=== PATIENT | male | born 1955 | race Caucasian/White ===

== ENCOUNTER 2022-01-21 12:59 | Inpatient (IN) | payer MEDICAID ==
[~2022-01-21] VITALS: Ht 165.1 cm; Wt 68.7 kg
[2022-01-21] VITALS (20 sets, daily range): BP systolic 89–134; BP diastolic 49–64
[2022-01-21 13:58] LABS: BASOPHILS # (AUTO) 0.3 K/uL (0.0-0.2); BASOPHILS % (AUTO) 1.5 % (0.0-2.0); EOSINOPHILS % (AUTO) 3.6 % (0.0-6.0); HEMATOCRIT 25 % (39-51); HEMOGLOBIN 7.9 g/dL (13.5-17.5); LYMPHOCYTES # (AUTO) 0.3 K/uL (0.8-4.8); LYMPHOCYTES % (AUTO) 1.6 % (20.0-44.0); MEAN CORPUSCULAR HGB CONC 32 g/dl (31.0-36.0); MEAN CORPUSCULAR VOLUME 85 fL (80-96); MONOCYTES # (AUTO) 0.6 K/uL (0.1-1.30); MONOCYTES % (AUTO) 3.1 % (2.0-12.0); NEUTROPHILS # (AUTO) 17.9 K/uL (1.8-8.9); NEUTROPHILS % (AUTO) 90.2 % (43.0-81.0); PLATELET COUNT (AUTO) 88 K/uL (150-450); RED BLOOD CELL COUNT(AUTO) 2.87 MIL/uL (4.5-6.0); WHITE BLOOD COUNT (AUTO) 19.9 K/uL (4.3-11.0)
[2022-01-21] MEDS ORDERED: ONDANSETRON 4 MG TAB.RAPDIS ONE (14:05)
[2022-01-21 14:09] LABS: ALBUMIN 2.3 g/dL (3.4-5.0); BILIRUBIN,DIRECT 0.4 mg/dL (0.0-0.2); BILIRUBIN,TOTAL 0.8 mg/dL (0.2-1.0); CALCIUM, SERUM 7.8 mg/dL (8.5-10.1); TOTAL PROTEIN, SERUM 6.1 g/dL (6.4-8.2)
[2022-01-21] MEDS ORDERED: IV NS 0.9% 1,000 ML BAG IV ONE ×2 (14:30→15:00)
[2022-01-21] MEDS ORDERED: OCTREOTIDE 50 MCG/ML AMPUL IV ONE (15:00)
[2022-01-21] MEDS ORDERED: PANTOPRAZOLE 80 MG in IV NS 0.9% 100 ML IV ONE (15:00)
[2022-01-21] MEDS ORDERED: Calcium Gluconate 1GM/10ML 4.65 MEQ in IV D5W 50 ML IV ONE (15:00)
[2022-01-21] MEDS ORDERED: CEFTRIAXONE 1GM BAG (ER ONLY) 50 ML IV ONE ×2 (15:00→15:18)
[2022-01-21] MEDS ORDERED: DEXTROSE 50%-WATER 50 ML DISP.SYRIN IVP ONE (15:00)
[2022-01-21] MEDS ORDERED: DEXTROSE 50%-WATER 50 ML DISP.SYRIN ONE (15:18)
[2022-01-21] MEDS ORDERED: OCTREOTIDE 100 MCG/ML VIAL ONE (15:18)
[2022-01-21] MEDS ORDERED: ACETAMINOPHEN 650 MG/SUPP.RECT RC ONE ×2 (15:27→15:30)
[2022-01-21] MEDS ORDERED: ONDANSETRON 4 MG TAB.RAPDIS SL ONE (15:30)
[2022-01-21] MEDS ORDERED: METOCLOPRAMIDE HCL 10 MG/2 ML VIAL IV ONE (15:30)
[2022-01-21 15:34] LABS: BAND % (MANUAL) 32 % (0.0-5.0); LYMPHOCYTES % (MANUAL) 4 % (16-48); MONOCYTES % (MANUAL) 3 % (0-11.0); NEUTROPHILS % (MANUAL) 58 (42-76); REACTIVE LYMPHOCYTES 2 % (0-0)
[2022-01-21] MEDS ORDERED: METOCLOPRAMIDE HCL 10 MG/2 ML VIAL ONE (15:40)
[2022-01-21 15:44] LABS: ABG BASE EXCESS -10.1 mmol/L; ABG OXYGEN SATURATION 93.1 % (92.0-98.5); ABG PCO2 31.1 mmHg (35.0-45.0); ABG PH 7.308 (7.350-7.450); ABG PO2 81.2 mmHg (75.0-100.0); AaDO2 204.3 mmHg; COHb 0.2 % (0.5-1.5); MetHb 0.6 % (0.0-1.5); O2Hb 92.4 % (94.0-97.0); SITE, ABG Right Brachial; VENT MODE, BG nasal cannula
[2022-01-21] MEDS ORDERED: ANESTHESIA TRAY IN PYXIS 1 EA TRAY MC ONE ×2 (16:16→22:44)
[2022-01-21] MEDS ORDERED: FAMOTIDINE/PF INJ 20 MG/2 ML VIAL IV ONE (17:00)
[2022-01-21] MEDS ORDERED: PANTOPRAZOLE 40 MG VIAL IV SCH (17:00)
[2022-01-21] MEDS ORDERED: Z GUARD REMEDY 4 OZ OINT TP PRN (17:00)
[2022-01-21] MEDS ORDERED: SUCCINYLCHOLINE CHLORIDE 20 MG/ML VIAL ONE (17:01)
[2022-01-21] MEDS ORDERED: PROPOFOL 100 ML ONE (17:13)
[2022-01-21] MEDS ORDERED: ROCURONIUM BROMIDE 100 MG/10 ML VIAL IV ONE (17:30)
[2022-01-21] MEDS ORDERED: NOREPINEPHRINE 8 MG in IV NS 0.9% 242 ML IV PRN ×2 (17:30→19:00)
[2022-01-21] MEDS ORDERED: VANCOMYCIN 500 MG in IV D5W 100ml IV SCH (17:30)
[2022-01-21] MEDS ORDERED: ETOMIDATE 2 MG/ML VIAL IV ONE (17:30)
[2022-01-21] MEDS ORDERED: PANTOPRAZOLE 40 MG VIAL ONE (17:57)
[2022-01-21] MEDS: NOREPINEPHRINE 8 MG in IV NS 0.9% 242 ML IV PRN (19:15)
[2022-01-21] MEDS ORDERED: CEFTRIAXONE 1 G in IV D5W 50 ML IV SCH (19:30)
[2022-01-21] MEDS ORDERED: OCTREOTIDE 500 MCG/ML VIAL ONE (19:36)
[2022-01-21] MEDS: PANTOPRAZOLE 80 MG in IV NS 0.9% 500 ML IV PRN (19:38)
[2022-01-21] MEDS: OCTREOTIDE 1,250 MCG in IV NS 0.9% 247.5 ML IV PRN (19:39)
[2022-01-21] MEDS: PROPOFOL 100 ML IV PRN (19:50)
[2022-01-21] MEDS: IV NS 0.9% 250 ML IV PRN (19:50)
[2022-01-21] MEDS ORDERED: METRONIDAZOLE 500MG/ NS 100ML 100 ML IV ONE (19:54)
[2022-01-21 20:10] LABS: HEMOGLOBIN 8.2 g/dL (13.5-17.5)
[2022-01-21 20:14] LABS: ABG BASE EXCESS -13.6 mmol/L; ABG OXYGEN SATURATION 96.6 % (92.0-98.5); ABG PCO2 52.8 mmHg (35.0-45.0); ABG PO2 112.9 mmHg (75.0-100.0); AaDO2 547.3 mmHg; COHb 0.6 % (0.5-1.5); MetHb 0.5 % (0.0-1.5); O2Hb 95.5 % (94.0-97.0); PEEP,BG 5 cm H2O; SITE, ABG Right Radial; VT, ABG 500 mL
[2022-01-21] MEDS: METRONIDAZOLE 500MG/ NS 100ML 500 MG in PREMIX 1 EA IV SCH (20:47)
[2022-01-22] VITALS (100 sets, daily range): BP systolic 85–126; BP diastolic 44–60
[2022-01-22 03:02] LABS: ABG BASE EXCESS -13.4 mmol/L; ABG OXYGEN SATURATION 98.7 % (92.0-98.5); ABG PCO2 67.4 mmHg (35.0-45.0); ABG PH 7.022 (7.350-7.450); ABG PO2 192.3 mmHg (75.0-100.0); AaDO2 453.3 mmHg; COHb 0.3 % (0.5-1.5); MetHb 0.7 % (0.0-1.5); O2Hb 97.7 % (94.0-97.0); PEEP,BG 0 cm H2O; SITE, ABG Left Radial; VENT MODE, BG AC18 500 100% PEEP+0; VT, ABG 500 mL
[2022-01-22] MEDS: NOREPINEPHRINE 8 MG in IV NS 0.9% 242 ML IV PRN ×2 (03:21→09:17)
[2022-01-22] MEDS ORDERED: PANTOPRAZOLE 40 MG VIAL ONE (03:23)
[2022-01-22] MEDS: METRONIDAZOLE 500MG/ NS 100ML 500 MG in PREMIX 1 EA IV SCH (04:06)
[2022-01-22] MEDS: PANTOPRAZOLE 80 MG in IV NS 0.9% 500 ML IV PRN ×2 (04:06→14:38)
[2022-01-22 05:12] LABS: BASOPHILS % (AUTO) 0.1 % (0.0-2.0); EOSINOPHILS % (AUTO) 4.3 % (0.0-6.0); HEMATOCRIT 25 % (39-51); HEMOGLOBIN 7.9 g/dL (13.5-17.5); LYMPHOCYTES # (AUTO) 0.4 K/uL (0.8-4.8); LYMPHOCYTES % (AUTO) 3.1 % (20.0-44.0); MEAN CORPUSCULAR HGB CONC 32 g/dl (31.0-36.0); MEAN CORPUSCULAR VOLUME 87 fL (80-96); MONOCYTES # (AUTO) 0.5 K/uL (0.1-1.30); MONOCYTES % (AUTO) 3.6 % (2.0-12.0); NEUTROPHILS # (AUTO) 11.4 K/uL (1.8-8.9); NEUTROPHILS % (AUTO) 88.9 % (43.0-81.0); RED BLOOD CELL COUNT(AUTO) 2.83 MIL/uL (4.5-6.0); WHITE BLOOD COUNT (AUTO) 12.8 K/uL (4.3-11.0)
[2022-01-22 05:17] LABS: ALBUMIN 1.8 g/dL (3.4-5.0); BILIRUBIN,DIRECT 0.6 mg/dL (0.0-0.2); BILIRUBIN,TOTAL 0.9 mg/dL (0.2-1.0); CALCIUM, SERUM 6.7 mg/dL (8.5-10.1); CREATININE 5.6 mg/dL (0.6-1.3); MAGNESIUM 2.1 mg/dL (1.8-2.4); POTASSIUM 4.5 mmol/L (3.5-5.1); THYROID STIMULATING HORMONE 0.22 uIU/mL (0.358-3.74); TOTAL PROTEIN, SERUM 5.1 g/dL (6.4-8.2)
[2022-01-22 05:44] LABS: PHOSPHORUS 8.9 mg/dL (2.5-4.9)
[2022-01-22] MEDS ORDERED: CEFTRIAXONE 2 G in IV D5W 100 ML IV SCH (06:00)
[2022-01-22 08:07] LABS: ABG BASE EXCESS -11.5 mmol/L; ABG OXYGEN SATURATION 96.8 % (92.0-98.5); ABG PCO2 37.3 mmHg (35.0-45.0); ABG PH 7.228 (7.350-7.450); ABG PO2 95.8 mmHg (75.0-100.0); AaDO2 435.4 mmHg; COHb 0.2 % (0.5-1.5); MetHb 0.3 % (0.0-1.5); O2Hb 96.3 % (94.0-97.0); SITE, ABG Right Radial
[2022-01-22] MEDS: PROPOFOL 100 ML IV PRN ×2 (08:15→16:03)
[2022-01-22] MEDS: ACETAMINOPHEN 650 MG/SUPP.RECT RC PRN (09:01)
[2022-01-22 09:32] LABS: PLATELET COUNT (AUTO) 47 K/uL (150-450)
[2022-01-22] MEDS ORDERED: SODIUM BICARBONATE SYR 50 MEQ/50 ML DISP.SYRIN IV ONE (10:00)
[2022-01-22] MEDS: Sodium Bicarbonate 100 MEQ in IV NS 0.9% 1,000 ML IV SCH (10:29)
[2022-01-22] MEDS ORDERED: CEFTRIAXONE 1 G in IV D5W 50 ML IV SCH (11:00)
[2022-01-22] MEDS ORDERED: PIPERACILLIN /TAZOBACTAM 2.25 G in IV D5W 50 ML IV SCH (12:00)
[2022-01-22 12:42] LABS: BAND % (MANUAL) 12 % (0.0-5.0); LYMPHOCYTES % (MANUAL) 8 % (16-48); MONOCYTES % (MANUAL) 8 % (0-11.0); MYELOCYTES % 1 % (0-0); NEUTROPHILS % (MANUAL) 71 (42-76)
[2022-01-22] MEDS ORDERED: CEFAZOLIN 1 GM VIAL IV ONE (12:45)
[2022-01-22] MEDS ORDERED: IV D5W 50 ML BAG IV ONE (12:45)
[2022-01-22] MEDS: NOREPINEPHRINE 32 MG in IV NS 0.9% 218 ML IV PRN (14:28)
[2022-01-22] MEDS: OCTREOTIDE 1,250 MCG in IV NS 0.9% 247.5 ML IV PRN (20:40)
[2022-01-22] MEDS: IV NS 0.9% 250 ML IV PRN (22:01)
[2022-01-23] VITALS (97 sets, daily range): BP systolic 73–123; BP diastolic 38–62
[2022-01-23] MEDS: PANTOPRAZOLE 80 MG in IV NS 0.9% 500 ML IV PRN ×3 (00:02→20:01)
[2022-01-23] MEDS: PROPOFOL 100 ML IV PRN ×4 (00:02→22:27)
[2022-01-23] MEDS: Sodium Bicarbonate 100 MEQ in IV NS 0.9% 1,000 ML IV SCH ×2 (01:01→14:34)
[2022-01-23 04:51] LABS: BILIRUBIN,URINE NEGATIVE (NEGATIVE); COLOR,URINE YELLOW (YELLOW); LEUKOCYTE ESTERASE ,URINE TRACE (NEGATIVE); NITRITE, URINE POSITIVE (NEGATIVE); PROTEIN,URINE >=300 mg/dl (NEGATIVE); UGLUCOSE NEGATIVE (NEGATIVE); UROBILINOGEN,URINE 0.2 EU/dL (0.2)
[2022-01-23 04:54] LABS: EOSINOPHILS % (AUTO) 6.7 % (0.0-6.0); HEMATOCRIT 25 % (39-51); HEMOGLOBIN 8.1 g/dL (13.5-17.5); LYMPHOCYTES # (AUTO) 0.6 K/uL (0.8-4.8); LYMPHOCYTES % (AUTO) 2.8 % (20.0-44.0); MEAN CORPUSCULAR HGB CONC 33 g/dl (31.0-36.0); MEAN CORPUSCULAR VOLUME 87 fL (80-96); MONOCYTES % (AUTO) 4.9 % (2.0-12.0); NEUTROPHILS # (AUTO) 17.5 K/uL (1.8-8.9); NEUTROPHILS % (AUTO) 85.6 % (43.0-81.0); RED BLOOD CELL COUNT(AUTO) 2.81 MIL/uL (4.5-6.0); WHITE BLOOD COUNT (AUTO) 20.4 K/uL (4.3-11.0)
[2022-01-23 05:25] LABS: CALCIUM, SERUM 6.1 mg/dL (8.5-10.1); CREATININE 6.7 mg/dL (0.6-1.3); MAGNESIUM 2.1 mg/dL (1.8-2.4); POTASSIUM 4.7 mmol/L (3.5-5.1)
[2022-01-23 05:38] LABS: URINE SODIUM, RANDOM 140 mmol/l (40-220)
[2022-01-23 05:47] LABS: CREATININE, URINE < 5.0 MG/DL (30.0-125.0)
[2022-01-23 05:57] LABS: PHOSPHORUS 8.7 mg/dL (2.5-4.9)
[2022-01-23] MEDS ORDERED: VANCOMYCIN 500 MG in IV D5W 100ml IV SCH (06:00)
[2022-01-23] MEDS ORDERED: CEFTRIAXONE 2 G in IV D5W 100 ML IV SCH (06:00)
[2022-01-23 07:02] LABS: BACTERIA,URINE Few /HPF (None Seen); RBC,URINE 51-80 /HPF (0-2); SQUAMOUS EPITHELIAL CELL,UR Rare /HPF (None Seen)
[2022-01-23 07:28] LABS: PLATELET COUNT (AUTO) 9 K/uL (150-450)
[2022-01-23 07:36] LABS: BAND % (MANUAL) 8 % (0.0-5.0); EOSINOPHILS % (MANUAL) 1 % (0-4); LYMPHOCYTES % (MANUAL) 2 % (16-48); METAMYELOCYTES % 1 % (0-0); MONOCYTES % (MANUAL) 6 % (0-11.0); MYELOCYTES % 1 % (0-0); NEUTROPHILS % (MANUAL) 81 (42-76)
[2022-01-23 07:52] LABS: ABG BASE EXCESS -11.1 mmol/L; ABG PCO2 33.7 mmHg (35.0-45.0); ABG PH 7.264 (7.350-7.450); ABG PO2 89.9 mmHg (75.0-100.0); AaDO2 228.7 mmHg; COHb 0.3 % (0.5-1.5); MetHb 0.5 % (0.0-1.5); O2Hb 95.2 % (94.0-97.0); SITE, ABG Right Radial
[2022-01-23] MEDS: NOREPINEPHRINE 32 MG in IV NS 0.9% 218 ML IV PRN ×2 (08:14→23:34)
[2022-01-23 10:09] LABS: EOSINOPHIL,URINE Rare
[2022-01-23 15:16] LABS: URINE TOTAL PROTEIN 837.2 mg/dL (0-11.9)
[2022-01-23] MEDS: MEROPENEM 500 MG in IV NS 0.9% 50 ML IV SCH (16:26)
[2022-01-23] MEDS ORDERED: PHYTONADIONE INJ 10 MG/1 ML AMPUL SQ ONE (17:30)
[2022-01-23] MEDS: Folic acid 1 MG in IV D5W 50 ML IV SCH (17:39)
[2022-01-23 18:37] LABS: D-DIMER 26.64 mg/L(FEU (0.17-0.50)
[2022-01-23] MEDS: OCTREOTIDE 1,250 MCG in IV NS 0.9% 247.5 ML IV PRN (20:01)
[2022-01-23] MEDS: IV NS 0.9% 250 ML IV PRN (23:00)
[2022-01-24] VITALS (103 sets, daily range): BP systolic 83–132; BP diastolic 38–71
[2022-01-24] MEDS: Sodium Bicarbonate 100 MEQ in IV NS 0.9% 1,000 ML IV SCH ×2 (02:45→16:16)
[2022-01-24 05:05] LABS: BILIRUBIN,TOTAL 1.1 mg/dL (0.2-1.0); CALCIUM, SERUM 6.2 mg/dL (8.5-10.1); CREATININE 6.7 mg/dL (0.6-1.3); D-DIMER 26.79 mg/L(FEU (0.17-0.50); POTASSIUM 4.5 mmol/L (3.5-5.1); TOTAL PROTEIN, SERUM 4.7 g/dL (6.4-8.2)
[2022-01-24 05:06] LABS: BASOPHILS % (AUTO) 0.1 % (0.0-2.0); HEMATOCRIT 23 % (39-51); HEMOGLOBIN 7.7 g/dL (13.5-17.5); LYMPHOCYTES # (AUTO) 0.8 K/uL (0.8-4.8); LYMPHOCYTES % (AUTO) 4.3 % (20.0-44.0); MEAN CORPUSCULAR HGB CONC 33 g/dl (31.0-36.0); MEAN CORPUSCULAR VOLUME 86 fL (80-96); MONOCYTES # (AUTO) 1.1 K/uL (0.1-1.30); MONOCYTES % (AUTO) 6.3 % (2.0-12.0); NEUTROPHILS # (AUTO) 15.9 K/uL (1.8-8.9); NEUTROPHILS % (AUTO) 88.3 % (43.0-81.0); RED BLOOD CELL COUNT(AUTO) 2.72 MIL/uL (4.5-6.0)
[2022-01-24] MEDS: PROPOFOL 100 ML IV PRN ×3 (05:06→18:16)
[2022-01-24] MEDS ORDERED: ALBUMIN 25% 100 ML IV ONE (05:10)
[2022-01-24] MEDS: ALBUMIN 25% 25 GM in PREMIX 1 EA IV PRN (05:16)
[2022-01-24] MEDS: PANTOPRAZOLE 80 MG in IV NS 0.9% 500 ML IV PRN ×2 (05:28→15:21)
[2022-01-24 05:41] LABS: ALBUMIN 1.4 g/dL (3.4-5.0)
[2022-01-24 07:59] LABS: ABG BASE EXCESS -4.4 mmol/L; ABG PCO2 33.1 mmHg (35.0-45.0); ABG PH 7.397 (7.350-7.450); ABG PO2 112.9 mmHg (75.0-100.0); AaDO2 206.4 mmHg; COHb 0.4 % (0.5-1.5); MetHb 0.5 % (0.0-1.5); O2Hb 97.1 % (94.0-97.0); SITE, ABG Right Radial
[2022-01-24 08:06] LABS: *SPE A/G RATIO 0.7 (0.7-1.7); *SPE ALPHA-1-GLOBULIN 0.4 g/dL (0.0-0.4); *SPE ALPHA-2-GLOBULIN 0.7 g/dL (0.4-1.0); *SPE BETA GLOBULIN 0.7 g/dL (0.7-1.3); *SPE M-SPIKE Not Observed g/dL (Not Observed)
[2022-01-24 08:21] LABS: PLATELET COUNT (AUTO) 13 K/uL (150-450)
[2022-01-24] MEDS: MEROPENEM 500 MG in IV NS 0.9% 50 ML IV SCH (15:21)
[2022-01-24 17:03] LABS: BAND % (MANUAL) 2 % (0.0-5.0); EOSINOPHILS % (MANUAL) 1 % (0-4); LYMPHOCYTES % (MANUAL) 6 % (16-48); MONOCYTES % (MANUAL) 3 % (0-11.0); NEUTROPHILS % (MANUAL) 88 (42-76)
[2022-01-24] MEDS: Folic acid 1 MG in IV D5W 50 ML IV SCH (18:16)
[2022-01-24] MEDS: OCTREOTIDE 1,250 MCG in IV NS 0.9% 247.5 ML IV PRN (21:11)
[2022-01-25] VITALS (104 sets, daily range): BP systolic 86–147; BP diastolic 42–102
[2022-01-25] MEDS: PANTOPRAZOLE 80 MG in IV NS 0.9% 500 ML IV PRN (00:27)
[2022-01-25] MEDS: PROPOFOL 100 ML IV PRN ×4 (00:27→23:35)
[2022-01-25 04:23] LABS: BASOPHILS % (AUTO) 0.1 % (0.0-2.0); EOSINOPHILS % (AUTO) 0.8 % (0.0-6.0); HEMATOCRIT 22 % (39-51); HEMOGLOBIN 7.3 g/dL (13.5-17.5); LYMPHOCYTES # (AUTO) 0.9 K/uL (0.8-4.8); LYMPHOCYTES % (AUTO) 5.9 % (20.0-44.0); MEAN CORPUSCULAR HGB CONC 33 g/dl (31.0-36.0); MEAN CORPUSCULAR VOLUME 85 fL (80-96); MONOCYTES # (AUTO) 1.1 K/uL (0.1-1.30); MONOCYTES % (AUTO) 7.4 % (2.0-12.0); NEUTROPHILS # (AUTO) 12.7 K/uL (1.8-8.9); NEUTROPHILS % (AUTO) 85.8 % (43.0-81.0); RED BLOOD CELL COUNT(AUTO) 2.58 MIL/uL (4.5-6.0); WHITE BLOOD COUNT (AUTO) 14.8 K/uL (4.3-11.0)
[2022-01-25 04:51] LABS: ALBUMIN 1.6 g/dL (3.4-5.0); BILIRUBIN,TOTAL 1.7 mg/dL (0.2-1.0); CALCIUM, SERUM 6.6 mg/dL (8.5-10.1); PHOSPHORUS 6.1 mg/dL (2.5-4.9); POTASSIUM 3.9 mmol/L (3.5-5.1); TOTAL PROTEIN, SERUM 4.6 g/dL (6.4-8.2)
[2022-01-25 04:59] LABS: PLATELET COUNT (AUTO) 9 K/uL (150-450)
[2022-01-25] MEDS: Sodium Bicarbonate 100 MEQ in IV NS 0.9% 1,000 ML IV SCH ×2 (05:13→18:46)
[2022-01-25 05:23] LABS: D-DIMER 17.15 mg/L(FEU (0.17-0.50)
[2022-01-25 05:50] LABS: LYMPHOCYTES % (MANUAL) 5 % (16-48); MONOCYTES % (MANUAL) 7 % (0-11.0); NEUTROPHILS % (MANUAL) 88 (42-76)
[2022-01-25 07:10] LABS: IMMUNOGLOBULIN A, SERUM 233 mg/dL (61-437); IMMUNOGLOBULIN G, SERUM 728 mg/dL (603-1613); IMMUNOGLOBULIN M, SERUM 48 mg/dL (20-172)
[2022-01-25 08:12] LABS: *SPE A/G RATIO 0.7 (0.7-1.7); *SPE ALPHA-1-GLOBULIN 0.4 g/dL (0.0-0.4); *SPE ALPHA-2-GLOBULIN 0.7 g/dL (0.4-1.0); *SPE BETA GLOBULIN 0.5 g/dL (0.7-1.3); *SPE M-SPIKE Not Observed g/dL (Not Observed)
[2022-01-25 09:12] LABS: OCCULT BLOOD STOOL POSITIVE (NEGATIVE)
[2022-01-25] MEDS ORDERED: CEFTRIAXONE 2 G in IV D5W 100 ML IV SCH (10:30)
[2022-01-25 11:10] LABS: *ANA ANTI-CENTROMERE B AB <0.2 AI (0.0-0.9); *ANA ANTI-DNA(DS) AB, QN 1 IU/mL (0-9); *ANA ANTI-JO-1 <0.2 AI (0.0-0.9); *ANA ANTICHROMATIN ANTIBODY <0.2 AI (0.0-0.9); *ANA RNP ANTIBODIES <0.2 AI (0.0-0.9); *ANA SJOGREN'S ANTI-SS-A <0.2 AI (0.0-0.9); *ANA SJOGREN'S ANTI-SS-B <0.2 AI (0.0-0.9); *ANAANTI-SCLERODERMA-70 AB <0.2 AI (0.0-0.9); *ANASMITH AB <0.2 AI (0.0-0.9)
[2022-01-25] MEDS: ZOSYN IVPB 2.25 G in IV D5W 50ml IV SCH ×3 (12:36→23:35)
[2022-01-25] MEDS: NOREPINEPHRINE 8 MG in IV NS 0.9% 242 ML IV PRN ×2 (12:37→13:24)
[2022-01-25] MEDS ORDERED: METRONIDAZOLE 500MG/ NS 100ML 500 MG in PREMIX 1 EA IV SCH (13:00)
[2022-01-25] MEDS: IV NS 0.9% 250 ML IV PRN (14:00)
[2022-01-25] MEDS: SOD FERRIC GLUC 125 MG in IV NS 0.9% 100 ML IV SCH (14:30)
[2022-01-25] MEDS: Folic acid 1 MG in IV D5W 50 ML IV SCH (17:56)
[2022-01-25] MEDS: PANTOPRAZOLE 40 MG VIAL IV SCH (20:46)
[2022-01-25] MEDS: OCTREOTIDE 1,250 MCG in IV NS 0.9% 247.5 ML IV PRN (21:08)
[2022-01-26] VITALS (96 sets, daily range): BP systolic 83–134; BP diastolic 45–78
[2022-01-26 04:23] LABS: BASOPHILS % (AUTO) 0.3 % (0.0-2.0); EOSINOPHILS % (AUTO) 0.7 % (0.0-6.0); HEMATOCRIT 23 % (39-51); HEMOGLOBIN 7.6 g/dL (13.5-17.5); MEAN CORPUSCULAR HGB CONC 33 g/dl (31.0-36.0); MEAN CORPUSCULAR VOLUME 85 fL (80-96); MONOCYTES # (AUTO) 0.9 K/uL (0.1-1.30); MONOCYTES % (AUTO) 7.1 % (2.0-12.0); NEUTROPHILS # (AUTO) 10.5 K/uL (1.8-8.9); NEUTROPHILS % (AUTO) 83.9 % (43.0-81.0); RED BLOOD CELL COUNT(AUTO) 2.72 MIL/uL (4.5-6.0); WHITE BLOOD COUNT (AUTO) 12.5 K/uL (4.3-11.0)
[2022-01-26 04:51] LABS: D-DIMER 16.25 mg/L(FEU (0.17-0.50)
[2022-01-26 05:07] LABS: PLATELET COUNT (AUTO) 24 K/uL (150-450)
[2022-01-26 05:14] LABS: CALCIUM, SERUM 6.8 mg/dL (8.5-10.1); CREATININE 4.2 mg/dL (0.6-1.3); POTASSIUM 3.8 mmol/L (3.5-5.1); TOTAL PROTEIN, SERUM 4.3 g/dL (6.4-8.2)
[2022-01-26] MEDS: ZOSYN IVPB 2.25 G in IV D5W 50ml IV SCH ×4 (05:32→23:10)
[2022-01-26] MEDS: PROPOFOL 100 ML IV PRN ×3 (05:35→17:30)
[2022-01-26 05:44] LABS: ALBUMIN 1.3 g/dL (3.4-5.0)
[2022-01-26] MEDS: Sodium Bicarbonate 100 MEQ in IV NS 0.9% 1,000 ML IV SCH ×2 (07:42→21:32)
[2022-01-26] MEDS: PANTOPRAZOLE 40 MG VIAL IV SCH ×2 (08:07→21:33)
[2022-01-26 08:16] LABS: ABG BASE EXCESS 0.9 mmol/L; ABG OXYGEN SATURATION 94.8 % (92.0-98.5); ABG PCO2 32.4 mmHg (35.0-45.0); ABG PH 7.489 (7.350-7.450); ABG PO2 79.5 mmHg (75.0-100.0); AaDO2 168.4 mmHg; COHb 0.5 % (0.5-1.5); MetHb 0.5 % (0.0-1.5); O2Hb 93.9 % (94.0-97.0); SITE, ABG Right Radial; VENT MODE, BG AC 24 vT500 +5 .40
[2022-01-26 10:11] LABS: HIV-2 AB EIA Negative (Neg:<1.00)
[2022-01-26] MEDS: NOREPINEPHRINE 8 MG in IV NS 0.9% 242 ML IV PRN (13:56)
[2022-01-26] MEDS: SOD FERRIC GLUC 125 MG in IV NS 0.9% 100 ML IV SCH (13:56)
[2022-01-26] MEDS ORDERED: FENTANYL CITRAT IV 2,500 MCG in IV NS 0.9% 200 ML IV PRN (14:00)
[2022-01-26] MEDS: FENTANYL CITRAT IV 2,500 MCG in IV NS 0.9% 200 ML IV PRN (14:32)
[2022-01-26 16:37] LABS: LYMPHOCYTES % (MANUAL) 11 % (16-48); MONOCYTES % (MANUAL) 7 % (0-11.0); NEUTROPHILS % (MANUAL) 82 (42-76)
[2022-01-26] MEDS: Folic acid 1 MG in IV D5W 50 ML IV SCH (17:33)
[2022-01-26] MEDS: OCTREOTIDE 1,250 MCG in IV NS 0.9% 247.5 ML IV PRN (21:32)
[2022-01-27] VITALS (97 sets, daily range): BP systolic 76–124; BP diastolic 38–67
[2022-01-27] MEDS: PROPOFOL 100 ML IV PRN (01:20)
[2022-01-27 04:10] LABS: BASOPHILS # (AUTO) 0.1 K/uL (0.0-0.2); BASOPHILS % (AUTO) 0.5 % (0.0-2.0); EOSINOPHILS % (AUTO) 0.7 % (0.0-6.0); HEMATOCRIT 26 % (39-51); HEMOGLOBIN 8.5 g/dL (13.5-17.5); LYMPHOCYTES # (AUTO) 1.4 K/uL (0.8-4.8); LYMPHOCYTES % (AUTO) 8.6 % (20.0-44.0); MEAN CORPUSCULAR HGB CONC 33 g/dl (31.0-36.0); MEAN CORPUSCULAR VOLUME 85 fL (80-96); MONOCYTES % (AUTO) 6.3 % (2.0-12.0); NEUTROPHILS # (AUTO) 13.3 K/uL (1.8-8.9); NEUTROPHILS % (AUTO) 83.9 % (43.0-81.0); RED BLOOD CELL COUNT(AUTO) 3.02 MIL/uL (4.5-6.0); WHITE BLOOD COUNT (AUTO) 15.9 K/uL (4.3-11.0)
[2022-01-27 04:35] LABS: BILIRUBIN,TOTAL 2.3 mg/dL (0.2-1.0); CALCIUM, SERUM 6.6 mg/dL (8.5-10.1); CREATININE 4.9 mg/dL (0.6-1.3); MAGNESIUM 2.1 mg/dL (1.8-2.4); PHOSPHORUS 6.5 mg/dL (2.5-4.9)
[2022-01-27 04:50] LABS: ALBUMIN 1.3 g/dL (3.4-5.0)
[2022-01-27 05:05] LABS: PLATELET COUNT (AUTO) 39 K/uL (150-450)
[2022-01-27] MEDS: ZOSYN IVPB 2.25 G in IV D5W 50ml IV SCH ×4 (05:58→23:33)
[2022-01-27] MEDS: PANTOPRAZOLE 40 MG VIAL IV SCH ×2 (08:39→21:33)
[2022-01-27] MEDS: JEVITY 1.2 CAL 1,000 ML BOTTLE GT PRN (10:26)
[2022-01-27] MEDS: FENTANYL CITRAT IV 2,500 MCG in IV NS 0.9% 200 ML IV PRN (10:31)
[2022-01-27] MEDS: FOLIC ACID 1 MG TABLET GT SCH (11:04)
[2022-01-27] MEDS: NOREPINEPHRINE 8 MG in IV NS 0.9% 242 ML IV PRN (14:01)
[2022-01-27] MEDS: SOD FERRIC GLUC 125 MG in IV NS 0.9% 100 ML IV SCH (14:27)
[2022-01-27] MEDS: MIDAZOLAM HCL 100 MG in IV NS 0.9% 80 ML IV PRN (16:56)
[2022-01-28] VITALS (94 sets, daily range): BP systolic 91–130; BP diastolic 44–67
[2022-01-28 05:26] LABS: BASOPHILS # (AUTO) 0.1 K/uL (0.0-0.2); BASOPHILS % (AUTO) 0.5 % (0.0-2.0); EOSINOPHILS % (AUTO) 0.7 % (0.0-6.0); HEMATOCRIT 26 % (39-51); HEMOGLOBIN 8.4 g/dL (13.5-17.5); LYMPHOCYTES # (AUTO) 1.7 K/uL (0.8-4.8); LYMPHOCYTES % (AUTO) 8.4 % (20.0-44.0); MEAN CORPUSCULAR HGB CONC 32 g/dl (31.0-36.0); MEAN CORPUSCULAR VOLUME 86 fL (80-96); MONOCYTES # (AUTO) 1.9 K/uL (0.1-1.30); MONOCYTES % (AUTO) 9.4 % (2.0-12.0); NEUTROPHILS # (AUTO) 16.3 K/uL (1.8-8.9); PLATELET COUNT (AUTO) 56 K/uL (150-450); RED BLOOD CELL COUNT(AUTO) 3.04 MIL/uL (4.5-6.0); WHITE BLOOD COUNT (AUTO) 20.1 K/uL (4.3-11.0)
[2022-01-28] MEDS: ZOSYN IVPB 2.25 G in IV D5W 50ml IV SCH ×4 (05:27→23:29)
[2022-01-28 05:46] LABS: BILIRUBIN,TOTAL 2.6 mg/dL (0.2-1.0); CALCIUM, SERUM 7.4 mg/dL (8.5-10.1); CREATININE 3.8 mg/dL (0.6-1.3); MAGNESIUM 2.1 mg/dL (1.8-2.4); PHOSPHORUS 6.8 mg/dL (2.5-4.9); POTASSIUM 4.6 mmol/L (3.5-5.1); TOTAL PROTEIN, SERUM 4.8 g/dL (6.4-8.2)
[2022-01-28 06:26] LABS: ALBUMIN 1.2 g/dL (3.4-5.0)
[2022-01-28 07:16] LABS: LYMPHOCYTES % (MANUAL) 10 % (16-48); MONOCYTES % (MANUAL) 8 % (0-11.0); NEUTROPHILS % (MANUAL) 82 (42-76)
[2022-01-28] MEDS: FOLIC ACID 1 MG TABLET GT SCH (08:43)
[2022-01-28] MEDS: PANTOPRAZOLE 40 MG VIAL IV SCH ×2 (08:43→21:08)
[2022-01-28] MEDS: NOREPINEPHRINE 8 MG in IV NS 0.9% 242 ML IV PRN (13:51)
[2022-01-28] MEDS: SOD FERRIC GLUC 125 MG in IV NS 0.9% 100 ML IV SCH (15:39)
[2022-01-28] MEDS: FENTANYL CITRAT IV 2,500 MCG in IV NS 0.9% 200 ML IV PRN (16:09)
[2022-01-28] MEDS: MIDAZOLAM HCL 100 MG in IV NS 0.9% 80 ML IV PRN (16:09)
[2022-01-28] MEDS: JEVITY 1.2 CAL 1,000 ML BOTTLE GT PRN (16:52)
[2022-01-29] VITALS (94 sets, daily range): BP systolic 94–126; BP diastolic 43–75
[2022-01-29 04:54] LABS: BASOPHILS # (AUTO) 0.2 K/uL (0.0-0.2); BASOPHILS % (AUTO) 0.8 % (0.0-2.0); EOSINOPHILS % (AUTO) 0.7 % (0.0-6.0); HEMATOCRIT 26 % (39-51); HEMOGLOBIN 8.1 g/dL (13.5-17.5); LYMPHOCYTES # (AUTO) 1.9 K/uL (0.8-4.8); LYMPHOCYTES % (AUTO) 8.4 % (20.0-44.0); MEAN CORPUSCULAR HGB CONC 32 g/dl (31.0-36.0); MEAN CORPUSCULAR VOLUME 87 fL (80-96); MONOCYTES # (AUTO) 1.8 K/uL (0.1-1.30); MONOCYTES % (AUTO) 8.2 % (2.0-12.0); NEUTROPHILS # (AUTO) 18.3 K/uL (1.8-8.9); NEUTROPHILS % (AUTO) 81.9 % (43.0-81.0); PLATELET COUNT (AUTO) 83 K/uL (150-450); RED BLOOD CELL COUNT(AUTO) 2.95 MIL/uL (4.5-6.0); WHITE BLOOD COUNT (AUTO) 22.3 K/uL (4.3-11.0)
[2022-01-29] MEDS: ZOSYN IVPB 2.25 G in IV D5W 50ml IV SCH ×4 (05:29→23:08)
[2022-01-29 05:37] LABS: BILIRUBIN,TOTAL 2.7 mg/dL (0.2-1.0); CALCIUM, SERUM 7.3 mg/dL (8.5-10.1); CREATININE 4.7 mg/dL (0.6-1.3); MAGNESIUM 2.3 mg/dL (1.8-2.4); POTASSIUM 4.8 mmol/L (3.5-5.1); TOTAL PROTEIN, SERUM 4.9 g/dL (6.4-8.2)
[2022-01-29 05:48] LABS: PHOSPHORUS 8.1 mg/dL (2.5-4.9)
[2022-01-29 05:49] LABS: ALBUMIN 1.2 g/dL (3.4-5.0)
[2022-01-29 09:47] LABS: ABG BASE EXCESS -3.8 mmol/L; ABG OXYGEN SATURATION 89.8 % (92.0-98.5); ABG PH 7.274 (7.350-7.450); ABG PO2 65.3 mmHg (75.0-100.0); AaDO2 233.8 mmHg; COHb 0.7 % (0.5-1.5); MetHb 0.3 % (0.0-1.5); O2Hb 88.9 % (94.0-97.0); PEEP,BG 5 cm H2O; SITE, ABG Right Radial; VENT MODE, BG AC 18 450 50% +5; VT, ABG 450 mL
[2022-01-29] MEDS: PANTOPRAZOLE 40 MG VIAL IV SCH ×2 (09:56→20:55)
[2022-01-29] MEDS: FOLIC ACID 1 MG TABLET GT SCH (09:56)
[2022-01-29 13:55] LABS: EOSINOPHILS % (MANUAL) 2 % (0-4); LYMPHOCYTES % (MANUAL) 10 % (16-48); METAMYELOCYTES % 1 % (0-0); MONOCYTES % (MANUAL) 12 % (0-11.0); MYELOCYTES % 1 % (0-0); NEUTROPHILS % (MANUAL) 74 (42-76)
[2022-01-29] MEDS: FENTANYL CITRAT IV 2,500 MCG in IV NS 0.9% 200 ML IV PRN (13:58)
[2022-01-29] MEDS: NOREPINEPHRINE 8 MG in IV NS 0.9% 242 ML IV PRN (13:59)
[2022-01-29] MEDS: SOD FERRIC GLUC 125 MG in IV NS 0.9% 100 ML IV SCH (14:22)
[2022-01-29] MEDS ORDERED: NEPRO 1,000 ML BOTTLE GT PRN (14:30)
[2022-01-29] MEDS: MIDAZOLAM HCL 100 MG in IV NS 0.9% 80 ML IV PRN (18:31)
[2022-01-29] MEDS: NEPRO 1,000 ML BOTTLE GT PRN (18:43)
[2022-01-30] VITALS (95 sets, daily range): BP systolic 90–128; BP diastolic 45–88
[2022-01-30 04:36] LABS: BASOPHILS # (AUTO) 0.2 K/uL (0.0-0.2); BASOPHILS % (AUTO) 0.7 % (0.0-2.0); EOSINOPHILS % (AUTO) 0.9 % (0.0-6.0); HEMATOCRIT 24 % (39-51); HEMOGLOBIN 7.8 g/dL (13.5-17.5); LYMPHOCYTES # (AUTO) 1.4 K/uL (0.8-4.8); LYMPHOCYTES % (AUTO) 6.2 % (20.0-44.0); MEAN CORPUSCULAR HGB CONC 32 g/dl (31.0-36.0); MEAN CORPUSCULAR VOLUME 87 fL (80-96); MONOCYTES % (AUTO) 9.1 % (2.0-12.0); NEUTROPHILS # (AUTO) 18.2 K/uL (1.8-8.9); NEUTROPHILS % (AUTO) 83.1 % (43.0-81.0); PLATELET COUNT (AUTO) 86 K/uL (150-450); RED BLOOD CELL COUNT(AUTO) 2.79 MIL/uL (4.5-6.0); WHITE BLOOD COUNT (AUTO) 21.9 K/uL (4.3-11.0)
[2022-01-30 05:01] LABS: CALCIUM, SERUM 7.4 mg/dL (8.5-10.1); CREATININE 3.6 mg/dL (0.6-1.3); MAGNESIUM 2.1 mg/dL (1.8-2.4); PHOSPHORUS 6.7 mg/dL (2.5-4.9); POTASSIUM 4.1 mmol/L (3.5-5.1)
[2022-01-30] MEDS: ZOSYN IVPB 2.25 G in IV D5W 50ml IV SCH ×4 (05:02→23:12)
[2022-01-30] MEDS: FOLIC ACID 1 MG TABLET GT SCH (08:34)
[2022-01-30] MEDS: PANTOPRAZOLE 40 MG VIAL IV SCH ×2 (08:34→20:20)
[2022-01-30] MEDS: FENTANYL CITRAT IV 2,500 MCG in IV NS 0.9% 200 ML IV PRN ×2 (09:41→21:45)
[2022-01-30] MEDS: NOREPINEPHRINE 8 MG in IV NS 0.9% 242 ML IV PRN (15:47)
[2022-01-30] MEDS: MIDAZOLAM HCL 100 MG in IV NS 0.9% 80 ML IV PRN (17:53)
[2022-01-30] MEDS: NEPRO 1,000 ML BOTTLE GT PRN (18:26)
[2022-01-31] VITALS (93 sets, daily range): BP systolic 83–133; BP diastolic 35–74
[2022-01-31 04:39] LABS: BASOPHILS # (AUTO) 0.1 K/uL (0.0-0.2); BASOPHILS % (AUTO) 0.5 % (0.0-2.0); EOSINOPHILS % (AUTO) 0.8 % (0.0-6.0); HEMATOCRIT 25 % (39-51); HEMOGLOBIN 7.9 g/dL (13.5-17.5); LYMPHOCYTES # (AUTO) 1.6 K/uL (0.8-4.8); LYMPHOCYTES % (AUTO) 8.4 % (20.0-44.0); MEAN CORPUSCULAR HGB CONC 32 g/dl (31.0-36.0); MEAN CORPUSCULAR VOLUME 87 fL (80-96); MONOCYTES # (AUTO) 1.7 K/uL (0.1-1.30); MONOCYTES % (AUTO) 9.2 % (2.0-12.0); NEUTROPHILS # (AUTO) 15.4 K/uL (1.8-8.9); NEUTROPHILS % (AUTO) 81.1 % (43.0-81.0); PLATELET COUNT (AUTO) 102 K/uL (150-450); RED BLOOD CELL COUNT(AUTO) 2.81 MIL/uL (4.5-6.0)
[2022-01-31 05:00] LABS: CALCIUM, SERUM 7.3 mg/dL (8.5-10.1); CREATININE 3.3 mg/dL (0.6-1.3); MAGNESIUM 2.1 mg/dL (1.8-2.4); PHOSPHORUS 5.7 mg/dL (2.5-4.9); POTASSIUM 4.2 mmol/L (3.5-5.1)
[2022-01-31] MEDS: ZOSYN IVPB 2.25 G in IV D5W 50ml IV SCH ×4 (05:05→23:08)
[2022-01-31] MEDS: PANTOPRAZOLE 40 MG VIAL IV SCH (08:03)
[2022-01-31] MEDS: FOLIC ACID 1 MG TABLET GT SCH (08:03)
[2022-01-31 09:49] LABS: ABG BASE EXCESS -2.2 mmol/L; ABG OXYGEN SATURATION 95.2 % (92.0-98.5); ABG PCO2 57.6 mmHg (35.0-45.0); ABG PH 7.258 (7.350-7.450); ABG PO2 89.2 mmHg (75.0-100.0); AaDO2 275.2 mmHg; COHb 0.7 % (0.5-1.5); MetHb 0.5 % (0.0-1.5); O2Hb 94.1 % (94.0-97.0); SITE, ABG Right Radial; VENT MODE, BG AC 18 480 60% +8
[2022-01-31] MEDS: ACETAMINOPHEN 650 MG/SUPP.RECT RC PRN (12:18)
[2022-01-31] MEDS: NOREPINEPHRINE 8 MG in IV NS 0.9% 242 ML IV PRN (14:43)
[2022-01-31] MEDS: NEPRO 1,000 ML BOTTLE GT PRN (17:17)
[2022-01-31] MEDS: MIDAZOLAM HCL 100 MG in IV NS 0.9% 80 ML IV PRN (17:33)
[2022-01-31] MEDS: FENTANYL CITRAT IV 2,500 MCG in IV NS 0.9% 200 ML IV PRN (20:02)
[2022-01-31] MEDS: PANTOPRAZOLE 40 MG/PACK PACK GT SCH (21:02)
[2022-02-01] VITALS (58 sets, daily range): BP systolic 96–152; BP diastolic 47–71
[2022-02-01] MEDS: IV NS 0.9% 250 ML IV PRN (00:01)
[2022-02-01 04:10] LABS: BASOPHILS # (AUTO) 0.2 K/uL (0.0-0.2); BASOPHILS % (AUTO) 0.9 % (0.0-2.0); EOSINOPHILS % (AUTO) 0.7 % (0.0-6.0); HEMATOCRIT 21 % (39-51); LYMPHOCYTES # (AUTO) 1.1 K/uL (0.8-4.8); LYMPHOCYTES % (AUTO) 6.4 % (20.0-44.0); MEAN CORPUSCULAR HGB CONC 32 g/dl (31.0-36.0); MEAN CORPUSCULAR VOLUME 87 fL (80-96); MONOCYTES # (AUTO) 1.6 K/uL (0.1-1.30); MONOCYTES % (AUTO) 9.3 % (2.0-12.0); NEUTROPHILS % (AUTO) 82.7 % (43.0-81.0); PLATELET COUNT (AUTO) 131 K/uL (150-450); RED BLOOD CELL COUNT(AUTO) 2.44 MIL/uL (4.5-6.0); WHITE BLOOD COUNT (AUTO) 16.9 K/uL (4.3-11.0)
[2022-02-01 04:51] LABS: CALCIUM, SERUM 7.4 mg/dL (8.5-10.1); CREATININE 4.5 mg/dL (0.6-1.3); MAGNESIUM 2.5 mg/dL (1.8-2.4); PHOSPHORUS 6.9 mg/dL (2.5-4.9); POTASSIUM 4.3 mmol/L (3.5-5.1)
[2022-02-01] MEDS: ZOSYN IVPB 2.25 G in IV D5W 50ml IV SCH ×4 (05:08→23:12)
[2022-02-01 05:24] LABS: HEMOGLOBIN 6.8 g/dL (13.5-17.5)
[2022-02-01 08:44] LABS: ABG BASE EXCESS -0.6 mmol/L; ABG OXYGEN SATURATION 95.9 % (92.0-98.5); ABG PCO2 48.6 mmHg (35.0-45.0); ABG PH 7.335 (7.350-7.450); ABG PO2 86.7 mmHg (75.0-100.0); AaDO2 287.6 mmHg; COHb 0.5 % (0.5-1.5); MetHb 0.5 % (0.0-1.5); O2Hb 94.9 % (94.0-97.0); SITE, ABG Right Radial
[2022-02-01] MEDS: ALBUMIN 25% 25 GM in PREMIX 1 EA IV PRN (09:16)
[2022-02-01 11:50] LABS: LYMPHOCYTES % (MANUAL) 7 % (16-48); MONOCYTES % (MANUAL) 15 % (0-11.0); NEUTROPHILS % (MANUAL) 78 (42-76)
[2022-02-01] MEDS: FOLIC ACID 1 MG TABLET GT SCH (12:25)
[2022-02-01] MEDS: PANTOPRAZOLE 40 MG/PACK PACK GT SCH ×2 (12:25→20:12)
[2022-02-01] MEDS ORDERED: SODIUM BICARBONATE SYR 50 MEQ/50 ML DISP.SYRIN IV ONE (13:00)
[2022-02-01] MEDS ORDERED: Sodium Bicarbonate 150 MEQ in IV D5/ 0.9% NACL 1,000 ML IV SCH (13:00)
[2022-02-01] MEDS: CLOTRIMAZOLE 1% 15 GM TUBE TP SCH ×2 (14:49→17:40)
[2022-02-01] MEDS: FENTANYL CITRAT IV 2,500 MCG in IV NS 0.9% 200 ML IV PRN (14:52)
[2022-02-01] MEDS ORDERED: EPOETIN ALFA-EPBX 10,000 UNIT/ML VIAL SQ ONE (15:00)
[2022-02-01] MEDS: MIDAZOLAM HCL 100 MG in IV NS 0.9% 80 ML IV PRN (17:00)
[2022-02-01] MEDS: NEPRO 1,000 ML BOTTLE GT PRN (18:00)
[2022-02-02] VITALS (33 sets, daily range): BP systolic 102–163; BP diastolic 48–98
[2022-02-02 04:23] LABS: BASOPHILS # (AUTO) 0.2 K/uL (0.0-0.2); BASOPHILS % (AUTO) 0.9 % (0.0-2.0); EOSINOPHILS % (AUTO) 1.4 % (0.0-6.0); HEMATOCRIT 26 % (39-51); HEMOGLOBIN 8.2 g/dL (13.5-17.5); LYMPHOCYTES # (AUTO) 1.2 K/uL (0.8-4.8); LYMPHOCYTES % (AUTO) 6.3 % (20.0-44.0); MEAN CORPUSCULAR HGB CONC 32 g/dl (31.0-36.0); MEAN CORPUSCULAR VOLUME 87 fL (80-96); MONOCYTES # (AUTO) 1.7 K/uL (0.1-1.30); MONOCYTES % (AUTO) 9.5 % (2.0-12.0); NEUTROPHILS # (AUTO) 14.9 K/uL (1.8-8.9); NEUTROPHILS % (AUTO) 81.9 % (43.0-81.0); PLATELET COUNT (AUTO) 139 K/uL (150-450); RED BLOOD CELL COUNT(AUTO) 2.93 MIL/uL (4.5-6.0); WHITE BLOOD COUNT (AUTO) 18.2 K/uL (4.3-11.0)
[2022-02-02 04:47] LABS: CALCIUM, SERUM 7.7 mg/dL (8.5-10.1); CREATININE 3.8 mg/dL (0.6-1.3); MAGNESIUM 2.2 mg/dL (1.8-2.4); PHOSPHORUS 5.4 mg/dL (2.5-4.9); POTASSIUM 4.3 mmol/L (3.5-5.1)
[2022-02-02 04:55] LABS: IRON, SERUM 14 ug/dl (50-175); TOTAL IRON BINDING CAPACITY 111 ug/dl (250-450)
[2022-02-02 05:10] LABS: FERRITIN 461 ng/mL (8-388)
[2022-02-02] MEDS: ZOSYN IVPB 2.25 G in IV D5W 50ml IV SCH (05:37)
[2022-02-02] MEDS: CLOTRIMAZOLE 1% 15 GM TUBE TP SCH ×2 (08:20→16:18)
[2022-02-02] MEDS: PANTOPRAZOLE 40 MG/PACK PACK GT SCH ×2 (08:20→21:09)
[2022-02-02] MEDS: FOLIC ACID 1 MG TABLET GT SCH (08:20)
[2022-02-02 10:29] LABS: ABG BASE EXCESS -0.1 mmol/L; ABG OXYGEN SATURATION 91.8 % (92.0-98.5); ABG PCO2 50.9 mmHg (35.0-45.0); ABG PH 7.328 (7.350-7.450); AaDO2 232.2 mmHg; COHb 0.8 % (0.5-1.5); MetHb 0.3 % (0.0-1.5); O2Hb 90.8 % (94.0-97.0); PEEP,BG 5 cm H2O; SITE, ABG Right Radial; VT, ABG 500 mL
[2022-02-02] MEDS: FENTANYL CITRAT IV 2,500 MCG in IV NS 0.9% 200 ML IV PRN (11:00)
[2022-02-02] MEDS ORDERED: MEROPENEM 500 MG in IV NS 0.9% 50 ML IV SCH (13:00)
[2022-02-02] MEDS: SOD FERRIC GLUC 125 MG in IV NS 0.9% 100 ML IV SCH (14:32)
[2022-02-02 16:21] LABS: HEMOGLOBIN 7.7 g/dL (13.5-17.5)
[2022-02-02] MEDS: NEPRO 1,000 ML BOTTLE GT PRN (18:15)
[2022-02-02] MEDS: MIDAZOLAM HCL 100 MG in IV NS 0.9% 80 ML IV PRN (18:25)
[2022-02-03] VITALS (39 sets, daily range): BP systolic 111–143; BP diastolic 52–77
[2022-02-03 04:26] LABS: BASOPHILS # (AUTO) 0.2 K/uL (0.0-0.2); BASOPHILS % (AUTO) 1.2 % (0.0-2.0); EOSINOPHILS % (AUTO) 1.6 % (0.0-6.0); HEMATOCRIT 25 % (39-51); HEMOGLOBIN 7.9 g/dL (13.5-17.5); LYMPHOCYTES # (AUTO) 1.4 K/uL (0.8-4.8); LYMPHOCYTES % (AUTO) 8.9 % (20.0-44.0); MEAN CORPUSCULAR HGB CONC 31 g/dl (31.0-36.0); MEAN CORPUSCULAR VOLUME 88 fL (80-96); MONOCYTES # (AUTO) 1.7 K/uL (0.1-1.30); MONOCYTES % (AUTO) 10.8 % (2.0-12.0); NEUTROPHILS # (AUTO) 12.5 K/uL (1.8-8.9); NEUTROPHILS % (AUTO) 77.5 % (43.0-81.0); PLATELET COUNT (AUTO) 177 K/uL (150-450); RED BLOOD CELL COUNT(AUTO) 2.86 MIL/uL (4.5-6.0); WHITE BLOOD COUNT (AUTO) 16.1 K/uL (4.3-11.0)
[2022-02-03 04:52] LABS: CALCIUM, SERUM 7.5 mg/dL (8.5-10.1); CREATININE 3.4 mg/dL (0.6-1.3); MAGNESIUM 2.1 mg/dL (1.8-2.4); PHOSPHORUS 4.2 mg/dL (2.5-4.9); POTASSIUM 3.9 mmol/L (3.5-5.1)
[2022-02-03 07:02] LABS: BILIRUBIN,DIRECT 1.3 mg/dL (0.0-0.2); BILIRUBIN,TOTAL 1.6 mg/dL (0.2-1.0); TOTAL PROTEIN, SERUM 5.6 g/dL (6.4-8.2)
[2022-02-03 07:34] LABS: ALBUMIN 1.1 g/dL (3.4-5.0)
[2022-02-03] MEDS: FOLIC ACID 1 MG TABLET GT SCH (09:19)
[2022-02-03] MEDS: CLOTRIMAZOLE 1% 15 GM TUBE TP SCH ×2 (09:19→17:05)
[2022-02-03] MEDS: PANTOPRAZOLE 40 MG/PACK PACK GT SCH ×2 (09:19→21:03)
[2022-02-03] MEDS: FENTANYL CITRAT IV 2,500 MCG in IV NS 0.9% 200 ML IV PRN (09:33)
[2022-02-03] MEDS: SOD FERRIC GLUC 125 MG in IV NS 0.9% 100 ML IV SCH (14:59)
[2022-02-03] MEDS: MIDAZOLAM HCL 100 MG in IV NS 0.9% 80 ML IV PRN (17:46)
[2022-02-03] MEDS: NEPRO 1,000 ML BOTTLE GT PRN (17:46)
[2022-02-03] MEDS ORDERED: NEPRO 1,000 ML BOTTLE GT PRN (18:00)
[2022-02-04] VITALS (36 sets, daily range): BP systolic 106–151; BP diastolic 48–80
[2022-02-04] MEDS: FENTANYL CITRAT IV 2,500 MCG in IV NS 0.9% 200 ML IV PRN (04:58)
[2022-02-04] MEDS: FOLIC ACID 1 MG TABLET GT SCH (08:16)
[2022-02-04] MEDS: PANTOPRAZOLE 40 MG/PACK PACK GT SCH ×2 (08:17→21:09)
[2022-02-04] MEDS: CLOTRIMAZOLE 1% 15 GM TUBE TP SCH ×2 (09:30→16:12)
[2022-02-04] MEDS: SOD FERRIC GLUC 125 MG in IV NS 0.9% 100 ML IV SCH (14:12)
[2022-02-04] MEDS: NEPRO 1,000 ML BOTTLE GT PRN (15:20)
[2022-02-04] MEDS: MIDAZOLAM HCL 100 MG in IV NS 0.9% 80 ML IV PRN (16:37)
[2022-02-04] MEDS: ACETAMINOPHEN 650 MG/SUPP.RECT RC PRN (16:47)
[2022-02-05] VITALS (39 sets, daily range): BP systolic 122–169; BP diastolic 52–86
[2022-02-05 03:44] LABS: BASOPHILS # (AUTO) 0.2 K/uL (0.0-0.2); EOSINOPHILS % (AUTO) 2.4 % (0.0-6.0); HEMATOCRIT 25 % (39-51); HEMOGLOBIN 7.8 g/dL (13.5-17.5); LYMPHOCYTES # (AUTO) 1.6 K/uL (0.8-4.8); LYMPHOCYTES % (AUTO) 9.1 % (20.0-44.0); MEAN CORPUSCULAR HGB CONC 32 g/dl (31.0-36.0); MEAN CORPUSCULAR VOLUME 87 fL (80-96); MONOCYTES % (AUTO) 11.7 % (2.0-12.0); NEUTROPHILS % (AUTO) 75.8 % (43.0-81.0); PLATELET COUNT (AUTO) 256 K/uL (150-450); RED BLOOD CELL COUNT(AUTO) 2.82 MIL/uL (4.5-6.0); WHITE BLOOD COUNT (AUTO) 17.1 K/uL (4.3-11.0)
[2022-02-05 04:08] LABS: CALCIUM, SERUM 7.9 mg/dL (8.5-10.1); CREATININE 5.3 mg/dL (0.6-1.3); MAGNESIUM 2.3 mg/dL (1.8-2.4); PHOSPHORUS 5.7 mg/dL (2.5-4.9); POTASSIUM 4.1 mmol/L (3.5-5.1)
[2022-02-05] MEDS: FOLIC ACID 1 MG TABLET GT SCH (08:21)
[2022-02-05] MEDS: PANTOPRAZOLE 40 MG/PACK PACK GT SCH ×2 (08:21→21:16)
[2022-02-05] MEDS: ACETAMINOPHEN 650 MG/SUPP.RECT RC PRN (08:22)
[2022-02-05] MEDS: CLOTRIMAZOLE 1% 15 GM TUBE TP SCH ×2 (08:24→17:26)
[2022-02-05] MEDS: FENTANYL CITRAT IV 2,500 MCG in IV NS 0.9% 200 ML IV PRN (09:04)
[2022-02-05] MEDS: SOD FERRIC GLUC 125 MG in IV NS 0.9% 100 ML IV SCH (14:20)
[2022-02-05] MEDS: NEPRO 1,000 ML BOTTLE GT PRN (18:36)
[2022-02-05] MEDS: MIDAZOLAM HCL 100 MG in IV NS 0.9% 80 ML IV PRN (18:44)
[2022-02-06] VITALS (55 sets, daily range): BP systolic 107–156; BP diastolic 58–87
[2022-02-06] MEDS: NEPRO 1,000 ML BOTTLE GT PRN (03:25)
[2022-02-06 04:15] LABS: BASOPHILS # (AUTO) 0.2 K/uL (0.0-0.2); BASOPHILS % (AUTO) 0.9 % (0.0-2.0); EOSINOPHILS % (AUTO) 2.9 % (0.0-6.0); HEMATOCRIT 24 % (39-51); HEMOGLOBIN 7.7 g/dL (13.5-17.5); LYMPHOCYTES # (AUTO) 1.8 K/uL (0.8-4.8); LYMPHOCYTES % (AUTO) 9.9 % (20.0-44.0); MEAN CORPUSCULAR HGB CONC 32 g/dl (31.0-36.0); MEAN CORPUSCULAR VOLUME 88 fL (80-96); MONOCYTES # (AUTO) 2.3 K/uL (0.1-1.30); MONOCYTES % (AUTO) 12.7 % (2.0-12.0); NEUTROPHILS # (AUTO) 13.6 K/uL (1.8-8.9); NEUTROPHILS % (AUTO) 73.6 % (43.0-81.0); PLATELET COUNT (AUTO) 265 K/uL (150-450); RED BLOOD CELL COUNT(AUTO) 2.76 MIL/uL (4.5-6.0); WHITE BLOOD COUNT (AUTO) 18.4 K/uL (4.3-11.0)
[2022-02-06 04:33] LABS: CALCIUM, SERUM 7.8 mg/dL (8.5-10.1); MAGNESIUM 2.5 mg/dL (1.8-2.4); PHOSPHORUS 6.8 mg/dL (2.5-4.9); POTASSIUM 4.5 mmol/L (3.5-5.1)
[2022-02-06] MEDS: IV NS 0.9% 250 ML IV PRN (05:15)
[2022-02-06 08:08] LABS: ABG BASE EXCESS 0.5 mmol/L; ABG OXYGEN SATURATION 93.4 % (92.0-98.5); ABG PCO2 43.4 mmHg (35.0-45.0); ABG PH 7.389 (7.350-7.450); ABG PO2 70.8 mmHg (75.0-100.0); AaDO2 236.9 mmHg; COHb 0.2 % (0.5-1.5); MetHb 0.5 % (0.0-1.5); O2Hb 92.7 % (94.0-97.0); SITE, ABG Right Radial
[2022-02-06] MEDS: PANTOPRAZOLE 40 MG/PACK PACK GT SCH ×2 (09:05→21:26)
[2022-02-06] MEDS: FOLIC ACID 1 MG TABLET GT SCH (09:06)
[2022-02-06] MEDS: FENTANYL CITRAT IV 2,500 MCG in IV NS 0.9% 200 ML IV PRN (09:08)
[2022-02-06] MEDS: CLOTRIMAZOLE 1% 15 GM TUBE TP SCH ×2 (09:22→17:34)
[2022-02-06] MEDS: MIDAZOLAM HCL 100 MG in IV NS 0.9% 80 ML IV PRN (12:01)
[2022-02-06] MEDS: SOD FERRIC GLUC 125 MG in IV NS 0.9% 100 ML IV SCH (17:34)
[2022-02-07] VITALS (24 sets, daily range): BP systolic 95–118; BP diastolic 48–64
[2022-02-07 04:37] LABS: BILIRUBIN,TOTAL 0.7 mg/dL (0.2-1.0); CALCIUM, SERUM 7.8 mg/dL (8.5-10.1); CREATININE 4.1 mg/dL (0.6-1.3); POTASSIUM 4.3 mmol/L (3.5-5.1); TOTAL PROTEIN, SERUM 5.6 g/dL (6.4-8.2)
[2022-02-07 04:38] LABS: BASOPHILS # (AUTO) 0.2 K/uL (0.0-0.2); BASOPHILS % (AUTO) 0.8 % (0.0-2.0); EOSINOPHILS % (AUTO) 3.3 % (0.0-6.0); HEMATOCRIT 23 % (39-51); HEMOGLOBIN 7.3 g/dL (13.5-17.5); LYMPHOCYTES # (AUTO) 1.8 K/uL (0.8-4.8); LYMPHOCYTES % (AUTO) 9.4 % (20.0-44.0); MEAN CORPUSCULAR HGB CONC 31 g/dl (31.0-36.0); MEAN CORPUSCULAR VOLUME 88 fL (80-96); MONOCYTES # (AUTO) 2.5 K/uL (0.1-1.30); MONOCYTES % (AUTO) 12.9 % (2.0-12.0); NEUTROPHILS # (AUTO) 14.5 K/uL (1.8-8.9); NEUTROPHILS % (AUTO) 73.6 % (43.0-81.0); PLATELET COUNT (AUTO) 265 K/uL (150-450); RED BLOOD CELL COUNT(AUTO) 2.65 MIL/uL (4.5-6.0); WHITE BLOOD COUNT (AUTO) 19.8 K/uL (4.3-11.0)
[2022-02-07] MEDS: MIDAZOLAM HCL 100 MG in IV NS 0.9% 80 ML IV PRN (06:31)
[2022-02-07] MEDS: PANTOPRAZOLE 40 MG/PACK PACK GT SCH ×2 (08:15→20:29)
[2022-02-07] MEDS: CLOTRIMAZOLE 1% 15 GM TUBE TP SCH ×2 (08:15→17:25)
[2022-02-07] MEDS: FOLIC ACID 1 MG TABLET GT SCH (08:15)
[2022-02-07] MEDS: FENTANYL CITRAT IV 2,500 MCG in IV NS 0.9% 200 ML IV PRN (09:00)
[2022-02-07] MEDS: NEOMY SULF/BACITRAC ZN/POLY 15 GM TUBE TP SCH (18:41)
[2022-02-07 19:09] LABS: BILIRUBIN,URINE NEGATIVE (NEGATIVE); COLOR,URINE YELLOW (YELLOW); LEUKOCYTE ESTERASE ,URINE LARGE (NEGATIVE); NITRITE, URINE NEGATIVE (NEGATIVE); PROTEIN,URINE 30 mg/dl (NEGATIVE); UGLUCOSE NEGATIVE (NEGATIVE); UROBILINOGEN,URINE 0.2 EU/dL (0.2)
[2022-02-07 19:23] LABS: BACTERIA,URINE Few /HPF (None Seen); RBC,URINE 21-50 /HPF (0-2); SQUAMOUS EPITHELIAL CELL,UR Few /HPF (None Seen); WBC,URINE 21-50 /HPF (0-3)
[2022-02-08] VITALS (79 sets, daily range): BP systolic 85–145; BP diastolic 39–73
[2022-02-08] MEDS: MIDAZOLAM HCL 100 MG in IV NS 0.9% 80 ML IV PRN ×2 (00:22→15:43)
[2022-02-08 07:56] LABS: BASOPHILS # (AUTO) 0.2 K/uL (0.0-0.2); BASOPHILS % (AUTO) 1.4 % (0.0-2.0); EOSINOPHILS % (AUTO) 5.4 % (0.0-6.0); HEMATOCRIT 24 % (39-51); HEMOGLOBIN 7.6 g/dL (13.5-17.5); LYMPHOCYTES # (AUTO) 1.8 K/uL (0.8-4.8); LYMPHOCYTES % (AUTO) 11.6 % (20.0-44.0); MEAN CORPUSCULAR HGB CONC 31 g/dl (31.0-36.0); MEAN CORPUSCULAR VOLUME 90 fL (80-96); MONOCYTES # (AUTO) 1.8 K/uL (0.1-1.30); MONOCYTES % (AUTO) 12.2 % (2.0-12.0); NEUTROPHILS # (AUTO) 10.5 K/uL (1.8-8.9); NEUTROPHILS % (AUTO) 69.4 % (43.0-81.0); PLATELET COUNT (AUTO) 284 K/uL (150-450); RED BLOOD CELL COUNT(AUTO) 2.72 MIL/uL (4.5-6.0); WHITE BLOOD COUNT (AUTO) 15.1 K/uL (4.3-11.0)
[2022-02-08] MEDS: FOLIC ACID 1 MG TABLET GT SCH (08:15)
[2022-02-08] MEDS: PANTOPRAZOLE 40 MG/PACK PACK GT SCH ×2 (08:15→21:12)
[2022-02-08] MEDS: CLOTRIMAZOLE 1% 15 GM TUBE TP SCH ×2 (08:17→17:39)
[2022-02-08] MEDS: NEOMY SULF/BACITRAC ZN/POLY 15 GM TUBE TP SCH (08:17)
[2022-02-08 08:46] LABS: CALCIUM, SERUM 8.3 mg/dL (8.5-10.1); CREATININE 4.8 mg/dL (0.6-1.3); POTASSIUM 4.8 mmol/L (3.5-5.1)
[2022-02-08] MEDS: FENTANYL CITRAT IV 2,500 MCG in IV NS 0.9% 200 ML IV PRN ×2 (09:55→21:47)
[2022-02-08 11:21] LABS: ABG BASE EXCESS -1.6 mmol/L; ABG OXYGEN SATURATION 87.1 % (92.0-98.5); ABG PCO2 41.8 mmHg (35.0-45.0); ABG PO2 52.4 mmHg (75.0-100.0); AaDO2 257.1 mmHg; COHb 0.7 % (0.5-1.5); MetHb 0.4 % (0.0-1.5); O2Hb 86.1 % (94.0-97.0); PEEP,BG 5 cm H2O; SITE, ABG Right Radial; VT, ABG 475 mL
[2022-02-08] MEDS: NEPRO 1,000 ML BOTTLE GT PRN (12:01)
[2022-02-08] MEDS: ALBUMIN 25% 25 GM in PREMIX 1 EA IV PRN (12:40)
[2022-02-08] MEDS: MEROPENEM 500 MG in IV NS 0.9% 50 ML IV SCH (13:26)
[2022-02-08] MEDS: NOREPINEPHRINE 8 MG in IV NS 0.9% 242 ML IV PRN (13:27)
[2022-02-08] MEDS: IV NS 0.9% 250 ML IV PRN (13:30)
[2022-02-08] MEDS ORDERED: EPOETIN ALFA-EPBX 10,000 UNIT/ML VIAL SQ ONE (15:00)
[2022-02-09] VITALS (89 sets, daily range): BP systolic 86–142; BP diastolic 34–65
[2022-02-09] MEDS ORDERED: NOREPINEPHRINE 8MG/250ML RTU 250 ML IV ONE (01:13)
[2022-02-09] MEDS: ACETAMINOPHEN 650 MG/20.3 ML UDC PEG PRN (02:34)
[2022-02-09] MEDS: NOREPINEPHRINE 8 MG in IV NS 0.9% 242 ML IV PRN (02:50)
[2022-02-09 04:07] LABS: BASOPHILS # (AUTO) 0.2 K/uL (0.0-0.2); BASOPHILS % (AUTO) 0.5 % (0.0-2.0); EOSINOPHILS % (AUTO) 0.9 % (0.0-6.0); HEMATOCRIT 23 % (39-51); LYMPHOCYTES # (AUTO) 1.9 K/uL (0.8-4.8); LYMPHOCYTES % (AUTO) 6.3 % (20.0-44.0); MEAN CORPUSCULAR HGB CONC 30 g/dl (31.0-36.0); MEAN CORPUSCULAR VOLUME 90 fL (80-96); NEUTROPHILS # (AUTO) 24.5 K/uL (1.8-8.9); NEUTROPHILS % (AUTO) 82.3 % (43.0-81.0); PLATELET COUNT (AUTO) 266 K/uL (150-450); RED BLOOD CELL COUNT(AUTO) 2.53 MIL/uL (4.5-6.0); WHITE BLOOD COUNT (AUTO) 29.9 K/uL (4.3-11.0)
[2022-02-09 04:51] LABS: CALCIUM, SERUM 8.1 mg/dL (8.5-10.1); CREATININE 3.6 mg/dL (0.6-1.3); POTASSIUM 4.4 mmol/L (3.5-5.1)
[2022-02-09] MEDS: MIDAZOLAM HCL 100 MG in IV NS 0.9% 80 ML IV PRN ×2 (06:31→23:37)
[2022-02-09] MEDS: ALBUMIN 25% 25 GM in PREMIX 1 EA IV PRN (07:46)
[2022-02-09] MEDS: FENTANYL CITRAT IV 2,500 MCG in IV NS 0.9% 200 ML IV PRN ×2 (07:47→20:11)
[2022-02-09] MEDS: FOLIC ACID 1 MG TABLET GT SCH (08:46)
[2022-02-09] MEDS: PANTOPRAZOLE 40 MG/PACK PACK GT SCH ×2 (08:46→20:38)
[2022-02-09] MEDS: CLOTRIMAZOLE 1% 15 GM TUBE TP SCH ×2 (08:48→16:41)
[2022-02-09] MEDS: NEOMY SULF/BACITRAC ZN/POLY 15 GM TUBE TP SCH (08:48)
[2022-02-09] MEDS: MEROPENEM 500 MG in IV NS 0.9% 50 ML IV SCH (08:52)
[2022-02-09] MEDS ORDERED: DOSING PER PHARMACY-AMIKACI IV XX PRN (13:00)
[2022-02-09] MEDS ORDERED: AMIKACIN 500 MG in IV D5W 100 ML IV PRN (13:30)
[2022-02-09] MEDS: IV NS 0.9% 250 ML IV PRN (13:54)
[2022-02-09] MEDS: NEPRO 1,000 ML BOTTLE GT PRN (15:41)
[2022-02-10] VITALS (55 sets, daily range): BP systolic 97–135; BP diastolic 46–87
[2022-02-10 04:35] LABS: BASOPHILS # (AUTO) 0.2 K/uL (0.0-0.2); BASOPHILS % (AUTO) 0.7 % (0.0-2.0); EOSINOPHILS % (AUTO) 4.4 % (0.0-6.0); HEMATOCRIT 21 % (39-51); LYMPHOCYTES % (AUTO) 9.6 % (20.0-44.0); MEAN CORPUSCULAR HGB CONC 31 g/dl (31.0-36.0); MEAN CORPUSCULAR VOLUME 90 fL (80-96); MONOCYTES # (AUTO) 1.9 K/uL (0.1-1.30); NEUTROPHILS # (AUTO) 15.9 K/uL (1.8-8.9); NEUTROPHILS % (AUTO) 76.3 % (43.0-81.0); PLATELET COUNT (AUTO) 213 K/uL (150-450); RED BLOOD CELL COUNT(AUTO) 2.36 MIL/uL (4.5-6.0); WHITE BLOOD COUNT (AUTO) 20.9 K/uL (4.3-11.0)
[2022-02-10 04:52] LABS: HEMOGLOBIN 6.5 g/dL (13.5-17.5)
[2022-02-10 05:30] LABS: CALCIUM, SERUM 8.4 mg/dL (8.5-10.1); CREATININE 2.9 mg/dL (0.6-1.3); POTASSIUM 3.5 mmol/L (3.5-5.1)
[2022-02-10 05:58] LABS: D-DIMER 4.59 mg/L(FEU (0.17-0.50)
[2022-02-10] MEDS: FOLIC ACID 1 MG TABLET GT SCH (08:34)
[2022-02-10] MEDS: PANTOPRAZOLE 40 MG/PACK PACK GT SCH ×2 (08:34→20:55)
[2022-02-10] MEDS: CLOTRIMAZOLE 1% 15 GM TUBE TP SCH ×2 (08:35→16:25)
[2022-02-10] MEDS: NEOMY SULF/BACITRAC ZN/POLY 15 GM TUBE TP SCH (08:35)
[2022-02-10] MEDS: MEROPENEM 500 MG in IV NS 0.9% 50 ML IV SCH (10:52)
[2022-02-10] MEDS: FENTANYL CITRAT IV 2,500 MCG in IV NS 0.9% 200 ML IV PRN (12:00)
[2022-02-10] MEDS: MIDAZOLAM HCL 100 MG in IV NS 0.9% 80 ML IV PRN (15:30)
[2022-02-10] MEDS: IV NS 0.9% 250 ML IV PRN (16:30)
[2022-02-10] MEDS: NEPRO 1,000 ML BOTTLE GT PRN (16:39)
[2022-02-11] VITALS (46 sets, daily range): BP systolic 118–144; BP diastolic 54–82
[2022-02-11 04:30] LABS: CALCIUM, SERUM 7.5 mg/dL (8.5-10.1); CREATININE 2.9 mg/dL (0.6-1.3); POTASSIUM 3.4 mmol/L (3.5-5.1)
[2022-02-11] MEDS: FOLIC ACID 1 MG TABLET GT SCH (08:33)
[2022-02-11] MEDS: MEROPENEM 500 MG in IV NS 0.9% 50 ML IV SCH (08:33)
[2022-02-11] MEDS: PANTOPRAZOLE 40 MG/PACK PACK GT SCH ×2 (08:33→21:04)
[2022-02-11] MEDS: FENTANYL CITRAT IV 2,500 MCG in IV NS 0.9% 200 ML IV PRN (08:34)
[2022-02-11] MEDS ORDERED: POTASSIUM CHLORIDE 20 MEQ POWDER PACKET GT ONE (09:00)
[2022-02-11] MEDS: CLOTRIMAZOLE 1% 15 GM TUBE TP SCH ×2 (09:20→17:34)
[2022-02-11] MEDS: NEOMY SULF/BACITRAC ZN/POLY 15 GM TUBE TP SCH (09:21)
[2022-02-11] MEDS: MIDAZOLAM HCL 100 MG in IV NS 0.9% 80 ML IV PRN (11:21)
[2022-02-11 12:00] LABS: BASOPHILS # (AUTO) 0.2 K/uL (0.0-0.2); HEMATOCRIT 24 % (39-51); HEMOGLOBIN 7.5 g/dL (13.5-17.5); LYMPHOCYTES # (AUTO) 1.9 K/uL (0.8-4.8); LYMPHOCYTES % (AUTO) 9.9 % (20.0-44.0); MEAN CORPUSCULAR HGB CONC 31 g/dl (31.0-36.0); MEAN CORPUSCULAR VOLUME 88 fL (80-96); MONOCYTES # (AUTO) 1.7 K/uL (0.1-1.30); NEUTROPHILS # (AUTO) 14.3 K/uL (1.8-8.9); NEUTROPHILS % (AUTO) 76.1 % (43.0-81.0); PLATELET COUNT (AUTO) 218 K/uL (150-450); RED BLOOD CELL COUNT(AUTO) 2.78 MIL/uL (4.5-6.0); WHITE BLOOD COUNT (AUTO) 18.7 K/uL (4.3-11.0)
[2022-02-11 14:23] LABS: LYMPHOCYTES % (MANUAL) 6 % (16-48); MONOCYTES % (MANUAL) 10 % (0-11.0); NEUTROPHILS % (MANUAL) 76 (42-76)
[2022-02-11 14:24] LABS: EOSINOPHILS % (MANUAL) 8 % (0-4)
[2022-02-11] MEDS: IV NS 0.9% 250 ML IV PRN (16:01)
[2022-02-11] MEDS: NEPRO 1,000 ML BOTTLE GT PRN (18:08)
[2022-02-12] VITALS (24 sets, daily range): BP systolic 126–159; BP diastolic 63–79
[2022-02-12] MEDS: MIDAZOLAM HCL 100 MG in IV NS 0.9% 80 ML IV PRN ×2 (04:20→18:55)
[2022-02-12] MEDS: FENTANYL CITRAT IV 2,500 MCG in IV NS 0.9% 200 ML IV PRN ×2 (04:21→21:35)
[2022-02-12 04:55] LABS: BASOPHILS # (AUTO) 0.2 K/uL (0.0-0.2); BASOPHILS % (AUTO) 1.2 % (0.0-2.0); EOSINOPHILS % (AUTO) 3.9 % (0.0-6.0); HEMATOCRIT 25 % (39-51); HEMOGLOBIN 7.8 g/dL (13.5-17.5); LYMPHOCYTES # (AUTO) 2.2 K/uL (0.8-4.8); LYMPHOCYTES % (AUTO) 13.9 % (20.0-44.0); MEAN CORPUSCULAR HGB CONC 32 g/dl (31.0-36.0); MEAN CORPUSCULAR VOLUME 87 fL (80-96); MONOCYTES # (AUTO) 1.6 K/uL (0.1-1.30); MONOCYTES % (AUTO) 10.4 % (2.0-12.0); NEUTROPHILS # (AUTO) 10.9 K/uL (1.8-8.9); NEUTROPHILS % (AUTO) 70.6 % (43.0-81.0); PLATELET COUNT (AUTO) 205 K/uL (150-450); RED BLOOD CELL COUNT(AUTO) 2.83 MIL/uL (4.5-6.0); WHITE BLOOD COUNT (AUTO) 15.5 K/uL (4.3-11.0)
[2022-02-12 05:06] LABS: CALCIUM, SERUM 8.1 mg/dL (8.5-10.1); CREATININE 3.2 mg/dL (0.6-1.3); POTASSIUM 4.1 mmol/L (3.5-5.1)
[2022-02-12] MEDS: FOLIC ACID 1 MG TABLET GT SCH (15:33)
[2022-02-12] MEDS: MEROPENEM 500 MG in IV NS 0.9% 50 ML IV SCH (15:35)
[2022-02-12] MEDS: PANTOPRAZOLE 40 MG/PACK PACK GT SCH ×2 (15:35→21:05)
[2022-02-12] MEDS: NEPRO 1,000 ML BOTTLE GT PRN (15:36)
[2022-02-12] MEDS: CLOTRIMAZOLE 1% 15 GM TUBE TP SCH ×2 (15:37→16:38)
[2022-02-12] MEDS: NEOMY SULF/BACITRAC ZN/POLY 15 GM TUBE TP SCH (15:39)
[2022-02-12] MEDS: IV NS 0.9% 250 ML IV PRN (16:53)
[2022-02-13] VITALS (41 sets, daily range): BP systolic 121–164; BP diastolic 57–78
[2022-02-13 04:07] LABS: CALCIUM, SERUM 7.9 mg/dL (8.5-10.1); CREATININE 2.7 mg/dL (0.6-1.3)
[2022-02-13] MEDS: MEROPENEM 500 MG in IV NS 0.9% 50 ML IV SCH (08:41)
[2022-02-13] MEDS: PANTOPRAZOLE 40 MG/PACK PACK GT SCH ×2 (08:41→21:41)
[2022-02-13] MEDS: FOLIC ACID 1 MG TABLET GT SCH (08:41)
[2022-02-13] MEDS: NEOMY SULF/BACITRAC ZN/POLY 15 GM TUBE TP SCH (08:42)
[2022-02-13] MEDS: CLOTRIMAZOLE 1% 15 GM TUBE TP SCH ×2 (08:42→16:22)
[2022-02-13] MEDS: MIDAZOLAM HCL 100 MG in IV NS 0.9% 80 ML IV PRN (13:42)
[2022-02-13] MEDS: FENTANYL CITRAT IV 2,500 MCG in IV NS 0.9% 200 ML IV PRN (13:51)
[2022-02-13] MEDS: NEPRO 1,000 ML BOTTLE GT PRN (14:02)
[2022-02-13] MEDS: ONDANSETRON HCL/PF 4 MG/2 ML VIAL IVP PRN (22:19)
[2022-02-14] VITALS (59 sets, daily range): BP systolic 122–157; BP diastolic 56–75
[2022-02-14 04:12] LABS: BASOPHILS # (AUTO) 0.2 K/uL (0.0-0.2); EOSINOPHILS % (AUTO) 3.4 % (0.0-6.0); HEMATOCRIT 24 % (39-51); HEMOGLOBIN 7.6 g/dL (13.5-17.5); LYMPHOCYTES # (AUTO) 1.6 K/uL (0.8-4.8); LYMPHOCYTES % (AUTO) 9.5 % (20.0-44.0); MEAN CORPUSCULAR HGB CONC 32 g/dl (31.0-36.0); MEAN CORPUSCULAR VOLUME 88 fL (80-96); MONOCYTES # (AUTO) 1.9 K/uL (0.1-1.30); MONOCYTES % (AUTO) 10.8 % (2.0-12.0); NEUTROPHILS % (AUTO) 75.3 % (43.0-81.0); PLATELET COUNT (AUTO) 205 K/uL (150-450); RED BLOOD CELL COUNT(AUTO) 2.74 MIL/uL (4.5-6.0); WHITE BLOOD COUNT (AUTO) 17.2 K/uL (4.3-11.0)
[2022-02-14 04:29] LABS: CALCIUM, SERUM 7.8 mg/dL (8.5-10.1); CREATININE 2.5 mg/dL (0.6-1.3); POTASSIUM 4.1 mmol/L (3.5-5.1)
[2022-02-14] MEDS: FOLIC ACID 1 MG TABLET GT SCH (08:12)
[2022-02-14] MEDS: PANTOPRAZOLE 40 MG/PACK PACK GT SCH ×2 (08:12→21:35)
[2022-02-14] MEDS: MEROPENEM 500 MG in IV NS 0.9% 50 ML IV SCH (08:16)
[2022-02-14] MEDS: CLOTRIMAZOLE 1% 15 GM TUBE TP SCH ×2 (08:17→16:43)
[2022-02-14] MEDS: NEOMY SULF/BACITRAC ZN/POLY 15 GM TUBE TP SCH (08:18)
[2022-02-14] MEDS: FENTANYL CITRAT IV 2,500 MCG in IV NS 0.9% 200 ML IV PRN ×2 (08:24→21:20)
[2022-02-14] MEDS: MIDAZOLAM HCL 100 MG in IV NS 0.9% 80 ML IV PRN (08:25)
[2022-02-14] MEDS: NEPRO 1,000 ML BOTTLE GT PRN (14:12)
[2022-02-15] VITALS (46 sets, daily range): BP systolic 146–176; BP diastolic 65–86
[2022-02-15] MEDS: MIDAZOLAM HCL 100 MG in IV NS 0.9% 80 ML IV PRN ×2 (01:41→23:40)
[2022-02-15 04:14] LABS: BASOPHILS # (AUTO) 0.1 K/uL (0.0-0.2); BASOPHILS % (AUTO) 1.1 % (0.0-2.0); EOSINOPHILS % (AUTO) 3.9 % (0.0-6.0); HEMATOCRIT 26 % (39-51); HEMOGLOBIN 8.3 g/dL (13.5-17.5); LYMPHOCYTES # (AUTO) 1.9 K/uL (0.8-4.8); LYMPHOCYTES % (AUTO) 13.8 % (20.0-44.0); MEAN CORPUSCULAR HGB CONC 32 g/dl (31.0-36.0); MEAN CORPUSCULAR VOLUME 88 fL (80-96); MONOCYTES # (AUTO) 1.5 K/uL (0.1-1.30); MONOCYTES % (AUTO) 10.8 % (2.0-12.0); NEUTROPHILS # (AUTO) 9.8 K/uL (1.8-8.9); NEUTROPHILS % (AUTO) 70.4 % (43.0-81.0); PLATELET COUNT (AUTO) 205 K/uL (150-450); RED BLOOD CELL COUNT(AUTO) 2.99 MIL/uL (4.5-6.0); WHITE BLOOD COUNT (AUTO) 13.9 K/uL (4.3-11.0)
[2022-02-15] MEDS: ONDANSETRON HCL/PF 4 MG/2 ML VIAL IVP PRN (05:42)
[2022-02-15 06:05] LABS: CALCIUM, SERUM 8.7 mg/dL (8.5-10.1); CREATININE 3.2 mg/dL (0.6-1.3); MAGNESIUM 2.4 mg/dL (1.8-2.4); PHOSPHORUS 4.3 mg/dL (2.5-4.9); POTASSIUM 4.4 mmol/L (3.5-5.1)
[2022-02-15] MEDS: FOLIC ACID 1 MG TABLET GT SCH (08:43)
[2022-02-15] MEDS: PANTOPRAZOLE 40 MG/PACK PACK GT SCH ×2 (08:43→21:15)
[2022-02-15] MEDS: CLOTRIMAZOLE 1% 15 GM TUBE TP SCH ×2 (08:44→17:24)
[2022-02-15] MEDS: NEOMY SULF/BACITRAC ZN/POLY 15 GM TUBE TP SCH (08:44)
[2022-02-15] MEDS: MEROPENEM 500 MG in IV NS 0.9% 50 ML IV SCH (08:46)
[2022-02-15] MEDS ORDERED: ANESTHESIA TRAY IN PYXIS 1 EA TRAY MC ONE (10:40)
[2022-02-15] MEDS: IV NS 0.9% 250 ML IV PRN (10:55)
[2022-02-15] MEDS ORDERED: MIDAZOLAM HCL 2 MG/2ML VIAL ONE (11:26)
[2022-02-15] MEDS ORDERED: METOCLOPRAMIDE HCL 10 MG/2 ML VIAL ONE (11:39)
[2022-02-15] MEDS ORDERED: EPOETIN ALFA-EPBX 10,000 UNIT/ML VIAL SQ ONE (15:00)
[2022-02-15] MEDS: FENTANYL CITRAT IV 2,500 MCG in IV NS 0.9% 200 ML IV PRN (23:50)
[2022-02-16] VITALS (36 sets, daily range): BP systolic 98–167; BP diastolic 52–94
[2022-02-16] MEDS: hydrALAZINE HCL IV 20 MG VIAL IV PRN (00:08)
[2022-02-16] MEDS: IV NS 0.9% 250 ML IV PRN ×2 (01:00→19:41)
[2022-02-16 05:01] LABS: BASOPHILS # (AUTO) 0.1 K/uL (0.0-0.2); BASOPHILS % (AUTO) 1.1 % (0.0-2.0); HEMATOCRIT 27 % (39-51); HEMOGLOBIN 8.6 g/dL (13.5-17.5); LYMPHOCYTES # (AUTO) 1.2 K/uL (0.8-4.8); LYMPHOCYTES % (AUTO) 9.3 % (20.0-44.0); MEAN CORPUSCULAR HGB CONC 32 g/dl (31.0-36.0); MEAN CORPUSCULAR VOLUME 87 fL (80-96); MONOCYTES # (AUTO) 1.1 K/uL (0.1-1.30); MONOCYTES % (AUTO) 8.1 % (2.0-12.0); NEUTROPHILS # (AUTO) 10.5 K/uL (1.8-8.9); NEUTROPHILS % (AUTO) 80.5 % (43.0-81.0); PLATELET COUNT (AUTO) 244 K/uL (150-450); RED BLOOD CELL COUNT(AUTO) 3.15 MIL/uL (4.5-6.0)
[2022-02-16 05:25] LABS: CALCIUM, SERUM 8.2 mg/dL (8.5-10.1); CREATININE 3.8 mg/dL (0.6-1.3); MAGNESIUM 2.4 mg/dL (1.8-2.4); PHOSPHORUS 6.3 mg/dL (2.5-4.9); POTASSIUM 4.7 mmol/L (3.5-5.1)
[2022-02-16] MEDS ORDERED: CELLULOSE,OXIDIZED 1 EACH EACH MC PRN (06:00)
[2022-02-16] MEDS ORDERED: GELATIN SPONGE,ABSORBABLE 1 SPONGE SPONGE TP ONE ×2 (06:04→07:30)
[2022-02-16] MEDS: MEROPENEM 500 MG in IV NS 0.9% 50 ML IV SCH (08:17)
[2022-02-16] MEDS: CLOTRIMAZOLE 1% 15 GM TUBE TP SCH ×2 (08:18→17:42)
[2022-02-16] MEDS: FOLIC ACID 1 MG TABLET GT SCH (08:18)
[2022-02-16] MEDS: PANTOPRAZOLE 40 MG/PACK PACK GT SCH ×2 (08:18→20:45)
[2022-02-16] MEDS: NEOMY SULF/BACITRAC ZN/POLY 15 GM TUBE TP SCH (08:18)
[2022-02-16] MEDS: NEPRO 1,000 ML BOTTLE GT PRN (11:40)
[2022-02-16] MEDS ORDERED: PROPOFOL 200 MG/20 ML VIAL IV ONE (14:55)
[2022-02-17] VITALS (24 sets, daily range): BP systolic 114–159; BP diastolic 59–97
[2022-02-17] MEDS: ACETAMINOPHEN 650 MG/20.3 ML UDC PEG PRN ×3 (00:05→20:22)
[2022-02-17 04:33] LABS: BASOPHILS # (AUTO) 0.1 K/uL (0.0-0.2); EOSINOPHILS % (AUTO) 0.6 % (0.0-6.0); HEMATOCRIT 24 % (39-51); HEMOGLOBIN 7.6 g/dL (13.5-17.5); LYMPHOCYTES # (AUTO) 1.7 K/uL (0.8-4.8); LYMPHOCYTES % (AUTO) 14.8 % (20.0-44.0); MEAN CORPUSCULAR HGB CONC 32 g/dl (31.0-36.0); MEAN CORPUSCULAR VOLUME 86 fL (80-96); MONOCYTES # (AUTO) 1.3 K/uL (0.1-1.30); MONOCYTES % (AUTO) 11.9 % (2.0-12.0); NEUTROPHILS % (AUTO) 71.7 % (43.0-81.0); PLATELET COUNT (AUTO) 243 K/uL (150-450); RED BLOOD CELL COUNT(AUTO) 2.77 MIL/uL (4.5-6.0); WHITE BLOOD COUNT (AUTO) 11.2 K/uL (4.3-11.0)
[2022-02-17 05:24] LABS: CALCIUM, SERUM 7.8 mg/dL (8.5-10.1); MAGNESIUM 2.3 mg/dL (1.8-2.4); PHOSPHORUS 4.6 mg/dL (2.5-4.9); POTASSIUM 3.6 mmol/L (3.5-5.1)
[2022-02-17] MEDS: MEROPENEM 500 MG in IV NS 0.9% 50 ML IV SCH (08:24)
[2022-02-17] MEDS: PANTOPRAZOLE 40 MG/PACK PACK GT SCH ×2 (08:24→20:22)
[2022-02-17] MEDS: CLOTRIMAZOLE 1% 15 GM TUBE TP SCH ×2 (08:25→17:34)
[2022-02-17] MEDS: FOLIC ACID 1 MG TABLET GT SCH (08:25)
[2022-02-17] MEDS: NEOMY SULF/BACITRAC ZN/POLY 15 GM TUBE TP SCH (08:26)
[2022-02-17] MEDS: NEPRO 1,000 ML BOTTLE GT PRN (11:10)
[2022-02-17] MEDS: IV NS 0.9% 250 ML IV PRN (20:21)
[2022-02-18] VITALS (55 sets, daily range): BP systolic 123–178; BP diastolic 57–85
[2022-02-18] MEDS: ACETAMINOPHEN 650 MG/20.3 ML UDC PEG PRN ×2 (04:41→20:29)
[2022-02-18 06:01] LABS: BASOPHILS # (AUTO) 0.1 K/uL (0.0-0.2); BASOPHILS % (AUTO) 0.7 % (0.0-2.0); EOSINOPHILS % (AUTO) 1.3 % (0.0-6.0); HEMATOCRIT 24 % (39-51); HEMOGLOBIN 7.5 g/dL (13.5-17.5); LYMPHOCYTES # (AUTO) 1.7 K/uL (0.8-4.8); LYMPHOCYTES % (AUTO) 14.3 % (20.0-44.0); MEAN CORPUSCULAR HGB CONC 32 g/dl (31.0-36.0); MEAN CORPUSCULAR VOLUME 87 fL (80-96); MONOCYTES # (AUTO) 1.4 K/uL (0.1-1.30); MONOCYTES % (AUTO) 11.4 % (2.0-12.0); NEUTROPHILS # (AUTO) 8.6 K/uL (1.8-8.9); NEUTROPHILS % (AUTO) 72.3 % (43.0-81.0); PLATELET COUNT (AUTO) 248 K/uL (150-450); RED BLOOD CELL COUNT(AUTO) 2.73 MIL/uL (4.5-6.0); WHITE BLOOD COUNT (AUTO) 11.9 K/uL (4.3-11.0)
[2022-02-18 07:02] LABS: CREATININE 3.5 mg/dL (0.6-1.3); MAGNESIUM 2.2 mg/dL (1.8-2.4); PHOSPHORUS 3.9 mg/dL (2.5-4.9); POTASSIUM 3.4 mmol/L (3.5-5.1)
[2022-02-18] MEDS: CLOTRIMAZOLE 1% 15 GM TUBE TP SCH ×2 (08:35→16:21)
[2022-02-18] MEDS: NEOMY SULF/BACITRAC ZN/POLY 15 GM TUBE TP SCH (08:35)
[2022-02-18] MEDS: PANTOPRAZOLE 40 MG/PACK PACK GT SCH ×2 (09:14→20:29)
[2022-02-18] MEDS: FOLIC ACID 1 MG TABLET GT SCH (09:14)
[2022-02-18] MEDS: MEROPENEM 500 MG in IV NS 0.9% 50 ML IV SCH (10:32)
[2022-02-18 11:34] LABS: CALCIUM, SERUM 8.3 mg/dL (8.5-10.1)
[2022-02-18] MEDS: NEPRO 1,000 ML BOTTLE GT PRN (17:30)
[2022-02-19] VITALS (25 sets, daily range): BP systolic 135–168; BP diastolic 54–84
[2022-02-19] MEDS: hydrALAZINE HCL IV 20 MG VIAL IV PRN ×2 (02:34→17:04)
[2022-02-19 04:28] LABS: BASOPHILS # (AUTO) 0.1 K/uL (0.0-0.2); BASOPHILS % (AUTO) 0.6 % (0.0-2.0); EOSINOPHILS % (AUTO) 1.1 % (0.0-6.0); HEMATOCRIT 25 % (39-51); HEMOGLOBIN 7.9 g/dL (13.5-17.5); LYMPHOCYTES # (AUTO) 2.1 K/uL (0.8-4.8); MEAN CORPUSCULAR HGB CONC 32 g/dl (31.0-36.0); MEAN CORPUSCULAR VOLUME 87 fL (80-96); MONOCYTES # (AUTO) 1.5 K/uL (0.1-1.30); MONOCYTES % (AUTO) 8.9 % (2.0-12.0); NEUTROPHILS # (AUTO) 12.5 K/uL (1.8-8.9); NEUTROPHILS % (AUTO) 76.4 % (43.0-81.0); PLATELET COUNT (AUTO) 278 K/uL (150-450); RED BLOOD CELL COUNT(AUTO) 2.83 MIL/uL (4.5-6.0); WHITE BLOOD COUNT (AUTO) 16.4 K/uL (4.3-11.0)
[2022-02-19 06:35] LABS: CREATININE 2.7 mg/dL (0.6-1.3); MAGNESIUM 2.2 mg/dL (1.8-2.4); PHOSPHORUS 3.1 mg/dL (2.5-4.9); POTASSIUM 3.5 mmol/L (3.5-5.1)
[2022-02-19] MEDS: MEROPENEM 500 MG in IV NS 0.9% 50 ML IV SCH (08:10)
[2022-02-19] MEDS: NEOMY SULF/BACITRAC ZN/POLY 15 GM TUBE TP SCH (08:11)
[2022-02-19] MEDS: CLOTRIMAZOLE 1% 15 GM TUBE TP SCH ×2 (08:12→17:01)
[2022-02-19] MEDS ORDERED: PROPOFOL 100 ML IV PRN (09:30)
[2022-02-19] MEDS ORDERED: FENTANYL PF 100MCG/2ML AMPUL ONE (09:59)
[2022-02-19] MEDS ORDERED: FENTANYL PF 100MCG/2ML AMPUL IV PRN (10:00)
[2022-02-19] MEDS ORDERED: LIDOCAINE HCL/MPF 1% 30 ML VIAL IJ ONE (10:13)
[2022-02-19] MEDS ORDERED: LIDOCAINE 1% INJ 50 ML MDV IJ ONE (10:30)
[2022-02-19] MEDS ORDERED: ROCURONIUM BROMIDE 50 MG/5 ML IV ONE ×2 (10:30→13:23)
[2022-02-19] MEDS: NEPRO 1,000 ML BOTTLE GT PRN (11:00)
[2022-02-19] MEDS: FOLIC ACID 1 MG TABLET GT SCH (11:00)
[2022-02-19] MEDS: PANTOPRAZOLE 40 MG/PACK PACK GT SCH ×2 (11:00→20:44)
[2022-02-19] MEDS ORDERED: MORPHINE SULFATE INJ 4 MG/ML DISP.SYRIN IV PRN (13:30)
[2022-02-19] MEDS: IV NS 0.9% 250 ML IV PRN (20:41)
[2022-02-19] MEDS ORDERED: LORAZEPAM INJ 2 MG/ML VIAL ONE (21:52)
[2022-02-20] VITALS (19 sets, daily range): BP systolic 104–162; BP diastolic 63–80
[2022-02-20 05:01] LABS: BASOPHILS # (AUTO) 0.1 K/uL (0.0-0.2); BASOPHILS % (AUTO) 0.8 % (0.0-2.0); EOSINOPHILS % (AUTO) 1.7 % (0.0-6.0); HEMATOCRIT 23 % (39-51); HEMOGLOBIN 7.4 g/dL (13.5-17.5); LYMPHOCYTES # (AUTO) 1.7 K/uL (0.8-4.8); LYMPHOCYTES % (AUTO) 12.6 % (20.0-44.0); MEAN CORPUSCULAR HGB CONC 32 g/dl (31.0-36.0); MEAN CORPUSCULAR VOLUME 87 fL (80-96); MONOCYTES # (AUTO) 1.2 K/uL (0.1-1.30); NEUTROPHILS # (AUTO) 10.1 K/uL (1.8-8.9); NEUTROPHILS % (AUTO) 75.9 % (43.0-81.0); PLATELET COUNT (AUTO) 278 K/uL (150-450); RED BLOOD CELL COUNT(AUTO) 2.68 MIL/uL (4.5-6.0); WHITE BLOOD COUNT (AUTO) 13.3 K/uL (4.3-11.0)
[2022-02-20 05:43] LABS: MAGNESIUM 2.3 mg/dL (1.8-2.4); PHOSPHORUS 4.1 mg/dL (2.5-4.9); POTASSIUM 3.5 mmol/L (3.5-5.1)
[2022-02-20] MEDS: CLOTRIMAZOLE 1% 15 GM TUBE TP SCH ×2 (08:40→17:02)
[2022-02-20] MEDS: PANTOPRAZOLE 40 MG/PACK PACK GT SCH ×2 (08:40→20:19)
[2022-02-20] MEDS: MEROPENEM 500 MG in IV NS 0.9% 50 ML IV SCH (08:40)
[2022-02-20] MEDS: FOLIC ACID 1 MG TABLET GT SCH (08:40)
[2022-02-20] MEDS: NEOMY SULF/BACITRAC ZN/POLY 15 GM TUBE TP SCH ×2 (08:41→22:51)
[2022-02-20] MEDS: hydrALAZINE HCL IV 20 MG VIAL IV PRN (08:51)
[2022-02-21] VITALS: BP 132/84
[2022-02-21] MEDS: NEPRO 1,000 ML BOTTLE GT PRN (03:22)
[2022-02-21 04:00] VITALS: BP 133/79
[2022-02-21 08:00] VITALS: BP 171/77
[2022-02-21] MEDS: PANTOPRAZOLE 40 MG/PACK PACK GT SCH ×2 (08:15→20:30)
[2022-02-21] MEDS: MEROPENEM 500 MG in IV NS 0.9% 50 ML IV SCH (08:15)
[2022-02-21] MEDS: hydrALAZINE HCL IV 20 MG VIAL IV PRN ×2 (08:17→20:37)
[2022-02-21] MEDS: FOLIC ACID 1 MG TABLET GT SCH (08:18)
[2022-02-21] MEDS: NEOMY SULF/BACITRAC ZN/POLY 15 GM TUBE TP SCH ×2 (08:19)
[2022-02-21] MEDS: CLOTRIMAZOLE 1% 15 GM TUBE TP SCH ×2 (08:19→16:37)
[2022-02-21 12:00] VITALS: BP 146/66
[2022-02-21 13:47] LABS: BASOPHILS # (AUTO) 0.1 K/uL (0.0-0.2); BASOPHILS % (AUTO) 0.9 % (0.0-2.0); HEMATOCRIT 23 % (39-51); HEMOGLOBIN 7.3 g/dL (13.5-17.5); LYMPHOCYTES # (AUTO) 1.7 K/uL (0.8-4.8); LYMPHOCYTES % (AUTO) 14.4 % (20.0-44.0); MEAN CORPUSCULAR HGB CONC 32 g/dl (31.0-36.0); MEAN CORPUSCULAR VOLUME 87 fL (80-96); MONOCYTES # (AUTO) 1.1 K/uL (0.1-1.30); NEUTROPHILS # (AUTO) 8.5 K/uL (1.8-8.9); NEUTROPHILS % (AUTO) 71.7 % (43.0-81.0); PLATELET COUNT (AUTO) 279 K/uL (150-450); RED BLOOD CELL COUNT(AUTO) 2.61 MIL/uL (4.5-6.0); WHITE BLOOD COUNT (AUTO) 11.8 K/uL (4.3-11.0)
[2022-02-21 16:00] VITALS: BP 142/58
[2022-02-21] MEDS: ACETAMINOPHEN 650 MG/20.3 ML UDC PEG PRN (16:39)
[2022-02-21 20:00] VITALS: BP 155/69
[2022-02-22] VITALS: BP 129/67
[2022-02-22 04:00] VITALS: BP 149/83
[2022-02-22 07:18] LABS: BASOPHILS # (AUTO) 0.1 K/uL (0.0-0.2); EOSINOPHILS % (AUTO) 5.6 % (0.0-6.0); HEMATOCRIT 24 % (39-51); HEMOGLOBIN 7.8 g/dL (13.5-17.5); LYMPHOCYTES # (AUTO) 1.3 K/uL (0.8-4.8); LYMPHOCYTES % (AUTO) 13.6 % (20.0-44.0); MEAN CORPUSCULAR HGB CONC 33 g/dl (31.0-36.0); MEAN CORPUSCULAR VOLUME 87 fL (80-96); MONOCYTES # (AUTO) 0.9 K/uL (0.1-1.30); MONOCYTES % (AUTO) 8.9 % (2.0-12.0); NEUTROPHILS # (AUTO) 6.9 K/uL (1.8-8.9); NEUTROPHILS % (AUTO) 70.9 % (43.0-81.0); PLATELET COUNT (AUTO) 289 K/uL (150-450); RED BLOOD CELL COUNT(AUTO) 2.76 MIL/uL (4.5-6.0); WHITE BLOOD COUNT (AUTO) 9.7 K/uL (4.3-11.0)
[2022-02-22 08:00] VITALS: BP 165/68
[2022-02-22 08:10] LABS: CREATININE 2.7 mg/dL (0.6-1.3); MAGNESIUM 2.2 mg/dL (1.8-2.4); PHOSPHORUS 4.6 mg/dL (2.5-4.9); POTASSIUM 4.3 mmol/L (3.5-5.1)
[2022-02-22] MEDS: NEOMY SULF/BACITRAC ZN/POLY 15 GM TUBE TP SCH ×2 (09:00→10:11)
[2022-02-22] MEDS: FOLIC ACID 1 MG TABLET GT SCH (10:08)
[2022-02-22] MEDS: PANTOPRAZOLE 40 MG/PACK PACK GT SCH ×2 (10:08→21:03)
[2022-02-22] MEDS: CLOTRIMAZOLE 1% 15 GM TUBE TP SCH ×2 (10:10→16:51)
[2022-02-22] MEDS: MEROPENEM 500 MG in IV NS 0.9% 50 ML IV SCH (10:32)
[2022-02-22 12:00] VITALS: BP 166/63
[2022-02-22] MEDS ORDERED: EPOETIN ALFA (10,000 UNIT) 10,000 UNIT/ML VIAL SQ SCH (12:00)
[2022-02-22] MEDS: PROSOURCE / PROSTAT (PYXIS) 30 ML UDC GT SCH (13:34)
[2022-02-22] MEDS ORDERED: COVID-19 VACC,MRNA(MODERNA) 100 MCG/0.5 ML IM ONE (15:00)
[2022-02-22 16:00] VITALS: BP 166/65
[2022-02-22] MEDS: ACETAMINOPHEN 650 MG/20.3 ML UDC PEG PRN (16:52)
[2022-02-22 20:00] VITALS: BP 158/81
[2022-02-22] MEDS: NEPRO 1,000 ML BOTTLE GT PRN (21:01)
[2022-02-23] VITALS: BP 159/69
[2022-02-23] MEDS: NEPRO 1,000 ML BOTTLE GT PRN (03:44)
[2022-02-23 04:00] VITALS: BP 156/65
[2022-02-23 06:47] LABS: BASOPHILS # (AUTO) 0.1 K/uL (0.0-0.2); BASOPHILS % (AUTO) 0.8 % (0.0-2.0); EOSINOPHILS % (AUTO) 3.3 % (0.0-6.0); HEMATOCRIT 26 % (39-51); HEMOGLOBIN 8.2 g/dL (13.5-17.5); LYMPHOCYTES # (AUTO) 1.4 K/uL (0.8-4.8); LYMPHOCYTES % (AUTO) 12.7 % (20.0-44.0); MEAN CORPUSCULAR HGB CONC 32 g/dl (31.0-36.0); MEAN CORPUSCULAR VOLUME 87 fL (80-96); MONOCYTES # (AUTO) 0.9 K/uL (0.1-1.30); MONOCYTES % (AUTO) 8.3 % (2.0-12.0); NEUTROPHILS # (AUTO) 8.4 K/uL (1.8-8.9); NEUTROPHILS % (AUTO) 74.9 % (43.0-81.0); PLATELET COUNT (AUTO) 296 K/uL (150-450); RED BLOOD CELL COUNT(AUTO) 2.94 MIL/uL (4.5-6.0); WHITE BLOOD COUNT (AUTO) 11.2 K/uL (4.3-11.0)
[2022-02-23 06:51] LABS: CALCIUM, SERUM 8.2 mg/dL (8.5-10.1); CREATININE 1.9 mg/dL (0.6-1.3); MAGNESIUM 2.2 mg/dL (1.8-2.4); PHOSPHORUS 3.7 mg/dL (2.5-4.9)
[2022-02-23 08:00] VITALS: BP 149/68
[2022-02-23] MEDS: PANTOPRAZOLE 40 MG/PACK PACK GT SCH (08:43)
[2022-02-23] MEDS: FOLIC ACID 1 MG TABLET GT SCH (08:43)
[2022-02-23] MEDS: NEOMY SULF/BACITRAC ZN/POLY 15 GM TUBE TP SCH ×2 (08:45→08:46)
[2022-02-23] MEDS: CLOTRIMAZOLE 1% 15 GM TUBE TP SCH ×2 (08:45→16:35)
[2022-02-23] MEDS: MEROPENEM 500 MG in IV NS 0.9% 50 ML IV SCH (08:45)
[2022-02-23] MEDS: PROSOURCE / PROSTAT (PYXIS) 30 ML UDC GT SCH (08:55)
[2022-02-23 10:11] LABS: ABG BASE EXCESS 4.5 mmol/L; ABG OXYGEN SATURATION 98.7 % (92.0-98.5); ABG PCO2 35.8 mmHg (35.0-45.0); ABG PH 7.508 (7.350-7.450); ABG PO2 135.6 mmHg (75.0-100.0); AaDO2 108.4 mmHg; MetHb 0.4 % (0.0-1.5); O2Hb 98.3 % (94.0-97.0); PEEP,BG 5 cm H2O; SITE, ABG Right Radial; VENT MODE, BG SIMV R4 450 40% PS15 +
[2022-02-23 12:00] VITALS: BP 158/69
[2022-02-23 16:00] VITALS: BP 145/68
[2022-02-26] MEDS ORDERED: CLOT15CR27 TP (09:26)
[2022-02-26] MEDS ORDERED: ACET-868 GT (09:26)
[2022-02-26] MEDS ORDERED: FOLI0.4T6 GT (09:26)
[2022-02-26] MEDS ORDERED: ACET650S11 RC (09:26)
[2022-02-26] MEDS ORDERED: PANT40SU2 GT (09:26)
[2022-02-26] MEDS ORDERED: NUT.237L67 GT (09:26)
[2022-02-26] MEDS ORDERED: ALLA266C2 TP (09:26)
[2022-02-26] MEDS ORDERED: AMIN30LI2 GT (09:26)
[2022-02-26] MEDS ORDERED: NEOM28.37 TP (09:26)
[2022-02-26] MEDS ORDERED: EPOE1VIA7 SQ (09:26)
== END 2022-02-23 17:31 | DRG 5 ==
LOC: ER 13:06 → ICU 16:40 → TELE-TD 02-20 17:49 → TELE1 02-21 11:43
PROVIDERS: ADMIT Nurse Practitioner Family; ATTEND Student in an Organized Health Care Education/Training Program
PROC: 0DJ08ZZ Inspection of Upper Intestinal Tract, Via Natural or Artificial Opening Endoscopic (ICD-10-PCS; principal; 2022-01-21)
PROC: 5A1955Z Respiratory Ventilation, Greater than 96 Consecutive Hours (ICD-10-PCS; 2022-01-21)
PROC: 0BH18EZ Insertion of Endotracheal Airway into Trachea, Via Natural or Artificial Opening Endoscopic (ICD-10-PCS; 2022-01-21)
PROC: 30233N1 Transfusion of Nonautologous Red Blood Cells into Peripheral Vein, Percutaneous Approach (ICD-10-PCS; 2022-01-21)
PROC: 05HB33Z Insertion of Infusion Device into Right Basilic Vein, Percutaneous Approach (ICD-10-PCS; 2022-01-21)
PROC: B54MZZA Ultrasonography of Right Upper Extremity Veins, Guidance (ICD-10-PCS; 2022-01-21)
PROC: 06HY33Z Insertion of Infusion Device into Lower Vein, Percutaneous Approach (ICD-10-PCS; 2022-01-21)
PROC: B54BZZA Ultrasonography of Right Lower Extremity Veins, Guidance (ICD-10-PCS; 2022-01-21)
PROC: 02HV33Z Insertion of Infusion Device into Superior Vena Cava, Percutaneous Approach (ICD-10-PCS; 2022-01-22)
PROC: B548ZZA Ultrasonography of Superior Vena Cava, Guidance (ICD-10-PCS; 2022-01-22)
PROC: 5A1D70Z Performance of Urinary Filtration, Intermittent, Less than 6 Hours Per Day (ICD-10-PCS; 2022-01-23)
PROC: 30233K1 Transfusion of Nonautologous Frozen Plasma into Peripheral Vein, Percutaneous Approach (ICD-10-PCS; 2022-01-24)
PROC: 30233R1 Transfusion of Nonautologous Platelets into Peripheral Vein, Percutaneous Approach (ICD-10-PCS; 2022-01-25)
PROC: 02HV33Z Insertion of Infusion Device into Superior Vena Cava, Percutaneous Approach (ICD-10-PCS; 2022-02-14)
PROC: B548ZZA Ultrasonography of Superior Vena Cava, Guidance (ICD-10-PCS; 2022-02-14)
PROC: 0DH63UZ Insertion of Feeding Device into Stomach, Percutaneous Approach (ICD-10-PCS; 2022-02-15)
PROC: 0B113F4 Bypass Trachea to Cutaneous with Tracheostomy Device, Percutaneous Approach (ICD-10-PCS; 2022-02-19)
DX: A41.50 Gram-negative sepsis, unspecified (principal); N17.0 Acute kidney failure with tubular necrosis; D65 Disseminated intravascular coagulation [defibrination syndrome]; R65.21 Severe sepsis with septic shock; J69.0 Pneumonitis due to inhalation of food and vomit; G92.8 Other toxic encephalopathy; J15.6 Pneumonia due to other Gram-negative bacteria; D61.818 Other pancytopenia; G93.49 Other encephalopathy; L89.613 Pressure ulcer of right heel, stage 3; I85.11 Secondary esophageal varices with bleeding; E44.0 Moderate protein-calorie malnutrition; J96.01 Acute respiratory failure with hypoxia; E87.1 Hypo-osmolality and hyponatremia; E88.09 Other disorders of plasma-protein metabolism, not elsewhere classified; K74.60 Unspecified cirrhosis of liver; E86.0 Dehydration; D62 Acute posthemorrhagic anemia; E87.2 Acidosis; F10.10 Alcohol abuse, uncomplicated; K92.2 Gastrointestinal hemorrhage, unspecified; Z20.822 Contact with and (suspected) exposure to COVID-19; J98.11 Atelectasis; N18.9 Chronic kidney disease, unspecified; B96.20 Unspecified Escherichia coli [E. coli] as the cause of diseases classified elsewhere; E61.1 Iron deficiency; I42.9 Cardiomyopathy, unspecified; L30.4 Erythema intertrigo; Z59.00 Homelessness unspecified; K76.6 Portal hypertension; Z68.25 Body mass index [BMI] 25.0-25.9, adult; Y90.0 Blood alcohol level of less than 20 mg/100 ml; K57.30 Diverticulosis of large intestine without perforation or abscess without bleeding; L89.156 Pressure-induced deep tissue damage of sacral region; N39.0 Urinary tract infection, site not specified; K29.70 Gastritis, unspecified, without bleeding; S70.321A Blister (nonthermal), right thigh, initial encounter; B96.5 Pseudomonas (aeruginosa) (mallei) (pseudomallei) as the cause of diseases classified elsewhere; R13.10 Dysphagia, unspecified; N50.89 Other specified disorders of the male genital organs
CPT/HCPCS: 31623; 31720; 36410; 36415; 36569; 36600; 43246; 70450-TC; 71045-TC; 71250-TC; 76700-TC; 80048-TC; 80053-TC; 80061-TC; 80076-TC; 80150; 80202-TC; 81001; 82272-TC; 82550-TC; 82553; 82570-TC; 82728-TC; 82784; 82803-TC; 82962-TC; 83540-TC; 83605-TC; 83690-TC; 83735-TC; 83970; 84100-TC; 84155; 84155-TC; 84165; 84300-TC; 84439-TC; 84443-TC; 84478-TC; 85025-TC; 85027-TC; 85396; 85610-TC; 85730-TC; 86140-TC; 86225; 86235; 86334; 86431-TC; 86702; 86704; 86706; 86803; 86850-TC; 87040-TC; 87070-TC; 87081-TC; 87086-TC; 87186-TC; 87340; 87806; 90935-TC; 94002-TC; 94003-TC; 94640-TC; 94760-TC; 94762-TC; 94799-TC; 99082-TC; A4216; A4623; A4624; A6253; A6403; A7526; C9113; C9803; G0378; G0480; J0278; J0330; J0360; J0610; J0690; J0696; J0885; J2060; J2185; J2250; J2270; J2354; J2405; J2543; J2704; J2765; J2916; J3010; J3370; J3430; J3490; J7030; J7040; J7042; J7050; J7060; J7070; P9016; P9017; P9034; P9047; Q0162; U0003

== ENCOUNTER → 2022-03-30 | Day surgery (SDC) | payer MEDICAID ==
[~2022-03-30] MED LIST: ACET-868 GT; ACET650S11 RC; ALLA266C2 TP; AMIN30LI2 GT; BUPIVACAINE 0.25% 75 MG/30 ML VIAL ONE; CLOT15CR27 TP; EPOE1VIA7 SQ; FENTANYL PF 100MCG/2ML AMPUL ONE; FENTANYL PF 250MCG/5ML AMPUL ONE; FOLI0.4T6 GT; HEPARIN SODIUM, PORCINE 1,000 UNIT/ML VIAL ONE; HEPARIN SODIUM, PORCINE 5000 UNITS/1 ML VIAL ONE; IOHEXOL 240MG/ML 0 ML IV ONE; LIDOCAINE 1% INJ 50 ML MDV IJ ONE; NEOM28.37 TP; NUT.237L67 GT; PANT40SU2 GT; POLYMYXIN B SULFATE 0 UNITS ONE; SEVOFLURANE 250 ML BOTTLE IH ONE; protAMINE SULFATE 10 MG/ML VIAL IV ONE
== END | disposition home or self-care (01) ==
LOC: DS 10:02
PROVIDERS: ATTEND Surgery Vascular Surgery
DX: N18.6 End stage renal disease (principal)
CPT/HCPCS: 36558; 36819; 71045 ×2; 77001; A4338; C1750; C1769; J0690; J1644 ×3; J2704; J2720; J3010 ×2; J3490 ×3; J7030; Q9966

== ENCOUNTER 2022-11-26 | Inpatient (IN) | payer MEDICAID ==
[~2022-11-26] VITALS: Ht 152.4 cm; Wt 60.3 kg
[~2022-11-26] MED LIST changes: -BUPIVACAINE 0.25% 75 MG/30 ML VIAL ONE; -FENTANYL PF 100MCG/2ML AMPUL ONE; -FENTANYL PF 250MCG/5ML AMPUL ONE; -HEPARIN SODIUM, PORCINE 1,000 UNIT/ML VIAL ONE; -HEPARIN SODIUM, PORCINE 5000 UNITS/1 ML VIAL ONE; -IOHEXOL 240MG/ML 0 ML IV ONE; -LIDOCAINE 1% INJ 50 ML MDV IJ ONE; -POLYMYXIN B SULFATE 0 UNITS ONE; -SEVOFLURANE 250 ML BOTTLE IH ONE; -protAMINE SULFATE 10 MG/ML VIAL IV ONE
[2022-11-28 00:32] VITALS: BP 125/65
[2022-11-28] MEDS ORDERED: ACETAMINOPHEN 650 MG SUPP.RECT RC PRN (06:31)
[2022-11-28] MEDS ORDERED: EPOETIN ALFA-EPBX 10,000 UNIT/ML VIAL SQ SCH ×2 (06:31)
[2022-11-28] MEDS ORDERED: ACETAMINOPHEN 650 MG/20.3 ML UDC PO PRN (06:31)
[2022-11-28] MEDS ORDERED: ACETAMINOPHEN 650 MG/20 ML UDC- SA PATIENTS-PAIN ONLY GT PRN (06:31)
[2022-11-28] MEDS ORDERED: TUBERCULIN,PURIF.PROT.DERIV. 5 TU/0.1 ML VIAL ID SCH (06:31)
[2022-11-28] MEDS ORDERED: TWOCAL HN 1,000 ML LIQUID GT PRN (06:31)
[2022-11-28] MEDS ORDERED: ACETAMINOPHEN 650 MG/20 ML UDC- SA PATIENTS-PAIN ONLY GT SCH (06:31)
[2022-11-28] MEDS ORDERED: ONDANSETRON HCL 4 MG/5 ML SOLUTION GT PRN (06:31)
[2022-11-28] MEDS ORDERED: ACETAMINOPHEN SUP SA PATIENTS 650 MG SUPP RC PRN (06:31)
[2022-11-28] MEDS ORDERED: diphenhydrAMINE HCL ELIX 25 MG/10 ML UDC GT PRN (06:31)
[2022-11-28] MEDS ORDERED: HYDROCODONE/APAP 5/325MG TABLET GT PRN (06:31)
[2022-11-28] MEDS: IPRATROPIUM NEB FS 0.5 MG/2.5 ML AMPUL.NEB NEB SCH ×3 (07:35→20:07)
[2022-11-28] MEDS: ALBUTEROL FS 2.5 MG/0.5 ML VIAL.NEB NEB SCH ×3 (07:35→20:07)
[2022-11-28 07:59] VITALS: BP 159/88
[2022-11-28] MEDS: VITAMINS A AND D 56.7 GM TUBE TP SCH ×3 (08:40→21:38)
[2022-11-28] MEDS: SEVELAMER CARBONATE 800 MG POWD.PACK GT SCH ×2 (08:40→18:00)
[2022-11-28] MEDS: SENNOSIDES 8.6 MG TABLET PO SCH (08:40)
[2022-11-28] MEDS: ESCITALOPRAM OXALATE (10 MG) 10 MG TABLET GT SCH (08:40)
[2022-11-28] MEDS: PANTOPRAZOLE 40 MG/PACK PACK GT SCH ×2 (08:40→21:38)
[2022-11-28] MEDS: FOLIC ACID 1 MG TABLET GT SCH (08:40)
[2022-11-28] MEDS: AMLODIPINE BESYLATE 5 MG TABLET GT SCH (08:40)
[2022-11-28] MEDS: PROSTAT (PYXIS) 30 ML UDC GT SCH ×2 (08:40→18:00)
[2022-11-28] MEDS: VIT B CMPLX 3/FA/VIT C/BIOTIN 1 TAB TABLET PO SCH (08:40)
[2022-11-28] MEDS: DOCUSATE SODIUM LIQ 100 MG/10 ML UDC GT SCH (08:40)
[2022-11-28] MEDS: HYDROGEN PEROXIDE 480 ML BOTTLE TP SCH ×2 (09:00→21:09)
[2022-11-28] MEDS: hydrOXYzine HCL SYRUP 10 MG/5 ML UDC GT SCH ×2 (12:35→21:38)
[2022-11-28 13:43] VITALS: BP 160/66
--- NOTE | 2022-11-28 18:29 | NUR ---
PCR Covid test done today on pt, waiting for result. Pt with no s/s of sob, cough, pt afebrile.
[2022-11-28 19:35] VITALS: BP 144/62
[2022-11-28] MEDS: MELATONIN 3 MG TABLET GT SCH (21:38)
[2022-11-28] MEDS: QUETIAPINE FUMARATE 25 MG TABLET GT SCH (21:40)
[2022-11-29] MEDS: ALBUTEROL FS 2.5 MG/0.5 ML VIAL.NEB NEB SCH ×4 (01:35→20:37)
[2022-11-29] MEDS: IPRATROPIUM NEB FS 0.5 MG/2.5 ML AMPUL.NEB NEB SCH ×4 (01:35→20:36)
[2022-11-29] MEDS: hydrOXYzine HCL SYRUP 10 MG/5 ML UDC GT SCH ×3 (05:50→21:27)
[2022-11-29 07:14] VITALS: BP 136/60
[2022-11-29] MEDS: HYDROGEN PEROXIDE 480 ML BOTTLE TP SCH ×2 (08:16→20:37)
[2022-11-29] MEDS: SEVELAMER CARBONATE 800 MG POWD.PACK GT SCH ×2 (08:28→16:33)
[2022-11-29] MEDS: PROSTAT (PYXIS) 30 ML UDC GT SCH ×2 (08:28→16:33)
[2022-11-29] MEDS: PANTOPRAZOLE 40 MG/PACK PACK GT SCH ×2 (08:28→21:27)
[2022-11-29] MEDS: AMLODIPINE BESYLATE 5 MG TABLET GT SCH (08:28)
[2022-11-29] MEDS: FOLIC ACID 1 MG TABLET GT SCH (08:28)
[2022-11-29] MEDS: DOCUSATE SODIUM LIQ 100 MG/10 ML UDC GT SCH (08:28)
[2022-11-29] MEDS: ESCITALOPRAM OXALATE (10 MG) 10 MG TABLET GT SCH (08:28)
[2022-11-29] MEDS: SENNOSIDES 8.6 MG TABLET PO SCH (08:29)
[2022-11-29] MEDS: VIT B CMPLX 3/FA/VIT C/BIOTIN 1 TAB TABLET PO SCH (08:29)
[2022-11-29] MEDS: VITAMINS A AND D 56.7 GM TUBE TP SCH ×3 (08:29→21:27)
[2022-11-29] MEDS: ACETAMINOPHEN 650 MG/20 ML UDC- SA PATIENTS-PAIN ONLY GT SCH (08:29)
[2022-11-29 10:51] LABS: HEMOGLOBIN 12.2 g/dL (13.5-17.5)
[2022-11-29 11:49] VITALS: BP 119/64
[2022-11-29 19:02] VITALS: BP 134/67
--- NOTE | 2022-11-29 20:40 | NUR ---
PATIENT REFUSED TO KEEP HHN TREATMENT ON AND BECOMES AGITATED WHEN ATTEMPTED TO REPLACED NEB MASK ON. HYDROGEN PEROXIDE NO LONGER APPROPRIATE FOR THE PATIENT BECAUSE PATIENT IS NO LONGER HAVE TRACH TUBE PLACED. RN NOTIFIED. Addendum: 11/29/22 at 2041 by CHARLES LOUIE RT Amended: Links added.
[2022-11-29] MEDS: EPOETIN ALFA-EPBX 10,000 UNIT/ML VIAL SQ SCH (21:00)
[2022-11-29] MEDS: QUETIAPINE FUMARATE 25 MG TABLET GT SCH (21:27)
[2022-11-29] MEDS: MELATONIN 3 MG TABLET GT SCH (21:27)
[2022-11-30] MEDS: ALBUTEROL FS 2.5 MG/0.5 ML VIAL.NEB NEB SCH ×5 (01:30→19:46)
[2022-11-30] MEDS: IPRATROPIUM NEB FS 0.5 MG/2.5 ML AMPUL.NEB NEB SCH ×5 (01:30→19:46)
[2022-11-30] MEDS: hydrOXYzine HCL SYRUP 10 MG/5 ML UDC GT SCH ×3 (05:20→20:00)
[2022-11-30 07:30] VITALS: BP 127/58
[2022-11-30] MEDS: HYDROGEN PEROXIDE 480 ML BOTTLE TP SCH ×2 (08:28→23:18)
[2022-11-30] MEDS: DOCUSATE SODIUM LIQ 100 MG/10 ML UDC GT SCH (08:42)
[2022-11-30] MEDS: ESCITALOPRAM OXALATE (10 MG) 10 MG TABLET GT SCH (08:42)
[2022-11-30] MEDS: FOLIC ACID 1 MG TABLET GT SCH (08:42)
[2022-11-30] MEDS: AMLODIPINE BESYLATE 5 MG TABLET GT SCH (08:43)
[2022-11-30] MEDS: PROSTAT (PYXIS) 30 ML UDC GT SCH ×2 (08:43→17:00)
[2022-11-30] MEDS: PANTOPRAZOLE 40 MG/PACK PACK GT SCH ×2 (08:43→20:00)
[2022-11-30] MEDS: SEVELAMER CARBONATE 800 MG POWD.PACK GT SCH ×2 (08:43→17:00)
[2022-11-30] MEDS: SENNOSIDES 8.6 MG TABLET PO SCH (08:44)
[2022-11-30] MEDS: VITAMINS A AND D 56.7 GM TUBE TP SCH ×3 (08:44→20:00)
[2022-11-30] MEDS: VIT B CMPLX 3/FA/VIT C/BIOTIN 1 TAB TABLET PO SCH (08:45)
[2022-11-30] MEDS: ACETAMINOPHEN 650 MG/20 ML UDC- SA PATIENTS-PAIN ONLY GT SCH (08:45)
--- NOTE | 2022-11-30 11:21 | NUR ---
Please see resident's previous account [id number] for all assessments and nurses notes.
--- NOTE | 2022-11-30 12:35 | NUR ---
Patient was pick-up by EMT personnel to be taken to dialysis center. Vital signs temperature 98.8 F, axillary, pulse 58, respirations 18, oxygen saturation level 100%, and blood pressure 127/58. Report given to EMT personnel. Peek-a-bonner mitten were put on to prevent from pulling on tubes at dialysis center.
[2022-11-30 14:31] VITALS: BP 146/65
--- NOTE | 2022-11-30 18:00 | NUR ---
Patient returned from dialysis center. Pre-dialysis weight 60.0kg and post-dialysis weight 59.5kg. Engerix 40mg IM given at right deltoid, Engerix vaccine was administered at dialysis center. Vital signs at arrival blood pressure 129/67, temperature 98.0 f axillary, pulse 66, respiration 18, pain level 0/10. Dressing intact on left upper arm, no bleeding, bruit/thrill +.
[2022-11-30 19:28] VITALS: BP 146/96
[2022-11-30] MEDS: BISACODYL SUPP (10 MG) 10 MG/SUPP.RECT SUPP.RECT RC PRN (20:00)
[2022-11-30] MEDS: MELATONIN 3 MG TABLET GT SCH (21:03)
[2022-11-30] MEDS: QUETIAPINE FUMARATE 25 MG TABLET GT SCH (21:03)
[2022-12-01 00:49] VITALS: BP 139/71
[2022-12-01] MEDS: IPRATROPIUM NEB FS 0.5 MG/2.5 ML AMPUL.NEB NEB SCH ×4 (01:43→19:30)
[2022-12-01] MEDS: ALBUTEROL FS 2.5 MG/0.5 ML VIAL.NEB NEB SCH ×4 (01:43→19:30)
[2022-12-01] MEDS: hydrOXYzine HCL SYRUP 10 MG/5 ML UDC GT SCH ×3 (05:31→20:21)
--- NOTE | 2022-12-01 07:06 | NUR ---
Pt remains stable and afebrile during shift, vs wnl, no changes in clinical condition noted, no a/r to hep b vaccine received from Dialysis center yesterday. Dialysis site clean and dry no s/sx of bleeding or infection noted. All needs attended and met. Will endorse continuation of care to am oncoming nurse.
[2022-12-01 07:31] VITALS: BP 138/61
[2022-12-01] MEDS: HYDROGEN PEROXIDE 480 ML BOTTLE TP SCH ×2 (09:03→20:29)
[2022-12-01] MEDS: SEVELAMER CARBONATE 800 MG POWD.PACK GT SCH ×2 (09:29→17:13)
[2022-12-01] MEDS: AMLODIPINE BESYLATE 5 MG TABLET GT SCH (09:29)
[2022-12-01] MEDS: VIT B CMPLX 3/FA/VIT C/BIOTIN 1 TAB TABLET PO SCH (09:29)
[2022-12-01] MEDS: PROSTAT (PYXIS) 30 ML UDC GT SCH ×2 (09:29→17:13)
[2022-12-01] MEDS: ACETAMINOPHEN 650 MG/20 ML UDC- SA PATIENTS-PAIN ONLY GT SCH (09:29)
[2022-12-01] MEDS: SENNOSIDES 8.6 MG TABLET PO SCH (09:29)
[2022-12-01] MEDS: FOLIC ACID 1 MG TABLET GT SCH (09:29)
[2022-12-01] MEDS: PANTOPRAZOLE 40 MG/PACK PACK GT SCH ×2 (09:29→20:21)
[2022-12-01] MEDS: DOCUSATE SODIUM LIQ 100 MG/10 ML UDC GT SCH (09:29)
[2022-12-01] MEDS: ESCITALOPRAM OXALATE (10 MG) 10 MG TABLET GT SCH (09:29)
[2022-12-01] MEDS: VITAMINS A AND D 56.7 GM TUBE TP SCH ×3 (09:30→20:21)
[2022-12-01 11:35] VITALS: BP 129/63
[2022-12-01 19:34] VITALS: BP 124/64
--- NOTE | 2022-12-01 20:47 | NUR ---
RT pt received on RA. pt refused breathing tx. no sob, no resp distress.
[2022-12-01] MEDS: QUETIAPINE FUMARATE 25 MG TABLET GT SCH (21:05)
[2022-12-01] MEDS: MELATONIN 3 MG TABLET GT SCH (21:05)
[2022-12-01 23:57] VITALS: BP 130/71
[2022-12-02] MEDS: ALBUTEROL FS 2.5 MG/0.5 ML VIAL.NEB NEB SCH ×5 (01:30→19:47)
[2022-12-02] MEDS: IPRATROPIUM NEB FS 0.5 MG/2.5 ML AMPUL.NEB NEB SCH ×5 (01:30→19:47)
[2022-12-02] MEDS: hydrOXYzine HCL SYRUP 10 MG/5 ML UDC GT SCH ×3 (05:38→21:17)
[2022-12-02 07:14] VITALS: BP 130/60
[2022-12-02] MEDS: HYDROGEN PEROXIDE 480 ML BOTTLE TP SCH ×2 (09:15→21:58)
[2022-12-02] MEDS: VIT B CMPLX 3/FA/VIT C/BIOTIN 1 TAB TABLET PO SCH (09:40)
[2022-12-02] MEDS: DOCUSATE SODIUM LIQ 100 MG/10 ML UDC GT SCH (09:40)
[2022-12-02] MEDS: SENNOSIDES 8.6 MG TABLET PO SCH (09:40)
[2022-12-02] MEDS: VITAMINS A AND D 56.7 GM TUBE TP SCH ×3 (09:40→21:17)
[2022-12-02] MEDS: PANTOPRAZOLE 40 MG/PACK PACK GT SCH ×2 (09:40→21:17)
[2022-12-02] MEDS: ESCITALOPRAM OXALATE (10 MG) 10 MG TABLET GT SCH (09:40)
[2022-12-02] MEDS: PROSTAT (PYXIS) 30 ML UDC GT SCH ×2 (09:40→17:39)
[2022-12-02] MEDS: SEVELAMER CARBONATE 800 MG POWD.PACK GT SCH ×2 (09:40→17:39)
[2022-12-02] MEDS: AMLODIPINE BESYLATE 5 MG TABLET GT SCH (09:40)
[2022-12-02] MEDS: FOLIC ACID 1 MG TABLET GT SCH (09:40)
[2022-12-02 12:20] VITALS: BP 135/66
[2022-12-02 19:40] VITALS: BP 147/54
[2022-12-02] MEDS: QUETIAPINE FUMARATE 25 MG TABLET GT SCH (21:17)
[2022-12-02] MEDS: MELATONIN 3 MG TABLET GT SCH (21:17)
[2022-12-03 00:20] VITALS: BP 137/58
[2022-12-03] MEDS: ALBUTEROL FS 2.5 MG/0.5 ML VIAL.NEB NEB SCH ×4 (01:34→19:41)
[2022-12-03] MEDS: IPRATROPIUM NEB FS 0.5 MG/2.5 ML AMPUL.NEB NEB SCH ×4 (01:34→19:41)
[2022-12-03] MEDS: hydrOXYzine HCL SYRUP 10 MG/5 ML UDC GT SCH ×3 (05:18→20:36)
[2022-12-03 07:49] VITALS: BP 151/78
[2022-12-03] MEDS: HYDROGEN PEROXIDE 480 ML BOTTLE TP SCH ×2 (09:46→21:05)
[2022-12-03] MEDS: VIT B CMPLX 3/FA/VIT C/BIOTIN 1 TAB TABLET PO SCH (09:51)
[2022-12-03] MEDS: SENNOSIDES 8.6 MG TABLET PO SCH (09:51)
[2022-12-03] MEDS: SEVELAMER CARBONATE 800 MG POWD.PACK GT SCH ×2 (09:51→16:36)
[2022-12-03] MEDS: DOCUSATE SODIUM LIQ 100 MG/10 ML UDC GT SCH (09:51)
[2022-12-03] MEDS: ESCITALOPRAM OXALATE (10 MG) 10 MG TABLET GT SCH (09:51)
[2022-12-03] MEDS: AMLODIPINE BESYLATE 5 MG TABLET GT SCH (09:51)
[2022-12-03] MEDS: PROSTAT (PYXIS) 30 ML UDC GT SCH ×2 (09:51→16:36)
[2022-12-03] MEDS: FOLIC ACID 1 MG TABLET GT SCH (09:51)
[2022-12-03] MEDS: PANTOPRAZOLE 40 MG/PACK PACK GT SCH ×2 (09:51→20:36)
[2022-12-03] MEDS: VITAMINS A AND D 56.7 GM TUBE TP SCH ×3 (09:52→20:36)
--- NOTE | 2022-12-03 16:42 | NUR ---
Pt. received on 21% room air and tolerating well. Suction pt. in the mouth 2x + prn. No SOB or respiratory distress noted. Tx. given in nebulizer mask with no adverse reaction noted. Will keep monitor the pt.
[2022-12-03 20:03] VITALS: BP 134/66
[2022-12-03] MEDS: QUETIAPINE FUMARATE 25 MG TABLET GT SCH (21:37)
[2022-12-03] MEDS: MELATONIN 3 MG TABLET GT SCH (21:37)
[2022-12-04 00:18] VITALS: BP 126/62
[2022-12-04] MEDS: IPRATROPIUM NEB FS 0.5 MG/2.5 ML AMPUL.NEB NEB SCH ×4 (01:34→19:32)
[2022-12-04] MEDS: ALBUTEROL FS 2.5 MG/0.5 ML VIAL.NEB NEB SCH ×4 (01:34→19:32)
[2022-12-04] MEDS: hydrOXYzine HCL SYRUP 10 MG/5 ML UDC GT SCH ×3 (05:00→20:35)
[2022-12-04 07:54] VITALS: BP 156/73
[2022-12-04] MEDS: SEVELAMER CARBONATE 800 MG POWD.PACK GT SCH ×2 (08:58→17:31)
[2022-12-04] MEDS: AMLODIPINE BESYLATE 5 MG TABLET GT SCH (08:58)
[2022-12-04] MEDS: PROSTAT (PYXIS) 30 ML UDC GT SCH ×2 (08:58→17:31)
[2022-12-04] MEDS: ESCITALOPRAM OXALATE (10 MG) 10 MG TABLET GT SCH (08:58)
[2022-12-04] MEDS: FOLIC ACID 1 MG TABLET GT SCH (08:58)
[2022-12-04] MEDS: DOCUSATE SODIUM LIQ 100 MG/10 ML UDC GT SCH (08:58)
[2022-12-04] MEDS: PANTOPRAZOLE 40 MG/PACK PACK GT SCH ×2 (08:58→20:35)
[2022-12-04] MEDS: VITAMINS A AND D 56.7 GM TUBE TP SCH ×3 (08:59→20:35)
[2022-12-04] MEDS: VIT B CMPLX 3/FA/VIT C/BIOTIN 1 TAB TABLET PO SCH (08:59)
[2022-12-04] MEDS: ACETAMINOPHEN 650 MG/20 ML UDC- SA PATIENTS-PAIN ONLY GT SCH (08:59)
[2022-12-04] MEDS: SENNOSIDES 8.6 MG TABLET PO SCH (08:59)
[2022-12-04] MEDS: HYDROGEN PEROXIDE 480 ML BOTTLE TP SCH ×2 (10:03→21:18)
[2022-12-04 12:37] VITALS: BP 143/55
--- NOTE | 2022-12-04 16:30 | NUR ---
Seen and examined by AYDE Tijerina, no new order given.
[2022-12-04 19:12] VITALS: BP 129/61
[2022-12-04] MEDS: QUETIAPINE FUMARATE 25 MG TABLET GT SCH (21:49)
[2022-12-04] MEDS: MELATONIN 3 MG TABLET GT SCH (21:49)
[2022-12-05] MEDS: IPRATROPIUM NEB FS 0.5 MG/2.5 ML AMPUL.NEB NEB SCH ×4 (01:41→19:46)
[2022-12-05] MEDS: ALBUTEROL FS 2.5 MG/0.5 ML VIAL.NEB NEB SCH ×4 (01:41→19:46)
[2022-12-05] MEDS: hydrOXYzine HCL SYRUP 10 MG/5 ML UDC GT SCH ×3 (05:18→21:31)
[2022-12-05 07:50] VITALS: BP 143/58
[2022-12-05] MEDS: DOCUSATE SODIUM LIQ 100 MG/10 ML UDC GT SCH (08:40)
[2022-12-05] MEDS: ESCITALOPRAM OXALATE (10 MG) 10 MG TABLET GT SCH (08:40)
[2022-12-05] MEDS: FOLIC ACID 1 MG TABLET GT SCH (08:40)
[2022-12-05] MEDS: VITAMINS A AND D 56.7 GM TUBE TP SCH ×3 (08:41→21:31)
[2022-12-05] MEDS: PROSTAT (PYXIS) 30 ML UDC GT SCH ×2 (08:41→18:15)
[2022-12-05] MEDS: ACETAMINOPHEN 650 MG/20 ML UDC- SA PATIENTS-PAIN ONLY GT SCH (08:41)
[2022-12-05] MEDS: SEVELAMER CARBONATE 800 MG POWD.PACK GT SCH ×2 (08:41→18:15)
[2022-12-05] MEDS: SENNOSIDES 8.6 MG TABLET PO SCH (08:41)
[2022-12-05] MEDS: PANTOPRAZOLE 40 MG/PACK PACK GT SCH ×2 (08:41→21:31)
[2022-12-05] MEDS: AMLODIPINE BESYLATE 5 MG TABLET GT SCH (08:41)
[2022-12-05] MEDS: VIT B CMPLX 3/FA/VIT C/BIOTIN 1 TAB TABLET PO SCH (08:42)
[2022-12-05] MEDS: HYDROGEN PEROXIDE 480 ML BOTTLE TP SCH ×2 (09:08→21:22)
[2022-12-05 12:45] VITALS: BP 155/64
[2022-12-05 19:36] VITALS: BP 147/76
[2022-12-05] MEDS: MELATONIN 3 MG TABLET GT SCH (21:31)
[2022-12-05] MEDS: QUETIAPINE FUMARATE 25 MG TABLET GT SCH (21:31)
[2022-12-06] MEDS: IPRATROPIUM NEB FS 0.5 MG/2.5 ML AMPUL.NEB NEB SCH ×4 (01:42→19:53)
[2022-12-06] MEDS: ALBUTEROL FS 2.5 MG/0.5 ML VIAL.NEB NEB SCH ×4 (01:42→19:53)
[2022-12-06] MEDS: hydrOXYzine HCL SYRUP 10 MG/5 ML UDC GT SCH ×3 (05:32→20:13)
[2022-12-06 06:57] LABS: HEMOGLOBIN 11.4 g/dL (13.5-17.5)
[2022-12-06 07:38] VITALS: BP 153/69
[2022-12-06] MEDS: HYDROGEN PEROXIDE 480 ML BOTTLE TP SCH ×2 (08:20→19:53)
[2022-12-06] MEDS: ESCITALOPRAM OXALATE (10 MG) 10 MG TABLET GT SCH (09:48)
[2022-12-06] MEDS: FOLIC ACID 1 MG TABLET GT SCH (09:48)
[2022-12-06] MEDS: DOCUSATE SODIUM LIQ 100 MG/10 ML UDC GT SCH (09:48)
[2022-12-06] MEDS: ACETAMINOPHEN 650 MG/20 ML UDC- SA PATIENTS-PAIN ONLY GT SCH (09:49)
[2022-12-06] MEDS: VIT B CMPLX 3/FA/VIT C/BIOTIN 1 TAB TABLET PO SCH (09:49)
[2022-12-06] MEDS: VITAMINS A AND D 56.7 GM TUBE TP SCH ×3 (09:49→20:14)
[2022-12-06] MEDS: PANTOPRAZOLE 40 MG/PACK PACK GT SCH ×2 (09:49→20:13)
[2022-12-06] MEDS: AMLODIPINE BESYLATE 5 MG TABLET GT SCH (09:49)
[2022-12-06] MEDS: SENNOSIDES 8.6 MG TABLET PO SCH (09:49)
[2022-12-06] MEDS: SEVELAMER CARBONATE 800 MG POWD.PACK GT SCH ×2 (09:49→17:11)
[2022-12-06] MEDS: PROSTAT (PYXIS) 30 ML UDC GT SCH ×2 (09:49→17:11)
[2022-12-06 12:07] VITALS: BP 146/67
[2022-12-06 19:34] VITALS: BP 143/69
[2022-12-06] MEDS: EPOETIN ALFA-EPBX 10,000 UNIT/ML VIAL SQ SCH (20:14)
[2022-12-06] MEDS: MELATONIN 3 MG TABLET GT SCH (21:04)
[2022-12-06] MEDS: QUETIAPINE FUMARATE 25 MG TABLET GT SCH (21:04)
[2022-12-07 00:49] VITALS: BP 130/70
[2022-12-07] MEDS: IPRATROPIUM NEB FS 0.5 MG/2.5 ML AMPUL.NEB NEB SCH ×4 (02:02→19:30)
[2022-12-07] MEDS: ALBUTEROL FS 2.5 MG/0.5 ML VIAL.NEB NEB SCH ×4 (02:02→19:30)
[2022-12-07] MEDS: hydrOXYzine HCL SYRUP 10 MG/5 ML UDC GT SCH ×3 (05:16→20:39)
[2022-12-07 07:49] VITALS: BP 153/61
[2022-12-07] MEDS: HYDROGEN PEROXIDE 480 ML BOTTLE TP SCH ×2 (07:57→21:00)
[2022-12-07] MEDS: AMLODIPINE BESYLATE 5 MG TABLET GT SCH (09:00)
[2022-12-07] MEDS: FOLIC ACID 1 MG TABLET GT SCH (09:53)
[2022-12-07] MEDS: DOCUSATE SODIUM LIQ 100 MG/10 ML UDC GT SCH (09:53)
[2022-12-07] MEDS: ESCITALOPRAM OXALATE (10 MG) 10 MG TABLET GT SCH (09:53)
[2022-12-07] MEDS: PROSTAT (PYXIS) 30 ML UDC GT SCH ×2 (09:58→17:58)
[2022-12-07] MEDS: PANTOPRAZOLE 40 MG/PACK PACK GT SCH ×2 (09:58→20:39)
[2022-12-07] MEDS: SEVELAMER CARBONATE 800 MG POWD.PACK GT SCH ×2 (09:58→17:58)
[2022-12-07] MEDS: SENNOSIDES 8.6 MG TABLET PO SCH (09:59)
[2022-12-07] MEDS: ACETAMINOPHEN 650 MG/20 ML UDC- SA PATIENTS-PAIN ONLY GT SCH (09:59)
[2022-12-07] MEDS: VIT B CMPLX 3/FA/VIT C/BIOTIN 1 TAB TABLET PO SCH (09:59)
[2022-12-07] MEDS: VITAMINS A AND D 56.7 GM TUBE TP SCH ×3 (09:59→20:39)
[2022-12-07 12:11] VITALS: BP 146/70
--- NOTE | 2022-12-07 12:28 | NUR ---
Dr Sotelo ordered to decrease Seroquel 25 mg to 12.5 mg via GT q HS for 7 days then DC. Lexapro managing pt's depression and was not ordered to be reduced at this time.
--- NOTE | 2022-12-07 18:31 | NUR ---
Notified Dr Sotelo that according to labs from [facility], pt is positive for Hep B. Pt was negative for Hep B in September 2022. [facility] is performing another test to confirm positive result. Addendum: 12/07/22 at 1838 by LIANA LEHMAN RN Educated staff to observe standard precautions.
[2022-12-07 19:39] VITALS: BP 122/71
[2022-12-07] MEDS: QUETIAPINE FUMARATE 25 MG TABLET GT SCH (21:33)
[2022-12-07] MEDS: MELATONIN 3 MG TABLET GT SCH (21:33)
[2022-12-08 00:07] VITALS: BP 130/69
[2022-12-08] MEDS: IPRATROPIUM NEB FS 0.5 MG/2.5 ML AMPUL.NEB NEB SCH ×4 (01:30→20:08)
[2022-12-08] MEDS: ALBUTEROL FS 2.5 MG/0.5 ML VIAL.NEB NEB SCH ×4 (01:30→20:08)
--- NOTE | 2022-12-08 03:05 | NUR ---
RT pt received on RA. pt refused neb txs. no sob, no resp distress
[2022-12-08] MEDS: hydrOXYzine HCL SYRUP 10 MG/5 ML UDC GT SCH ×3 (05:00→21:12)
[2022-12-08 07:21] VITALS: BP 161/68
[2022-12-08] MEDS: HYDROGEN PEROXIDE 480 ML BOTTLE TP SCH ×2 (08:08→21:00)
[2022-12-08] MEDS: FOLIC ACID 1 MG TABLET GT SCH (09:53)
[2022-12-08] MEDS: DOCUSATE SODIUM LIQ 100 MG/10 ML UDC GT SCH (09:53)
[2022-12-08] MEDS: ESCITALOPRAM OXALATE (10 MG) 10 MG TABLET GT SCH (09:53)
[2022-12-08] MEDS: VITAMINS A AND D 56.7 GM TUBE TP SCH ×3 (09:54→21:12)
[2022-12-08] MEDS: ACETAMINOPHEN 650 MG/20 ML UDC- SA PATIENTS-PAIN ONLY GT SCH (09:54)
[2022-12-08] MEDS: PANTOPRAZOLE 40 MG/PACK PACK GT SCH ×2 (09:54→21:12)
[2022-12-08] MEDS: PROSTAT (PYXIS) 30 ML UDC GT SCH ×2 (09:54→16:42)
[2022-12-08] MEDS: VIT B CMPLX 3/FA/VIT C/BIOTIN 1 TAB TABLET PO SCH (09:54)
[2022-12-08] MEDS: SENNOSIDES 8.6 MG TABLET PO SCH (09:54)
[2022-12-08] MEDS: AMLODIPINE BESYLATE 5 MG TABLET GT SCH (09:54)
[2022-12-08] MEDS: SEVELAMER CARBONATE 800 MG POWD.PACK GT SCH ×2 (09:54→16:42)
[2022-12-08 11:37] VITALS: BP 159/65
--- NOTE | 2022-12-08 17:00 | NUR ---
RECEIVED PATIENT ON ROOM AIR. HHN TXS RORY WELL WITH NO ADVERSE REACTION NOTED. NO SOB NOTED.
--- NOTE | 2022-12-08 18:10 | NUR ---
Dr. Sotelo reviewed lab results pertaining to Hepatitis B from [facility] and [facility]. Dr. Sotelo said to wait for a repeat test [facility] did. Spoke with SARAH Foster from [facility] to confirm if Hep B test was done, he said he will endorse to collect specimen tomorrow during dialysis.
[2022-12-08 19:48] VITALS: BP 141/71
[2022-12-08] MEDS: MELATONIN 3 MG TABLET GT SCH (21:12)
[2022-12-08] MEDS: QUETIAPINE FUMARATE 25 MG TABLET GT SCH (21:28)
--- NOTE | 2022-12-08 22:35 | NUR ---
HYDROGEN PEROXIDE NO LONGER APPLICABLE TO PATIENT; PATIENT IS DECANNULATED. Addendum: 12/08/22 at 2236 by CHARLES LOUIE RT Amended: Links added.
[2022-12-09] MEDS: ALBUTEROL FS 2.5 MG/0.5 ML VIAL.NEB NEB SCH ×4 (01:30→18:54)
[2022-12-09] MEDS: IPRATROPIUM NEB FS 0.5 MG/2.5 ML AMPUL.NEB NEB SCH ×4 (01:30→18:54)
[2022-12-09] MEDS: hydrOXYzine HCL SYRUP 10 MG/5 ML UDC GT SCH ×3 (05:20→21:16)
[2022-12-09 07:47] VITALS: BP 143/56
[2022-12-09] MEDS: HYDROGEN PEROXIDE 480 ML BOTTLE TP SCH ×2 (09:30→21:10)
[2022-12-09] MEDS: ESCITALOPRAM OXALATE (10 MG) 10 MG TABLET GT SCH (09:50)
[2022-12-09] MEDS: AMLODIPINE BESYLATE 5 MG TABLET GT SCH (09:50)
[2022-12-09] MEDS: FOLIC ACID 1 MG TABLET GT SCH (09:50)
[2022-12-09] MEDS: DOCUSATE SODIUM LIQ 100 MG/10 ML UDC GT SCH (09:50)
[2022-12-09] MEDS: SEVELAMER CARBONATE 800 MG POWD.PACK GT SCH ×2 (09:51→17:50)
[2022-12-09] MEDS: VITAMINS A AND D 56.7 GM TUBE TP SCH ×3 (09:51→21:16)
[2022-12-09] MEDS: SENNOSIDES 8.6 MG TABLET PO SCH (09:51)
[2022-12-09] MEDS: VIT B CMPLX 3/FA/VIT C/BIOTIN 1 TAB TABLET PO SCH (09:51)
[2022-12-09] MEDS: PANTOPRAZOLE 40 MG/PACK PACK GT SCH ×2 (09:51→21:16)
[2022-12-09] MEDS: PROSTAT (PYXIS) 30 ML UDC GT SCH ×2 (09:51→17:50)
[2022-12-09 12:30] VITALS: BP 150/70
[2022-12-09 18:00] VITALS: BP 135/67
--- NOTE | 2022-12-09 18:00 | NUR ---
Patient left and returned back from dialysis center. Condition stable Peek-a-bonner mitten were put on to prevent pulling tubes at the dialysis center and sitter accompanied patient at the dialysis.
[2022-12-09 19:51] VITALS: BP 145/71
[2022-12-09] MEDS: MELATONIN 3 MG TABLET GT SCH (21:16)
[2022-12-09] MEDS: QUETIAPINE FUMARATE 25 MG TABLET GT SCH (21:16)
[2022-12-10 00:13] VITALS: BP 132/57
[2022-12-10] MEDS: IPRATROPIUM NEB FS 0.5 MG/2.5 ML AMPUL.NEB NEB SCH ×4 (01:30→20:28)
[2022-12-10] MEDS: ALBUTEROL FS 2.5 MG/0.5 ML VIAL.NEB NEB SCH ×4 (01:30→20:28)
[2022-12-10] MEDS: hydrOXYzine HCL SYRUP 10 MG/5 ML UDC GT SCH ×3 (05:52→20:54)
[2022-12-10 07:40] VITALS: BP 148/65
[2022-12-10] MEDS: HYDROGEN PEROXIDE 480 ML BOTTLE TP SCH ×2 (08:17→20:29)
[2022-12-10] MEDS: VIT B CMPLX 3/FA/VIT C/BIOTIN 1 TAB TABLET PO SCH (09:00)
[2022-12-10] MEDS: PANTOPRAZOLE 40 MG/PACK PACK GT SCH ×2 (09:00→20:54)
[2022-12-10] MEDS: VITAMINS A AND D 56.7 GM TUBE TP SCH ×3 (09:00→20:54)
[2022-12-10] MEDS: SENNOSIDES 8.6 MG TABLET PO SCH (09:00)
[2022-12-10] MEDS: ESCITALOPRAM OXALATE (10 MG) 10 MG TABLET GT SCH (09:00)
[2022-12-10] MEDS: SEVELAMER CARBONATE 800 MG POWD.PACK GT SCH ×2 (09:00→17:11)
[2022-12-10] MEDS: FOLIC ACID 1 MG TABLET GT SCH (09:00)
[2022-12-10] MEDS: PROSTAT (PYXIS) 30 ML UDC GT SCH ×2 (09:00→17:11)
[2022-12-10] MEDS: AMLODIPINE BESYLATE 5 MG TABLET GT SCH (09:00)
[2022-12-10] MEDS: DOCUSATE SODIUM LIQ 100 MG/10 ML UDC GT SCH (09:00)
[2022-12-10 12:48] VITALS: BP 142/66
[2022-12-10 20:00] VITALS: BP 151/69
[2022-12-10] MEDS: MELATONIN 3 MG TABLET GT SCH (21:07)
[2022-12-10] MEDS: QUETIAPINE FUMARATE 25 MG TABLET GT SCH (21:07)
--- NOTE | 2022-12-11 00:11 | NUR ---
RT Pt received on room air. Breathing tx tolerated well. No SOB or respiratory distress noted at this time.
[2022-12-11] MEDS: IPRATROPIUM NEB FS 0.5 MG/2.5 ML AMPUL.NEB NEB SCH ×4 (01:30→19:32)
[2022-12-11] MEDS: ALBUTEROL FS 2.5 MG/0.5 ML VIAL.NEB NEB SCH ×4 (01:30→19:32)
[2022-12-11] MEDS: hydrOXYzine HCL SYRUP 10 MG/5 ML UDC GT SCH ×3 (05:05→21:05)
[2022-12-11 07:13] VITALS: BP 138/60
[2022-12-11] MEDS: DOCUSATE SODIUM LIQ 100 MG/10 ML UDC GT SCH (08:53)
[2022-12-11] MEDS: ESCITALOPRAM OXALATE (10 MG) 10 MG TABLET GT SCH (08:53)
[2022-12-11] MEDS: FOLIC ACID 1 MG TABLET GT SCH (08:53)
[2022-12-11] MEDS: ACETAMINOPHEN 650 MG/20 ML UDC- SA PATIENTS-PAIN ONLY GT SCH (08:54)
[2022-12-11] MEDS: SEVELAMER CARBONATE 800 MG POWD.PACK GT SCH ×2 (08:54→17:16)
[2022-12-11] MEDS: AMLODIPINE BESYLATE 5 MG TABLET GT SCH (08:54)
[2022-12-11] MEDS: PANTOPRAZOLE 40 MG/PACK PACK GT SCH ×2 (08:54→21:05)
[2022-12-11] MEDS: PROSTAT (PYXIS) 30 ML UDC GT SCH ×2 (08:54→17:15)
[2022-12-11] MEDS: VITAMINS A AND D 56.7 GM TUBE TP SCH ×3 (08:55→21:05)
[2022-12-11] MEDS: SENNOSIDES 8.6 MG TABLET PO SCH (08:55)
[2022-12-11] MEDS: VIT B CMPLX 3/FA/VIT C/BIOTIN 1 TAB TABLET PO SCH (08:57)
[2022-12-11] MEDS: HYDROGEN PEROXIDE 480 ML BOTTLE TP SCH ×2 (09:55→21:07)
[2022-12-11 11:50] VITALS: BP 133/59
--- NOTE | 2022-12-11 14:16 | NUR ---
RT Pt received on room air. Breathing tx tolerated well. No SOB or respiratory distress noted at this time.
[2022-12-11 20:02] VITALS: BP 136/59
[2022-12-11] MEDS: MELATONIN 3 MG TABLET GT SCH (21:05)
[2022-12-11] MEDS: QUETIAPINE FUMARATE 25 MG TABLET GT SCH (21:05)
[2022-12-12] MEDS: IPRATROPIUM NEB FS 0.5 MG/2.5 ML AMPUL.NEB NEB SCH ×4 (01:39→19:50)
[2022-12-12] MEDS: ALBUTEROL FS 2.5 MG/0.5 ML VIAL.NEB NEB SCH ×4 (01:39→19:50)
[2022-12-12] MEDS: hydrOXYzine HCL SYRUP 10 MG/5 ML UDC GT SCH ×3 (05:18→21:16)
[2022-12-12] MEDS: FOLIC ACID 1 MG TABLET GT SCH (08:53)
[2022-12-12] MEDS: PROSTAT (PYXIS) 30 ML UDC GT SCH ×2 (08:53→17:50)
[2022-12-12] MEDS: AMLODIPINE BESYLATE 5 MG TABLET GT SCH (08:53)
[2022-12-12] MEDS: ESCITALOPRAM OXALATE (10 MG) 10 MG TABLET GT SCH (08:53)
[2022-12-12] MEDS: DOCUSATE SODIUM LIQ 100 MG/10 ML UDC GT SCH (08:53)
[2022-12-12] MEDS: PANTOPRAZOLE 40 MG/PACK PACK GT SCH ×2 (08:54→21:16)
[2022-12-12] MEDS: SEVELAMER CARBONATE 800 MG POWD.PACK GT SCH ×2 (08:54→17:50)
[2022-12-12] MEDS: ACETAMINOPHEN 650 MG/20 ML UDC- SA PATIENTS-PAIN ONLY GT SCH (08:54)
[2022-12-12] MEDS: VITAMINS A AND D 56.7 GM TUBE TP SCH ×3 (08:54→21:16)
[2022-12-12] MEDS: SENNOSIDES 8.6 MG TABLET PO SCH (08:54)
[2022-12-12] MEDS: VIT B CMPLX 3/FA/VIT C/BIOTIN 1 TAB TABLET PO SCH (08:54)
[2022-12-12] MEDS: HYDROGEN PEROXIDE 480 ML BOTTLE TP SCH ×2 (09:12→21:09)
[2022-12-12 12:00] VITALS: BP 163/66
[2022-12-12 20:55] VITALS: BP 122/63
[2022-12-12] MEDS: QUETIAPINE FUMARATE 25 MG TABLET GT SCH (21:17)
[2022-12-12] MEDS: MELATONIN 3 MG TABLET GT SCH (21:17)
[2022-12-13] MEDS: ALBUTEROL FS 2.5 MG/0.5 ML VIAL.NEB NEB SCH ×4 (01:34→18:53)
[2022-12-13] MEDS: IPRATROPIUM NEB FS 0.5 MG/2.5 ML AMPUL.NEB NEB SCH ×4 (01:34→18:53)
[2022-12-13] MEDS: hydrOXYzine HCL SYRUP 10 MG/5 ML UDC GT SCH ×3 (05:26→21:43)
[2022-12-13 06:31] LABS: HEMOGLOBIN 11.6 g/dL (13.5-17.5)
[2022-12-13 07:52] VITALS: BP 125/74
[2022-12-13] MEDS: PROSTAT (PYXIS) 30 ML UDC GT SCH ×2 (08:30→16:42)
[2022-12-13] MEDS: SEVELAMER CARBONATE 800 MG POWD.PACK GT SCH ×2 (08:30→16:42)
[2022-12-13] MEDS: PANTOPRAZOLE 40 MG/PACK PACK GT SCH ×2 (08:30→21:43)
[2022-12-13] MEDS: ESCITALOPRAM OXALATE (10 MG) 10 MG TABLET GT SCH (08:31)
[2022-12-13] MEDS: DOCUSATE SODIUM LIQ 100 MG/10 ML UDC GT SCH (08:31)
[2022-12-13] MEDS: ACETAMINOPHEN 650 MG/20 ML UDC- SA PATIENTS-PAIN ONLY GT SCH (08:31)
[2022-12-13] MEDS: VIT B CMPLX 3/FA/VIT C/BIOTIN 1 TAB TABLET PO SCH (08:31)
[2022-12-13] MEDS: SENNOSIDES 8.6 MG TABLET PO SCH (08:31)
[2022-12-13] MEDS: VITAMINS A AND D 56.7 GM TUBE TP SCH ×3 (08:31→21:43)
[2022-12-13] MEDS: FOLIC ACID 1 MG TABLET GT SCH (08:31)
[2022-12-13] MEDS: AMLODIPINE BESYLATE 5 MG TABLET GT SCH (08:31)
[2022-12-13] MEDS: HYDROGEN PEROXIDE 480 ML BOTTLE TP SCH ×2 (09:16→20:32)
[2022-12-13 12:13] VITALS: BP 129/72
--- NOTE | 2022-12-13 13:16 | NUR ---
Placement referral: EMANUEL called [facility] tel: [phone] and spoke with Gail from intake who stated they have beds available. EMANUEL faxed clinicals to FAX:[phone]. EMANUEL called [facility] tel:[phone] and spoke with Lynne from intake who stated they may have a bed available soon. EMANUEL faxed clinicals to FAX:[phone]. EMANUEL will follow up as needed. EMANUEL was notified by admissions dept. that pt. was not accepted to [facility] or accepted by [facility] for residential placement. EMANUEL will continue referrals for appropriate placement at lower level of care facility.
[2022-12-13 20:42] VITALS: BP 144/72
[2022-12-13] MEDS: EPOETIN ALFA-EPBX 10,000 UNIT/ML VIAL SQ SCH (21:00)
[2022-12-13] MEDS: QUETIAPINE FUMARATE 25 MG TABLET GT SCH (21:43)
[2022-12-13] MEDS: MELATONIN 3 MG TABLET GT SCH (21:43)
[2022-12-14] MEDS: ALBUTEROL FS 2.5 MG/0.5 ML VIAL.NEB NEB SCH ×4 (00:42→18:42)
[2022-12-14] MEDS: IPRATROPIUM NEB FS 0.5 MG/2.5 ML AMPUL.NEB NEB SCH ×4 (00:42→18:42)
[2022-12-14 00:43] VITALS: BP 132/65
[2022-12-14] MEDS: hydrOXYzine HCL SYRUP 10 MG/5 ML UDC GT SCH ×3 (05:27→21:08)
[2022-12-14 07:55] VITALS: BP 125/67
[2022-12-14] MEDS: PROSTAT (PYXIS) 30 ML UDC GT SCH ×2 (09:57→17:00)
[2022-12-14] MEDS: SEVELAMER CARBONATE 800 MG POWD.PACK GT SCH ×2 (09:57→17:00)
[2022-12-14] MEDS: PANTOPRAZOLE 40 MG/PACK PACK GT SCH ×2 (09:57→21:08)
[2022-12-14] MEDS: AMLODIPINE BESYLATE 5 MG TABLET GT SCH (09:57)
[2022-12-14] MEDS: DOCUSATE SODIUM LIQ 100 MG/10 ML UDC GT SCH (09:57)
[2022-12-14] MEDS: ESCITALOPRAM OXALATE (10 MG) 10 MG TABLET GT SCH (09:57)
[2022-12-14] MEDS: FOLIC ACID 1 MG TABLET GT SCH (09:57)
[2022-12-14] MEDS: VITAMINS A AND D 56.7 GM TUBE TP SCH ×3 (09:58→21:08)
[2022-12-14] MEDS: SENNOSIDES 8.6 MG TABLET PO SCH (09:58)
[2022-12-14] MEDS: VIT B CMPLX 3/FA/VIT C/BIOTIN 1 TAB TABLET PO SCH (09:58)
[2022-12-14] MEDS: ACETAMINOPHEN 650 MG/20 ML UDC- SA PATIENTS-PAIN ONLY GT SCH (09:58)
[2022-12-14] MEDS: HYDROGEN PEROXIDE 480 ML BOTTLE TP SCH ×2 (10:38→20:49)
--- NOTE | 2022-12-14 17:24 | NUR ---
RT Pt received on room air. Breathing tx tolerated well. No SOB or respiratory distress noted.
[2022-12-14] MEDS: BISACODYL SUPP (10 MG) 10 MG/SUPP.RECT SUPP.RECT RC PRN (18:35)
[2022-12-14 20:15] VITALS: BP 112/65
[2022-12-14] MEDS: MELATONIN 3 MG TABLET GT SCH (21:08)
[2022-12-15] MEDS: IPRATROPIUM NEB FS 0.5 MG/2.5 ML AMPUL.NEB NEB SCH ×4 (00:32→18:43)
[2022-12-15] MEDS: ALBUTEROL FS 2.5 MG/0.5 ML VIAL.NEB NEB SCH ×4 (00:32→18:43)
[2022-12-15 01:58] VITALS: BP 120/70
[2022-12-15] MEDS: hydrOXYzine HCL SYRUP 10 MG/5 ML UDC GT SCH ×3 (05:25→20:31)
[2022-12-15 08:02] VITALS: BP 152/78
[2022-12-15 08:07] VITALS: BP 149/69
[2022-12-15] MEDS: DOCUSATE SODIUM LIQ 100 MG/10 ML UDC GT SCH (08:50)
[2022-12-15] MEDS: FOLIC ACID 1 MG TABLET GT SCH (08:50)
[2022-12-15] MEDS: PANTOPRAZOLE 40 MG/PACK PACK GT SCH ×2 (08:51→20:31)
[2022-12-15] MEDS: AMLODIPINE BESYLATE 5 MG TABLET GT SCH (08:51)
[2022-12-15] MEDS: PROSTAT (PYXIS) 30 ML UDC GT SCH ×2 (08:51→17:34)
[2022-12-15] MEDS: ESCITALOPRAM OXALATE (10 MG) 10 MG TABLET GT SCH (08:51)
[2022-12-15] MEDS: ACETAMINOPHEN 650 MG/20 ML UDC- SA PATIENTS-PAIN ONLY GT SCH (08:51)
[2022-12-15] MEDS: SENNOSIDES 8.6 MG TABLET PO SCH (08:51)
[2022-12-15] MEDS: VIT B CMPLX 3/FA/VIT C/BIOTIN 1 TAB TABLET PO SCH (08:51)
[2022-12-15] MEDS: SEVELAMER CARBONATE 800 MG POWD.PACK GT SCH ×2 (08:51→17:34)
[2022-12-15] MEDS: VITAMINS A AND D 56.7 GM TUBE TP SCH ×3 (08:51→20:31)
[2022-12-15] MEDS: HYDROGEN PEROXIDE 480 ML BOTTLE TP SCH ×2 (09:00→20:25)
[2022-12-15 12:28] VITALS: BP 156/76
--- NOTE | 2022-12-15 15:26 | NUR ---
INTERDISCIPLINARY PLAN OF CARE CONFERENCE took place today. Dr. Evans and Interdisciplinary team discussed the plan of care in detail. Current orders as well as treatments and medications were reviewed. EMANUEL discussed discharge referrals. EMANUEL will continue DC planning for lower level of care. Addendum: 12/15/22 at 1527 by ROBBIE CASTELLANOS IDt discussed Pt. was weaned off antipsychotic medication. Pt. still on Lexapro for depression.
[2022-12-15 20:17] VITALS: BP 143/69
[2022-12-15] MEDS: MELATONIN 3 MG TABLET GT SCH (21:14)
[2022-12-16] MEDS: IPRATROPIUM NEB FS 0.5 MG/2.5 ML AMPUL.NEB NEB SCH ×4 (00:36→20:02)
[2022-12-16] MEDS: ALBUTEROL FS 2.5 MG/0.5 ML VIAL.NEB NEB SCH ×4 (00:36→20:02)
[2022-12-16 00:50] VITALS: BP 141/70
[2022-12-16] MEDS: hydrOXYzine HCL SYRUP 10 MG/5 ML UDC GT SCH ×3 (05:15→20:17)
[2022-12-16 08:00] VITALS: BP 136/60
[2022-12-16] MEDS: PROSTAT (PYXIS) 30 ML UDC GT SCH ×2 (08:26→17:23)
[2022-12-16] MEDS: SENNOSIDES 8.6 MG TABLET PO SCH (08:26)
[2022-12-16] MEDS: PANTOPRAZOLE 40 MG/PACK PACK GT SCH ×2 (08:26→20:17)
[2022-12-16] MEDS: AMLODIPINE BESYLATE 5 MG TABLET GT SCH (08:26)
[2022-12-16] MEDS: ESCITALOPRAM OXALATE (10 MG) 10 MG TABLET GT SCH (08:26)
[2022-12-16] MEDS: FOLIC ACID 1 MG TABLET GT SCH (08:26)
[2022-12-16] MEDS: SEVELAMER CARBONATE 800 MG POWD.PACK GT SCH ×2 (08:26→17:23)
[2022-12-16] MEDS: DOCUSATE SODIUM LIQ 100 MG/10 ML UDC GT SCH (08:26)
[2022-12-16] MEDS: VIT B CMPLX 3/FA/VIT C/BIOTIN 1 TAB TABLET PO SCH (08:26)
[2022-12-16] MEDS: VITAMINS A AND D 56.7 GM TUBE TP SCH ×3 (08:26→20:17)
[2022-12-16] MEDS: HYDROGEN PEROXIDE 480 ML BOTTLE TP SCH ×2 (09:43→21:03)
[2022-12-16 12:00] VITALS: BP 123/94
--- NOTE | 2022-12-16 13:10 | NUR ---
Patient was pick-up by EMT personnel to be taken to dialysis center. Vital signs temperature 98.5 F, axillary, pulse 71, respirations 16, oxygen saturation level 100%, and blood pressure 123/94. Report given to EMT personnel. Peek-a-bonner mitten were put on to prevent from pulling on tubes at dialysis center. Patient accompanied by sitter.
--- NOTE | 2022-12-16 13:30 | NUR ---
Tx. @1330 not given. Pt. went out for dialysis
--- NOTE | 2022-12-16 17:10 | NUR ---
Patient left and returned back from dialysis center. Condition stable. BP 134/81, pulse 62, resp rate 18, temp 97.8F, O2 saturation 98%. Peek-a-bonner mittens in place.
[2022-12-16 20:24] VITALS: BP 149/65
[2022-12-16] MEDS: MELATONIN 3 MG TABLET GT SCH (21:02)
[2022-12-17] MEDS: ALBUTEROL FS 2.5 MG/0.5 ML VIAL.NEB NEB SCH ×4 (01:41→20:13)
[2022-12-17] MEDS: IPRATROPIUM NEB FS 0.5 MG/2.5 ML AMPUL.NEB NEB SCH ×4 (01:41→20:13)
[2022-12-17] MEDS: hydrOXYzine HCL SYRUP 10 MG/5 ML UDC GT SCH ×3 (05:45→20:31)
[2022-12-17 07:51] VITALS: BP 142/62
[2022-12-17] MEDS: HYDROGEN PEROXIDE 480 ML BOTTLE TP SCH ×2 (09:00→21:13)
[2022-12-17] MEDS: ESCITALOPRAM OXALATE (10 MG) 10 MG TABLET GT SCH (09:48)
[2022-12-17] MEDS: DOCUSATE SODIUM LIQ 100 MG/10 ML UDC GT SCH (09:48)
[2022-12-17] MEDS: FOLIC ACID 1 MG TABLET GT SCH (09:48)
[2022-12-17] MEDS: PANTOPRAZOLE 40 MG/PACK PACK GT SCH ×2 (09:52→20:31)
[2022-12-17] MEDS: PROSTAT (PYXIS) 30 ML UDC GT SCH ×2 (09:52→17:00)
[2022-12-17] MEDS: VITAMINS A AND D 56.7 GM TUBE TP SCH ×3 (09:52→20:31)
[2022-12-17] MEDS: VIT B CMPLX 3/FA/VIT C/BIOTIN 1 TAB TABLET PO SCH (09:52)
[2022-12-17] MEDS: SEVELAMER CARBONATE 800 MG POWD.PACK GT SCH ×2 (09:52→17:00)
[2022-12-17] MEDS: SENNOSIDES 8.6 MG TABLET PO SCH (09:52)
[2022-12-17] MEDS: AMLODIPINE BESYLATE 5 MG TABLET GT SCH (09:52)
[2022-12-17 12:06] VITALS: BP 100/122
--- NOTE | 2022-12-17 16:34 | NUR ---
PATIENT ON ROOM AIR. HHN TXS RORY WELL WITH NO ADVERSE REACTION NOTED. AMBU BAG AT THE BEDSIDE.
[2022-12-17 19:32] VITALS: BP 147/64
[2022-12-17] MEDS: MELATONIN 3 MG TABLET GT SCH (21:12)
[2022-12-18] MEDS: IPRATROPIUM NEB FS 0.5 MG/2.5 ML AMPUL.NEB NEB SCH ×4 (01:32→19:50)
[2022-12-18] MEDS: ALBUTEROL FS 2.5 MG/0.5 ML VIAL.NEB NEB SCH ×4 (01:32→19:50)
[2022-12-18] MEDS: hydrOXYzine HCL SYRUP 10 MG/5 ML UDC GT SCH ×3 (05:00→21:22)
[2022-12-18] MEDS: HYDROGEN PEROXIDE 480 ML BOTTLE TP SCH ×2 (09:25→21:05)
[2022-12-18] MEDS: ACETAMINOPHEN 650 MG/20 ML UDC- SA PATIENTS-PAIN ONLY GT SCH (09:30)
[2022-12-18] MEDS: AMLODIPINE BESYLATE 5 MG TABLET GT SCH (09:30)
[2022-12-18] MEDS: SEVELAMER CARBONATE 800 MG POWD.PACK GT SCH ×2 (09:30→16:59)
[2022-12-18] MEDS: DOCUSATE SODIUM LIQ 100 MG/10 ML UDC GT SCH (09:30)
[2022-12-18] MEDS: ESCITALOPRAM OXALATE (10 MG) 10 MG TABLET GT SCH (09:30)
[2022-12-18] MEDS: VIT B CMPLX 3/FA/VIT C/BIOTIN 1 TAB TABLET PO SCH (09:30)
[2022-12-18] MEDS: PROSTAT (PYXIS) 30 ML UDC GT SCH ×2 (09:30→16:59)
[2022-12-18] MEDS: VITAMINS A AND D 56.7 GM TUBE TP SCH ×3 (09:30→21:22)
[2022-12-18] MEDS: FOLIC ACID 1 MG TABLET GT SCH (09:30)
[2022-12-18] MEDS: SENNOSIDES 8.6 MG TABLET PO SCH (09:30)
[2022-12-18] MEDS: PANTOPRAZOLE 40 MG/PACK PACK GT SCH ×2 (09:34→21:22)
[2022-12-18 09:56] VITALS: BP 130/56
--- NOTE | 2022-12-18 17:20 | NUR ---
RT NOTE Pt. received on 21% room air and tolerating well. Suction pt. prn. No SOB or respiratory distress noted. Tx. given in nebulizer by mask with no adverse reaction noted. Will keep monitor the pt.
[2022-12-18 19:51] VITALS: BP 142/59
[2022-12-18] MEDS: MELATONIN 3 MG TABLET GT SCH (21:24)
[2022-12-19] MEDS: IPRATROPIUM NEB FS 0.5 MG/2.5 ML AMPUL.NEB NEB SCH ×4 (01:38→19:53)
[2022-12-19] MEDS: ALBUTEROL FS 2.5 MG/0.5 ML VIAL.NEB NEB SCH ×4 (01:38→19:53)
[2022-12-19] MEDS: hydrOXYzine HCL SYRUP 10 MG/5 ML UDC GT SCH ×3 (05:41→21:08)
[2022-12-19 07:57] VITALS: BP 139/56
[2022-12-19] MEDS: FOLIC ACID 1 MG TABLET GT SCH (09:16)
[2022-12-19] MEDS: PROSTAT (PYXIS) 30 ML UDC GT SCH ×2 (09:16→17:45)
[2022-12-19] MEDS: SENNOSIDES 8.6 MG TABLET PO SCH (09:16)
[2022-12-19] MEDS: ACETAMINOPHEN 650 MG/20 ML UDC- SA PATIENTS-PAIN ONLY GT SCH (09:16)
[2022-12-19] MEDS: DOCUSATE SODIUM LIQ 100 MG/10 ML UDC GT SCH (09:16)
[2022-12-19] MEDS: SEVELAMER CARBONATE 800 MG POWD.PACK GT SCH ×2 (09:16→17:45)
[2022-12-19] MEDS: ESCITALOPRAM OXALATE (10 MG) 10 MG TABLET GT SCH (09:16)
[2022-12-19] MEDS: AMLODIPINE BESYLATE 5 MG TABLET GT SCH (09:16)
[2022-12-19] MEDS: PANTOPRAZOLE 40 MG/PACK PACK GT SCH ×2 (09:16→21:08)
[2022-12-19] MEDS: VIT B CMPLX 3/FA/VIT C/BIOTIN 1 TAB TABLET PO SCH (09:17)
[2022-12-19] MEDS: VITAMINS A AND D 56.7 GM TUBE TP SCH ×3 (09:17→21:09)
[2022-12-19] MEDS: HYDROGEN PEROXIDE 480 ML BOTTLE TP SCH ×2 (09:24→21:22)
--- NOTE | 2022-12-19 17:21 | NUR ---
Pt came back from hemodialysis in stable condition. According to his sitter DONA Gotti, pt was no longer placed on isolation for Hep B. SARAH Yeager said that it was a false positive and pt will be given another dose of the Hep B vaccine on 12/28/22. Pt was tested for Hep B after he was given the vaccine.
[2022-12-19 20:25] VITALS: BP 138/56
[2022-12-19] MEDS: MELATONIN 3 MG TABLET GT SCH (21:09)
[2022-12-20] MEDS: ALBUTEROL FS 2.5 MG/0.5 ML VIAL.NEB NEB SCH ×4 (01:34→19:22)
[2022-12-20] MEDS: IPRATROPIUM NEB FS 0.5 MG/2.5 ML AMPUL.NEB NEB SCH ×4 (01:34→19:22)
[2022-12-20] MEDS: hydrOXYzine HCL SYRUP 10 MG/5 ML UDC GT SCH ×3 (05:28→21:11)
[2022-12-20] MEDS: BISACODYL SUPP (10 MG) 10 MG/SUPP.RECT SUPP.RECT RC PRN (06:53)
--- NOTE | 2022-12-20 07:46 | NUR ---
RT NOTE Received patient on room air. No sob or resp. distress noted. Tx tolerated well.
[2022-12-20 08:03] LABS: HEMOGLOBIN 12.3 g/dL (13.5-17.5)
[2022-12-20] MEDS: PANTOPRAZOLE 40 MG/PACK PACK GT SCH ×2 (09:00→21:11)
[2022-12-20] MEDS: DOCUSATE SODIUM LIQ 100 MG/10 ML UDC GT SCH (09:00)
[2022-12-20] MEDS: PROSTAT (PYXIS) 30 ML UDC GT SCH ×2 (09:00→17:00)
[2022-12-20] MEDS: ESCITALOPRAM OXALATE (10 MG) 10 MG TABLET GT SCH (09:00)
[2022-12-20] MEDS: FOLIC ACID 1 MG TABLET GT SCH (09:00)
[2022-12-20] MEDS: SEVELAMER CARBONATE 800 MG POWD.PACK GT SCH ×2 (09:00→17:00)
[2022-12-20] MEDS: SENNOSIDES 8.6 MG TABLET PO SCH (09:01)
[2022-12-20] MEDS: ACETAMINOPHEN 650 MG/20 ML UDC- SA PATIENTS-PAIN ONLY GT SCH (09:01)
[2022-12-20] MEDS: VIT B CMPLX 3/FA/VIT C/BIOTIN 1 TAB TABLET PO SCH (09:01)
[2022-12-20] MEDS: VITAMINS A AND D 56.7 GM TUBE TP SCH ×3 (09:01→21:11)
[2022-12-20] MEDS: HYDROGEN PEROXIDE 480 ML BOTTLE TP SCH ×2 (09:16→21:00)
[2022-12-20] MEDS: AMLODIPINE BESYLATE 5 MG TABLET GT SCH (09:18)
[2022-12-20 11:01] VITALS: BP 147/60
[2022-12-20 12:23] VITALS: BP 138/68
[2022-12-20 19:44] VITALS: BP 136/69
[2022-12-20] MEDS: EPOETIN ALFA-EPBX 10,000 UNIT/ML VIAL SQ SCH (21:00)
[2022-12-20] MEDS: MELATONIN 3 MG TABLET GT SCH (21:11)
[2022-12-21 01:06] VITALS: BP 126/70
[2022-12-21] MEDS: IPRATROPIUM NEB FS 0.5 MG/2.5 ML AMPUL.NEB NEB SCH ×4 (01:39→19:53)
[2022-12-21] MEDS: ALBUTEROL FS 2.5 MG/0.5 ML VIAL.NEB NEB SCH ×4 (01:39→19:53)
[2022-12-21] MEDS: hydrOXYzine HCL SYRUP 10 MG/5 ML UDC GT SCH ×3 (05:43→21:11)
[2022-12-21 08:02] VITALS: BP 160/64
[2022-12-21] MEDS: HYDROGEN PEROXIDE 480 ML BOTTLE TP SCH ×2 (08:36→19:53)
[2022-12-21] MEDS: ACETAMINOPHEN 650 MG/20 ML UDC- SA PATIENTS-PAIN ONLY GT SCH (09:00)
[2022-12-21] MEDS: VIT B CMPLX 3/FA/VIT C/BIOTIN 1 TAB TABLET PO SCH (09:00)
[2022-12-21] MEDS: VITAMINS A AND D 56.7 GM TUBE TP SCH ×3 (09:00→21:11)
[2022-12-21] MEDS: FOLIC ACID 1 MG TABLET GT SCH (09:00)
[2022-12-21] MEDS: SENNOSIDES 8.6 MG TABLET PO SCH (09:00)
[2022-12-21] MEDS: PROSTAT (PYXIS) 30 ML UDC GT SCH ×2 (09:00→17:00)
[2022-12-21] MEDS: SEVELAMER CARBONATE 800 MG POWD.PACK GT SCH ×2 (09:00→17:00)
[2022-12-21] MEDS: AMLODIPINE BESYLATE 5 MG TABLET GT SCH (09:00)
[2022-12-21] MEDS: ESCITALOPRAM OXALATE (10 MG) 10 MG TABLET GT SCH (09:00)
[2022-12-21] MEDS: PANTOPRAZOLE 40 MG/PACK PACK GT SCH ×2 (09:00→21:11)
[2022-12-21] MEDS: DOCUSATE SODIUM LIQ 100 MG/10 ML UDC GT SCH (09:00)
[2022-12-21 12:15] VITALS: BP 149/77
[2022-12-21 19:25] VITALS: BP 132/65
[2022-12-21] MEDS: MELATONIN 3 MG TABLET GT SCH (21:11)
[2022-12-22] MEDS: IPRATROPIUM NEB FS 0.5 MG/2.5 ML AMPUL.NEB NEB SCH ×4 (01:15→18:54)
[2022-12-22] MEDS: ALBUTEROL FS 2.5 MG/0.5 ML VIAL.NEB NEB SCH ×4 (01:15→18:54)
[2022-12-22] MEDS: hydrOXYzine HCL SYRUP 10 MG/5 ML UDC GT SCH ×3 (05:37→21:19)
[2022-12-22] MEDS: BISACODYL SUPP (10 MG) 10 MG/SUPP.RECT SUPP.RECT RC PRN (06:50)
[2022-12-22] MEDS: HYDROGEN PEROXIDE 480 ML BOTTLE TP SCH ×2 (07:18→20:26)
[2022-12-22 07:26] VITALS: BP 152/81
[2022-12-22] MEDS: DOCUSATE SODIUM LIQ 100 MG/10 ML UDC GT SCH (09:20)
[2022-12-22] MEDS: SENNOSIDES 8.6 MG TABLET PO SCH (09:20)
[2022-12-22] MEDS: PANTOPRAZOLE 40 MG/PACK PACK GT SCH ×2 (09:20→21:19)
[2022-12-22] MEDS: VITAMINS A AND D 56.7 GM TUBE TP SCH ×3 (09:20→21:19)
[2022-12-22] MEDS: ESCITALOPRAM OXALATE (10 MG) 10 MG TABLET GT SCH (09:20)
[2022-12-22] MEDS: FOLIC ACID 1 MG TABLET GT SCH (09:20)
[2022-12-22] MEDS: AMLODIPINE BESYLATE 5 MG TABLET GT SCH (09:20)
[2022-12-22] MEDS: VIT B CMPLX 3/FA/VIT C/BIOTIN 1 TAB TABLET PO SCH (09:20)
[2022-12-22] MEDS: SEVELAMER CARBONATE 800 MG POWD.PACK GT SCH ×2 (09:20→17:42)
[2022-12-22] MEDS: PROSTAT (PYXIS) 30 ML UDC GT SCH ×2 (09:20→17:42)
[2022-12-22] MEDS: ACETAMINOPHEN 650 MG/20 ML UDC- SA PATIENTS-PAIN ONLY GT SCH (09:20)
[2022-12-22 11:25] VITALS: BP 163/71
--- NOTE | 2022-12-22 16:38 | NUR ---
Seen and examined by Dr. Sotelo, no new order given.
[2022-12-22 19:58] VITALS: BP 144/66
[2022-12-22] MEDS: MELATONIN 3 MG TABLET GT SCH (21:19)
[2022-12-22 23:58] VITALS: BP 126/58
[2022-12-23] MEDS: IPRATROPIUM NEB FS 0.5 MG/2.5 ML AMPUL.NEB NEB SCH ×4 (01:19→20:26)
[2022-12-23] MEDS: ALBUTEROL FS 2.5 MG/0.5 ML VIAL.NEB NEB SCH ×4 (01:19→20:26)
--- NOTE | 2022-12-23 04:32 | NUR ---
Pt recvd on Room air with no trach in place (decannulated). neb tx given via aerosol mask, pt oleg well tx well no adverse reaction noted. Spo2 100%
[2022-12-23] MEDS: hydrOXYzine HCL SYRUP 10 MG/5 ML UDC GT SCH ×3 (05:49→20:46)
[2022-12-23 07:32] VITALS: BP 124/79
[2022-12-23] MEDS: HYDROGEN PEROXIDE 480 ML BOTTLE TP SCH ×2 (08:05→20:33)
[2022-12-23] MEDS: DOCUSATE SODIUM LIQ 100 MG/10 ML UDC GT SCH (08:38)
[2022-12-23] MEDS: AMLODIPINE BESYLATE 5 MG TABLET GT SCH (08:40)
[2022-12-23] MEDS: PROSTAT (PYXIS) 30 ML UDC GT SCH ×2 (08:40→17:35)
[2022-12-23] MEDS: FOLIC ACID 1 MG TABLET GT SCH (08:42)
[2022-12-23] MEDS: ESCITALOPRAM OXALATE (10 MG) 10 MG TABLET GT SCH (08:42)
[2022-12-23] MEDS: PANTOPRAZOLE 40 MG/PACK PACK GT SCH ×2 (08:42→20:46)
[2022-12-23] MEDS: SENNOSIDES 8.6 MG TABLET PO SCH (08:43)
[2022-12-23] MEDS: VITAMINS A AND D 56.7 GM TUBE TP SCH ×3 (08:43→20:46)
[2022-12-23] MEDS: SEVELAMER CARBONATE 800 MG POWD.PACK GT SCH ×2 (08:45→17:35)
[2022-12-23] MEDS: VIT B CMPLX 3/FA/VIT C/BIOTIN 1 TAB TABLET PO SCH (08:45)
[2022-12-23 11:02] VITALS: BP 148/72
--- NOTE | 2022-12-23 12:50 | NUR ---
RN NOTES: PATIENT P/U BY EMT VIA GURNEY WITH TRAINING TECHNICIAN/SITTER. PT IS FOR HD ORDERED AND SCHEDULED. PT'S VS STABLE. PT LEFT THE UNIT STABLE.
--- NOTE | 2022-12-23 17:35 | NUR ---
RN NOTES: S/P HD, RECEIVED PT IN [facility] ACCOMPANIED BY SCHOOL INSPECTOR. PT AWAKE,AND VS STABLE. PRE HD WT: 57.75KG,POST HD WT: 57.0.5KG
[2022-12-23 20:05] VITALS: BP 128/65
[2022-12-23] MEDS: MELATONIN 3 MG TABLET GT SCH (21:43)
[2022-12-23 23:49] VITALS: BP 130/68
[2022-12-24] MEDS: IPRATROPIUM NEB FS 0.5 MG/2.5 ML AMPUL.NEB NEB SCH ×4 (00:46→19:18)
[2022-12-24] MEDS: ALBUTEROL FS 2.5 MG/0.5 ML VIAL.NEB NEB SCH ×4 (00:47→19:18)
[2022-12-24] MEDS: hydrOXYzine HCL SYRUP 10 MG/5 ML UDC GT SCH ×3 (05:35→20:38)
[2022-12-24 07:48] VITALS: BP 158/63
[2022-12-24] MEDS: HYDROGEN PEROXIDE 480 ML BOTTLE TP SCH ×2 (08:05→20:22)
[2022-12-24] MEDS: ESCITALOPRAM OXALATE (10 MG) 10 MG TABLET GT SCH (09:00)
[2022-12-24] MEDS: PROSTAT (PYXIS) 30 ML UDC GT SCH ×2 (09:00→17:00)
[2022-12-24] MEDS: DOCUSATE SODIUM LIQ 100 MG/10 ML UDC GT SCH (09:00)
[2022-12-24] MEDS: VITAMINS A AND D 56.7 GM TUBE TP SCH ×3 (09:00→20:38)
[2022-12-24] MEDS: AMLODIPINE BESYLATE 5 MG TABLET GT SCH (09:00)
[2022-12-24] MEDS: SEVELAMER CARBONATE 800 MG POWD.PACK GT SCH ×2 (09:00→17:00)
[2022-12-24] MEDS: PANTOPRAZOLE 40 MG/PACK PACK GT SCH ×2 (09:00→20:38)
[2022-12-24] MEDS: FOLIC ACID 1 MG TABLET GT SCH (09:00)
[2022-12-24] MEDS: VIT B CMPLX 3/FA/VIT C/BIOTIN 1 TAB TABLET PO SCH (09:00)
[2022-12-24] MEDS: SENNOSIDES 8.6 MG TABLET PO SCH (09:00)
[2022-12-24 20:52] VITALS: BP 140/62
[2022-12-24] MEDS: MELATONIN 3 MG TABLET GT SCH (22:41)
[2022-12-25 00:10] VITALS: BP 130/60
[2022-12-25] MEDS: IPRATROPIUM NEB FS 0.5 MG/2.5 ML AMPUL.NEB NEB SCH ×4 (01:30→19:47)
[2022-12-25] MEDS: ALBUTEROL FS 2.5 MG/0.5 ML VIAL.NEB NEB SCH ×4 (01:30→19:47)
[2022-12-25] MEDS: hydrOXYzine HCL SYRUP 10 MG/5 ML UDC GT SCH ×3 (04:56→20:16)
[2022-12-25] MEDS: BISACODYL SUPP (10 MG) 10 MG/SUPP.RECT SUPP.RECT RC PRN (06:45)
[2022-12-25 07:52] VITALS: BP 147/70
[2022-12-25] MEDS: SEVELAMER CARBONATE 800 MG POWD.PACK GT SCH ×2 (09:54→17:15)
[2022-12-25] MEDS: PANTOPRAZOLE 40 MG/PACK PACK GT SCH ×2 (09:54→20:16)
[2022-12-25] MEDS: PROSTAT (PYXIS) 30 ML UDC GT SCH ×2 (09:54→17:15)
[2022-12-25] MEDS: AMLODIPINE BESYLATE 5 MG TABLET GT SCH (09:54)
[2022-12-25] MEDS: DOCUSATE SODIUM LIQ 100 MG/10 ML UDC GT SCH (09:54)
[2022-12-25] MEDS: ESCITALOPRAM OXALATE (10 MG) 10 MG TABLET GT SCH (09:54)
[2022-12-25] MEDS: FOLIC ACID 1 MG TABLET GT SCH (09:54)
[2022-12-25] MEDS: SENNOSIDES 8.6 MG TABLET PO SCH (09:55)
[2022-12-25] MEDS: VIT B CMPLX 3/FA/VIT C/BIOTIN 1 TAB TABLET PO SCH (09:55)
[2022-12-25] MEDS: ACETAMINOPHEN 650 MG/20 ML UDC- SA PATIENTS-PAIN ONLY GT SCH (09:55)
[2022-12-25] MEDS: VITAMINS A AND D 56.7 GM TUBE TP SCH ×3 (09:55→20:16)
[2022-12-25] MEDS: HYDROGEN PEROXIDE 480 ML BOTTLE TP SCH (21:19)
[2022-12-25 21:28] VITALS: BP 150/63
[2022-12-25] MEDS: MELATONIN 3 MG TABLET GT SCH (21:41)
[2022-12-26] MEDS: ALBUTEROL FS 2.5 MG/0.5 ML VIAL.NEB NEB SCH ×4 (01:35→19:54)
[2022-12-26] MEDS: IPRATROPIUM NEB FS 0.5 MG/2.5 ML AMPUL.NEB NEB SCH ×4 (01:35→19:54)
[2022-12-26] MEDS: hydrOXYzine HCL SYRUP 10 MG/5 ML UDC GT SCH ×3 (05:16→21:49)
[2022-12-26 07:20] VITALS: BP 144/70
[2022-12-26] MEDS: DOCUSATE SODIUM LIQ 100 MG/10 ML UDC GT SCH (08:44)
[2022-12-26] MEDS: ESCITALOPRAM OXALATE (10 MG) 10 MG TABLET GT SCH (08:44)
[2022-12-26] MEDS: FOLIC ACID 1 MG TABLET GT SCH (08:44)
[2022-12-26] MEDS: ACETAMINOPHEN 650 MG/20 ML UDC- SA PATIENTS-PAIN ONLY GT SCH (08:45)
[2022-12-26] MEDS: PANTOPRAZOLE 40 MG/PACK PACK GT SCH ×2 (08:45→21:49)
[2022-12-26] MEDS: AMLODIPINE BESYLATE 5 MG TABLET GT SCH (08:45)
[2022-12-26] MEDS: VIT B CMPLX 3/FA/VIT C/BIOTIN 1 TAB TABLET PO SCH (08:45)
[2022-12-26] MEDS: SEVELAMER CARBONATE 800 MG POWD.PACK GT SCH ×2 (08:45→18:00)
[2022-12-26] MEDS: PROSTAT (PYXIS) 30 ML UDC GT SCH ×2 (08:45→18:00)
[2022-12-26] MEDS: SENNOSIDES 8.6 MG TABLET PO SCH (08:45)
[2022-12-26] MEDS: VITAMINS A AND D 56.7 GM TUBE TP SCH ×3 (08:46→21:49)
[2022-12-26] MEDS: HYDROGEN PEROXIDE 480 ML BOTTLE TP SCH ×2 (09:16→21:04)
--- NOTE | 2022-12-26 11:28 | NUR ---
RT NOTE Received patient on room air. No sob or resp. distress noted. Tx tolerated well.
[2022-12-26 12:54] VITALS: BP 154/68
--- NOTE | 2022-12-26 14:42 | NUR ---
Monthly Progress Note: Resident on Activity program was seen for sensory stimulation. Resident is alert and was able to particpated in these activities.Grooming, Books on Tape, Fresh Scent, Hand Massage, Easy Sound, North Korean and Chinese program on TV. Movies like Charming, Sing, Wedding day. TV Shows like SI GARRY AGUILAR, Shahid marcelo Archana. These activities will continue as needed.
[2022-12-26 19:16] VITALS: BP 148/61
[2022-12-26] MEDS: MELATONIN 3 MG TABLET GT SCH (21:49)
[2022-12-27] MEDS: ALBUTEROL FS 2.5 MG/0.5 ML VIAL.NEB NEB SCH ×4 (01:38→19:30)
[2022-12-27] MEDS: IPRATROPIUM NEB FS 0.5 MG/2.5 ML AMPUL.NEB NEB SCH ×4 (01:38→19:30)
[2022-12-27] MEDS: hydrOXYzine HCL SYRUP 10 MG/5 ML UDC GT SCH ×3 (05:00→21:33)
[2022-12-27 06:39] LABS: HEMOGLOBIN 11.9 g/dL (13.5-17.5)
[2022-12-27 07:26] VITALS: BP 156/97
--- NOTE | 2022-12-27 09:01 | NUR ---
RT NOTE Received patient on room air. No sob or resp. distress noted. Tx tolerated well.
[2022-12-27] MEDS: DOCUSATE SODIUM LIQ 100 MG/10 ML UDC GT SCH (09:02)
[2022-12-27] MEDS: FOLIC ACID 1 MG TABLET GT SCH (09:02)
[2022-12-27] MEDS: ESCITALOPRAM OXALATE (10 MG) 10 MG TABLET GT SCH (09:02)
[2022-12-27] MEDS: PANTOPRAZOLE 40 MG/PACK PACK GT SCH ×2 (09:03→21:33)
[2022-12-27] MEDS: SEVELAMER CARBONATE 800 MG POWD.PACK GT SCH ×2 (09:03→17:07)
[2022-12-27] MEDS: AMLODIPINE BESYLATE 5 MG TABLET GT SCH (09:03)
[2022-12-27] MEDS: ACETAMINOPHEN 650 MG/20 ML UDC- SA PATIENTS-PAIN ONLY GT SCH (09:03)
[2022-12-27] MEDS: PROSTAT (PYXIS) 30 ML UDC GT SCH ×2 (09:03→17:07)
[2022-12-27] MEDS: VITAMINS A AND D 56.7 GM TUBE TP SCH ×3 (09:04→21:33)
[2022-12-27] MEDS: SENNOSIDES 8.6 MG TABLET PO SCH (09:04)
--- NOTE | 2022-12-27 09:04 | NUR ---
Seen and examined by Dr. Sotelo, no new order given.
[2022-12-27] MEDS: VIT B CMPLX 3/FA/VIT C/BIOTIN 1 TAB TABLET PO SCH (09:05)
[2022-12-27] MEDS: HYDROGEN PEROXIDE 480 ML BOTTLE TP SCH ×2 (09:08→20:18)
[2022-12-27 13:06] VITALS: BP 124/81
[2022-12-27] MEDS: BISACODYL SUPP (10 MG) 10 MG/SUPP.RECT SUPP.RECT RC PRN (18:32)
[2022-12-27 20:00] VITALS: BP 132/59
[2022-12-27] MEDS: EPOETIN ALFA-EPBX 10,000 UNIT/ML VIAL SQ SCH (21:00)
[2022-12-27] MEDS: MELATONIN 3 MG TABLET GT SCH (21:33)
[2022-12-28] MEDS: ALBUTEROL FS 2.5 MG/0.5 ML VIAL.NEB NEB SCH ×4 (01:30→19:43)
[2022-12-28] MEDS: IPRATROPIUM NEB FS 0.5 MG/2.5 ML AMPUL.NEB NEB SCH ×4 (01:30→19:43)
[2022-12-28] MEDS: hydrOXYzine HCL SYRUP 10 MG/5 ML UDC GT SCH ×3 (05:52→21:10)
[2022-12-28 07:23] VITALS: BP 155/80
[2022-12-28] MEDS: ESCITALOPRAM OXALATE (10 MG) 10 MG TABLET GT SCH (09:33)
[2022-12-28] MEDS: DOCUSATE SODIUM LIQ 100 MG/10 ML UDC GT SCH (09:33)
[2022-12-28] MEDS: PROSTAT (PYXIS) 30 ML UDC GT SCH (09:34)
[2022-12-28] MEDS: SEVELAMER CARBONATE 800 MG POWD.PACK GT SCH ×2 (09:34→18:30)
[2022-12-28] MEDS: AMLODIPINE BESYLATE 5 MG TABLET GT SCH (09:34)
[2022-12-28] MEDS: PANTOPRAZOLE 40 MG/PACK PACK GT SCH ×2 (09:34→21:10)
[2022-12-28] MEDS: VITAMINS A AND D 56.7 GM TUBE TP SCH ×3 (09:35→21:10)
[2022-12-28] MEDS: VIT B CMPLX 3/FA/VIT C/BIOTIN 1 TAB TABLET PO SCH (09:35)
[2022-12-28] MEDS: ACETAMINOPHEN 650 MG/20 ML UDC- SA PATIENTS-PAIN ONLY GT SCH (09:35)
[2022-12-28] MEDS: SENNOSIDES 8.6 MG TABLET PO SCH (09:35)
[2022-12-28] MEDS: FOLIC ACID 1 MG TABLET GT SCH (09:36)
[2022-12-28] MEDS: HYDROGEN PEROXIDE 480 ML BOTTLE TP SCH ×2 (09:55→19:43)
[2022-12-28 11:48] VITALS: BP 143/78
[2022-12-28 20:01] VITALS: BP 140/61
[2022-12-28] MEDS: MELATONIN 3 MG TABLET GT SCH (21:10)
[2022-12-29 00:16] VITALS: BP 128/60
[2022-12-29] MEDS: IPRATROPIUM NEB FS 0.5 MG/2.5 ML AMPUL.NEB NEB SCH ×4 (01:32→18:39)
[2022-12-29] MEDS: ALBUTEROL FS 2.5 MG/0.5 ML VIAL.NEB NEB SCH ×4 (01:32→18:39)
[2022-12-29] MEDS: hydrOXYzine HCL SYRUP 10 MG/5 ML UDC GT SCH ×3 (05:37→21:20)
[2022-12-29 07:37] VITALS: BP 159/69
[2022-12-29] MEDS: NEPRO VAN 237 ML CAN PO SCH ×2 (09:00→17:10)
[2022-12-29] MEDS: HYDROGEN PEROXIDE 480 ML BOTTLE TP SCH ×2 (09:17→21:01)
--- NOTE | 2022-12-29 09:17 | NUR ---
RT NOTE Received patient on room air. No sob or resp. distress noted. Tx tolerated well.
[2022-12-29] MEDS: FOLIC ACID 1 MG TABLET GT SCH (09:21)
[2022-12-29] MEDS: SEVELAMER CARBONATE 800 MG POWD.PACK GT SCH ×2 (09:21→16:42)
[2022-12-29] MEDS: ESCITALOPRAM OXALATE (10 MG) 10 MG TABLET GT SCH (09:21)
[2022-12-29] MEDS: ACETAMINOPHEN 650 MG/20 ML UDC- SA PATIENTS-PAIN ONLY GT SCH (09:21)
[2022-12-29] MEDS: DOCUSATE SODIUM LIQ 100 MG/10 ML UDC GT SCH (09:21)
[2022-12-29] MEDS: PANTOPRAZOLE 40 MG/PACK PACK GT SCH ×2 (09:21→21:20)
[2022-12-29] MEDS: AMLODIPINE BESYLATE 5 MG TABLET GT SCH (09:21)
[2022-12-29] MEDS: SENNOSIDES 8.6 MG TABLET PO SCH (09:22)
[2022-12-29] MEDS: VITAMINS A AND D 56.7 GM TUBE TP SCH ×3 (09:22→21:20)
[2022-12-29] MEDS: VIT B CMPLX 3/FA/VIT C/BIOTIN 1 TAB TABLET PO SCH (09:23)
[2022-12-29 11:29] VITALS: BP 140/65
[2022-12-29 21:05] VITALS: BP 130/73
[2022-12-29] MEDS: MELATONIN 3 MG TABLET GT SCH (21:20)
[2022-12-30] MEDS: ALBUTEROL FS 2.5 MG/0.5 ML VIAL.NEB NEB SCH ×4 (00:58→19:42)
[2022-12-30] MEDS: IPRATROPIUM NEB FS 0.5 MG/2.5 ML AMPUL.NEB NEB SCH ×4 (00:58→19:42)
[2022-12-30] MEDS: hydrOXYzine HCL SYRUP 10 MG/5 ML UDC GT SCH ×3 (05:54→20:15)
[2022-12-30 07:36] VITALS: BP 156/63
[2022-12-30] MEDS: NEPRO VAN 237 ML CAN PO SCH ×2 (09:00→17:44)
[2022-12-30] MEDS: HYDROGEN PEROXIDE 480 ML BOTTLE TP SCH ×2 (09:10→21:02)
[2022-12-30] MEDS: SEVELAMER CARBONATE 800 MG POWD.PACK GT SCH ×2 (09:26→17:44)
[2022-12-30] MEDS: VIT B CMPLX 3/FA/VIT C/BIOTIN 1 TAB TABLET PO SCH (09:26)
[2022-12-30] MEDS: VITAMINS A AND D 56.7 GM TUBE TP SCH ×3 (09:26→20:15)
[2022-12-30] MEDS: AMLODIPINE BESYLATE 5 MG TABLET GT SCH (09:26)
[2022-12-30] MEDS: PANTOPRAZOLE 40 MG/PACK PACK GT SCH ×2 (09:26→20:15)
[2022-12-30] MEDS: SENNOSIDES 8.6 MG TABLET PO SCH (09:26)
[2022-12-30] MEDS: FOLIC ACID 1 MG TABLET GT SCH (09:26)
[2022-12-30] MEDS: DOCUSATE SODIUM LIQ 100 MG/10 ML UDC GT SCH (09:26)
[2022-12-30] MEDS: ESCITALOPRAM OXALATE (10 MG) 10 MG TABLET GT SCH (09:26)
[2022-12-30 11:35] VITALS: BP 140/61
[2022-12-30 18:55] VITALS: BP 128/75
[2022-12-30] MEDS: MELATONIN 3 MG TABLET GT SCH (21:04)
[2022-12-31] MEDS: ALBUTEROL FS 2.5 MG/0.5 ML VIAL.NEB NEB SCH ×4 (01:34→19:49)
[2022-12-31] MEDS: IPRATROPIUM NEB FS 0.5 MG/2.5 ML AMPUL.NEB NEB SCH ×4 (01:34→19:49)
[2022-12-31] MEDS: hydrOXYzine HCL SYRUP 10 MG/5 ML UDC GT SCH ×3 (05:04→20:48)
[2022-12-31] MEDS: HYDROGEN PEROXIDE 480 ML BOTTLE TP SCH ×2 (08:26→21:13)
[2022-12-31 08:27] VITALS: BP 121/72
[2022-12-31] MEDS: VIT B CMPLX 3/FA/VIT C/BIOTIN 1 TAB TABLET PO SCH (09:00)
[2022-12-31] MEDS: SEVELAMER CARBONATE 800 MG POWD.PACK GT SCH ×2 (09:00→17:27)
[2022-12-31] MEDS: ESCITALOPRAM OXALATE (10 MG) 10 MG TABLET GT SCH (09:00)
[2022-12-31] MEDS: SENNOSIDES 8.6 MG TABLET PO SCH (09:00)
[2022-12-31] MEDS: NEPRO VAN 237 ML CAN PO SCH ×2 (09:00→17:27)
[2022-12-31] MEDS: VITAMINS A AND D 56.7 GM TUBE TP SCH ×3 (09:00→20:48)
[2022-12-31] MEDS: PANTOPRAZOLE 40 MG/PACK PACK GT SCH ×2 (09:00→20:48)
[2022-12-31] MEDS: AMLODIPINE BESYLATE 5 MG TABLET GT SCH (09:00)
[2022-12-31] MEDS: DOCUSATE SODIUM LIQ 100 MG/10 ML UDC GT SCH (09:00)
[2022-12-31] MEDS: FOLIC ACID 1 MG TABLET GT SCH (09:00)
[2022-12-31] MEDS: MELATONIN 3 MG TABLET GT SCH (21:11)
[2022-12-31 21:23] VITALS: BP 137/52
[2023-01-01] MEDS: ALBUTEROL FS 2.5 MG/0.5 ML VIAL.NEB NEB SCH ×4 (01:35→19:49)
[2023-01-01] MEDS: IPRATROPIUM NEB FS 0.5 MG/2.5 ML AMPUL.NEB NEB SCH ×4 (01:35→19:49)
[2023-01-01] MEDS: hydrOXYzine HCL SYRUP 10 MG/5 ML UDC GT SCH ×3 (05:08→21:00)
[2023-01-01 08:10] VITALS: BP 158/57
[2023-01-01] MEDS: ESCITALOPRAM OXALATE (10 MG) 10 MG TABLET GT SCH (09:05)
[2023-01-01] MEDS: DOCUSATE SODIUM LIQ 100 MG/10 ML UDC GT SCH (09:05)
[2023-01-01] MEDS: FOLIC ACID 1 MG TABLET GT SCH (09:05)
[2023-01-01] MEDS: ACETAMINOPHEN 650 MG/20 ML UDC- SA PATIENTS-PAIN ONLY GT SCH (09:06)
[2023-01-01] MEDS: SENNOSIDES 8.6 MG TABLET PO SCH (09:06)
[2023-01-01] MEDS: AMLODIPINE BESYLATE 5 MG TABLET GT SCH (09:06)
[2023-01-01] MEDS: PANTOPRAZOLE 40 MG/PACK PACK GT SCH ×2 (09:06→21:00)
[2023-01-01] MEDS: SEVELAMER CARBONATE 800 MG POWD.PACK GT SCH ×2 (09:06→16:58)
[2023-01-01] MEDS: VITAMINS A AND D 56.7 GM TUBE TP SCH ×3 (09:06→21:00)
[2023-01-01] MEDS: NEPRO VAN 237 ML CAN PO SCH ×2 (09:06→16:58)
[2023-01-01] MEDS: VIT B CMPLX 3/FA/VIT C/BIOTIN 1 TAB TABLET PO SCH (09:07)
[2023-01-01] MEDS: HYDROGEN PEROXIDE 480 ML BOTTLE TP SCH ×2 (09:18→21:05)
--- NOTE | 2023-01-01 16:00 | NUR ---
RT NOTE Received patient on room air. No sob or resp. distress noted. Tx tolerated well.
[2023-01-01 20:00] VITALS: BP 135/69
[2023-01-01] MEDS: MELATONIN 3 MG TABLET GT SCH (22:23)
[2023-01-02] MEDS: IPRATROPIUM NEB FS 0.5 MG/2.5 ML AMPUL.NEB NEB SCH ×4 (01:49→19:50)
[2023-01-02] MEDS: ALBUTEROL FS 2.5 MG/0.5 ML VIAL.NEB NEB SCH ×4 (01:49→19:50)
[2023-01-02] MEDS: hydrOXYzine HCL SYRUP 10 MG/5 ML UDC GT SCH ×3 (05:00→20:18)
[2023-01-02] MEDS: AMLODIPINE BESYLATE 5 MG TABLET GT SCH (08:41)
[2023-01-02] MEDS: DOCUSATE SODIUM LIQ 100 MG/10 ML UDC GT SCH (08:41)
[2023-01-02] MEDS: FOLIC ACID 1 MG TABLET GT SCH (08:41)
[2023-01-02] MEDS: ESCITALOPRAM OXALATE (10 MG) 10 MG TABLET GT SCH (08:41)
[2023-01-02] MEDS: SEVELAMER CARBONATE 800 MG POWD.PACK GT SCH ×2 (08:43→17:59)
[2023-01-02] MEDS: NEPRO VAN 237 ML CAN PO SCH ×2 (08:43→17:59)
[2023-01-02] MEDS: SENNOSIDES 8.6 MG TABLET PO SCH (08:43)
[2023-01-02] MEDS: VITAMINS A AND D 56.7 GM TUBE TP SCH ×3 (08:43→20:18)
[2023-01-02] MEDS: PANTOPRAZOLE 40 MG/PACK PACK GT SCH ×2 (08:43→20:18)
[2023-01-02] MEDS: ACETAMINOPHEN 650 MG/20 ML UDC- SA PATIENTS-PAIN ONLY GT SCH (08:43)
[2023-01-02] MEDS: VIT B CMPLX 3/FA/VIT C/BIOTIN 1 TAB TABLET PO SCH (08:48)
[2023-01-02] MEDS: HYDROGEN PEROXIDE 480 ML BOTTLE TP SCH ×2 (09:00→21:07)
--- NOTE | 2023-01-02 12:32 | NUR ---
Patient was pick-up by EMT personnel to be taken to dialysis center. Vital signs temperature 97.6 F, axillary, pulse 63, respirations 16, oxygen saturation level 100%, and blood pressure 138/63. Report given to EMT personnel. Peek-a-bonner mitten were put on to prevent from pulling on tubes at dialysis center. Patient accompanied by sitter.
--- NOTE | 2023-01-02 17:20 | NUR ---
Received patient on room air. No sob or resp. distress noted. Tx tolerated well.
--- NOTE | 2023-01-02 18:14 | NUR ---
Patient returned from dialysis center. Pre-dialysis weight 56.3kg and post-dialysis weight 55.8kg. Vital signs at arrival blood pressure 133/50, temperature 97.8 f axillary, pulse 63, respiration 18, pain level 0/10. Dressing intact on left upper arm, no bleeding, bruit/thrill +. Stable condition no pain or discomfort.
[2023-01-02 20:21] VITALS: BP 127/57
[2023-01-02] MEDS: MELATONIN 3 MG TABLET GT SCH (21:30)
[2023-01-03] MEDS: ALBUTEROL FS 2.5 MG/0.5 ML VIAL.NEB NEB SCH ×4 (01:36→19:30)
[2023-01-03] MEDS: IPRATROPIUM NEB FS 0.5 MG/2.5 ML AMPUL.NEB NEB SCH ×4 (01:36→19:30)
[2023-01-03] MEDS: hydrOXYzine HCL SYRUP 10 MG/5 ML UDC GT SCH ×3 (05:14→21:28)
[2023-01-03 06:59] VITALS: BP 135/77
[2023-01-03 07:51] LABS: HEMOGLOBIN 11.2 g/dL (13.5-17.5)
[2023-01-03] MEDS: HYDROGEN PEROXIDE 480 ML BOTTLE TP SCH ×2 (08:30→20:23)
[2023-01-03] MEDS: DOCUSATE SODIUM LIQ 100 MG/10 ML UDC GT SCH (09:13)
[2023-01-03] MEDS: NEPRO VAN 237 ML CAN PO SCH ×2 (09:13→17:05)
[2023-01-03] MEDS: ACETAMINOPHEN 650 MG/20 ML UDC- SA PATIENTS-PAIN ONLY GT SCH (09:13)
[2023-01-03] MEDS: SENNOSIDES 8.6 MG TABLET PO SCH (09:13)
[2023-01-03] MEDS: VIT B CMPLX 3/FA/VIT C/BIOTIN 1 TAB TABLET PO SCH (09:13)
[2023-01-03] MEDS: AMLODIPINE BESYLATE 5 MG TABLET GT SCH (09:13)
[2023-01-03] MEDS: PANTOPRAZOLE 40 MG/PACK PACK GT SCH ×2 (09:13→21:28)
[2023-01-03] MEDS: FOLIC ACID 1 MG TABLET GT SCH (09:13)
[2023-01-03] MEDS: ESCITALOPRAM OXALATE (10 MG) 10 MG TABLET GT SCH (09:13)
[2023-01-03] MEDS: SEVELAMER CARBONATE 800 MG POWD.PACK GT SCH ×2 (09:13→17:05)
[2023-01-03] MEDS: VITAMINS A AND D 56.7 GM TUBE TP SCH ×3 (09:13→21:28)
--- NOTE | 2023-01-03 11:01 | NUR ---
Seen and examined by Dr. Sotelo, no new order given at this time.
[2023-01-03 12:39] VITALS: BP 149/69
[2023-01-03 20:00] VITALS: BP 132/79
[2023-01-03] MEDS: EPOETIN ALFA-EPBX 10,000 UNIT/ML VIAL SQ SCH (21:00)
[2023-01-03] MEDS: MELATONIN 3 MG TABLET GT SCH (21:28)
[2023-01-04] MEDS: ALBUTEROL FS 2.5 MG/0.5 ML VIAL.NEB NEB SCH ×4 (01:30→19:54)
[2023-01-04] MEDS: IPRATROPIUM NEB FS 0.5 MG/2.5 ML AMPUL.NEB NEB SCH ×4 (01:30→19:54)
[2023-01-04] MEDS: hydrOXYzine HCL SYRUP 10 MG/5 ML UDC GT SCH ×3 (05:33→21:24)
[2023-01-04 07:13] VITALS: BP 142/75
[2023-01-04] MEDS: HYDROGEN PEROXIDE 480 ML BOTTLE TP SCH ×2 (08:28→19:54)
[2023-01-04] MEDS: ESCITALOPRAM OXALATE (10 MG) 10 MG TABLET GT SCH (09:00)
[2023-01-04] MEDS: AMLODIPINE BESYLATE 5 MG TABLET GT SCH (09:00)
[2023-01-04] MEDS: FOLIC ACID 1 MG TABLET GT SCH (09:00)
[2023-01-04] MEDS: SENNOSIDES 8.6 MG TABLET PO SCH (09:00)
[2023-01-04] MEDS: SEVELAMER CARBONATE 800 MG POWD.PACK GT SCH ×2 (09:00→17:48)
[2023-01-04] MEDS: VITAMINS A AND D 56.7 GM TUBE TP SCH ×3 (09:00→21:24)
[2023-01-04] MEDS: VIT B CMPLX 3/FA/VIT C/BIOTIN 1 TAB TABLET PO SCH (09:00)
[2023-01-04] MEDS: NEPRO VAN 237 ML CAN PO SCH ×2 (09:00→17:48)
[2023-01-04] MEDS: PANTOPRAZOLE 40 MG/PACK PACK GT SCH ×2 (09:00→21:24)
[2023-01-04] MEDS: DOCUSATE SODIUM LIQ 100 MG/10 ML UDC GT SCH (09:00)
[2023-01-04] MEDS: ACETAMINOPHEN 650 MG/20 ML UDC- SA PATIENTS-PAIN ONLY GT SCH (10:09)
[2023-01-04 12:05] VITALS: BP 129/53
[2023-01-04 19:08] VITALS: BP 143/93
[2023-01-04] MEDS: MELATONIN 3 MG TABLET GT SCH (21:24)
[2023-01-04 23:29] VITALS: BP 131/82
[2023-01-05] MEDS: IPRATROPIUM NEB FS 0.5 MG/2.5 ML AMPUL.NEB NEB SCH ×4 (01:26→19:11)
[2023-01-05] MEDS: ALBUTEROL FS 2.5 MG/0.5 ML VIAL.NEB NEB SCH ×4 (01:26→19:11)
--- NOTE | 2023-01-05 04:40 | NUR ---
Pt recvd awake on Room air with no trach in place, decannulated. Spo2 > 97% maintained. no SOB or respiratory distress noted. neb tx given and oleg well.
[2023-01-05] MEDS: hydrOXYzine HCL SYRUP 10 MG/5 ML UDC GT SCH ×3 (05:20→21:15)
[2023-01-05 07:31] VITALS: BP 141/59
[2023-01-05] MEDS: HYDROGEN PEROXIDE 480 ML BOTTLE TP SCH ×2 (09:16→19:51)
[2023-01-05] MEDS: DOCUSATE SODIUM LIQ 100 MG/10 ML UDC GT SCH (09:52)
[2023-01-05] MEDS: FOLIC ACID 1 MG TABLET GT SCH (09:52)
[2023-01-05] MEDS: ESCITALOPRAM OXALATE (10 MG) 10 MG TABLET GT SCH (09:53)
[2023-01-05] MEDS: SEVELAMER CARBONATE 800 MG POWD.PACK GT SCH ×2 (09:53→17:55)
[2023-01-05] MEDS: AMLODIPINE BESYLATE 5 MG TABLET GT SCH (09:53)
[2023-01-05] MEDS: PANTOPRAZOLE 40 MG/PACK PACK GT SCH ×2 (09:53→21:15)
[2023-01-05] MEDS: SENNOSIDES 8.6 MG TABLET PO SCH (09:54)
[2023-01-05] MEDS: VITAMINS A AND D 56.7 GM TUBE TP SCH ×3 (09:54→21:15)
[2023-01-05] MEDS: ACETAMINOPHEN 650 MG/20 ML UDC- SA PATIENTS-PAIN ONLY GT SCH (09:54)
[2023-01-05] MEDS: VIT B CMPLX 3/FA/VIT C/BIOTIN 1 TAB TABLET PO SCH (09:54)
[2023-01-05] MEDS: NEPRO VAN 237 ML CAN PO SCH ×2 (09:54→17:55)
[2023-01-05 12:07] VITALS: BP 126/59
--- NOTE | 2023-01-05 18:15 | NUR ---
RT NOTE Received patient on room air. No sob or resp. distress noted. Txs tolerated well.
[2023-01-05 19:19] VITALS: BP 142/58
[2023-01-05] MEDS: MELATONIN 3 MG TABLET GT SCH (21:15)
[2023-01-06 00:35] VITALS: BP 138/75
[2023-01-06] MEDS: IPRATROPIUM NEB FS 0.5 MG/2.5 ML AMPUL.NEB NEB SCH ×4 (01:35→19:45)
[2023-01-06] MEDS: ALBUTEROL FS 2.5 MG/0.5 ML VIAL.NEB NEB SCH ×4 (01:35→19:45)
[2023-01-06] MEDS: hydrOXYzine HCL SYRUP 10 MG/5 ML UDC GT SCH ×3 (05:00→20:16)
[2023-01-06 07:15] VITALS: BP 140/72
[2023-01-06] MEDS: DOCUSATE SODIUM LIQ 100 MG/10 ML UDC GT SCH (08:48)
[2023-01-06] MEDS: FOLIC ACID 1 MG TABLET GT SCH (08:49)
[2023-01-06] MEDS: ESCITALOPRAM OXALATE (10 MG) 10 MG TABLET GT SCH (08:49)
[2023-01-06] MEDS: AMLODIPINE BESYLATE 5 MG TABLET GT SCH (08:50)
[2023-01-06] MEDS: PANTOPRAZOLE 40 MG/PACK PACK GT SCH ×2 (08:50→20:16)
[2023-01-06] MEDS: SEVELAMER CARBONATE 800 MG POWD.PACK GT SCH ×2 (08:50→17:58)
[2023-01-06] MEDS: VITAMINS A AND D 56.7 GM TUBE TP SCH ×3 (08:50→20:16)
[2023-01-06] MEDS: NEPRO VAN 237 ML CAN PO SCH ×2 (08:50→17:58)
[2023-01-06] MEDS: VIT B CMPLX 3/FA/VIT C/BIOTIN 1 TAB TABLET PO SCH (08:50)
[2023-01-06] MEDS: SENNOSIDES 8.6 MG TABLET PO SCH (08:50)
[2023-01-06] MEDS: HYDROGEN PEROXIDE 480 ML BOTTLE TP SCH ×2 (09:14→21:38)
[2023-01-06 11:56] VITALS: BP 139/55
--- NOTE | 2023-01-06 12:32 | NUR ---
Patient was picked-up by EMT personnel to be taken to dialysis center. Vital signs temperature 97.8F, axillary, pulse 57, respirations 18, oxygen saturation level 100%, and blood pressure 139/55. Report given to EMT personnel. Peek-a-bonner mitten were put on to prevent from pulling on tubes at dialysis center. Patient accompanied by sitter. Charge nurse notified.
--- NOTE | 2023-01-06 16:19 | NUR ---
RT NOTE Received patient on room air. No sob or resp. distress noted. Tx tolerated well. Pt is currently stable.
[2023-01-06] MEDS: MELATONIN 3 MG TABLET GT SCH (21:25)
[2023-01-06 22:00] VITALS: BP 132/62
[2023-01-07] VITALS: BP 129/71
[2023-01-07] MEDS: ALBUTEROL FS 2.5 MG/0.5 ML VIAL.NEB NEB SCH ×4 (01:30→19:42)
[2023-01-07] MEDS: IPRATROPIUM NEB FS 0.5 MG/2.5 ML AMPUL.NEB NEB SCH ×4 (01:30→19:42)
[2023-01-07] MEDS: hydrOXYzine HCL SYRUP 10 MG/5 ML UDC GT SCH ×3 (05:04→20:52)
[2023-01-07 08:02] VITALS: BP 138/78
[2023-01-07] MEDS: HYDROGEN PEROXIDE 480 ML BOTTLE TP SCH ×2 (08:26→21:29)
[2023-01-07] MEDS: ESCITALOPRAM OXALATE (10 MG) 10 MG TABLET GT SCH (08:43)
[2023-01-07] MEDS: FOLIC ACID 1 MG TABLET GT SCH (08:43)
[2023-01-07] MEDS: DOCUSATE SODIUM LIQ 100 MG/10 ML UDC GT SCH (08:43)
[2023-01-07] MEDS: AMLODIPINE BESYLATE 5 MG TABLET GT SCH (08:44)
[2023-01-07] MEDS: SEVELAMER CARBONATE 800 MG POWD.PACK GT SCH ×2 (08:44→16:30)
[2023-01-07] MEDS: PANTOPRAZOLE 40 MG/PACK PACK GT SCH ×2 (08:44→20:52)
[2023-01-07] MEDS: NEPRO VAN 237 ML CAN PO SCH ×2 (08:44→16:30)
[2023-01-07] MEDS: SENNOSIDES 8.6 MG TABLET PO SCH (08:44)
[2023-01-07] MEDS: VITAMINS A AND D 56.7 GM TUBE TP SCH ×3 (08:44→20:52)
[2023-01-07] MEDS: VIT B CMPLX 3/FA/VIT C/BIOTIN 1 TAB TABLET PO SCH (08:44)
[2023-01-07 20:02] VITALS: BP 136/85
[2023-01-07] MEDS: MELATONIN 3 MG TABLET GT SCH (21:04)
[2023-01-08] MEDS: ALBUTEROL FS 2.5 MG/0.5 ML VIAL.NEB NEB SCH ×4 (01:30→20:09)
[2023-01-08] MEDS: IPRATROPIUM NEB FS 0.5 MG/2.5 ML AMPUL.NEB NEB SCH ×4 (01:30→20:09)
--- NOTE | 2023-01-08 02:10 | NUR ---
Pt refused tx @ this time.
[2023-01-08] MEDS: hydrOXYzine HCL SYRUP 10 MG/5 ML UDC GT SCH ×3 (05:21→20:35)
[2023-01-08 07:50] VITALS: BP 148/72
[2023-01-08] MEDS: SEVELAMER CARBONATE 800 MG POWD.PACK GT SCH ×2 (08:24→17:25)
[2023-01-08] MEDS: DOCUSATE SODIUM LIQ 100 MG/10 ML UDC GT SCH (08:24)
[2023-01-08] MEDS: FOLIC ACID 1 MG TABLET GT SCH (08:24)
[2023-01-08] MEDS: PANTOPRAZOLE 40 MG/PACK PACK GT SCH ×2 (08:24→20:35)
[2023-01-08] MEDS: AMLODIPINE BESYLATE 5 MG TABLET GT SCH (08:24)
[2023-01-08] MEDS: ESCITALOPRAM OXALATE (10 MG) 10 MG TABLET GT SCH (08:24)
[2023-01-08] MEDS: ACETAMINOPHEN 650 MG/20 ML UDC- SA PATIENTS-PAIN ONLY GT SCH (08:25)
[2023-01-08] MEDS: NEPRO VAN 237 ML CAN PO SCH ×2 (08:26→17:25)
[2023-01-08] MEDS: VITAMINS A AND D 56.7 GM TUBE TP SCH ×3 (08:26→20:36)
[2023-01-08] MEDS: VIT B CMPLX 3/FA/VIT C/BIOTIN 1 TAB TABLET PO SCH (08:26)
[2023-01-08] MEDS: SENNOSIDES 8.6 MG TABLET PO SCH (08:26)
[2023-01-08] MEDS: HYDROGEN PEROXIDE 480 ML BOTTLE TP SCH ×2 (09:49→21:25)
[2023-01-08 11:54] VITALS: BP 139/76
[2023-01-08 19:55] VITALS: BP 141/84
[2023-01-08] MEDS: MELATONIN 3 MG TABLET GT SCH (21:35)
[2023-01-09] MEDS: ALBUTEROL FS 2.5 MG/0.5 ML VIAL.NEB NEB SCH ×4 (01:37→19:41)
[2023-01-09] MEDS: IPRATROPIUM NEB FS 0.5 MG/2.5 ML AMPUL.NEB NEB SCH ×4 (01:37→19:41)
[2023-01-09] MEDS: hydrOXYzine HCL SYRUP 10 MG/5 ML UDC GT SCH ×3 (05:02→21:34)
[2023-01-09 07:18] VITALS: BP 142/55
[2023-01-09] MEDS: DOCUSATE SODIUM LIQ 100 MG/10 ML UDC GT SCH (08:27)
[2023-01-09] MEDS: FOLIC ACID 1 MG TABLET GT SCH (08:27)
[2023-01-09] MEDS: VIT B CMPLX 3/FA/VIT C/BIOTIN 1 TAB TABLET PO SCH (08:28)
[2023-01-09] MEDS: SEVELAMER CARBONATE 800 MG POWD.PACK GT SCH ×2 (08:28→17:49)
[2023-01-09] MEDS: ACETAMINOPHEN 650 MG/20 ML UDC- SA PATIENTS-PAIN ONLY GT SCH (08:28)
[2023-01-09] MEDS: PANTOPRAZOLE 40 MG/PACK PACK GT SCH ×2 (08:28→21:34)
[2023-01-09] MEDS: SENNOSIDES 8.6 MG TABLET PO SCH (08:29)
[2023-01-09] MEDS: NEPRO VAN 237 ML CAN PO SCH ×2 (08:29→17:49)
[2023-01-09] MEDS: VITAMINS A AND D 56.7 GM TUBE TP SCH ×3 (08:29→21:35)
[2023-01-09] MEDS: HYDROGEN PEROXIDE 480 ML BOTTLE TP SCH ×2 (08:29→21:06)
[2023-01-09] MEDS: AMLODIPINE BESYLATE 5 MG TABLET GT SCH (08:30)
--- NOTE | 2023-01-09 08:30 | NUR ---
Seen and examined by Dr. Evans, no new order given.
[2023-01-09] MEDS: ESCITALOPRAM OXALATE (10 MG) 10 MG TABLET GT SCH (09:00)
[2023-01-09 11:20] VITALS: BP 141/59
[2023-01-09 17:45] VITALS: BP 153/62
[2023-01-09 19:15] VITALS: BP 140/68
[2023-01-09] MEDS: MELATONIN 3 MG TABLET GT SCH (21:35)
[2023-01-10] MEDS: IPRATROPIUM NEB FS 0.5 MG/2.5 ML AMPUL.NEB NEB SCH ×4 (01:35→19:30)
[2023-01-10] MEDS: ALBUTEROL FS 2.5 MG/0.5 ML VIAL.NEB NEB SCH ×4 (01:35→19:30)
[2023-01-10] MEDS: hydrOXYzine HCL SYRUP 10 MG/5 ML UDC GT SCH ×3 (05:47→21:21)
[2023-01-10 07:10] LABS: HEMOGLOBIN 11.5 g/dL (13.5-17.5)
[2023-01-10 07:49] VITALS: BP 140/70
[2023-01-10] MEDS: HYDROGEN PEROXIDE 480 ML BOTTLE TP SCH ×2 (08:44→20:10)
[2023-01-10] MEDS: DOCUSATE SODIUM LIQ 100 MG/10 ML UDC GT SCH (09:03)
[2023-01-10] MEDS: FOLIC ACID 1 MG TABLET GT SCH (09:04)
[2023-01-10] MEDS: SEVELAMER CARBONATE 800 MG POWD.PACK GT SCH ×2 (09:04→17:00)
[2023-01-10] MEDS: NEPRO VAN 237 ML CAN PO SCH ×2 (09:04→17:00)
[2023-01-10] MEDS: ESCITALOPRAM OXALATE (10 MG) 10 MG TABLET GT SCH (09:04)
[2023-01-10] MEDS: PANTOPRAZOLE 40 MG/PACK PACK GT SCH ×2 (09:04→21:21)
[2023-01-10] MEDS: VIT B CMPLX 3/FA/VIT C/BIOTIN 1 TAB TABLET PO SCH (09:04)
[2023-01-10] MEDS: AMLODIPINE BESYLATE 5 MG TABLET GT SCH (09:04)
[2023-01-10] MEDS: ACETAMINOPHEN 650 MG/20 ML UDC- SA PATIENTS-PAIN ONLY GT SCH (09:04)
[2023-01-10] MEDS: SENNOSIDES 8.6 MG TABLET PO SCH (09:05)
[2023-01-10] MEDS: VITAMINS A AND D 56.7 GM TUBE TP SCH ×3 (09:05→21:21)
[2023-01-10 13:32] VITALS: BP 122/78
[2023-01-10 19:01] VITALS: BP 157/69
--- NOTE | 2023-01-10 20:10 | NUR ---
HYDROGEN PEROXIDE NO LONGER APPROPRIATE FOR PATIENT; PATIENT IS DECANNULATED. Addendum: 01/10/23 at 2010 by CHARLES LOUIE RT Amended: Links added.
[2023-01-10] MEDS: EPOETIN ALFA-EPBX 10,000 UNIT/ML VIAL SQ SCH (21:00)
[2023-01-10] MEDS: MELATONIN 3 MG TABLET GT SCH (21:21)
--- NOTE | 2023-01-10 21:21 | NUR ---
Due medication Rx Retacrit held per level order for HGB > 11, current HGB 11.5.
[2023-01-11] MEDS: ALBUTEROL FS 2.5 MG/0.5 ML VIAL.NEB NEB SCH ×4 (01:06→20:08)
[2023-01-11] MEDS: IPRATROPIUM NEB FS 0.5 MG/2.5 ML AMPUL.NEB NEB SCH ×4 (01:06→20:08)
[2023-01-11] MEDS: hydrOXYzine HCL SYRUP 10 MG/5 ML UDC GT SCH ×3 (05:18→20:02)
[2023-01-11 07:06] VITALS: BP 141/71
[2023-01-11] MEDS: HYDROGEN PEROXIDE 480 ML BOTTLE TP SCH ×2 (08:56→20:08)
[2023-01-11] MEDS: NEPRO VAN 237 ML CAN PO SCH ×2 (09:00→17:00)
[2023-01-11] MEDS: AMLODIPINE BESYLATE 5 MG TABLET GT SCH (09:17)
[2023-01-11] MEDS: DOCUSATE SODIUM LIQ 100 MG/10 ML UDC GT SCH (09:17)
[2023-01-11] MEDS: FOLIC ACID 1 MG TABLET GT SCH (09:17)
[2023-01-11] MEDS: PANTOPRAZOLE 40 MG/PACK PACK GT SCH ×2 (09:18→20:03)
[2023-01-11] MEDS: ACETAMINOPHEN 650 MG/20 ML UDC- SA PATIENTS-PAIN ONLY GT SCH (09:18)
[2023-01-11] MEDS: SEVELAMER CARBONATE 800 MG POWD.PACK GT SCH ×2 (09:18→17:00)
[2023-01-11] MEDS: VIT B CMPLX 3/FA/VIT C/BIOTIN 1 TAB TABLET PO SCH (09:19)
[2023-01-11] MEDS: ESCITALOPRAM OXALATE (10 MG) 10 MG TABLET GT SCH (09:19)
[2023-01-11] MEDS: SENNOSIDES 8.6 MG TABLET PO SCH (09:19)
[2023-01-11] MEDS: VITAMINS A AND D 56.7 GM TUBE TP SCH ×3 (09:19→20:03)
[2023-01-11 13:46] VITALS: BP 126/69
[2023-01-11 19:24] VITALS: BP 118/94
[2023-01-11] MEDS: MELATONIN 3 MG TABLET GT SCH (21:15)
[2023-01-12 00:04] VITALS: BP 108/64
[2023-01-12] MEDS: ALBUTEROL FS 2.5 MG/0.5 ML VIAL.NEB NEB SCH ×4 (01:46→19:09)
[2023-01-12] MEDS: IPRATROPIUM NEB FS 0.5 MG/2.5 ML AMPUL.NEB NEB SCH ×4 (01:46→19:09)
[2023-01-12] MEDS: hydrOXYzine HCL SYRUP 10 MG/5 ML UDC GT SCH ×3 (05:42→20:28)
[2023-01-12 07:49] VITALS: BP 145/62
[2023-01-12] MEDS: SENNOSIDES 8.6 MG TABLET PO SCH (08:54)
[2023-01-12] MEDS: ESCITALOPRAM OXALATE (10 MG) 10 MG TABLET GT SCH (08:54)
[2023-01-12] MEDS: DOCUSATE SODIUM LIQ 100 MG/10 ML UDC GT SCH (08:54)
[2023-01-12] MEDS: SEVELAMER CARBONATE 800 MG POWD.PACK GT SCH ×2 (08:54→17:25)
[2023-01-12] MEDS: ACETAMINOPHEN 650 MG/20 ML UDC- SA PATIENTS-PAIN ONLY GT SCH (08:54)
[2023-01-12] MEDS: FOLIC ACID 1 MG TABLET GT SCH (08:54)
[2023-01-12] MEDS: PANTOPRAZOLE 40 MG/PACK PACK GT SCH ×2 (08:54→20:28)
[2023-01-12] MEDS: AMLODIPINE BESYLATE 5 MG TABLET GT SCH (08:54)
[2023-01-12] MEDS: VIT B CMPLX 3/FA/VIT C/BIOTIN 1 TAB TABLET PO SCH (08:54)
[2023-01-12] MEDS: VITAMINS A AND D 56.7 GM TUBE TP SCH ×3 (08:55→20:29)
[2023-01-12] MEDS: NEPRO VAN 237 ML CAN PO SCH ×2 (08:55→17:25)
[2023-01-12] MEDS: HYDROGEN PEROXIDE 480 ML BOTTLE TP SCH ×2 (09:52→21:55)
--- NOTE | 2023-01-12 09:58 | NUR ---
RT NOTE Received patient on room air. No sob or resp. distress noted. Tx tolerated well. Pt is currently stable.
--- NOTE | 2023-01-12 14:58 | NUR ---
INTERDISCIPLINARY PLAN OF CARE CONFERENCE took place today. Dr. Evans and Interdisciplinary team discussed the plan of care in detail. Current orders as well as treatments and medications were reviewed. SW discussed discharge referrals. EMANUEL will continue DC planning for lower level of care.
[2023-01-12 19:34] VITALS: BP 141/64
[2023-01-12] MEDS: MELATONIN 3 MG TABLET GT SCH (21:00)
[2023-01-12 23:56] VITALS: BP 135/65
[2023-01-13] MEDS: IPRATROPIUM NEB FS 0.5 MG/2.5 ML AMPUL.NEB NEB SCH ×4 (01:30→19:30)
[2023-01-13] MEDS: ALBUTEROL FS 2.5 MG/0.5 ML VIAL.NEB NEB SCH ×4 (01:30→19:30)
[2023-01-13] MEDS: hydrOXYzine HCL SYRUP 10 MG/5 ML UDC GT SCH ×3 (05:27→20:49)
[2023-01-13 07:35] VITALS: BP 143/69
[2023-01-13] MEDS: HYDROGEN PEROXIDE 480 ML BOTTLE TP SCH ×2 (09:00→21:09)
[2023-01-13] MEDS: FOLIC ACID 1 MG TABLET GT SCH (09:33)
[2023-01-13] MEDS: ESCITALOPRAM OXALATE (10 MG) 10 MG TABLET GT SCH (09:33)
[2023-01-13] MEDS: DOCUSATE SODIUM LIQ 100 MG/10 ML UDC GT SCH (09:33)
[2023-01-13] MEDS: AMLODIPINE BESYLATE 5 MG TABLET GT SCH (09:34)
[2023-01-13] MEDS: SENNOSIDES 8.6 MG TABLET PO SCH (09:34)
[2023-01-13] MEDS: SEVELAMER CARBONATE 800 MG POWD.PACK GT SCH ×2 (09:34→17:36)
[2023-01-13] MEDS: VITAMINS A AND D 56.7 GM TUBE TP SCH ×3 (09:34→20:49)
[2023-01-13] MEDS: PANTOPRAZOLE 40 MG/PACK PACK GT SCH ×2 (09:34→20:49)
[2023-01-13] MEDS: NEPRO VAN 237 ML CAN PO SCH ×2 (09:34→17:36)
[2023-01-13] MEDS: VIT B CMPLX 3/FA/VIT C/BIOTIN 1 TAB TABLET PO SCH (09:34)
--- NOTE | 2023-01-13 09:34 | NUR ---
Seen and examined by Dr. Sotelo, no new order given.
--- NOTE | 2023-01-13 11:52 | NUR ---
Relayed dietary recommendation to add noctural GT feeding to address to weight loss. MD in agreement. Patient will receive GT feeding at night Nephro 1.8 at 65cc/hr x 10 hours from 8pm to 6AM. Order carried out.
[2023-01-13 13:30] VITALS: BP 138/72
[2023-01-13 19:53] VITALS: BP 126/69
[2023-01-13] MEDS: MELATONIN 3 MG TABLET GT SCH (21:15)
[2023-01-14] MEDS: ALBUTEROL FS 2.5 MG/0.5 ML VIAL.NEB NEB SCH ×4 (01:38→19:49)
[2023-01-14] MEDS: IPRATROPIUM NEB FS 0.5 MG/2.5 ML AMPUL.NEB NEB SCH ×4 (01:38→19:49)
[2023-01-14] MEDS: hydrOXYzine HCL SYRUP 10 MG/5 ML UDC GT SCH ×3 (05:45→20:14)
[2023-01-14 07:49] VITALS: BP 123/63
[2023-01-14] MEDS: HYDROGEN PEROXIDE 480 ML BOTTLE TP SCH ×2 (08:16→21:04)
[2023-01-14] MEDS: ESCITALOPRAM OXALATE (10 MG) 10 MG TABLET GT SCH (09:00)
[2023-01-14] MEDS: SEVELAMER CARBONATE 800 MG POWD.PACK GT SCH ×2 (09:00→17:22)
[2023-01-14] MEDS: AMLODIPINE BESYLATE 5 MG TABLET GT SCH (09:00)
[2023-01-14] MEDS: DOCUSATE SODIUM LIQ 100 MG/10 ML UDC GT SCH (09:00)
[2023-01-14] MEDS: SENNOSIDES 8.6 MG TABLET PO SCH (09:00)
[2023-01-14] MEDS: VITAMINS A AND D 56.7 GM TUBE TP SCH ×3 (09:00→20:15)
[2023-01-14] MEDS: PANTOPRAZOLE 40 MG/PACK PACK GT SCH ×2 (09:00→20:14)
[2023-01-14] MEDS: VIT B CMPLX 3/FA/VIT C/BIOTIN 1 TAB TABLET PO SCH (09:00)
[2023-01-14] MEDS: FOLIC ACID 1 MG TABLET GT SCH (09:00)
[2023-01-14] MEDS: NEPRO VAN 237 ML CAN PO SCH ×2 (09:00→17:22)
[2023-01-14] MEDS ORDERED: IBUPROFEN 600 MG TABLET ONE (18:35)
[2023-01-14 19:19] VITALS: BP 148/72
[2023-01-14] MEDS: NEPRO 1,000 ML BOTTLE GT PRN (19:40)
[2023-01-14] MEDS: MELATONIN 3 MG TABLET GT SCH (21:15)
[2023-01-15] MEDS: IPRATROPIUM NEB FS 0.5 MG/2.5 ML AMPUL.NEB NEB SCH ×4 (01:38→19:57)
[2023-01-15] MEDS: ALBUTEROL FS 2.5 MG/0.5 ML VIAL.NEB NEB SCH ×4 (01:38→19:57)
[2023-01-15] MEDS: hydrOXYzine HCL SYRUP 10 MG/5 ML UDC GT SCH ×3 (04:55→20:38)
[2023-01-15 07:26] VITALS: BP 145/67
[2023-01-15 07:59] LABS: CALCIUM, SERUM 9.2 mg/dL (8.5-10.1); CREATININE 3.4 mg/dL (0.6-1.3); MAGNESIUM 2.6 mg/dL (1.8-2.4); PHOSPHORUS 2.9 mg/dL (2.5-4.9); POTASSIUM 4.2 mmol/L (3.5-5.1)
[2023-01-15] MEDS: ESCITALOPRAM OXALATE (10 MG) 10 MG TABLET GT SCH (08:22)
[2023-01-15] MEDS: FOLIC ACID 1 MG TABLET GT SCH (08:22)
[2023-01-15] MEDS: DOCUSATE SODIUM LIQ 100 MG/10 ML UDC GT SCH (08:22)
[2023-01-15] MEDS: AMLODIPINE BESYLATE 5 MG TABLET GT SCH (08:23)
[2023-01-15] MEDS: PANTOPRAZOLE 40 MG/PACK PACK GT SCH ×2 (08:24→20:38)
[2023-01-15] MEDS: SEVELAMER CARBONATE 800 MG POWD.PACK GT SCH ×2 (08:24→16:22)
[2023-01-15] MEDS: SENNOSIDES 8.6 MG TABLET PO SCH (08:25)
[2023-01-15] MEDS: ACETAMINOPHEN 650 MG/20 ML UDC- SA PATIENTS-PAIN ONLY GT SCH (08:25)
[2023-01-15] MEDS: VIT B CMPLX 3/FA/VIT C/BIOTIN 1 TAB TABLET PO SCH (08:29)
[2023-01-15] MEDS: VITAMINS A AND D 56.7 GM TUBE TP SCH ×3 (08:30→20:39)
[2023-01-15] MEDS: HYDROGEN PEROXIDE 480 ML BOTTLE TP SCH ×2 (08:30→21:30)
[2023-01-15] MEDS: NEPRO VAN 237 ML CAN PO SCH ×2 (08:31→16:23)
[2023-01-15 11:39] VITALS: BP 139/72
--- NOTE | 2023-01-15 16:15 | NUR ---
Virtual rounds done with AYDE Tijerina, no new order given.
[2023-01-15 19:42] VITALS: BP 147/57
[2023-01-15] MEDS: MELATONIN 3 MG TABLET GT SCH (22:23)
[2023-01-16] MEDS: IPRATROPIUM NEB FS 0.5 MG/2.5 ML AMPUL.NEB NEB SCH ×4 (01:32→20:24)
[2023-01-16] MEDS: ALBUTEROL FS 2.5 MG/0.5 ML VIAL.NEB NEB SCH ×4 (01:32→20:24)
[2023-01-16] MEDS: hydrOXYzine HCL SYRUP 10 MG/5 ML UDC GT SCH ×3 (05:46→21:24)
[2023-01-16 07:25] VITALS: BP 138/58
[2023-01-16] MEDS: VIT B CMPLX 3/FA/VIT C/BIOTIN 1 TAB TABLET PO SCH (09:00)
--- NOTE | 2023-01-16 09:00 | NUR ---
Seen and examined by Dr. Evans, no new order given.
[2023-01-16] MEDS: DOCUSATE SODIUM LIQ 100 MG/10 ML UDC GT SCH (09:24)
[2023-01-16] MEDS: SEVELAMER CARBONATE 800 MG POWD.PACK GT SCH ×2 (09:25→17:00)
[2023-01-16] MEDS: FOLIC ACID 1 MG TABLET GT SCH (09:25)
[2023-01-16] MEDS: AMLODIPINE BESYLATE 5 MG TABLET GT SCH (09:25)
[2023-01-16] MEDS: ACETAMINOPHEN 650 MG/20 ML UDC- SA PATIENTS-PAIN ONLY GT SCH (09:25)
[2023-01-16] MEDS: PANTOPRAZOLE 40 MG/PACK PACK GT SCH ×2 (09:25→21:24)
[2023-01-16] MEDS: ESCITALOPRAM OXALATE (10 MG) 10 MG TABLET GT SCH (09:25)
[2023-01-16] MEDS: SENNOSIDES 8.6 MG TABLET PO SCH (09:26)
[2023-01-16] MEDS: HYDROGEN PEROXIDE 480 ML BOTTLE TP SCH ×2 (09:31→20:24)
[2023-01-16] MEDS: VITAMINS A AND D 56.7 GM TUBE TP SCH ×3 (09:31→21:24)
[2023-01-16] MEDS: NEPRO VAN 237 ML CAN PO SCH ×2 (09:33→17:00)
[2023-01-16 11:16] VITALS: BP 136/59
--- NOTE | 2023-01-16 12:47 | NUR ---
ENGINEER FISHING VESSEL NOTE PATIENT TRANSPORTED OUT OF UNIT FOR DIALYSIS, BY [facility]. PATIENT STABLE AND NORMAL VITAL SIGNS.
--- NOTE | 2023-01-16 17:58 | NUR ---
RANCH HAND NOTE Patient brought back from dialysis and in his room. Patients vitals assessed, no signs of bleeding, bruising. Patient stated he is not in any pain. Patient asked for dinner, SYSTEMS DESIGN ENGINEER fed patient. Will endorse to hourly shift manager to remove bandages 4-5hours after dialysis.
[2023-01-16 19:11] VITALS: BP 137/79
[2023-01-16] MEDS: MELATONIN 3 MG TABLET GT SCH (21:24)
[2023-01-17] MEDS: IPRATROPIUM NEB FS 0.5 MG/2.5 ML AMPUL.NEB NEB SCH ×4 (02:09→20:08)
[2023-01-17] MEDS: ALBUTEROL FS 2.5 MG/0.5 ML VIAL.NEB NEB SCH ×4 (02:09→20:08)
[2023-01-17] MEDS: hydrOXYzine HCL SYRUP 10 MG/5 ML UDC GT SCH ×3 (05:35→20:45)
[2023-01-17 07:09] LABS: HEMOGLOBIN 10.6 g/dL (13.5-17.5)
[2023-01-17 07:52] VITALS: BP 158/65
[2023-01-17] MEDS: HYDROGEN PEROXIDE 480 ML BOTTLE TP SCH ×2 (09:00→20:08)
[2023-01-17] MEDS: ESCITALOPRAM OXALATE (10 MG) 10 MG TABLET GT SCH (09:24)
[2023-01-17] MEDS: DOCUSATE SODIUM LIQ 100 MG/10 ML UDC GT SCH (09:24)
[2023-01-17] MEDS: FOLIC ACID 1 MG TABLET GT SCH (09:24)
[2023-01-17] MEDS: PANTOPRAZOLE 40 MG/PACK PACK GT SCH ×2 (09:25→20:45)
[2023-01-17] MEDS: AMLODIPINE BESYLATE 5 MG TABLET GT SCH (09:25)
[2023-01-17] MEDS: SEVELAMER CARBONATE 800 MG POWD.PACK GT SCH ×2 (09:25→17:00)
[2023-01-17] MEDS: NEPRO VAN 237 ML CAN PO SCH ×2 (09:26→17:00)
[2023-01-17] MEDS: VIT B CMPLX 3/FA/VIT C/BIOTIN 1 TAB TABLET PO SCH (09:26)
[2023-01-17] MEDS: SENNOSIDES 8.6 MG TABLET PO SCH (09:26)
[2023-01-17] MEDS: VITAMINS A AND D 56.7 GM TUBE TP SCH ×3 (09:26→20:46)
[2023-01-17] MEDS: ACETAMINOPHEN 650 MG/20 ML UDC- SA PATIENTS-PAIN ONLY GT SCH (09:26)
[2023-01-17 12:12] VITALS: BP 140/62
[2023-01-17 20:03] VITALS: BP 145/59
[2023-01-17] MEDS: EPOETIN ALFA-EPBX 10,000 UNIT/ML VIAL SQ SCH (20:45)
[2023-01-17] MEDS: NEPRO 1,000 ML BOTTLE GT PRN (20:46)
[2023-01-17] MEDS: MELATONIN 3 MG TABLET GT SCH (21:57)
[2023-01-18 01:00] VITALS: BP 130/61
[2023-01-18] MEDS: IPRATROPIUM NEB FS 0.5 MG/2.5 ML AMPUL.NEB NEB SCH ×4 (01:56→19:47)
[2023-01-18] MEDS: ALBUTEROL FS 2.5 MG/0.5 ML VIAL.NEB NEB SCH ×4 (01:56→19:47)
[2023-01-18] MEDS: hydrOXYzine HCL SYRUP 10 MG/5 ML UDC GT SCH ×3 (05:35→21:31)
[2023-01-18 08:00] VITALS: BP 144/72
[2023-01-18] MEDS: HYDROGEN PEROXIDE 480 ML BOTTLE TP SCH ×2 (08:59→19:47)
[2023-01-18] MEDS: DOCUSATE SODIUM LIQ 100 MG/10 ML UDC GT SCH (09:39)
[2023-01-18] MEDS: FOLIC ACID 1 MG TABLET GT SCH (09:40)
[2023-01-18] MEDS: ESCITALOPRAM OXALATE (10 MG) 10 MG TABLET GT SCH (09:40)
[2023-01-18] MEDS: AMLODIPINE BESYLATE 5 MG TABLET GT SCH (09:40)
[2023-01-18] MEDS: SEVELAMER CARBONATE 800 MG POWD.PACK GT SCH ×2 (09:41→18:00)
[2023-01-18] MEDS: PANTOPRAZOLE 40 MG/PACK PACK GT SCH ×2 (09:41→21:31)
[2023-01-18] MEDS: ACETAMINOPHEN 650 MG/20 ML UDC- SA PATIENTS-PAIN ONLY GT SCH (09:42)
[2023-01-18] MEDS: NEPRO VAN 237 ML CAN PO SCH ×2 (09:42→18:00)
[2023-01-18] MEDS: VIT B CMPLX 3/FA/VIT C/BIOTIN 1 TAB TABLET PO SCH (09:42)
[2023-01-18] MEDS: SENNOSIDES 8.6 MG TABLET PO SCH (09:42)
[2023-01-18] MEDS: VITAMINS A AND D 56.7 GM TUBE TP SCH ×3 (09:42→21:31)
[2023-01-18 20:14] VITALS: BP 151/70
[2023-01-18] MEDS: MELATONIN 3 MG TABLET GT SCH (21:31)
[2023-01-19 00:59] VITALS: BP 142/71
[2023-01-19] MEDS: IPRATROPIUM NEB FS 0.5 MG/2.5 ML AMPUL.NEB NEB SCH ×4 (02:00→19:16)
[2023-01-19] MEDS: ALBUTEROL FS 2.5 MG/0.5 ML VIAL.NEB NEB SCH ×4 (02:00→19:16)
[2023-01-19] MEDS: NEPRO 1,000 ML BOTTLE GT PRN ×2 (04:20→21:18)
--- NOTE | 2023-01-19 05:31 | NUR ---
Pt recvd awake on Room air with no trach in place, pt is decannulated. Spo2 > 98% maintained. no SOB or respiratory distress noted. neb tx given and oleg well.
[2023-01-19] MEDS: hydrOXYzine HCL SYRUP 10 MG/5 ML UDC GT SCH ×3 (05:38→21:18)
[2023-01-19 08:19] VITALS: BP 140/55
[2023-01-19] MEDS: HYDROGEN PEROXIDE 480 ML BOTTLE TP SCH ×2 (09:04→19:16)
[2023-01-19] MEDS: FOLIC ACID 1 MG TABLET GT SCH (09:47)
[2023-01-19] MEDS: DOCUSATE SODIUM LIQ 100 MG/10 ML UDC GT SCH (09:47)
[2023-01-19] MEDS: ESCITALOPRAM OXALATE (10 MG) 10 MG TABLET GT SCH (09:48)
[2023-01-19] MEDS: PANTOPRAZOLE 40 MG/PACK PACK GT SCH ×2 (09:48→21:18)
[2023-01-19] MEDS: AMLODIPINE BESYLATE 5 MG TABLET GT SCH (09:48)
[2023-01-19] MEDS: SEVELAMER CARBONATE 800 MG POWD.PACK GT SCH ×2 (09:48→17:14)
[2023-01-19] MEDS: VIT B CMPLX 3/FA/VIT C/BIOTIN 1 TAB TABLET PO SCH (09:49)
[2023-01-19] MEDS: ACETAMINOPHEN 650 MG/20 ML UDC- SA PATIENTS-PAIN ONLY GT SCH (09:49)
[2023-01-19] MEDS: VITAMINS A AND D 56.7 GM TUBE TP SCH ×3 (09:49→21:18)
[2023-01-19] MEDS: NEPRO VAN 237 ML CAN PO SCH ×2 (09:49→17:14)
[2023-01-19] MEDS: SENNOSIDES 8.6 MG TABLET PO SCH (09:49)
[2023-01-19 19:14] VITALS: BP 130/54
[2023-01-19] MEDS: MELATONIN 3 MG TABLET GT SCH (21:18)
[2023-01-20 00:18] VITALS: BP 129/65
[2023-01-20] MEDS: IPRATROPIUM NEB FS 0.5 MG/2.5 ML AMPUL.NEB NEB SCH ×4 (01:10→19:02)
[2023-01-20] MEDS: ALBUTEROL FS 2.5 MG/0.5 ML VIAL.NEB NEB SCH ×4 (01:10→19:02)
[2023-01-20] MEDS: hydrOXYzine HCL SYRUP 10 MG/5 ML UDC GT SCH ×3 (05:08→21:17)
--- NOTE | 2023-01-20 05:46 | NUR ---
Pt recvd awake on Room air with no trach in place, pt is decannulated. Spo2 > 97% maintained. No SOB or respiratory distress noted. Neb tx given and oleg well with no adverse reaction noted.
[2023-01-20 07:32] VITALS: BP 153/66
[2023-01-20] MEDS: HYDROGEN PEROXIDE 480 ML BOTTLE TP SCH ×2 (08:42→21:38)
[2023-01-20] MEDS: FOLIC ACID 1 MG TABLET GT SCH (09:47)
[2023-01-20] MEDS: DOCUSATE SODIUM LIQ 100 MG/10 ML UDC GT SCH (09:47)
[2023-01-20] MEDS: ESCITALOPRAM OXALATE (10 MG) 10 MG TABLET GT SCH (09:48)
[2023-01-20] MEDS: AMLODIPINE BESYLATE 5 MG TABLET GT SCH (09:49)
[2023-01-20] MEDS: PANTOPRAZOLE 40 MG/PACK PACK GT SCH ×2 (09:49→21:17)
[2023-01-20] MEDS: SEVELAMER CARBONATE 800 MG POWD.PACK GT SCH ×2 (09:50→17:55)
[2023-01-20] MEDS: SENNOSIDES 8.6 MG TABLET PO SCH (09:52)
[2023-01-20] MEDS: VITAMINS A AND D 56.7 GM TUBE TP SCH ×3 (09:52→21:17)
[2023-01-20] MEDS: VIT B CMPLX 3/FA/VIT C/BIOTIN 1 TAB TABLET PO SCH (09:52)
[2023-01-20] MEDS: NEPRO VAN 237 ML CAN PO SCH ×2 (09:52→17:55)
[2023-01-20 12:27] VITALS: BP 142/64
[2023-01-20 19:28] VITALS: BP 152/74
[2023-01-20] MEDS: MELATONIN 3 MG TABLET GT SCH (21:17)
[2023-01-20 23:41] VITALS: BP 139/77
[2023-01-21] MEDS: ALBUTEROL FS 2.5 MG/0.5 ML VIAL.NEB NEB SCH ×4 (01:22→19:05)
[2023-01-21] MEDS: IPRATROPIUM NEB FS 0.5 MG/2.5 ML AMPUL.NEB NEB SCH ×4 (01:22→19:05)
[2023-01-21] MEDS: hydrOXYzine HCL SYRUP 10 MG/5 ML UDC GT SCH ×3 (05:29→20:48)
[2023-01-21 08:01] VITALS: BP 159/59
[2023-01-21] MEDS: HYDROGEN PEROXIDE 480 ML BOTTLE TP SCH ×2 (08:43→20:38)
[2023-01-21] MEDS: NEPRO VAN 237 ML CAN PO SCH ×2 (09:00→16:56)
[2023-01-21] MEDS: VIT B CMPLX 3/FA/VIT C/BIOTIN 1 TAB TABLET PO SCH (09:00)
[2023-01-21] MEDS: ESCITALOPRAM OXALATE (10 MG) 10 MG TABLET GT SCH (09:00)
[2023-01-21] MEDS: DOCUSATE SODIUM LIQ 100 MG/10 ML UDC GT SCH (09:00)
[2023-01-21] MEDS: AMLODIPINE BESYLATE 5 MG TABLET GT SCH (09:00)
[2023-01-21] MEDS: PANTOPRAZOLE 40 MG/PACK PACK GT SCH ×2 (09:00→20:49)
[2023-01-21] MEDS: SENNOSIDES 8.6 MG TABLET PO SCH (09:00)
[2023-01-21] MEDS: VITAMINS A AND D 56.7 GM TUBE TP SCH ×3 (09:00→20:49)
[2023-01-21] MEDS: FOLIC ACID 1 MG TABLET GT SCH (09:00)
[2023-01-21] MEDS: SEVELAMER CARBONATE 800 MG POWD.PACK GT SCH ×2 (09:00→16:56)
[2023-01-21 12:10] VITALS: BP 127/66
[2023-01-21 19:52] VITALS: BP 129/53
[2023-01-21] MEDS: MELATONIN 3 MG TABLET GT SCH (21:20)
[2023-01-22 00:06] VITALS: BP 118/61
[2023-01-22] MEDS: IPRATROPIUM NEB FS 0.5 MG/2.5 ML AMPUL.NEB NEB SCH ×4 (01:02→19:54)
[2023-01-22] MEDS: ALBUTEROL FS 2.5 MG/0.5 ML VIAL.NEB NEB SCH ×4 (01:02→19:54)
[2023-01-22] MEDS: hydrOXYzine HCL SYRUP 10 MG/5 ML UDC GT SCH ×3 (04:48→21:07)
[2023-01-22 07:33] VITALS: BP 133/54
[2023-01-22] MEDS: HYDROGEN PEROXIDE 480 ML BOTTLE TP SCH ×2 (08:08→21:10)
[2023-01-22] MEDS: VIT B CMPLX 3/FA/VIT C/BIOTIN 1 TAB TABLET PO SCH (09:12)
[2023-01-22] MEDS: ESCITALOPRAM OXALATE (10 MG) 10 MG TABLET GT SCH (09:12)
[2023-01-22] MEDS: SENNOSIDES 8.6 MG TABLET PO SCH (09:12)
[2023-01-22] MEDS: ACETAMINOPHEN 650 MG/20 ML UDC- SA PATIENTS-PAIN ONLY GT SCH (09:12)
[2023-01-22] MEDS: DOCUSATE SODIUM LIQ 100 MG/10 ML UDC GT SCH (09:12)
[2023-01-22] MEDS: SEVELAMER CARBONATE 800 MG POWD.PACK GT SCH ×2 (09:12→16:24)
[2023-01-22] MEDS: FOLIC ACID 1 MG TABLET GT SCH (09:12)
[2023-01-22] MEDS: AMLODIPINE BESYLATE 5 MG TABLET GT SCH (09:12)
[2023-01-22] MEDS: PANTOPRAZOLE 40 MG/PACK PACK GT SCH ×2 (09:12→21:07)
[2023-01-22] MEDS: VITAMINS A AND D 56.7 GM TUBE TP SCH ×3 (09:12→21:07)
[2023-01-22] MEDS: NEPRO VAN 237 ML CAN PO SCH ×2 (09:12→16:24)
[2023-01-22 11:17] VITALS: BP 134/53
--- NOTE | 2023-01-22 13:00 | NUR ---
Seen and examined by AYDE Tijerina, no new order given.
[2023-01-22 19:50] VITALS: BP 122/59
[2023-01-22] MEDS: MELATONIN 3 MG TABLET GT SCH (21:07)
[2023-01-23 00:44] VITALS: BP 120/60
[2023-01-23] MEDS: IPRATROPIUM NEB FS 0.5 MG/2.5 ML AMPUL.NEB NEB SCH ×4 (01:28→20:06)
[2023-01-23] MEDS: ALBUTEROL FS 2.5 MG/0.5 ML VIAL.NEB NEB SCH ×4 (01:28→20:06)
[2023-01-23] MEDS: hydrOXYzine HCL SYRUP 10 MG/5 ML UDC GT SCH ×3 (05:30→21:58)
[2023-01-23 07:24] VITALS: BP 141/58
[2023-01-23] MEDS: HYDROGEN PEROXIDE 480 ML BOTTLE TP SCH ×2 (08:06→21:13)
[2023-01-23] MEDS: PANTOPRAZOLE 40 MG/PACK PACK GT SCH ×2 (08:24→21:58)
[2023-01-23] MEDS: FOLIC ACID 1 MG TABLET GT SCH (08:24)
[2023-01-23] MEDS: ESCITALOPRAM OXALATE (10 MG) 10 MG TABLET GT SCH (08:24)
[2023-01-23] MEDS: DOCUSATE SODIUM LIQ 100 MG/10 ML UDC GT SCH (08:24)
[2023-01-23] MEDS: SEVELAMER CARBONATE 800 MG POWD.PACK GT SCH ×2 (08:25→17:47)
[2023-01-23] MEDS: SENNOSIDES 8.6 MG TABLET PO SCH (08:26)
[2023-01-23] MEDS: VITAMINS A AND D 56.7 GM TUBE TP SCH ×3 (08:26→21:58)
[2023-01-23] MEDS: NEPRO VAN 237 ML CAN PO SCH ×2 (08:26→17:47)
[2023-01-23] MEDS: VIT B CMPLX 3/FA/VIT C/BIOTIN 1 TAB TABLET PO SCH (08:27)
[2023-01-23] MEDS: AMLODIPINE BESYLATE 5 MG TABLET GT SCH (08:28)
[2023-01-23] MEDS: ACETAMINOPHEN 650 MG/20 ML UDC- SA PATIENTS-PAIN ONLY GT SCH (08:28)
[2023-01-23 13:25] VITALS: BP 128/62
--- NOTE | 2023-01-23 14:02 | NUR ---
PATIENT WENT FOR DIALYSIS TX. Addendum: 01/23/23 at 1402 by MARQUES PELAEZ RT Amended: Links added.
[2023-01-23 19:55] VITALS: BP 136/87
[2023-01-23] MEDS: MELATONIN 3 MG TABLET GT SCH (21:58)
[2023-01-24] MEDS: IPRATROPIUM NEB FS 0.5 MG/2.5 ML AMPUL.NEB NEB SCH ×4 (01:25→20:17)
[2023-01-24] MEDS: ALBUTEROL FS 2.5 MG/0.5 ML VIAL.NEB NEB SCH ×4 (01:25→20:17)
[2023-01-24] MEDS: hydrOXYzine HCL SYRUP 10 MG/5 ML UDC GT SCH ×3 (05:40→21:23)
[2023-01-24 07:11] VITALS: BP 124/56
[2023-01-24] MEDS: SEVELAMER CARBONATE 800 MG POWD.PACK GT SCH ×2 (09:00→17:00)
[2023-01-24] MEDS: DOCUSATE SODIUM LIQ 100 MG/10 ML UDC GT SCH (09:00)
[2023-01-24] MEDS: SENNOSIDES 8.6 MG TABLET PO SCH (09:00)
[2023-01-24] MEDS: VIT B CMPLX 3/FA/VIT C/BIOTIN 1 TAB TABLET PO SCH (09:00)
[2023-01-24] MEDS: ESCITALOPRAM OXALATE (10 MG) 10 MG TABLET GT SCH (09:00)
[2023-01-24] MEDS: PANTOPRAZOLE 40 MG/PACK PACK GT SCH ×2 (09:00→21:23)
[2023-01-24] MEDS: VITAMINS A AND D 56.7 GM TUBE TP SCH ×3 (09:00→21:26)
[2023-01-24] MEDS: FOLIC ACID 1 MG TABLET GT SCH (09:00)
[2023-01-24] MEDS: AMLODIPINE BESYLATE 5 MG TABLET GT SCH (09:00)
[2023-01-24] MEDS: ACETAMINOPHEN 650 MG/20 ML UDC- SA PATIENTS-PAIN ONLY GT SCH (09:00)
[2023-01-24] MEDS: NEPRO VAN 237 ML CAN PO SCH ×2 (09:00→17:00)
[2023-01-24] MEDS: HYDROGEN PEROXIDE 480 ML BOTTLE TP SCH ×2 (09:28→20:17)
[2023-01-24 13:59] VITALS: BP 118/59
[2023-01-24 19:38] VITALS: BP 135/64
--- NOTE | 2023-01-24 20:17 | NUR ---
HYDROGEN PEROXIDE NOT APPLICABLE TO PATIENT; PATIENT IS DECANNULATED. Addendum: 01/24/23 at 2018 by CHARLES LOUIE RT Amended: Links added.
[2023-01-24] MEDS: EPOETIN ALFA-EPBX 10,000 UNIT/ML VIAL SQ SCH (21:00)
[2023-01-24] MEDS: MELATONIN 3 MG TABLET GT SCH (21:26)
[2023-01-25 00:28] VITALS: BP 130/61
[2023-01-25] MEDS: ALBUTEROL FS 2.5 MG/0.5 ML VIAL.NEB NEB SCH ×4 (01:38→20:13)
[2023-01-25] MEDS: IPRATROPIUM NEB FS 0.5 MG/2.5 ML AMPUL.NEB NEB SCH ×4 (01:38→20:13)
[2023-01-25] MEDS: hydrOXYzine HCL SYRUP 10 MG/5 ML UDC GT SCH ×3 (05:26→21:44)
[2023-01-25 07:15] LABS: HEMOGLOBIN 9.7 g/dL (13.5-17.5)
[2023-01-25 08:00] VITALS: BP 128/65
[2023-01-25] MEDS: HYDROGEN PEROXIDE 480 ML BOTTLE TP SCH ×2 (08:59→20:13)
[2023-01-25] MEDS: SENNOSIDES 8.6 MG TABLET PO SCH (09:50)
[2023-01-25] MEDS: VIT B CMPLX 3/FA/VIT C/BIOTIN 1 TAB TABLET PO SCH (09:50)
[2023-01-25] MEDS: DOCUSATE SODIUM LIQ 100 MG/10 ML UDC GT SCH (09:50)
[2023-01-25] MEDS: ACETAMINOPHEN 650 MG/20 ML UDC- SA PATIENTS-PAIN ONLY GT SCH (09:50)
[2023-01-25] MEDS: VITAMINS A AND D 56.7 GM TUBE TP SCH ×3 (09:50→21:44)
[2023-01-25] MEDS: ESCITALOPRAM OXALATE (10 MG) 10 MG TABLET GT SCH (09:50)
[2023-01-25] MEDS: AMLODIPINE BESYLATE 5 MG TABLET GT SCH (09:50)
[2023-01-25] MEDS: FOLIC ACID 1 MG TABLET GT SCH (09:50)
[2023-01-25] MEDS: NEPRO VAN 237 ML CAN PO SCH ×2 (09:50→17:44)
[2023-01-25] MEDS: SEVELAMER CARBONATE 800 MG POWD.PACK GT SCH ×2 (09:50→17:44)
[2023-01-25] MEDS: PANTOPRAZOLE 40 MG/PACK PACK GT SCH ×2 (09:50→21:44)
[2023-01-25 12:00] VITALS: BP 151/71
[2023-01-25 20:04] VITALS: BP 135/68
--- NOTE | 2023-01-25 21:30 | NUR ---
GLUE CLAMP OPERATOR NOTE Noted Hgb 9.7 result on 01/25. Retacrit 10,000 units given via SQ. tolerated well.
[2023-01-25] MEDS: MELATONIN 3 MG TABLET GT SCH (21:44)
[2023-01-26 00:16] VITALS: BP 129/59
[2023-01-26] MEDS: ALBUTEROL FS 2.5 MG/0.5 ML VIAL.NEB NEB SCH ×4 (01:46→20:24)
[2023-01-26] MEDS: IPRATROPIUM NEB FS 0.5 MG/2.5 ML AMPUL.NEB NEB SCH ×4 (01:46→20:24)
[2023-01-26] MEDS: hydrOXYzine HCL SYRUP 10 MG/5 ML UDC GT SCH ×3 (05:24→21:36)
[2023-01-26 07:42] VITALS: BP 143/76
[2023-01-26] MEDS: HYDROGEN PEROXIDE 480 ML BOTTLE TP SCH ×2 (09:00→20:24)
[2023-01-26] MEDS: ESCITALOPRAM OXALATE (10 MG) 10 MG TABLET GT SCH (09:34)
[2023-01-26] MEDS: SEVELAMER CARBONATE 800 MG POWD.PACK GT SCH ×2 (09:34→17:40)
[2023-01-26] MEDS: FOLIC ACID 1 MG TABLET GT SCH (09:34)
[2023-01-26] MEDS: ACETAMINOPHEN 650 MG/20 ML UDC- SA PATIENTS-PAIN ONLY GT SCH (09:34)
[2023-01-26] MEDS: AMLODIPINE BESYLATE 5 MG TABLET GT SCH (09:34)
[2023-01-26] MEDS: PANTOPRAZOLE 40 MG/PACK PACK GT SCH ×2 (09:34→21:36)
[2023-01-26] MEDS: NEPRO VAN 237 ML CAN PO SCH ×2 (09:34→17:40)
[2023-01-26] MEDS: VITAMINS A AND D 56.7 GM TUBE TP SCH ×3 (09:34→21:36)
[2023-01-26] MEDS: SENNOSIDES 8.6 MG TABLET PO SCH (09:34)
[2023-01-26] MEDS: VIT B CMPLX 3/FA/VIT C/BIOTIN 1 TAB TABLET PO SCH (09:34)
[2023-01-26] MEDS: DOCUSATE SODIUM LIQ 100 MG/10 ML UDC GT SCH (09:34)
[2023-01-26 19:12] VITALS: BP 127/64
[2023-01-26] MEDS: NEPRO 1,000 ML BOTTLE GT PRN (21:00)
[2023-01-26] MEDS: MELATONIN 3 MG TABLET GT SCH (21:36)
[2023-01-26 23:36] VITALS: BP 128/70
[2023-01-27] MEDS: IPRATROPIUM NEB FS 0.5 MG/2.5 ML AMPUL.NEB NEB SCH ×5 (02:13→20:23)
[2023-01-27] MEDS: ALBUTEROL FS 2.5 MG/0.5 ML VIAL.NEB NEB SCH ×4 (02:13→20:23)
[2023-01-27] MEDS: hydrOXYzine HCL SYRUP 10 MG/5 ML UDC GT SCH ×3 (05:58→20:25)
[2023-01-27 08:09] VITALS: BP 150/69
[2023-01-27] MEDS: SENNOSIDES 8.6 MG TABLET PO SCH (08:35)
[2023-01-27] MEDS: PANTOPRAZOLE 40 MG/PACK PACK GT SCH ×2 (08:35→20:25)
[2023-01-27] MEDS: ESCITALOPRAM OXALATE (10 MG) 10 MG TABLET GT SCH (08:35)
[2023-01-27] MEDS: SEVELAMER CARBONATE 800 MG POWD.PACK GT SCH ×2 (08:35→17:34)
[2023-01-27] MEDS: FOLIC ACID 1 MG TABLET GT SCH (08:35)
[2023-01-27] MEDS: NEPRO VAN 237 ML CAN PO SCH ×2 (08:35→17:34)
[2023-01-27] MEDS: VIT B CMPLX 3/FA/VIT C/BIOTIN 1 TAB TABLET PO SCH (08:35)
[2023-01-27] MEDS: VITAMINS A AND D 56.7 GM TUBE TP SCH ×3 (08:35→20:26)
[2023-01-27] MEDS: AMLODIPINE BESYLATE 5 MG TABLET GT SCH (08:35)
[2023-01-27] MEDS: DOCUSATE SODIUM LIQ 100 MG/10 ML UDC GT SCH (08:35)
[2023-01-27] MEDS: HYDROGEN PEROXIDE 480 ML BOTTLE TP SCH ×2 (09:11→20:23)
--- NOTE | 2023-01-27 13:59 | NUR ---
Respiratory treatment was not administered because Pt was transferred for dialysis.
[2023-01-27 18:59] VITALS: BP 128/67
[2023-01-27] MEDS: NEPRO 1,000 ML BOTTLE GT PRN (20:26)
[2023-01-27] MEDS: MELATONIN 3 MG TABLET GT SCH (21:00)
[2023-01-28 00:04] VITALS: BP 130/68
[2023-01-28 00:50] VITALS: BP 120/60
[2023-01-28] MEDS: IPRATROPIUM NEB FS 0.5 MG/2.5 ML AMPUL.NEB NEB SCH ×4 (02:24→19:48)
[2023-01-28] MEDS: ALBUTEROL FS 2.5 MG/0.5 ML VIAL.NEB NEB SCH ×4 (02:24→19:48)
[2023-01-28] MEDS: hydrOXYzine HCL SYRUP 10 MG/5 ML UDC GT SCH ×3 (04:50→21:13)
[2023-01-28 07:57] VITALS: BP 149/66
[2023-01-28] MEDS: HYDROGEN PEROXIDE 480 ML BOTTLE TP SCH ×2 (09:05→21:07)
[2023-01-28] MEDS: DOCUSATE SODIUM LIQ 100 MG/10 ML UDC GT SCH (09:09)
[2023-01-28] MEDS: FOLIC ACID 1 MG TABLET GT SCH (09:09)
[2023-01-28] MEDS: AMLODIPINE BESYLATE 5 MG TABLET GT SCH (09:10)
[2023-01-28] MEDS: NEPRO VAN 237 ML CAN PO SCH ×2 (09:10→16:20)
[2023-01-28] MEDS: PANTOPRAZOLE 40 MG/PACK PACK GT SCH ×2 (09:10→21:13)
[2023-01-28] MEDS: ESCITALOPRAM OXALATE (10 MG) 10 MG TABLET GT SCH (09:10)
[2023-01-28] MEDS: SENNOSIDES 8.6 MG TABLET PO SCH (09:10)
[2023-01-28] MEDS: VIT B CMPLX 3/FA/VIT C/BIOTIN 1 TAB TABLET PO SCH (09:10)
[2023-01-28] MEDS: VITAMINS A AND D 56.7 GM TUBE TP SCH ×3 (09:10→21:14)
[2023-01-28] MEDS: SEVELAMER CARBONATE 800 MG POWD.PACK GT SCH ×2 (09:10→16:20)
[2023-01-28 19:25] VITALS: BP 143/66
[2023-01-28 19:56] VITALS: BP 138/76
[2023-01-28] MEDS: MELATONIN 3 MG TABLET GT SCH (21:14)
[2023-01-28] MEDS: NEPRO 1,000 ML BOTTLE GT PRN (21:14)
[2023-01-29] MEDS: IPRATROPIUM NEB FS 0.5 MG/2.5 ML AMPUL.NEB NEB SCH ×4 (01:32→19:53)
[2023-01-29] MEDS: ALBUTEROL FS 2.5 MG/0.5 ML VIAL.NEB NEB SCH ×4 (01:32→19:53)
[2023-01-29 02:09] VITALS: BP 125/60
[2023-01-29] MEDS: hydrOXYzine HCL SYRUP 10 MG/5 ML UDC GT SCH ×3 (05:00→21:45)
[2023-01-29 07:55] VITALS: BP 154/71
[2023-01-29] MEDS: HYDROGEN PEROXIDE 480 ML BOTTLE TP SCH ×2 (08:14→21:07)
[2023-01-29] MEDS: ESCITALOPRAM OXALATE (10 MG) 10 MG TABLET GT SCH (09:42)
[2023-01-29] MEDS: DOCUSATE SODIUM LIQ 100 MG/10 ML UDC GT SCH (09:42)
[2023-01-29] MEDS: FOLIC ACID 1 MG TABLET GT SCH (09:42)
[2023-01-29] MEDS: VIT B CMPLX 3/FA/VIT C/BIOTIN 1 TAB TABLET PO SCH (09:43)
[2023-01-29] MEDS: ACETAMINOPHEN 650 MG/20 ML UDC- SA PATIENTS-PAIN ONLY GT SCH (09:43)
[2023-01-29] MEDS: SEVELAMER CARBONATE 800 MG POWD.PACK GT SCH ×2 (09:43→17:00)
[2023-01-29] MEDS: PANTOPRAZOLE 40 MG/PACK PACK GT SCH ×2 (09:43→21:45)
[2023-01-29] MEDS: AMLODIPINE BESYLATE 5 MG TABLET GT SCH (09:43)
[2023-01-29] MEDS: VITAMINS A AND D 56.7 GM TUBE TP SCH ×3 (09:44→21:45)
[2023-01-29] MEDS: SENNOSIDES 8.6 MG TABLET PO SCH (09:44)
[2023-01-29] MEDS: NEPRO VAN 237 ML CAN PO SCH ×2 (09:44→17:00)
[2023-01-29 20:15] VITALS: BP 138/70
[2023-01-29] MEDS: MELATONIN 3 MG TABLET GT SCH (21:45)
[2023-01-30] MEDS: ALBUTEROL FS 2.5 MG/0.5 ML VIAL.NEB NEB SCH ×4 (01:32→19:53)
[2023-01-30] MEDS: IPRATROPIUM NEB FS 0.5 MG/2.5 ML AMPUL.NEB NEB SCH ×4 (01:32→19:53)
[2023-01-30] MEDS: hydrOXYzine HCL SYRUP 10 MG/5 ML UDC GT SCH ×3 (05:34→21:45)
[2023-01-30 07:00] VITALS: BP 140/59
[2023-01-30] MEDS: HYDROGEN PEROXIDE 480 ML BOTTLE TP SCH ×2 (09:30→21:17)
[2023-01-30] MEDS: AMLODIPINE BESYLATE 5 MG TABLET GT SCH (09:37)
[2023-01-30] MEDS: DOCUSATE SODIUM LIQ 100 MG/10 ML UDC GT SCH (09:37)
[2023-01-30] MEDS: FOLIC ACID 1 MG TABLET GT SCH (09:37)
[2023-01-30] MEDS: SEVELAMER CARBONATE 800 MG POWD.PACK GT SCH ×2 (09:37→17:45)
[2023-01-30] MEDS: ESCITALOPRAM OXALATE (10 MG) 10 MG TABLET GT SCH (09:37)
[2023-01-30] MEDS: PANTOPRAZOLE 40 MG/PACK PACK GT SCH ×2 (09:37→21:45)
[2023-01-30] MEDS: NEPRO VAN 237 ML CAN PO SCH ×2 (09:38→17:45)
[2023-01-30] MEDS: VIT B CMPLX 3/FA/VIT C/BIOTIN 1 TAB TABLET PO SCH (09:38)
[2023-01-30] MEDS: ACETAMINOPHEN 650 MG/20 ML UDC- SA PATIENTS-PAIN ONLY GT SCH (09:38)
[2023-01-30] MEDS: SENNOSIDES 8.6 MG TABLET PO SCH (09:38)
[2023-01-30] MEDS: VITAMINS A AND D 56.7 GM TUBE TP SCH ×3 (09:38→21:45)
[2023-01-30 11:00] VITALS: BP 159/69
--- NOTE | 2023-01-30 14:40 | NUR ---
RT NOTE PATIENT WAS TRANSFERRED TO THE DIALYSIS AND UNABLE TO GIVE THE TX
[2023-01-30 20:11] VITALS: BP 152/55
[2023-01-30] MEDS: MELATONIN 3 MG TABLET GT SCH (21:45)
[2023-01-31] MEDS: ALBUTEROL FS 2.5 MG/0.5 ML VIAL.NEB NEB SCH ×4 (01:22→20:03)
[2023-01-31] MEDS: IPRATROPIUM NEB FS 0.5 MG/2.5 ML AMPUL.NEB NEB SCH ×4 (01:22→20:03)
[2023-01-31] MEDS: hydrOXYzine HCL SYRUP 10 MG/5 ML UDC GT SCH ×3 (05:00→21:44)
[2023-01-31 06:52] LABS: HEMOGLOBIN 10.6 g/dL (13.5-17.5)
[2023-01-31 07:38] VITALS: BP 130/62
[2023-01-31] MEDS: HYDROGEN PEROXIDE 480 ML BOTTLE TP SCH ×2 (08:44→20:03)
[2023-01-31] MEDS: DOCUSATE SODIUM LIQ 100 MG/10 ML UDC GT SCH (09:52)
[2023-01-31] MEDS: FOLIC ACID 1 MG TABLET GT SCH (09:52)
[2023-01-31] MEDS: ESCITALOPRAM OXALATE (10 MG) 10 MG TABLET GT SCH (09:52)
[2023-01-31] MEDS: AMLODIPINE BESYLATE 5 MG TABLET GT SCH (09:54)
[2023-01-31] MEDS: ACETAMINOPHEN 650 MG/20 ML UDC- SA PATIENTS-PAIN ONLY GT SCH (09:54)
[2023-01-31] MEDS: NEPRO VAN 237 ML CAN PO SCH ×2 (09:54→16:37)
[2023-01-31] MEDS: VIT B CMPLX 3/FA/VIT C/BIOTIN 1 TAB TABLET PO SCH (09:54)
[2023-01-31] MEDS: PANTOPRAZOLE 40 MG/PACK PACK GT SCH ×2 (09:54→21:44)
[2023-01-31] MEDS: SENNOSIDES 8.6 MG TABLET PO SCH (09:54)
[2023-01-31] MEDS: SEVELAMER CARBONATE 800 MG POWD.PACK GT SCH ×2 (09:54→16:37)
[2023-01-31] MEDS: VITAMINS A AND D 56.7 GM TUBE TP SCH ×3 (09:55→21:44)
[2023-01-31 20:52] VITALS: BP 129/54
[2023-01-31] MEDS: MELATONIN 3 MG TABLET GT SCH (21:44)
[2023-02-01 00:37] VITALS: BP 129/56
[2023-02-01] MEDS: ALBUTEROL FS 2.5 MG/0.5 ML VIAL.NEB NEB SCH ×4 (02:17→19:30)
[2023-02-01] MEDS: IPRATROPIUM NEB FS 0.5 MG/2.5 ML AMPUL.NEB NEB SCH ×4 (02:17→19:30)
[2023-02-01] MEDS: hydrOXYzine HCL SYRUP 10 MG/5 ML UDC GT SCH ×3 (05:30→21:07)
[2023-02-01 07:17] VITALS: BP 150/76
[2023-02-01] MEDS: DOCUSATE SODIUM LIQ 100 MG/10 ML UDC GT SCH (08:25)
[2023-02-01] MEDS: FOLIC ACID 1 MG TABLET GT SCH (08:25)
[2023-02-01] MEDS: AMLODIPINE BESYLATE 5 MG TABLET GT SCH (08:25)
[2023-02-01] MEDS: ESCITALOPRAM OXALATE (10 MG) 10 MG TABLET GT SCH (08:25)
[2023-02-01] MEDS: SEVELAMER CARBONATE 800 MG POWD.PACK GT SCH ×2 (08:25→17:53)
[2023-02-01] MEDS: ACETAMINOPHEN 650 MG/20 ML UDC- SA PATIENTS-PAIN ONLY GT SCH (08:25)
[2023-02-01] MEDS: PANTOPRAZOLE 40 MG/PACK PACK GT SCH ×2 (08:25→21:07)
[2023-02-01] MEDS: VIT B CMPLX 3/FA/VIT C/BIOTIN 1 TAB TABLET PO SCH (08:26)
[2023-02-01] MEDS: SENNOSIDES 8.6 MG TABLET PO SCH (08:27)
[2023-02-01] MEDS: VITAMINS A AND D 56.7 GM TUBE TP SCH ×3 (08:27→21:07)
[2023-02-01] MEDS: NEPRO VAN 237 ML CAN PO SCH ×2 (08:27→17:53)
[2023-02-01] MEDS: HYDROGEN PEROXIDE 480 ML BOTTLE TP SCH ×2 (08:50→20:23)
[2023-02-01] MEDS: EPOETIN ALFA-EPBX 10,000 UNIT/ML VIAL SQ SCH (09:32)
[2023-02-01 11:47] VITALS: BP 145/58
--- NOTE | 2023-02-01 17:35 | NUR ---
Pt came back from hemodialysis at [facility]. According to sitter and ambulance staff, pt's blood pressure was 69/40 a couple of hours into dialysis and pt vomited. NS 200 mL IV was given and BP improved so pt was able to complete dialysis treatment.
[2023-02-01 19:34] VITALS: BP 136/65
[2023-02-01] MEDS: NEPRO 1,000 ML BOTTLE GT SCH (19:42)
[2023-02-01] MEDS: MELATONIN 3 MG TABLET GT SCH (21:07)
[2023-02-02] MEDS: ALBUTEROL FS 2.5 MG/0.5 ML VIAL.NEB NEB SCH ×4 (01:30→20:20)
[2023-02-02] MEDS: IPRATROPIUM NEB FS 0.5 MG/2.5 ML AMPUL.NEB NEB SCH ×4 (01:30→20:20)
[2023-02-02] MEDS: hydrOXYzine HCL SYRUP 10 MG/5 ML UDC GT SCH ×3 (05:27→21:24)
[2023-02-02 07:16] VITALS: BP 139/62
[2023-02-02] MEDS: HYDROGEN PEROXIDE 480 ML BOTTLE TP SCH ×2 (08:36→20:20)
[2023-02-02] MEDS: DOCUSATE SODIUM LIQ 100 MG/10 ML UDC GT SCH (09:40)
[2023-02-02] MEDS: ESCITALOPRAM OXALATE (10 MG) 10 MG TABLET GT SCH (09:40)
[2023-02-02] MEDS: AMLODIPINE BESYLATE 5 MG TABLET GT SCH (09:40)
[2023-02-02] MEDS: PANTOPRAZOLE 40 MG/PACK PACK GT SCH ×2 (09:40→21:24)
[2023-02-02] MEDS: FOLIC ACID 1 MG TABLET GT SCH (09:40)
[2023-02-02] MEDS: SEVELAMER CARBONATE 800 MG POWD.PACK GT SCH ×2 (09:40→17:18)
[2023-02-02] MEDS: NEPRO VAN 237 ML CAN PO SCH ×2 (09:41→17:18)
[2023-02-02] MEDS: SENNOSIDES 8.6 MG TABLET PO SCH (09:41)
[2023-02-02] MEDS: VIT B CMPLX 3/FA/VIT C/BIOTIN 1 TAB TABLET PO SCH (09:41)
[2023-02-02] MEDS: ACETAMINOPHEN 650 MG/20 ML UDC- SA PATIENTS-PAIN ONLY GT SCH (09:41)
[2023-02-02] MEDS: VITAMINS A AND D 56.7 GM TUBE TP SCH ×3 (09:41→21:24)
[2023-02-02 11:25] VITALS: BP 129/65
[2023-02-02 19:06] VITALS: BP 140/60
[2023-02-02] MEDS: NEPRO 1,000 ML BOTTLE GT SCH (20:28)
[2023-02-02] MEDS: MELATONIN 3 MG TABLET GT SCH (21:24)
[2023-02-03 00:08] VITALS: BP 137/61
[2023-02-03] MEDS: ALBUTEROL FS 2.5 MG/0.5 ML VIAL.NEB NEB SCH ×4 (02:12→19:42)
[2023-02-03] MEDS: IPRATROPIUM NEB FS 0.5 MG/2.5 ML AMPUL.NEB NEB SCH ×4 (02:12→19:42)
[2023-02-03] MEDS: hydrOXYzine HCL SYRUP 10 MG/5 ML UDC GT SCH ×3 (05:41→21:05)
[2023-02-03 07:32] VITALS: BP 140/64
[2023-02-03] MEDS: ESCITALOPRAM OXALATE (10 MG) 10 MG TABLET GT SCH (09:03)
[2023-02-03] MEDS: DOCUSATE SODIUM LIQ 100 MG/10 ML UDC GT SCH (09:03)
[2023-02-03] MEDS: FOLIC ACID 1 MG TABLET GT SCH (09:03)
[2023-02-03] MEDS: SENNOSIDES 8.6 MG TABLET PO SCH (09:04)
[2023-02-03] MEDS: NEPRO VAN 237 ML CAN PO SCH ×2 (09:04→17:51)
[2023-02-03] MEDS: PANTOPRAZOLE 40 MG/PACK PACK GT SCH ×2 (09:04→21:05)
[2023-02-03] MEDS: AMLODIPINE BESYLATE 5 MG TABLET GT SCH (09:04)
[2023-02-03] MEDS: SEVELAMER CARBONATE 800 MG POWD.PACK GT SCH ×2 (09:04→17:51)
[2023-02-03] MEDS: VITAMINS A AND D 56.7 GM TUBE TP SCH ×3 (09:04→21:06)
[2023-02-03] MEDS: VIT B CMPLX 3/FA/VIT C/BIOTIN 1 TAB TABLET PO SCH (09:04)
[2023-02-03] MEDS: HYDROGEN PEROXIDE 480 ML BOTTLE TP SCH ×2 (09:25→21:48)
--- NOTE | 2023-02-03 09:50 | NUR ---
RT NOTE Received patient on room air. No sob or resp. distress noted. Tx tolerated well. Pt is currently stable.
[2023-02-03 12:11] VITALS: BP 135/70
--- NOTE | 2023-02-03 13:15 | NUR ---
Patient was picked-up by EMT personnel to be taken to dialysis center. Vital signs temperature 97.8F, axillary, pulse 67, respirations 16, oxygen saturation level 100%, and blood pressure 151/60. Report given to EMT personnel. Peek-a-bonner mitten were put on to prevent from pulling on tubes at dialysis center. Patient accompanied by sitter. Charge nurse notified.
--- NOTE | 2023-02-03 17:30 | NUR ---
Patient left and returned back from dialysis center. Condition stable. BP 130/80, pulse 82, resp rate 16, temp 97.8F, O2 saturation 100%. Peek-a-bonner mittens in place.
[2023-02-03 19:27] VITALS: BP 148/59
[2023-02-03] MEDS: NEPRO 1,000 ML BOTTLE GT SCH (20:18)
[2023-02-03] MEDS: MELATONIN 3 MG TABLET GT SCH (21:06)
[2023-02-03 23:57] VITALS: BP 136/62
[2023-02-04] MEDS: ALBUTEROL FS 2.5 MG/0.5 ML VIAL.NEB NEB SCH ×4 (01:37→19:03)
[2023-02-04] MEDS: IPRATROPIUM NEB FS 0.5 MG/2.5 ML AMPUL.NEB NEB SCH ×4 (01:37→19:03)
[2023-02-04] MEDS: hydrOXYzine HCL SYRUP 10 MG/5 ML UDC GT SCH ×3 (05:39→21:06)
[2023-02-04 07:45] VITALS: BP 132/57
[2023-02-04] MEDS: HYDROGEN PEROXIDE 480 ML BOTTLE TP SCH ×2 (08:17→20:22)
[2023-02-04] MEDS: NEPRO VAN 237 ML CAN PO SCH ×2 (09:53→17:59)
[2023-02-04] MEDS: SENNOSIDES 8.6 MG TABLET PO SCH (09:53)
[2023-02-04] MEDS: AMLODIPINE BESYLATE 5 MG TABLET GT SCH (09:53)
[2023-02-04] MEDS: VIT B CMPLX 3/FA/VIT C/BIOTIN 1 TAB TABLET PO SCH (09:53)
[2023-02-04] MEDS: ESCITALOPRAM OXALATE (10 MG) 10 MG TABLET GT SCH (09:53)
[2023-02-04] MEDS: DOCUSATE SODIUM LIQ 100 MG/10 ML UDC GT SCH (09:53)
[2023-02-04] MEDS: SEVELAMER CARBONATE 800 MG POWD.PACK GT SCH ×2 (09:53→17:59)
[2023-02-04] MEDS: VITAMINS A AND D 56.7 GM TUBE TP SCH ×3 (09:53→21:07)
[2023-02-04] MEDS: PANTOPRAZOLE 40 MG/PACK PACK GT SCH ×2 (09:53→21:06)
[2023-02-04] MEDS: FOLIC ACID 1 MG TABLET GT SCH (09:53)
[2023-02-04 19:58] VITALS: BP 148/57
[2023-02-04] MEDS: MELATONIN 3 MG TABLET GT SCH (21:07)
[2023-02-04] MEDS: NEPRO 1,000 ML BOTTLE GT SCH (21:43)
[2023-02-05] MEDS: IPRATROPIUM NEB FS 0.5 MG/2.5 ML AMPUL.NEB NEB SCH ×4 (01:07→18:57)
[2023-02-05] MEDS: ALBUTEROL FS 2.5 MG/0.5 ML VIAL.NEB NEB SCH ×4 (01:07→18:57)
[2023-02-05 01:18] VITALS: BP 135/60
[2023-02-05] MEDS: hydrOXYzine HCL SYRUP 10 MG/5 ML UDC GT SCH ×3 (05:00→21:20)
[2023-02-05] MEDS: HYDROGEN PEROXIDE 480 ML BOTTLE TP SCH ×2 (08:44→20:43)
[2023-02-05] MEDS: ESCITALOPRAM OXALATE (10 MG) 10 MG TABLET GT SCH (09:48)
[2023-02-05] MEDS: PANTOPRAZOLE 40 MG/PACK PACK GT SCH ×2 (09:48→21:20)
[2023-02-05] MEDS: DOCUSATE SODIUM LIQ 100 MG/10 ML UDC GT SCH (09:48)
[2023-02-05] MEDS: FOLIC ACID 1 MG TABLET GT SCH (09:48)
[2023-02-05] MEDS: AMLODIPINE BESYLATE 5 MG TABLET GT SCH (09:48)
[2023-02-05] MEDS: NEPRO VAN 237 ML CAN PO SCH ×2 (09:49→17:42)
[2023-02-05] MEDS: ACETAMINOPHEN 650 MG/20 ML UDC- SA PATIENTS-PAIN ONLY GT SCH (09:49)
[2023-02-05] MEDS: SEVELAMER CARBONATE 800 MG POWD.PACK GT SCH ×2 (09:49→17:42)
[2023-02-05] MEDS: VIT B CMPLX 3/FA/VIT C/BIOTIN 1 TAB TABLET PO SCH (09:49)
[2023-02-05] MEDS: SENNOSIDES 8.6 MG TABLET PO SCH (09:49)
[2023-02-05] MEDS: VITAMINS A AND D 56.7 GM TUBE TP SCH ×3 (09:50→21:21)
--- NOTE | 2023-02-05 12:38 | NUR ---
Asked Dr. Hampton to evaluate patient's hemodialysis treatment. He asked to request labs from [facility] so he can review them. Requested recent lab results from Adeline from [facility].
--- NOTE | 2023-02-05 16:41 | NUR ---
Dr. Hampton reviewed most recent labs requested from [facility]. He said that dialysis can be cut down to two treatment per week and increase UF of 0.5 L. Notified SARAH Yeager at [facility], she said that since Dr. Hampton has no privileges at [facility], she referred it to Dr. Mondragon. Dr. Mondragon said he will monitor patient and no changes will be done for now. Dr. Hampton notified. Dr. Sotelo seen and examined patient and aware of above. He also reviewed monthly lab results from [facility]. He is concern of the K+ level with order to do BMP in AM and relay result to him in the morning. Endorsed. Patient will have dialysis in AM.
--- NOTE | 2023-02-05 17:30 | NUR ---
Seen and examined by AYDE Tijerina and Dr. Sotelo no new order given.
[2023-02-05 20:28] VITALS: BP 135/62
[2023-02-05] MEDS: MELATONIN 3 MG TABLET GT SCH (21:21)
[2023-02-06] MEDS: IPRATROPIUM NEB FS 0.5 MG/2.5 ML AMPUL.NEB NEB SCH ×4 (00:34→19:53)
[2023-02-06] MEDS: ALBUTEROL FS 2.5 MG/0.5 ML VIAL.NEB NEB SCH ×4 (00:34→19:53)
[2023-02-06] MEDS: hydrOXYzine HCL SYRUP 10 MG/5 ML UDC GT SCH ×3 (05:37→21:00)
[2023-02-06 07:08] LABS: CALCIUM, SERUM 8.8 mg/dL (8.5-10.1); CREATININE 3.7 mg/dL (0.6-1.3); POTASSIUM 4.3 mmol/L (3.5-5.1)
[2023-02-06 07:10] VITALS: BP 143/61
[2023-02-06] MEDS: ESCITALOPRAM OXALATE (10 MG) 10 MG TABLET GT SCH (08:31)
[2023-02-06] MEDS: DOCUSATE SODIUM LIQ 100 MG/10 ML UDC GT SCH (08:31)
[2023-02-06] MEDS: FOLIC ACID 1 MG TABLET GT SCH (08:31)
[2023-02-06] MEDS: PANTOPRAZOLE 40 MG/PACK PACK GT SCH ×2 (08:32→21:00)
[2023-02-06] MEDS: AMLODIPINE BESYLATE 5 MG TABLET GT SCH (08:32)
[2023-02-06] MEDS: SEVELAMER CARBONATE 800 MG POWD.PACK GT SCH ×2 (08:33→17:43)
[2023-02-06] MEDS: VIT B CMPLX 3/FA/VIT C/BIOTIN 1 TAB TABLET PO SCH (08:34)
[2023-02-06] MEDS: ACETAMINOPHEN 650 MG/20 ML UDC- SA PATIENTS-PAIN ONLY GT SCH (08:35)
[2023-02-06] MEDS: SENNOSIDES 8.6 MG TABLET PO SCH (08:35)
[2023-02-06] MEDS: NEPRO VAN 237 ML CAN PO SCH ×2 (08:35→17:43)
[2023-02-06] MEDS: VITAMINS A AND D 56.7 GM TUBE TP SCH ×3 (08:36→21:00)
[2023-02-06] MEDS: HYDROGEN PEROXIDE 480 ML BOTTLE TP SCH ×2 (09:54→20:41)
--- NOTE | 2023-02-06 12:52 | NUR ---
Patient was picked-up by EMT personnel to be taken to dialysis center. Vital signs temperature 97.6F, axillary, pulse 59, respirations 16, oxygen saturation level 100%, and blood pressure 128/83. Report given to EMT personnel. Peek-a-bonner mitten were put on to prevent from pulling on tubes at dialysis center. Patient accompanied by sitter. Charge nurse notified.
[2023-02-06 13:39] VITALS: BP 142/65
--- NOTE | 2023-02-06 17:40 | NUR ---
Patient returned from dialysis center. Pre-dialysis weight 61.0kg and post-dialysis weight 60.2kg. Vital signs at arrival blood pressure 141/70, temperature 97.8 f axillary, pulse 65, respiration 18, pain level 0/10. Dressing intact on left upper arm, no bleeding, bruit/thrill +. Stable condition no pain or discomfort.
[2023-02-06 19:43] VITALS: BP 148/71
[2023-02-06] MEDS: MELATONIN 3 MG TABLET GT SCH (21:00)
[2023-02-06] MEDS: NEPRO 1,000 ML BOTTLE GT SCH (21:00)
[2023-02-07] MEDS: ALBUTEROL FS 2.5 MG/0.5 ML VIAL.NEB NEB SCH ×5 (01:30→20:19)
[2023-02-07] MEDS: IPRATROPIUM NEB FS 0.5 MG/2.5 ML AMPUL.NEB NEB SCH ×5 (01:30→20:19)
[2023-02-07] MEDS: hydrOXYzine HCL SYRUP 10 MG/5 ML UDC GT SCH ×3 (05:23→20:26)
[2023-02-07 06:47] LABS: HEMOGLOBIN 11.5 g/dL (13.5-17.5)
[2023-02-07 07:24] VITALS: BP 143/60
[2023-02-07] MEDS: HYDROGEN PEROXIDE 480 ML BOTTLE TP SCH ×2 (09:00→20:20)
[2023-02-07] MEDS: VIT B CMPLX 3/FA/VIT C/BIOTIN 1 TAB TABLET PO SCH (09:35)
[2023-02-07] MEDS: AMLODIPINE BESYLATE 5 MG TABLET GT SCH (09:35)
[2023-02-07] MEDS: FOLIC ACID 1 MG TABLET GT SCH (09:35)
[2023-02-07] MEDS: SENNOSIDES 8.6 MG TABLET PO SCH (09:35)
[2023-02-07] MEDS: ACETAMINOPHEN 650 MG/20 ML UDC- SA PATIENTS-PAIN ONLY GT SCH (09:35)
[2023-02-07] MEDS: PANTOPRAZOLE 40 MG/PACK PACK GT SCH ×2 (09:35→20:26)
[2023-02-07] MEDS: ESCITALOPRAM OXALATE (10 MG) 10 MG TABLET GT SCH (09:35)
[2023-02-07] MEDS: SEVELAMER CARBONATE 800 MG POWD.PACK GT SCH ×2 (09:35→16:41)
[2023-02-07] MEDS: DOCUSATE SODIUM LIQ 100 MG/10 ML UDC GT SCH (09:35)
[2023-02-07] MEDS: NEPRO VAN 237 ML CAN PO SCH ×2 (09:35→16:42)
[2023-02-07] MEDS: VITAMINS A AND D 56.7 GM TUBE TP SCH ×3 (09:36→20:26)
[2023-02-07 12:00] VITALS: BP 132/67
[2023-02-07 19:39] VITALS: BP 123/66
[2023-02-07] MEDS: EPOETIN ALFA-EPBX 10,000 UNIT/ML VIAL SQ SCH (20:26)
[2023-02-07] MEDS: NEPRO 1,000 ML BOTTLE GT SCH (20:26)
[2023-02-07] MEDS: MELATONIN 3 MG TABLET GT SCH (22:13)
[2023-02-08] MEDS: IPRATROPIUM NEB FS 0.5 MG/2.5 ML AMPUL.NEB NEB SCH ×4 (01:46→20:21)
[2023-02-08] MEDS: ALBUTEROL FS 2.5 MG/0.5 ML VIAL.NEB NEB SCH ×4 (01:46→20:21)
[2023-02-08] MEDS: hydrOXYzine HCL SYRUP 10 MG/5 ML UDC GT SCH ×3 (05:32→21:11)
[2023-02-08 07:15] VITALS: BP 156/61
[2023-02-08] MEDS: HYDROGEN PEROXIDE 480 ML BOTTLE TP SCH ×2 (08:43→20:21)
[2023-02-08] MEDS: ESCITALOPRAM OXALATE (10 MG) 10 MG TABLET GT SCH (09:53)
[2023-02-08] MEDS: DOCUSATE SODIUM LIQ 100 MG/10 ML UDC GT SCH (09:53)
[2023-02-08] MEDS: SEVELAMER CARBONATE 800 MG POWD.PACK GT SCH ×2 (09:53→17:00)
[2023-02-08] MEDS: SENNOSIDES 8.6 MG TABLET PO SCH (09:53)
[2023-02-08] MEDS: FOLIC ACID 1 MG TABLET GT SCH (09:53)
[2023-02-08] MEDS: ACETAMINOPHEN 650 MG/20 ML UDC- SA PATIENTS-PAIN ONLY GT SCH (09:53)
[2023-02-08] MEDS: VITAMINS A AND D 56.7 GM TUBE TP SCH ×3 (09:53→21:11)
[2023-02-08] MEDS: NEPRO VAN 237 ML CAN PO SCH ×2 (09:53→17:00)
[2023-02-08] MEDS: PANTOPRAZOLE 40 MG/PACK PACK GT SCH ×2 (09:53→21:11)
[2023-02-08] MEDS: AMLODIPINE BESYLATE 5 MG TABLET GT SCH (09:53)
[2023-02-08] MEDS: VIT B CMPLX 3/FA/VIT C/BIOTIN 1 TAB TABLET PO SCH (09:53)
[2023-02-08 19:48] VITALS: BP 146/66
[2023-02-08] MEDS: MELATONIN 3 MG TABLET GT SCH (21:11)
[2023-02-09] MEDS: IPRATROPIUM NEB FS 0.5 MG/2.5 ML AMPUL.NEB NEB SCH ×4 (02:29→20:10)
[2023-02-09] MEDS: ALBUTEROL FS 2.5 MG/0.5 ML VIAL.NEB NEB SCH ×4 (02:29→20:10)
[2023-02-09] MEDS: hydrOXYzine HCL SYRUP 10 MG/5 ML UDC GT SCH ×3 (05:44→21:18)
[2023-02-09 07:33] VITALS: BP 133/66
[2023-02-09] MEDS: HYDROGEN PEROXIDE 480 ML BOTTLE TP SCH ×2 (09:00→20:10)
[2023-02-09] MEDS: FOLIC ACID 1 MG TABLET GT SCH (09:15)
[2023-02-09] MEDS: DOCUSATE SODIUM LIQ 100 MG/10 ML UDC GT SCH (09:15)
[2023-02-09] MEDS: ACETAMINOPHEN 650 MG/20 ML UDC- SA PATIENTS-PAIN ONLY GT SCH (09:16)
[2023-02-09] MEDS: SENNOSIDES 8.6 MG TABLET PO SCH (09:16)
[2023-02-09] MEDS: SEVELAMER CARBONATE 800 MG POWD.PACK GT SCH ×2 (09:16→17:35)
[2023-02-09] MEDS: VITAMINS A AND D 56.7 GM TUBE TP SCH ×3 (09:16→21:18)
[2023-02-09] MEDS: PANTOPRAZOLE 40 MG/PACK PACK GT SCH ×2 (09:16→21:18)
[2023-02-09] MEDS: NEPRO VAN 237 ML CAN PO SCH ×2 (09:16→17:35)
[2023-02-09] MEDS: ESCITALOPRAM OXALATE (10 MG) 10 MG TABLET GT SCH (09:16)
[2023-02-09] MEDS: VIT B CMPLX 3/FA/VIT C/BIOTIN 1 TAB TABLET PO SCH (09:16)
[2023-02-09] MEDS: AMLODIPINE BESYLATE 5 MG TABLET GT SCH (09:16)
[2023-02-09 20:01] VITALS: BP 122/64
[2023-02-09] MEDS: MELATONIN 3 MG TABLET GT SCH (21:18)
[2023-02-10 00:49] VITALS: BP 126/76
[2023-02-10] MEDS: IPRATROPIUM NEB FS 0.5 MG/2.5 ML AMPUL.NEB NEB SCH ×4 (02:28→19:53)
[2023-02-10] MEDS: ALBUTEROL FS 2.5 MG/0.5 ML VIAL.NEB NEB SCH ×4 (02:28→19:53)
[2023-02-10] MEDS: hydrOXYzine HCL SYRUP 10 MG/5 ML UDC GT SCH ×3 (05:33→20:17)
[2023-02-10 07:51] VITALS: BP 134/84
[2023-02-10] MEDS: HYDROGEN PEROXIDE 480 ML BOTTLE TP SCH ×2 (09:20→21:18)
[2023-02-10] MEDS: SEVELAMER CARBONATE 800 MG POWD.PACK GT SCH ×2 (09:23→17:37)
[2023-02-10] MEDS: DOCUSATE SODIUM LIQ 100 MG/10 ML UDC GT SCH (09:23)
[2023-02-10] MEDS: NEPRO VAN 237 ML CAN PO SCH ×2 (09:23→17:37)
[2023-02-10] MEDS: SENNOSIDES 8.6 MG TABLET PO SCH (09:23)
[2023-02-10] MEDS: VITAMINS A AND D 56.7 GM TUBE TP SCH ×3 (09:23→20:17)
[2023-02-10] MEDS: AMLODIPINE BESYLATE 5 MG TABLET GT SCH (09:23)
[2023-02-10] MEDS: VIT B CMPLX 3/FA/VIT C/BIOTIN 1 TAB TABLET PO SCH (09:23)
[2023-02-10] MEDS: PANTOPRAZOLE 40 MG/PACK PACK GT SCH ×2 (09:23→20:17)
[2023-02-10] MEDS: ESCITALOPRAM OXALATE (10 MG) 10 MG TABLET GT SCH (09:23)
[2023-02-10] MEDS: FOLIC ACID 1 MG TABLET GT SCH (09:23)
--- NOTE | 2023-02-10 10:55 | NUR ---
Seen and examined by Dr. Sotelo, no new order given.
[2023-02-10 13:19] VITALS: BP 122/78
[2023-02-10 19:29] VITALS: BP 129/63
[2023-02-10] MEDS: NEPRO 1,000 ML BOTTLE GT SCH (20:17)
[2023-02-10] MEDS: MELATONIN 3 MG TABLET GT SCH (21:23)
[2023-02-10 23:47] VITALS: BP 132/65
[2023-02-11] MEDS: IPRATROPIUM NEB FS 0.5 MG/2.5 ML AMPUL.NEB NEB SCH ×4 (01:43→19:46)
[2023-02-11] MEDS: ALBUTEROL FS 2.5 MG/0.5 ML VIAL.NEB NEB SCH ×4 (01:43→19:46)
[2023-02-11] MEDS: hydrOXYzine HCL SYRUP 10 MG/5 ML UDC GT SCH ×3 (05:46→20:28)
[2023-02-11 07:29] VITALS: BP 156/68
[2023-02-11] MEDS: HYDROGEN PEROXIDE 480 ML BOTTLE TP SCH ×2 (08:23→21:31)
[2023-02-11] MEDS: PANTOPRAZOLE 40 MG/PACK PACK GT SCH ×2 (09:25→20:28)
[2023-02-11] MEDS: ESCITALOPRAM OXALATE (10 MG) 10 MG TABLET GT SCH (09:25)
[2023-02-11] MEDS: FOLIC ACID 1 MG TABLET GT SCH (09:25)
[2023-02-11] MEDS: VIT B CMPLX 3/FA/VIT C/BIOTIN 1 TAB TABLET PO SCH (09:25)
[2023-02-11] MEDS: SEVELAMER CARBONATE 800 MG POWD.PACK GT SCH ×2 (09:25→16:50)
[2023-02-11] MEDS: NEPRO VAN 237 ML CAN PO SCH ×2 (09:25→16:50)
[2023-02-11] MEDS: AMLODIPINE BESYLATE 5 MG TABLET GT SCH (09:25)
[2023-02-11] MEDS: SENNOSIDES 8.6 MG TABLET PO SCH (09:25)
[2023-02-11] MEDS: DOCUSATE SODIUM LIQ 100 MG/10 ML UDC GT SCH (09:25)
[2023-02-11] MEDS: VITAMINS A AND D 56.7 GM TUBE TP SCH ×3 (09:25→20:28)
[2023-02-11 12:17] VITALS: BP 132/71
[2023-02-11 20:00] VITALS: BP 124/67
[2023-02-11] MEDS: MELATONIN 3 MG TABLET GT SCH (21:13)
[2023-02-12] MEDS: ALBUTEROL FS 2.5 MG/0.5 ML VIAL.NEB NEB SCH ×4 (01:43→20:03)
[2023-02-12] MEDS: IPRATROPIUM NEB FS 0.5 MG/2.5 ML AMPUL.NEB NEB SCH ×4 (01:43→20:03)
[2023-02-12] MEDS: hydrOXYzine HCL SYRUP 10 MG/5 ML UDC GT SCH ×3 (05:11→20:59)
[2023-02-12 07:24] VITALS: BP 150/67
[2023-02-12] MEDS: HYDROGEN PEROXIDE 480 ML BOTTLE TP SCH ×2 (09:00→21:15)
[2023-02-12] MEDS: NEPRO VAN 237 ML CAN PO SCH ×2 (09:00→17:21)
[2023-02-12] MEDS: VITAMINS A AND D 56.7 GM TUBE TP SCH ×3 (09:00→21:01)
[2023-02-12] MEDS: FOLIC ACID 1 MG TABLET GT SCH (09:00)
[2023-02-12] MEDS: ESCITALOPRAM OXALATE (10 MG) 10 MG TABLET GT SCH (09:00)
[2023-02-12] MEDS: AMLODIPINE BESYLATE 5 MG TABLET GT SCH (09:00)
[2023-02-12] MEDS: SEVELAMER CARBONATE 800 MG POWD.PACK GT SCH ×2 (09:00→17:20)
[2023-02-12] MEDS: DOCUSATE SODIUM LIQ 100 MG/10 ML UDC GT SCH (09:00)
[2023-02-12] MEDS: SENNOSIDES 8.6 MG TABLET PO SCH (09:00)
[2023-02-12] MEDS: PANTOPRAZOLE 40 MG/PACK PACK GT SCH ×2 (09:00→20:58)
[2023-02-12] MEDS: ACETAMINOPHEN 650 MG/20 ML UDC- SA PATIENTS-PAIN ONLY GT SCH (10:14)
[2023-02-12] MEDS: VIT B CMPLX 3/FA/VIT C/BIOTIN 1 TAB TABLET PO SCH (10:15)
[2023-02-12 15:01] VITALS: BP 137/72
[2023-02-12 19:53] VITALS: BP 120/56
[2023-02-12] MEDS: MELATONIN 3 MG TABLET GT SCH (21:01)
[2023-02-13 01:17] VITALS: BP 122/62
[2023-02-13] MEDS: IPRATROPIUM NEB FS 0.5 MG/2.5 ML AMPUL.NEB NEB SCH ×4 (01:46→20:02)
[2023-02-13] MEDS: ALBUTEROL FS 2.5 MG/0.5 ML VIAL.NEB NEB SCH ×4 (01:46→20:02)
[2023-02-13] MEDS: hydrOXYzine HCL SYRUP 10 MG/5 ML UDC GT SCH ×3 (05:41→20:21)
[2023-02-13 07:38] VITALS: BP 141/61
[2023-02-13] MEDS: DOCUSATE SODIUM LIQ 100 MG/10 ML UDC GT SCH (08:45)
[2023-02-13] MEDS: SEVELAMER CARBONATE 800 MG POWD.PACK GT SCH ×2 (08:46→18:00)
[2023-02-13] MEDS: AMLODIPINE BESYLATE 5 MG TABLET GT SCH (08:46)
[2023-02-13] MEDS: PANTOPRAZOLE 40 MG/PACK PACK GT SCH ×2 (08:46→20:21)
[2023-02-13] MEDS: ESCITALOPRAM OXALATE (10 MG) 10 MG TABLET GT SCH (08:46)
[2023-02-13] MEDS: FOLIC ACID 1 MG TABLET GT SCH (08:46)
[2023-02-13] MEDS: SENNOSIDES 8.6 MG TABLET PO SCH (08:48)
[2023-02-13] MEDS: NEPRO VAN 237 ML CAN PO SCH ×2 (08:48→18:00)
[2023-02-13] MEDS: ACETAMINOPHEN 650 MG/20 ML UDC- SA PATIENTS-PAIN ONLY GT SCH (08:48)
[2023-02-13] MEDS: VIT B CMPLX 3/FA/VIT C/BIOTIN 1 TAB TABLET PO SCH (08:49)
[2023-02-13] MEDS: HYDROGEN PEROXIDE 480 ML BOTTLE TP SCH ×2 (09:00→21:04)
[2023-02-13] MEDS: VITAMINS A AND D 56.7 GM TUBE TP SCH ×3 (09:48→20:21)
[2023-02-13 11:57] VITALS: BP 146/60
--- NOTE | 2023-02-13 12:51 | NUR ---
Patient was picked-up by EMT personnel to be taken to dialysis center. Vital signs temperature 97.0F, axillary, pulse 63, respirations 16, oxygen saturation level 100%, and blood pressure 118/75. Report given to EMT personnel. Peek-a-bonner mitten were put on to prevent from pulling on tubes at dialysis center. Patient accompanied by sitter. Charge nurse notified
--- NOTE | 2023-02-13 17:43 | NUR ---
Patient returned from dialysis center. Pre-dialysis weight 61.2kg and post-dialysis weight 60.5kg. Vital signs at arrival blood pressure 165/82, temperature 98.0 f axillary, pulse 62, respiration 18, pain level 0/10. Dressing intact on left upper arm, no bleeding, bruit/thrill +. Stable condition no pain or discomfort.
[2023-02-13 20:20] VITALS: BP 140/53
[2023-02-13] MEDS: NEPRO 1,000 ML BOTTLE GT SCH (20:22)
[2023-02-13] MEDS: MELATONIN 3 MG TABLET GT SCH (22:16)
[2023-02-14] MEDS: ALBUTEROL FS 2.5 MG/0.5 ML VIAL.NEB NEB SCH ×4 (01:42→20:13)
[2023-02-14] MEDS: IPRATROPIUM NEB FS 0.5 MG/2.5 ML AMPUL.NEB NEB SCH ×4 (01:42→20:13)
[2023-02-14] MEDS: hydrOXYzine HCL SYRUP 10 MG/5 ML UDC GT SCH ×3 (05:23→20:25)
[2023-02-14 06:57] LABS: HEMOGLOBIN 12.1 g/dL (13.5-17.5)
[2023-02-14 07:39] VITALS: BP 143/72
[2023-02-14] MEDS: SEVELAMER CARBONATE 800 MG POWD.PACK GT SCH ×2 (08:45→17:28)
[2023-02-14] MEDS: ACETAMINOPHEN 650 MG/20 ML UDC- SA PATIENTS-PAIN ONLY GT SCH (08:45)
[2023-02-14] MEDS: NEPRO VAN 237 ML CAN PO SCH ×2 (08:45→17:28)
[2023-02-14] MEDS: ESCITALOPRAM OXALATE (10 MG) 10 MG TABLET GT SCH (08:45)
[2023-02-14] MEDS: VITAMINS A AND D 56.7 GM TUBE TP SCH ×3 (08:45→20:26)
[2023-02-14] MEDS: DOCUSATE SODIUM LIQ 100 MG/10 ML UDC GT SCH (08:45)
[2023-02-14] MEDS: VIT B CMPLX 3/FA/VIT C/BIOTIN 1 TAB TABLET PO SCH (08:45)
[2023-02-14] MEDS: PANTOPRAZOLE 40 MG/PACK PACK GT SCH ×2 (08:45→20:25)
[2023-02-14] MEDS: AMLODIPINE BESYLATE 5 MG TABLET GT SCH (08:45)
[2023-02-14] MEDS: FOLIC ACID 1 MG TABLET GT SCH (08:45)
[2023-02-14] MEDS: SENNOSIDES 8.6 MG TABLET PO SCH (08:45)
[2023-02-14] MEDS: HYDROGEN PEROXIDE 480 ML BOTTLE TP SCH ×2 (09:04→20:13)
[2023-02-14 12:07] VITALS: BP 138/69
--- NOTE | 2023-02-14 15:47 | NUR ---
EMANUEL faxed request for BLS transport for HD to [facility] fax: [phone]
[2023-02-14] MEDS: NEPRO 1,000 ML BOTTLE GT SCH (20:26)
[2023-02-14] MEDS: EPOETIN ALFA-EPBX 10,000 UNIT/ML VIAL SQ SCH (20:26)
[2023-02-14 20:53] VITALS: BP 129/63
[2023-02-14] MEDS: MELATONIN 3 MG TABLET GT SCH (21:47)
[2023-02-15 00:24] VITALS: BP 118/65
[2023-02-15] MEDS: IPRATROPIUM NEB FS 0.5 MG/2.5 ML AMPUL.NEB NEB SCH ×4 (02:17→20:06)
[2023-02-15] MEDS: ALBUTEROL FS 2.5 MG/0.5 ML VIAL.NEB NEB SCH ×4 (02:17→20:06)
[2023-02-15] MEDS: hydrOXYzine HCL SYRUP 10 MG/5 ML UDC GT SCH ×3 (05:47→20:23)
--- NOTE | 2023-02-15 06:14 | NUR ---
RT Pt recvd awake on room air with no trach in place, pt has remained decannulated. Spo2 > 95% maintained. No SOB or respiratory distress noted. Neb tx given and oleg well with no adverse reaction noted.
[2023-02-15 07:32] VITALS: BP 139/63
[2023-02-15] MEDS: SENNOSIDES 8.6 MG TABLET PO SCH (09:02)
[2023-02-15] MEDS: PANTOPRAZOLE 40 MG/PACK PACK GT SCH ×2 (09:02→20:23)
[2023-02-15] MEDS: SEVELAMER CARBONATE 800 MG POWD.PACK GT SCH ×2 (09:02→17:00)
[2023-02-15] MEDS: AMLODIPINE BESYLATE 5 MG TABLET GT SCH (09:02)
[2023-02-15] MEDS: DOCUSATE SODIUM LIQ 100 MG/10 ML UDC GT SCH (09:02)
[2023-02-15] MEDS: NEPRO VAN 237 ML CAN PO SCH ×2 (09:02→17:00)
[2023-02-15] MEDS: VIT B CMPLX 3/FA/VIT C/BIOTIN 1 TAB TABLET PO SCH (09:02)
[2023-02-15] MEDS: VITAMINS A AND D 56.7 GM TUBE TP SCH ×3 (09:02→20:23)
[2023-02-15] MEDS: ESCITALOPRAM OXALATE (10 MG) 10 MG TABLET GT SCH (09:02)
[2023-02-15] MEDS: ACETAMINOPHEN 650 MG/20 ML UDC- SA PATIENTS-PAIN ONLY GT SCH (09:02)
[2023-02-15] MEDS: FOLIC ACID 1 MG TABLET GT SCH (09:02)
[2023-02-15] MEDS: HYDROGEN PEROXIDE 480 ML BOTTLE TP SCH ×2 (09:20→20:06)
[2023-02-15 12:16] VITALS: BP 130/70
[2023-02-15 19:26] VITALS: BP 132/70
[2023-02-15] MEDS: NEPRO 1,000 ML BOTTLE GT SCH (20:23)
[2023-02-15] MEDS: MELATONIN 3 MG TABLET GT SCH (21:29)
[2023-02-16 00:23] VITALS: BP 128/68
[2023-02-16] MEDS: ALBUTEROL FS 2.5 MG/0.5 ML VIAL.NEB NEB SCH ×4 (02:12→20:11)
[2023-02-16] MEDS: IPRATROPIUM NEB FS 0.5 MG/2.5 ML AMPUL.NEB NEB SCH ×4 (02:12→20:11)
[2023-02-16] MEDS: hydrOXYzine HCL SYRUP 10 MG/5 ML UDC GT SCH ×3 (05:53→21:00)
[2023-02-16] MEDS: DOCUSATE SODIUM LIQ 100 MG/10 ML UDC GT SCH (09:34)
[2023-02-16] MEDS: FOLIC ACID 1 MG TABLET GT SCH (09:34)
[2023-02-16] MEDS: ESCITALOPRAM OXALATE (10 MG) 10 MG TABLET GT SCH (09:34)
[2023-02-16] MEDS: AMLODIPINE BESYLATE 5 MG TABLET GT SCH (09:34)
[2023-02-16] MEDS: ACETAMINOPHEN 650 MG/20 ML UDC- SA PATIENTS-PAIN ONLY GT SCH (09:35)
[2023-02-16] MEDS: SENNOSIDES 8.6 MG TABLET PO SCH (09:35)
[2023-02-16] MEDS: NEPRO VAN 237 ML CAN PO SCH ×2 (09:35→17:18)
[2023-02-16] MEDS: VIT B CMPLX 3/FA/VIT C/BIOTIN 1 TAB TABLET PO SCH (09:35)
[2023-02-16] MEDS: SEVELAMER CARBONATE 800 MG POWD.PACK GT SCH ×2 (09:35→17:18)
[2023-02-16] MEDS: PANTOPRAZOLE 40 MG/PACK PACK GT SCH ×2 (09:35→21:00)
[2023-02-16] MEDS: VITAMINS A AND D 56.7 GM TUBE TP SCH ×3 (09:35→21:00)
[2023-02-16] MEDS: HYDROGEN PEROXIDE 480 ML BOTTLE TP SCH ×2 (09:36→20:11)
--- NOTE | 2023-02-16 10:37 | NUR ---
Seen and examined by Dr. Sotelo, no new order given. Patient not seen by ST yet, reordered ST evmartin to evaluate diet consistency. Order carried out.
--- NOTE | 2023-02-16 15:23 | NUR ---
RT NOTE Pt recvd awake on room air with no trach in place, pt has remained decannulated. Spo2 > 95% maintained. No SOB or respiratory distress noted. Neb tx given and oleg well with no adverse reaction noted.
[2023-02-16 19:32] VITALS: BP 145/72
[2023-02-16] MEDS: NEPRO 1,000 ML BOTTLE GT SCH (20:00)
[2023-02-16] MEDS: MELATONIN 3 MG TABLET GT SCH (22:02)
[2023-02-17] MEDS: IPRATROPIUM NEB FS 0.5 MG/2.5 ML AMPUL.NEB NEB SCH ×4 (02:13→20:09)
[2023-02-17] MEDS: ALBUTEROL FS 2.5 MG/0.5 ML VIAL.NEB NEB SCH ×4 (02:13→20:09)
[2023-02-17] MEDS: hydrOXYzine HCL SYRUP 10 MG/5 ML UDC GT SCH ×3 (04:32→21:33)
[2023-02-17 07:56] VITALS: BP 139/57
[2023-02-17] MEDS: FOLIC ACID 1 MG TABLET GT SCH (08:40)
[2023-02-17] MEDS: ESCITALOPRAM OXALATE (10 MG) 10 MG TABLET GT SCH (08:40)
[2023-02-17] MEDS: NEPRO VAN 237 ML CAN PO SCH ×2 (08:40→18:00)
[2023-02-17] MEDS: SEVELAMER CARBONATE 800 MG POWD.PACK GT SCH ×2 (08:40→18:00)
[2023-02-17] MEDS: PANTOPRAZOLE 40 MG/PACK PACK GT SCH ×2 (08:40→21:33)
[2023-02-17] MEDS: AMLODIPINE BESYLATE 5 MG TABLET GT SCH (08:40)
[2023-02-17] MEDS: VIT B CMPLX 3/FA/VIT C/BIOTIN 1 TAB TABLET PO SCH (08:40)
[2023-02-17] MEDS: SENNOSIDES 8.6 MG TABLET PO SCH (08:40)
[2023-02-17] MEDS: DOCUSATE SODIUM LIQ 100 MG/10 ML UDC GT SCH (08:40)
[2023-02-17] MEDS: VITAMINS A AND D 56.7 GM TUBE TP SCH ×3 (08:41→21:33)
[2023-02-17] MEDS: HYDROGEN PEROXIDE 480 ML BOTTLE TP SCH ×2 (09:00→20:09)
[2023-02-17 12:12] VITALS: BP 130/56
--- NOTE | 2023-02-17 13:05 | NUR ---
Patient went oop for dialysis in stable condition. No c/o pain. Peek-a-bonner mitten were put on to prevent from pulling on tubes at dialysis center. V/S: 98.7, 62, 16,139/57, 99%.
--- NOTE | 2023-02-17 17:50 | NUR ---
Patient returned from dialysis center. Dressing intact on left upper arm, no bleeding, bruit/thrill +. Stable condition, denies pain or discomfort V/S: 98.0, 64, 16, 145/65, 99%.
[2023-02-17 19:17] VITALS: BP 123/69
[2023-02-17] MEDS: MELATONIN 3 MG TABLET GT SCH (21:33)
[2023-02-18] MEDS: IPRATROPIUM NEB FS 0.5 MG/2.5 ML AMPUL.NEB NEB SCH ×4 (01:30→18:56)
[2023-02-18] MEDS: ALBUTEROL FS 2.5 MG/0.5 ML VIAL.NEB NEB SCH ×4 (01:30→18:56)
[2023-02-18] MEDS: hydrOXYzine HCL SYRUP 10 MG/5 ML UDC GT SCH ×3 (05:44→21:00)
[2023-02-18 07:26] VITALS: BP 126/51
[2023-02-18] MEDS: HYDROGEN PEROXIDE 480 ML BOTTLE TP SCH ×2 (09:00→19:53)
[2023-02-18] MEDS: ESCITALOPRAM OXALATE (10 MG) 10 MG TABLET GT SCH (09:23)
[2023-02-18] MEDS: DOCUSATE SODIUM LIQ 100 MG/10 ML UDC GT SCH (09:23)
[2023-02-18] MEDS: FOLIC ACID 1 MG TABLET GT SCH (09:23)
[2023-02-18] MEDS: VIT B CMPLX 3/FA/VIT C/BIOTIN 1 TAB TABLET PO SCH (09:24)
[2023-02-18] MEDS: NEPRO VAN 237 ML CAN PO SCH ×2 (09:24→16:16)
[2023-02-18] MEDS: AMLODIPINE BESYLATE 5 MG TABLET GT SCH (09:24)
[2023-02-18] MEDS: VITAMINS A AND D 56.7 GM TUBE TP SCH ×3 (09:24→21:19)
[2023-02-18] MEDS: SEVELAMER CARBONATE 800 MG POWD.PACK GT SCH ×2 (09:24→16:16)
[2023-02-18] MEDS: PANTOPRAZOLE 40 MG/PACK PACK GT SCH ×2 (09:24→21:19)
[2023-02-18] MEDS: SENNOSIDES 8.6 MG TABLET PO SCH (09:24)
[2023-02-18 12:24] VITALS: BP 130/58
[2023-02-18 20:12] VITALS: BP 150/63
[2023-02-18] MEDS: MELATONIN 3 MG TABLET GT SCH (21:20)
[2023-02-19] MEDS: ALBUTEROL FS 2.5 MG/0.5 ML VIAL.NEB NEB SCH ×4 (00:51→20:22)
[2023-02-19] MEDS: IPRATROPIUM NEB FS 0.5 MG/2.5 ML AMPUL.NEB NEB SCH ×4 (00:51→20:22)
[2023-02-19] MEDS: hydrOXYzine HCL SYRUP 10 MG/5 ML UDC GT SCH ×3 (05:56→21:16)
[2023-02-19 07:41] VITALS: BP 147/69
[2023-02-19] MEDS: HYDROGEN PEROXIDE 480 ML BOTTLE TP SCH ×2 (09:00→21:16)
[2023-02-19] MEDS: DOCUSATE SODIUM LIQ 100 MG/10 ML UDC GT SCH (09:44)
[2023-02-19] MEDS: ESCITALOPRAM OXALATE (10 MG) 10 MG TABLET GT SCH (09:44)
[2023-02-19] MEDS: FOLIC ACID 1 MG TABLET GT SCH (09:44)
[2023-02-19] MEDS: AMLODIPINE BESYLATE 5 MG TABLET GT SCH (09:44)
[2023-02-19] MEDS: SEVELAMER CARBONATE 800 MG POWD.PACK GT SCH ×2 (09:45→17:09)
[2023-02-19] MEDS: SENNOSIDES 8.6 MG TABLET PO SCH (09:45)
[2023-02-19] MEDS: VITAMINS A AND D 56.7 GM TUBE TP SCH ×3 (09:45→21:16)
[2023-02-19] MEDS: VIT B CMPLX 3/FA/VIT C/BIOTIN 1 TAB TABLET PO SCH (09:45)
[2023-02-19] MEDS: PANTOPRAZOLE 40 MG/PACK PACK GT SCH ×2 (09:45→21:16)
[2023-02-19] MEDS: NEPRO VAN 237 ML CAN PO SCH ×2 (09:45→17:09)
[2023-02-19] MEDS: ACETAMINOPHEN 650 MG/20 ML UDC- SA PATIENTS-PAIN ONLY GT SCH (09:45)
[2023-02-19 11:23] VITALS: BP 144/56
--- NOTE | 2023-02-19 12:39 | NUR ---
Seen and assessed by ST Lozano for diet texture advancement. Received order to change diet texture from pureed to soft with thin liquids.
--- NOTE | 2023-02-19 13:00 | NUR ---
Called [facility] to ask if pt still needs a sitter during hemodialysis. Spoke with Karlene. She said as of now, pt still needs a sitter since he has a history of pulling the dialysis access. She said she will ask the nurses for their input and will also talk with the doctor about it.
--- NOTE | 2023-02-19 13:28 | NUR ---
EMANUEL faxed clinicals to [facility] FAX: [phone] PHONE: [phone] ATTN: Helga for possible placement.
[2023-02-19] MEDS: NEPRO 1,000 ML BOTTLE GT SCH (19:13)
[2023-02-19 20:00] VITALS: BP 153/55
[2023-02-19] MEDS: MELATONIN 3 MG TABLET GT SCH (21:16)
[2023-02-20] MEDS: IPRATROPIUM NEB FS 0.5 MG/2.5 ML AMPUL.NEB NEB SCH ×4 (01:32→20:00)
[2023-02-20] MEDS: ALBUTEROL FS 2.5 MG/0.5 ML VIAL.NEB NEB SCH ×3 (01:32→13:30)
[2023-02-20] MEDS: hydrOXYzine HCL SYRUP 10 MG/5 ML UDC GT SCH ×3 (05:00→21:17)
[2023-02-20 07:33] VITALS: BP 129/62
[2023-02-20] MEDS: ESCITALOPRAM OXALATE (10 MG) 10 MG TABLET GT SCH (08:47)
[2023-02-20] MEDS: DOCUSATE SODIUM LIQ 100 MG/10 ML UDC GT SCH (08:47)
[2023-02-20] MEDS: FOLIC ACID 1 MG TABLET GT SCH (08:47)
[2023-02-20] MEDS: AMLODIPINE BESYLATE 5 MG TABLET GT SCH (08:47)
[2023-02-20] MEDS: PANTOPRAZOLE 40 MG/PACK PACK GT SCH ×2 (08:47→21:17)
[2023-02-20] MEDS: SEVELAMER CARBONATE 800 MG POWD.PACK GT SCH ×2 (08:47→18:14)
[2023-02-20] MEDS: ACETAMINOPHEN 650 MG/20 ML UDC- SA PATIENTS-PAIN ONLY GT SCH (08:48)
[2023-02-20] MEDS: VITAMINS A AND D 56.7 GM TUBE TP SCH ×3 (08:52→21:17)
[2023-02-20] MEDS: VIT B CMPLX 3/FA/VIT C/BIOTIN 1 TAB TABLET PO SCH (08:52)
[2023-02-20] MEDS: SENNOSIDES 8.6 MG TABLET PO SCH (08:52)
[2023-02-20] MEDS: NEPRO VAN 237 ML CAN PO SCH ×2 (08:52→18:14)
[2023-02-20] MEDS: HYDROGEN PEROXIDE 480 ML BOTTLE TP SCH ×2 (09:05→21:12)
[2023-02-20 12:02] VITALS: BP 145/65
--- NOTE | 2023-02-20 12:55 | NUR ---
Patient was picked-up by EMT personnel to be taken to dialysis center. Vital signs temperature 97.7F, axillary, pulse 63, respirations 16, oxygen saturation level 100%, and blood pressure 122/84. Report given to EMT personnel. Peek-a-bonner mitten were put on to prevent from pulling on tubes at dialysis center. Patient accompanied by sitter.
--- NOTE | 2023-02-20 18:25 | NUR ---
Patient returned from dialysis center. Pre-dialysis weight 60.8kg and post-dialysis weight 59.6kg. Vital signs at arrival blood pressure 138/67, temperature 98.3 f axillary, pulse 62, respiration 16, pain level 0/10. Dressing intact on left upper arm, no bleeding, bruit/thrill +. Stable condition no pain or discomfort.
[2023-02-20 20:00] VITALS: BP 127/59
[2023-02-20] MEDS: MELATONIN 3 MG TABLET GT SCH (21:17)
[2023-02-21] MEDS: IPRATROPIUM NEB FS 0.5 MG/2.5 ML AMPUL.NEB NEB SCH ×4 (01:38→19:30)
[2023-02-21] MEDS: ALBUTEROL FS 2.5 MG/0.5 ML VIAL.NEB NEB SCH ×4 (01:38→19:30)
[2023-02-21] MEDS: hydrOXYzine HCL SYRUP 10 MG/5 ML UDC GT SCH ×3 (05:00→21:18)
[2023-02-21 07:39] VITALS: BP 129/67
[2023-02-21 09:09] LABS: HEMOGLOBIN 12.9 g/dL (13.5-17.5)
[2023-02-21] MEDS: AMLODIPINE BESYLATE 5 MG TABLET GT SCH (09:17)
[2023-02-21] MEDS: FOLIC ACID 1 MG TABLET GT SCH (09:17)
[2023-02-21] MEDS: PANTOPRAZOLE 40 MG/PACK PACK GT SCH ×2 (09:17→21:18)
[2023-02-21] MEDS: ESCITALOPRAM OXALATE (10 MG) 10 MG TABLET GT SCH (09:17)
[2023-02-21] MEDS: SEVELAMER CARBONATE 800 MG POWD.PACK GT SCH ×2 (09:17→16:47)
[2023-02-21] MEDS: DOCUSATE SODIUM LIQ 100 MG/10 ML UDC GT SCH (09:17)
[2023-02-21] MEDS: VIT B CMPLX 3/FA/VIT C/BIOTIN 1 TAB TABLET PO SCH (09:18)
[2023-02-21] MEDS: VITAMINS A AND D 56.7 GM TUBE TP SCH ×3 (09:18→21:19)
[2023-02-21] MEDS: SENNOSIDES 8.6 MG TABLET PO SCH (09:18)
[2023-02-21] MEDS: ACETAMINOPHEN 650 MG/20 ML UDC- SA PATIENTS-PAIN ONLY GT SCH (09:18)
[2023-02-21] MEDS: NEPRO VAN 237 ML CAN PO SCH ×2 (09:18→16:47)
[2023-02-21] MEDS: HYDROGEN PEROXIDE 480 ML BOTTLE TP SCH ×2 (09:48→20:51)
[2023-02-21 12:05] VITALS: BP 132/63
[2023-02-21 19:41] VITALS: BP 141/68
[2023-02-21] MEDS: NEPRO 1,000 ML BOTTLE GT SCH (20:00)
[2023-02-21] MEDS: EPOETIN ALFA-EPBX 10,000 UNIT/ML VIAL SQ SCH (21:18)
[2023-02-21] MEDS: MELATONIN 3 MG TABLET GT SCH (21:19)
[2023-02-22] MEDS: ALBUTEROL FS 2.5 MG/0.5 ML VIAL.NEB NEB SCH ×4 (01:08→20:13)
[2023-02-22] MEDS: IPRATROPIUM NEB FS 0.5 MG/2.5 ML AMPUL.NEB NEB SCH ×4 (01:08→20:13)
[2023-02-22] MEDS: hydrOXYzine HCL SYRUP 10 MG/5 ML UDC GT SCH ×3 (05:32→20:53)
[2023-02-22 07:27] VITALS: BP 140/66
[2023-02-22] MEDS: HYDROGEN PEROXIDE 480 ML BOTTLE TP SCH ×2 (08:35→20:13)
[2023-02-22] MEDS: ESCITALOPRAM OXALATE (10 MG) 10 MG TABLET GT SCH (09:25)
[2023-02-22] MEDS: DOCUSATE SODIUM LIQ 100 MG/10 ML UDC GT SCH (09:25)
[2023-02-22] MEDS: FOLIC ACID 1 MG TABLET GT SCH (09:25)
[2023-02-22] MEDS: NEPRO VAN 237 ML CAN PO SCH ×2 (09:26→17:30)
[2023-02-22] MEDS: AMLODIPINE BESYLATE 5 MG TABLET GT SCH (09:26)
[2023-02-22] MEDS: PANTOPRAZOLE 40 MG/PACK PACK GT SCH ×2 (09:26→20:53)
[2023-02-22] MEDS: VIT B CMPLX 3/FA/VIT C/BIOTIN 1 TAB TABLET PO SCH (09:26)
[2023-02-22] MEDS: SENNOSIDES 8.6 MG TABLET PO SCH (09:26)
[2023-02-22] MEDS: SEVELAMER CARBONATE 800 MG POWD.PACK GT SCH ×2 (09:26→17:30)
[2023-02-22] MEDS: VITAMINS A AND D 56.7 GM TUBE TP SCH ×3 (09:26→20:53)
[2023-02-22] MEDS: ACETAMINOPHEN 650 MG/20 ML UDC- SA PATIENTS-PAIN ONLY GT SCH (09:26)
[2023-02-22 12:37] VITALS: BP 143/33
[2023-02-22 19:22] VITALS: BP 156/73
[2023-02-22] MEDS: MELATONIN 3 MG TABLET GT SCH (21:08)
[2023-02-23 00:07] VITALS: BP 139/69
[2023-02-23] MEDS: ALBUTEROL FS 2.5 MG/0.5 ML VIAL.NEB NEB SCH ×4 (02:08→20:15)
[2023-02-23] MEDS: IPRATROPIUM NEB FS 0.5 MG/2.5 ML AMPUL.NEB NEB SCH ×4 (02:08→20:15)
[2023-02-23] MEDS: hydrOXYzine HCL SYRUP 10 MG/5 ML UDC GT SCH ×3 (05:05→20:37)
[2023-02-23 07:42] VITALS: BP 131/73
[2023-02-23] MEDS: HYDROGEN PEROXIDE 480 ML BOTTLE TP SCH ×2 (08:14→20:15)
[2023-02-23] MEDS: VIT B CMPLX 3/FA/VIT C/BIOTIN 1 TAB TABLET PO SCH (09:00)
[2023-02-23] MEDS: VITAMINS A AND D 56.7 GM TUBE TP SCH ×3 (09:00→20:37)
[2023-02-23] MEDS: NEPRO VAN 237 ML CAN PO SCH ×2 (09:00→16:52)
[2023-02-23] MEDS: SENNOSIDES 8.6 MG TABLET PO SCH (09:00)
[2023-02-23] MEDS: FOLIC ACID 1 MG TABLET GT SCH (09:59)
[2023-02-23] MEDS: AMLODIPINE BESYLATE 5 MG TABLET GT SCH (09:59)
[2023-02-23] MEDS: PANTOPRAZOLE 40 MG/PACK PACK GT SCH ×2 (09:59→20:36)
[2023-02-23] MEDS: DOCUSATE SODIUM LIQ 100 MG/10 ML UDC GT SCH (09:59)
[2023-02-23] MEDS: ESCITALOPRAM OXALATE (10 MG) 10 MG TABLET GT SCH (09:59)
[2023-02-23] MEDS: SEVELAMER CARBONATE 800 MG POWD.PACK GT SCH ×2 (09:59→16:52)
[2023-02-23] MEDS: ACETAMINOPHEN 650 MG/20 ML UDC- SA PATIENTS-PAIN ONLY GT SCH (10:00)
--- NOTE | 2023-02-23 10:41 | NUR ---
Seen by Dr. Sotelo, reported that patient noted with R eye discoloration, patient denies any pain and does not know how it happen. Dr. Sotelo said that it could be broken blood vessels. No new order given.
[2023-02-23 12:08] VITALS: BP 135/74
--- NOTE | 2023-02-23 13:30 | NUR ---
Monthly Progress Notes: Resident on activity program was seen and sensory stimulation was provided. Room Visit, Grooming, action and comedy movies, Daily News, Smooth and [place] Oldies music. Resident enjoys when reading story books and communicating with him. These activities will continue as needed.
--- NOTE | 2023-02-23 16:18 | NUR ---
PATIENT ON ROOM AIR WITH ADEQUATE SATURATIONS. HHN TXS RORY WELL WITH NO ADVERSE REACTION NOTED.
[2023-02-23 19:48] VITALS: BP 136/58
[2023-02-23 19:53] VITALS: BP 133/66
[2023-02-23] MEDS: NEPRO 1,000 ML BOTTLE GT SCH (20:23)
[2023-02-23] MEDS: MELATONIN 3 MG TABLET GT SCH (21:48)
[2023-02-24] MEDS: ALBUTEROL FS 2.5 MG/0.5 ML VIAL.NEB NEB SCH ×4 (02:06→20:01)
[2023-02-24] MEDS: IPRATROPIUM NEB FS 0.5 MG/2.5 ML AMPUL.NEB NEB SCH ×4 (02:06→20:01)
[2023-02-24] MEDS: hydrOXYzine HCL SYRUP 10 MG/5 ML UDC GT SCH ×3 (05:01→20:43)
[2023-02-24 07:09] VITALS: BP 144/70
[2023-02-24] MEDS: ESCITALOPRAM OXALATE (10 MG) 10 MG TABLET GT SCH (08:20)
[2023-02-24] MEDS: AMLODIPINE BESYLATE 5 MG TABLET GT SCH (08:20)
[2023-02-24] MEDS: DOCUSATE SODIUM LIQ 100 MG/10 ML UDC GT SCH (08:20)
[2023-02-24] MEDS: FOLIC ACID 1 MG TABLET GT SCH (08:20)
[2023-02-24] MEDS: SEVELAMER CARBONATE 800 MG POWD.PACK GT SCH ×2 (08:21→17:45)
[2023-02-24] MEDS: NEPRO VAN 237 ML CAN PO SCH ×2 (08:22→17:45)
[2023-02-24] MEDS: PANTOPRAZOLE 40 MG/PACK PACK GT SCH ×2 (08:25→20:43)
[2023-02-24] MEDS: VIT B CMPLX 3/FA/VIT C/BIOTIN 1 TAB TABLET PO SCH (08:25)
[2023-02-24] MEDS: SENNOSIDES 8.6 MG TABLET PO SCH (08:30)
[2023-02-24] MEDS: HYDROGEN PEROXIDE 480 ML BOTTLE TP SCH ×2 (09:00→21:23)
[2023-02-24] MEDS: VITAMINS A AND D 56.7 GM TUBE TP SCH ×3 (09:00→20:43)
[2023-02-24] MEDS ORDERED: TUBERCULIN,PURIF.PROT.DERIV. 5 TU/0.1 ML VIAL ID SCH (09:00)
[2023-02-24 12:23] VITALS: BP 141/74
--- NOTE | 2023-02-24 12:40 | NUR ---
Resident left for dialysis in stable condition. AV fistula in the L upper arm intact, report given to ambulance crew Patient accompanied by a staff member when he left. Resident ate less than 50% of lunch, offered substitute before he left for dialysis. Patient consumed milk, chocolate pudding and apple sauce.
--- NOTE | 2023-02-24 16:18 | NUR ---
RECEIVED PATIENT ON ROOM AIR. SATS >92. HHN TXS RORY WELL WITH NO ADVERSE REACTION NOTED. NO SOB NOTED.
[2023-02-24] MEDS: NEPRO 1,000 ML BOTTLE GT SCH (20:00)
[2023-02-24 20:33] VITALS: BP 130/71
[2023-02-24] MEDS: MELATONIN 3 MG TABLET GT SCH (21:14)
[2023-02-25] MEDS: ALBUTEROL FS 2.5 MG/0.5 ML VIAL.NEB NEB SCH ×4 (01:43→20:10)
[2023-02-25] MEDS: IPRATROPIUM NEB FS 0.5 MG/2.5 ML AMPUL.NEB NEB SCH ×4 (01:43→20:10)
[2023-02-25] MEDS: hydrOXYzine HCL SYRUP 10 MG/5 ML UDC GT SCH ×3 (04:23→21:28)
[2023-02-25 07:09] VITALS: BP 104/72
[2023-02-25] MEDS: DOCUSATE SODIUM LIQ 100 MG/10 ML UDC GT SCH (08:53)
[2023-02-25] MEDS: NEPRO VAN 237 ML CAN PO SCH ×2 (08:53→17:41)
[2023-02-25] MEDS: FOLIC ACID 1 MG TABLET GT SCH (08:53)
[2023-02-25] MEDS: SENNOSIDES 8.6 MG TABLET PO SCH (08:53)
[2023-02-25] MEDS: AMLODIPINE BESYLATE 5 MG TABLET GT SCH (08:53)
[2023-02-25] MEDS: SEVELAMER CARBONATE 800 MG POWD.PACK GT SCH ×2 (08:53→17:41)
[2023-02-25] MEDS: VIT B CMPLX 3/FA/VIT C/BIOTIN 1 TAB TABLET PO SCH (08:53)
[2023-02-25] MEDS: PANTOPRAZOLE 40 MG/PACK PACK GT SCH ×2 (08:53→21:29)
[2023-02-25] MEDS: ESCITALOPRAM OXALATE (10 MG) 10 MG TABLET GT SCH (08:53)
[2023-02-25] MEDS: VITAMINS A AND D 56.7 GM TUBE TP SCH ×3 (09:00→21:30)
[2023-02-25 14:05] VITALS: BP 128/70
--- NOTE | 2023-02-25 14:12 | NUR ---
to reassess possibility of discontinuing or reducing side rails use, pt side rails x4 down. pt alert and responsive. repositioned pt. pillow are used to support each side of pt but pt was noted grabbing x2 siderails to make his self comfortable. x2 siderails up. will monitor.
--- NOTE | 2023-02-25 16:24 | NUR ---
RECEIVED PATIENT ON ROOM AIR. PATIENT IS DECANNULATED. NO SOB NOTED. HHN TXS RORY WELL WITH NO ADVERSE REACTION NOTED. AMBU BAG AT BEDSIDE. UPON OBSERVING PATIENT WITH SIDE RAILS DOWN, PATIENT HAS A TENDENCY TO USE RAILS TO SLIDE HIMSELF UP. SIDE RAILS PLACED BACK UP.
[2023-02-25 19:45] VITALS: BP 158/69
[2023-02-25] MEDS: MELATONIN 3 MG TABLET GT SCH (21:30)
[2023-02-25] MEDS: NEPRO 1,000 ML BOTTLE GT SCH (22:08)
[2023-02-26] MEDS: IPRATROPIUM NEB FS 0.5 MG/2.5 ML AMPUL.NEB NEB SCH ×4 (01:40→19:48)
[2023-02-26] MEDS: ALBUTEROL FS 2.5 MG/0.5 ML VIAL.NEB NEB SCH ×4 (01:40→19:48)
--- NOTE | 2023-02-26 01:43 | NUR ---
Patient was trying to get out of his bed as evidenced by both feet were dangling on the the side of his bed. Repositioned, placed pillows on his side, bed positioned in lowest position, call light within reach. Will continue to monitor behavior.
[2023-02-26] MEDS: hydrOXYzine HCL SYRUP 10 MG/5 ML UDC GT SCH ×3 (05:04→21:02)
[2023-02-26] MEDS: DOCUSATE SODIUM LIQ 100 MG/10 ML UDC GT SCH (09:42)
[2023-02-26] MEDS: ESCITALOPRAM OXALATE (10 MG) 10 MG TABLET GT SCH (09:42)
[2023-02-26] MEDS: FOLIC ACID 1 MG TABLET GT SCH (09:42)
[2023-02-26] MEDS: AMLODIPINE BESYLATE 5 MG TABLET GT SCH (09:43)
[2023-02-26] MEDS: NEPRO VAN 237 ML CAN PO SCH ×2 (09:44→17:00)
[2023-02-26] MEDS: PANTOPRAZOLE 40 MG/PACK PACK GT SCH ×2 (09:44→21:01)
[2023-02-26] MEDS: VITAMINS A AND D 56.7 GM TUBE TP SCH ×3 (09:44→21:02)
[2023-02-26] MEDS: ACETAMINOPHEN 650 MG/20 ML UDC- SA PATIENTS-PAIN ONLY GT SCH (09:44)
[2023-02-26] MEDS: SEVELAMER CARBONATE 800 MG POWD.PACK GT SCH ×2 (09:44→17:00)
[2023-02-26] MEDS: VIT B CMPLX 3/FA/VIT C/BIOTIN 1 TAB TABLET PO SCH (09:45)
[2023-02-26] MEDS: SENNOSIDES 8.6 MG TABLET PO SCH (09:46)
[2023-02-26] MEDS: MELATONIN 3 MG TABLET GT SCH (21:02)
[2023-02-26 21:04] VITALS: BP 147/74
[2023-02-26 23:49] VITALS: BP 138/60
[2023-02-27] MEDS: IPRATROPIUM NEB FS 0.5 MG/2.5 ML AMPUL.NEB NEB SCH ×4 (02:00→19:54)
[2023-02-27] MEDS: ALBUTEROL FS 2.5 MG/0.5 ML VIAL.NEB NEB SCH ×4 (02:00→19:54)
[2023-02-27] MEDS: hydrOXYzine HCL SYRUP 10 MG/5 ML UDC GT SCH ×3 (05:27→21:21)
[2023-02-27 08:00] VITALS: BP 140/75
[2023-02-27] MEDS: PANTOPRAZOLE 40 MG/PACK PACK GT SCH ×2 (08:54→21:21)
[2023-02-27] MEDS: DOCUSATE SODIUM LIQ 100 MG/10 ML UDC GT SCH (08:54)
[2023-02-27] MEDS: SEVELAMER CARBONATE 800 MG POWD.PACK GT SCH ×2 (08:54→17:56)
[2023-02-27] MEDS: AMLODIPINE BESYLATE 5 MG TABLET GT SCH (08:54)
[2023-02-27] MEDS: FOLIC ACID 1 MG TABLET GT SCH (08:54)
[2023-02-27] MEDS: ESCITALOPRAM OXALATE (10 MG) 10 MG TABLET GT SCH (08:54)
[2023-02-27] MEDS: VIT B CMPLX 3/FA/VIT C/BIOTIN 1 TAB TABLET PO SCH (08:55)
[2023-02-27] MEDS: ACETAMINOPHEN 650 MG/20 ML UDC- SA PATIENTS-PAIN ONLY GT SCH (08:55)
[2023-02-27] MEDS: NEPRO VAN 237 ML CAN PO SCH ×2 (08:55→17:56)
[2023-02-27] MEDS: VITAMINS A AND D 56.7 GM TUBE TP SCH ×3 (08:55→21:22)
[2023-02-27] MEDS: SENNOSIDES 8.6 MG TABLET PO SCH (08:55)
[2023-02-27 12:00] VITALS: BP 121/47
--- NOTE | 2023-02-27 13:00 | NUR ---
Patient went oop for dialysis in stable condition. No c/o pain. Peek-a-bonner mitten were put on to prevent from pulling on tubes at dialysis center. V/S: 98.0, 63, 16, 121/57, 99%.
--- NOTE | 2023-02-27 17:45 | NUR ---
Patient returned from dialysis center. Dressing intact on left upper arm, no bleeding, bruit/thrill +. Stable condition, denies pain or discomfort V/S: 98.1, 67, 16, 144/62, 99%.
[2023-02-27 19:58] VITALS: BP 127/66
[2023-02-27] MEDS: MELATONIN 3 MG TABLET GT SCH (21:22)
[2023-02-28] MEDS: ALBUTEROL FS 2.5 MG/0.5 ML VIAL.NEB NEB SCH ×4 (01:36→20:22)
[2023-02-28] MEDS: IPRATROPIUM NEB FS 0.5 MG/2.5 ML AMPUL.NEB NEB SCH ×4 (01:36→20:22)
[2023-02-28] MEDS: hydrOXYzine HCL SYRUP 10 MG/5 ML UDC GT SCH ×3 (05:28→21:00)
[2023-02-28 07:09] LABS: HEMOGLOBIN 12.3 g/dL (13.5-17.5)
[2023-02-28 07:14] VITALS: BP 140/63
[2023-02-28] MEDS: ESCITALOPRAM OXALATE (10 MG) 10 MG TABLET GT SCH (09:56)
[2023-02-28] MEDS: DOCUSATE SODIUM LIQ 100 MG/10 ML UDC GT SCH (09:56)
[2023-02-28] MEDS: FOLIC ACID 1 MG TABLET GT SCH (09:56)
[2023-02-28] MEDS: PANTOPRAZOLE 40 MG/PACK PACK GT SCH ×2 (09:57→21:00)
[2023-02-28] MEDS: VITAMINS A AND D 56.7 GM TUBE TP SCH ×3 (09:57→21:00)
[2023-02-28] MEDS: ACETAMINOPHEN 650 MG/20 ML UDC- SA PATIENTS-PAIN ONLY GT SCH (09:57)
[2023-02-28] MEDS: VIT B CMPLX 3/FA/VIT C/BIOTIN 1 TAB TABLET PO SCH (09:57)
[2023-02-28] MEDS: SENNOSIDES 8.6 MG TABLET PO SCH (09:57)
[2023-02-28] MEDS: SEVELAMER CARBONATE 800 MG POWD.PACK GT SCH ×2 (09:57→16:19)
[2023-02-28] MEDS: NEPRO VAN 237 ML CAN PO SCH ×2 (09:57→16:19)
[2023-02-28] MEDS: AMLODIPINE BESYLATE 5 MG TABLET GT SCH (09:57)
[2023-02-28 11:16] VITALS: BP 139/62
[2023-02-28 20:06] VITALS: BP 135/74
[2023-02-28] MEDS: EPOETIN ALFA-EPBX 10,000 UNIT/ML VIAL SQ SCH (21:00)
[2023-02-28] MEDS: MELATONIN 3 MG TABLET GT SCH (22:20)
[2023-03-01] MEDS: IPRATROPIUM NEB FS 0.5 MG/2.5 ML AMPUL.NEB NEB SCH ×4 (02:10→20:25)
[2023-03-01] MEDS: ALBUTEROL FS 2.5 MG/0.5 ML VIAL.NEB NEB SCH ×4 (02:10→20:25)
[2023-03-01] MEDS: hydrOXYzine HCL SYRUP 10 MG/5 ML UDC GT SCH ×3 (05:50→21:38)
[2023-03-01 07:06] VITALS: BP 149/72
[2023-03-01] MEDS: DOCUSATE SODIUM LIQ 100 MG/10 ML UDC GT SCH (09:01)
[2023-03-01] MEDS: ACETAMINOPHEN 650 MG/20 ML UDC- SA PATIENTS-PAIN ONLY GT SCH (09:02)
[2023-03-01] MEDS: AMLODIPINE BESYLATE 5 MG TABLET GT SCH (09:02)
[2023-03-01] MEDS: SENNOSIDES 8.6 MG TABLET PO SCH (09:02)
[2023-03-01] MEDS: VITAMINS A AND D 56.7 GM TUBE TP SCH ×3 (09:02→21:38)
[2023-03-01] MEDS: ESCITALOPRAM OXALATE (10 MG) 10 MG TABLET GT SCH (09:02)
[2023-03-01] MEDS: VIT B CMPLX 3/FA/VIT C/BIOTIN 1 TAB TABLET PO SCH (09:02)
[2023-03-01] MEDS: PANTOPRAZOLE 40 MG/PACK PACK GT SCH ×2 (09:02→21:38)
[2023-03-01] MEDS: FOLIC ACID 1 MG TABLET GT SCH (09:02)
[2023-03-01] MEDS: SEVELAMER CARBONATE 800 MG POWD.PACK GT SCH ×2 (09:02→17:54)
[2023-03-01] MEDS: NEPRO VAN 237 ML CAN PO SCH ×2 (09:02→17:55)
--- NOTE | 2023-03-01 11:00 | NUR ---
Seen and examined by Miranda Tijerina, no new order given.
[2023-03-01 14:19] VITALS: BP 134/54
--- NOTE | 2023-03-01 18:00 | NUR ---
Resident returned from dialysis in stable condition AV fistula in the L FA with dressing in place. Served his dinner tray after he was made comfortable in bed.
[2023-03-01] MEDS: NEPRO 1,000 ML BOTTLE GT SCH (20:00)
[2023-03-01 20:54] VITALS: BP 148/67
[2023-03-01] MEDS: MELATONIN 3 MG TABLET GT SCH (21:38)
[2023-03-02] MEDS: IPRATROPIUM NEB FS 0.5 MG/2.5 ML AMPUL.NEB NEB SCH ×4 (02:02→20:05)
[2023-03-02] MEDS: ALBUTEROL FS 2.5 MG/0.5 ML VIAL.NEB NEB SCH ×4 (02:03→20:05)
[2023-03-02] MEDS: hydrOXYzine HCL SYRUP 10 MG/5 ML UDC GT SCH ×3 (05:45→21:58)
[2023-03-02 07:08] VITALS: BP 148/72
[2023-03-02] MEDS: DOCUSATE SODIUM LIQ 100 MG/10 ML UDC GT SCH (08:22)
[2023-03-02] MEDS: ACETAMINOPHEN 650 MG/20 ML UDC- SA PATIENTS-PAIN ONLY GT SCH (08:23)
[2023-03-02] MEDS: NEPRO VAN 237 ML CAN PO SCH ×2 (08:23→17:33)
[2023-03-02] MEDS: VITAMINS A AND D 56.7 GM TUBE TP SCH ×3 (08:23→21:58)
[2023-03-02] MEDS: SENNOSIDES 8.6 MG TABLET PO SCH (08:23)
[2023-03-02] MEDS: PANTOPRAZOLE 40 MG/PACK PACK GT SCH ×2 (08:25→21:58)
[2023-03-02] MEDS: SEVELAMER CARBONATE 800 MG POWD.PACK GT SCH ×2 (08:25→17:33)
[2023-03-02] MEDS: FOLIC ACID 1 MG TABLET GT SCH (08:26)
[2023-03-02] MEDS: ESCITALOPRAM OXALATE (10 MG) 10 MG TABLET GT SCH (08:27)
[2023-03-02] MEDS: AMLODIPINE BESYLATE 5 MG TABLET GT SCH (08:28)
[2023-03-02] MEDS: VIT B CMPLX 3/FA/VIT C/BIOTIN 1 TAB TABLET PO SCH (08:29)
[2023-03-02 10:00] VITALS: BP 148/72
[2023-03-02 12:00] VITALS: BP 130/58
--- NOTE | 2023-03-02 17:40 | NUR ---
Pt's side rails were placed down to assess the need for them. Pillows were placed on both sides of pt. Pt noted to be leaning on the side of the bed, pillows getting moved out of place. Repositioned pt. Pt has non skid socks on both feet. Placed side rails x 2.
[2023-03-02 19:10] VITALS: BP 122/73
[2023-03-02] MEDS: NEPRO 1,000 ML BOTTLE GT SCH (20:00)
[2023-03-02] MEDS: MELATONIN 3 MG TABLET GT SCH (21:58)
[2023-03-02 23:56] VITALS: BP 132/75
[2023-03-03] MEDS: IPRATROPIUM NEB FS 0.5 MG/2.5 ML AMPUL.NEB NEB SCH ×4 (02:00→20:23)
[2023-03-03] MEDS: ALBUTEROL FS 2.5 MG/0.5 ML VIAL.NEB NEB SCH ×4 (02:00→20:23)
[2023-03-03] MEDS: hydrOXYzine HCL SYRUP 10 MG/5 ML UDC GT SCH ×3 (05:26→21:10)
[2023-03-03 07:37] VITALS: BP 140/58
[2023-03-03] MEDS: FOLIC ACID 1 MG TABLET GT SCH (09:11)
[2023-03-03] MEDS: DOCUSATE SODIUM LIQ 100 MG/10 ML UDC GT SCH (09:11)
[2023-03-03] MEDS: ESCITALOPRAM OXALATE (10 MG) 10 MG TABLET GT SCH (09:12)
[2023-03-03] MEDS: AMLODIPINE BESYLATE 5 MG TABLET GT SCH (09:12)
[2023-03-03] MEDS: PANTOPRAZOLE 40 MG/PACK PACK GT SCH ×2 (09:13→21:10)
[2023-03-03] MEDS: NEPRO VAN 237 ML CAN PO SCH ×2 (09:13→17:53)
[2023-03-03] MEDS: SEVELAMER CARBONATE 800 MG POWD.PACK GT SCH ×2 (09:13→17:53)
[2023-03-03] MEDS: SENNOSIDES 8.6 MG TABLET PO SCH (09:14)
[2023-03-03] MEDS: VITAMINS A AND D 56.7 GM TUBE TP SCH ×3 (09:14→21:10)
[2023-03-03] MEDS: VIT B CMPLX 3/FA/VIT C/BIOTIN 1 TAB TABLET PO SCH (09:20)
[2023-03-03 11:17] VITALS: BP 130/63
--- NOTE | 2023-03-03 12:05 | NUR ---
Patient asleep. with both pillows on each side, side rails use reassessed. Both side rails were down. Patient is not moving as much in bed as he is in deep sleep. Frequent visual rounds done. When awake, noted to stretch his legs out at the edge of bed. Repositioned his legs back between the pillows and few minutes later his legs are observed stretching and sliding at the edge of the bed. Instructed patient to keep legs inside the bed and said OK but has poor safety awareness and he is not keeping his legs inside. Patient unsafe to keep side rails down.
--- NOTE | 2023-03-03 12:30 | NUR ---
held atarax 10mg/5ml due to patient has been sleepy, CN aware. V/S within normal limit, afebrile. Continue to monitor, side rails up x2 as ordered.
[2023-03-03 19:11] VITALS: BP 137/65
[2023-03-03] MEDS: NEPRO 1,000 ML BOTTLE GT SCH (20:04)
[2023-03-03] MEDS: MELATONIN 3 MG TABLET GT SCH (21:10)
[2023-03-03 23:51] VITALS: BP 137/65
[2023-03-04] MEDS: IPRATROPIUM NEB FS 0.5 MG/2.5 ML AMPUL.NEB NEB SCH ×4 (02:19→20:24)
[2023-03-04] MEDS: ALBUTEROL FS 2.5 MG/0.5 ML VIAL.NEB NEB SCH ×4 (02:19→20:24)
[2023-03-04] MEDS: hydrOXYzine HCL SYRUP 10 MG/5 ML UDC GT SCH ×3 (04:57→21:41)
[2023-03-04 05:30] VITALS: BP 139/62
[2023-03-04 07:41] VITALS: BP 147/65
[2023-03-04] MEDS: PANTOPRAZOLE 40 MG/PACK PACK GT SCH ×2 (09:24→21:41)
[2023-03-04] MEDS: DOCUSATE SODIUM LIQ 100 MG/10 ML UDC GT SCH (09:24)
[2023-03-04] MEDS: ESCITALOPRAM OXALATE (10 MG) 10 MG TABLET GT SCH (09:24)
[2023-03-04] MEDS: FOLIC ACID 1 MG TABLET GT SCH (09:24)
[2023-03-04] MEDS: AMLODIPINE BESYLATE 5 MG TABLET GT SCH (09:24)
[2023-03-04] MEDS: VITAMINS A AND D 56.7 GM TUBE TP SCH ×3 (09:24→21:41)
[2023-03-04] MEDS: VIT B CMPLX 3/FA/VIT C/BIOTIN 1 TAB TABLET PO SCH (09:24)
[2023-03-04] MEDS: NEPRO VAN 237 ML CAN PO SCH ×2 (09:24→16:39)
[2023-03-04] MEDS: SEVELAMER CARBONATE 800 MG POWD.PACK GT SCH ×2 (09:24→16:39)
[2023-03-04] MEDS: SENNOSIDES 8.6 MG TABLET PO SCH (09:24)
[2023-03-04 11:45] VITALS: BP 137/71
[2023-03-04 18:47] VITALS: BP 127/62
[2023-03-04] MEDS: MELATONIN 3 MG TABLET GT SCH (21:41)
[2023-03-04 23:46] VITALS: BP 131/60
[2023-03-05] MEDS: ALBUTEROL FS 2.5 MG/0.5 ML VIAL.NEB NEB SCH ×4 (02:13→20:24)
[2023-03-05] MEDS: IPRATROPIUM NEB FS 0.5 MG/2.5 ML AMPUL.NEB NEB SCH ×4 (02:13→20:24)
[2023-03-05] MEDS: hydrOXYzine HCL SYRUP 10 MG/5 ML UDC GT SCH ×3 (05:37→21:55)
[2023-03-05] MEDS: AMLODIPINE BESYLATE 5 MG TABLET GT SCH (09:21)
[2023-03-05] MEDS: NEPRO VAN 237 ML CAN PO SCH ×2 (09:21→16:25)
[2023-03-05] MEDS: ACETAMINOPHEN 650 MG/20 ML UDC- SA PATIENTS-PAIN ONLY GT SCH (09:21)
[2023-03-05] MEDS: VITAMINS A AND D 56.7 GM TUBE TP SCH ×3 (09:21→21:55)
[2023-03-05] MEDS: FOLIC ACID 1 MG TABLET GT SCH (09:21)
[2023-03-05] MEDS: SENNOSIDES 8.6 MG TABLET PO SCH (09:21)
[2023-03-05] MEDS: ESCITALOPRAM OXALATE (10 MG) 10 MG TABLET GT SCH (09:21)
[2023-03-05] MEDS: SEVELAMER CARBONATE 800 MG POWD.PACK GT SCH ×2 (09:21→16:25)
[2023-03-05] MEDS: PANTOPRAZOLE 40 MG/PACK PACK GT SCH ×2 (09:21→21:55)
[2023-03-05] MEDS: DOCUSATE SODIUM LIQ 100 MG/10 ML UDC GT SCH (09:21)
[2023-03-05] MEDS: VIT B CMPLX 3/FA/VIT C/BIOTIN 1 TAB TABLET PO SCH (09:21)
[2023-03-05 10:31] VITALS: BP 124/68
--- NOTE | 2023-03-05 14:21 | NUR ---
Resident on activity program was seen and activities was provided. Room Visit, 1:1 social, grooming, daily news, What's New uniquea music on tablet. Radio 94.7 music. Story telling. activity will continue as current.
[2023-03-05 20:08] VITALS: BP 125/56
[2023-03-05] MEDS: MELATONIN 3 MG TABLET GT SCH (21:55)
[2023-03-06] MEDS: IPRATROPIUM NEB FS 0.5 MG/2.5 ML AMPUL.NEB NEB SCH ×4 (02:18→20:24)
[2023-03-06] MEDS: ALBUTEROL FS 2.5 MG/0.5 ML VIAL.NEB NEB SCH ×4 (02:18→20:24)
[2023-03-06] MEDS: hydrOXYzine HCL SYRUP 10 MG/5 ML UDC GT SCH ×3 (05:42→20:15)
[2023-03-06 08:00] VITALS: BP 150/69
[2023-03-06] MEDS: ESCITALOPRAM OXALATE (10 MG) 10 MG TABLET GT SCH (08:52)
[2023-03-06] MEDS: DOCUSATE SODIUM LIQ 100 MG/10 ML UDC GT SCH (08:52)
[2023-03-06] MEDS: FOLIC ACID 1 MG TABLET GT SCH (08:52)
[2023-03-06] MEDS: SEVELAMER CARBONATE 800 MG POWD.PACK GT SCH ×2 (08:53→18:06)
[2023-03-06] MEDS: ACETAMINOPHEN 650 MG/20 ML UDC- SA PATIENTS-PAIN ONLY GT SCH (08:53)
[2023-03-06] MEDS: NEPRO VAN 237 ML CAN PO SCH ×2 (08:53→18:06)
[2023-03-06] MEDS: PANTOPRAZOLE 40 MG/PACK PACK GT SCH ×2 (08:53→20:15)
[2023-03-06] MEDS: VITAMINS A AND D 56.7 GM TUBE TP SCH ×3 (08:53→20:15)
[2023-03-06] MEDS: SENNOSIDES 8.6 MG TABLET PO SCH (08:53)
[2023-03-06] MEDS: VIT B CMPLX 3/FA/VIT C/BIOTIN 1 TAB TABLET PO SCH (08:53)
[2023-03-06] MEDS: AMLODIPINE BESYLATE 5 MG TABLET GT SCH (08:53)
--- NOTE | 2023-03-06 09:00 | NUR ---
Seen and examined by Dr. Evans, no new order given.
--- NOTE | 2023-03-06 13:05 | NUR ---
Resident left for dialysis in stable condition. AV fistula in the L upper arm intact, denies any pain, vs: 98.7, 67, 16, 155/75, o2 sat 98%.
--- NOTE | 2023-03-06 18:19 | NUR ---
Resident returned from dialysis at 1800 in stable condition AV fistula in the L FA with dressing in place, denies pain, kept clean dry and comfortable. VS: 97.7, 74, 17, 134/78, o2 sat 96%.
[2023-03-06 20:48] VITALS: BP 145/72
[2023-03-06] MEDS: MELATONIN 3 MG TABLET GT SCH (21:40)
[2023-03-07] MEDS: ALBUTEROL FS 2.5 MG/0.5 ML VIAL.NEB NEB SCH ×4 (02:27→20:02)
[2023-03-07] MEDS: IPRATROPIUM NEB FS 0.5 MG/2.5 ML AMPUL.NEB NEB SCH ×4 (02:27→20:02)
[2023-03-07] MEDS: hydrOXYzine HCL SYRUP 10 MG/5 ML UDC GT SCH ×3 (05:47→21:21)
[2023-03-07 07:19] LABS: HEMOGLOBIN 12.5 g/dL (13.5-17.5)
[2023-03-07 08:00] VITALS: BP 110/51
[2023-03-07] MEDS: AMLODIPINE BESYLATE 5 MG TABLET GT SCH (08:27)
[2023-03-07] MEDS: DOCUSATE SODIUM LIQ 100 MG/10 ML UDC GT SCH (08:27)
[2023-03-07] MEDS: ESCITALOPRAM OXALATE (10 MG) 10 MG TABLET GT SCH (08:27)
[2023-03-07] MEDS: FOLIC ACID 1 MG TABLET GT SCH (08:27)
[2023-03-07] MEDS: VIT B CMPLX 3/FA/VIT C/BIOTIN 1 TAB TABLET PO SCH (08:28)
[2023-03-07] MEDS: NEPRO VAN 237 ML CAN PO SCH ×2 (08:28→16:33)
[2023-03-07] MEDS: SENNOSIDES 8.6 MG TABLET PO SCH (08:28)
[2023-03-07] MEDS: PANTOPRAZOLE 40 MG/PACK PACK GT SCH ×2 (08:28→21:21)
[2023-03-07] MEDS: ACETAMINOPHEN 650 MG/20 ML UDC- SA PATIENTS-PAIN ONLY GT SCH (08:28)
[2023-03-07] MEDS: VITAMINS A AND D 56.7 GM TUBE TP SCH ×3 (08:28→21:21)
[2023-03-07] MEDS: SEVELAMER CARBONATE 800 MG POWD.PACK GT SCH ×2 (08:28→16:33)
[2023-03-07 12:00] VITALS: BP 122/57
--- NOTE | 2023-03-07 13:56 | NUR ---
Daily activity note. Resident on activity program was seen and sensory stimulation was provided. Room Visits, 1:1 social, Squashers, Reminiscing, Movie hour Pixels, story Spider man. These activities will continue as current.
[2023-03-07 18:57] VITALS: BP 115/64
[2023-03-07] MEDS: NEPRO 1,000 ML BOTTLE GT SCH (20:00)
[2023-03-07] MEDS: EPOETIN ALFA-EPBX 10,000 UNIT/ML VIAL SQ SCH (21:00)
[2023-03-07] MEDS: MELATONIN 3 MG TABLET GT SCH (21:21)
[2023-03-08] MEDS: ALBUTEROL FS 2.5 MG/0.5 ML VIAL.NEB NEB SCH ×4 (01:24→20:01)
[2023-03-08] MEDS: IPRATROPIUM NEB FS 0.5 MG/2.5 ML AMPUL.NEB NEB SCH ×4 (01:24→20:01)
[2023-03-08] MEDS: hydrOXYzine HCL SYRUP 10 MG/5 ML UDC GT SCH ×3 (05:41→21:16)
[2023-03-08 07:21] VITALS: BP 127/55
[2023-03-08] MEDS: VITAMINS A AND D 56.7 GM TUBE TP SCH ×3 (09:00→21:17)
[2023-03-08] MEDS: NEPRO VAN 237 ML CAN PO SCH ×2 (09:00→18:00)
[2023-03-08] MEDS: SENNOSIDES 8.6 MG TABLET PO SCH (09:00)
[2023-03-08] MEDS: ESCITALOPRAM OXALATE (10 MG) 10 MG TABLET GT SCH (09:58)
[2023-03-08] MEDS: FOLIC ACID 1 MG TABLET GT SCH (09:58)
[2023-03-08] MEDS: DOCUSATE SODIUM LIQ 100 MG/10 ML UDC GT SCH (09:58)
[2023-03-08] MEDS: SEVELAMER CARBONATE 800 MG POWD.PACK GT SCH ×2 (09:59→18:00)
[2023-03-08] MEDS: PANTOPRAZOLE 40 MG/PACK PACK GT SCH ×2 (09:59→21:16)
[2023-03-08] MEDS: AMLODIPINE BESYLATE 5 MG TABLET GT SCH (09:59)
[2023-03-08] MEDS: ACETAMINOPHEN 650 MG/20 ML UDC- SA PATIENTS-PAIN ONLY GT SCH (10:00)
[2023-03-08] MEDS: VIT B CMPLX 3/FA/VIT C/BIOTIN 1 TAB TABLET PO SCH (10:00)
[2023-03-08 12:05] VITALS: BP 133/60
--- NOTE | 2023-03-08 12:49 | NUR ---
Daily activity note: Resident was seen for sensory stimulation was provided. Room Visit, 1:1 Social, Five Sense, Easy sounds, pianos, flute and Violin on Youtube. Story Telling. TotalTakeout music, Honey, [place] Dreams and What a wonderful World. These activities will continue as current.
[2023-03-08 19:29] VITALS: BP 139/66
[2023-03-08] MEDS: NEPRO 1,000 ML BOTTLE GT SCH (20:00)
[2023-03-08] MEDS: MELATONIN 3 MG TABLET GT SCH (21:17)
[2023-03-09 01:06] VITALS: BP 133/68
[2023-03-09] MEDS: ALBUTEROL FS 2.5 MG/0.5 ML VIAL.NEB NEB SCH ×4 (01:44→20:29)
[2023-03-09] MEDS: IPRATROPIUM NEB FS 0.5 MG/2.5 ML AMPUL.NEB NEB SCH ×4 (01:44→20:29)
[2023-03-09] MEDS: hydrOXYzine HCL SYRUP 10 MG/5 ML UDC GT SCH ×3 (05:26→21:21)
[2023-03-09 08:21] VITALS: BP 122/57
[2023-03-09] MEDS: AMLODIPINE BESYLATE 5 MG TABLET GT SCH (09:00)
[2023-03-09] MEDS: SEVELAMER CARBONATE 800 MG POWD.PACK GT SCH ×2 (09:00→17:36)
[2023-03-09] MEDS: PANTOPRAZOLE 40 MG/PACK PACK GT SCH ×2 (09:00→21:21)
[2023-03-09] MEDS: SENNOSIDES 8.6 MG TABLET PO SCH (09:00)
[2023-03-09] MEDS: VIT B CMPLX 3/FA/VIT C/BIOTIN 1 TAB TABLET PO SCH (09:00)
[2023-03-09] MEDS: NEPRO VAN 237 ML CAN PO SCH ×2 (09:00→17:36)
[2023-03-09] MEDS: DOCUSATE SODIUM LIQ 100 MG/10 ML UDC GT SCH (09:00)
[2023-03-09] MEDS: ESCITALOPRAM OXALATE (10 MG) 10 MG TABLET GT SCH (09:00)
[2023-03-09] MEDS: ACETAMINOPHEN 650 MG/20 ML UDC- SA PATIENTS-PAIN ONLY GT SCH (09:00)
[2023-03-09] MEDS: VITAMINS A AND D 56.7 GM TUBE TP SCH ×3 (09:00→21:21)
[2023-03-09] MEDS: FOLIC ACID 1 MG TABLET GT SCH (09:00)
--- NOTE | 2023-03-09 14:16 | NUR ---
INTERDISCIPLINARY PLAN OF CARE CONFERENCE took place today. Dr. Evans and Interdisciplinary team discussed the plan of care in detail. Current orders as well as treatments, medications and side rails use were reviewed. Previous SR order was d/brissa, new order written as 2 SR up for turning/repositioning. Knurling Machine Operator recommended to decrease GT feeding at night, Nepro 30cc/hr x 10 hours due to small increase in weight. Patient continue with his dialysis 3xweek, AV fistula L upper arm patent.
[2023-03-09] MEDS: NEPRO 1,000 ML BOTTLE GT SCH (20:00)
[2023-03-09 20:17] VITALS: BP 129/73
[2023-03-09] MEDS: MELATONIN 3 MG TABLET GT SCH (21:21)
[2023-03-10 00:32] VITALS: BP 124/60
[2023-03-10] MEDS: IPRATROPIUM NEB FS 0.5 MG/2.5 ML AMPUL.NEB NEB SCH ×4 (02:08→20:11)
[2023-03-10] MEDS: ALBUTEROL FS 2.5 MG/0.5 ML VIAL.NEB NEB SCH ×4 (02:08→19:30)
[2023-03-10] MEDS: hydrOXYzine HCL SYRUP 10 MG/5 ML UDC GT SCH ×3 (05:42→21:45)
[2023-03-10 07:36] VITALS: BP 141/61
[2023-03-10] MEDS: DOCUSATE SODIUM LIQ 100 MG/10 ML UDC GT SCH (09:55)
[2023-03-10] MEDS: FOLIC ACID 1 MG TABLET GT SCH (09:55)
[2023-03-10] MEDS: ESCITALOPRAM OXALATE (10 MG) 10 MG TABLET GT SCH (09:55)
[2023-03-10] MEDS: VITAMINS A AND D 56.7 GM TUBE TP SCH ×3 (09:56→21:45)
[2023-03-10] MEDS: NEPRO VAN 237 ML CAN PO SCH ×2 (09:56→17:58)
[2023-03-10] MEDS: AMLODIPINE BESYLATE 5 MG TABLET GT SCH (09:56)
[2023-03-10] MEDS: VIT B CMPLX 3/FA/VIT C/BIOTIN 1 TAB TABLET PO SCH (09:56)
[2023-03-10] MEDS: PANTOPRAZOLE 40 MG/PACK PACK GT SCH ×2 (09:56→21:45)
[2023-03-10] MEDS: SENNOSIDES 8.6 MG TABLET PO SCH (09:56)
[2023-03-10] MEDS: SEVELAMER CARBONATE 800 MG POWD.PACK GT SCH ×2 (09:56→17:58)
--- NOTE | 2023-03-10 13:00 | NUR ---
Resident left for dialysis in stable condition. AV fistula in the L upper arm intact, denies any pain, vs: 98.4, 67, 18, 164/75, o2 sat 98%. Peek-a-bonner mittens in place. Patient accompanied by sitter.
[2023-03-10 14:20] VITALS: BP 164/75
[2023-03-10 19:50] VITALS: BP 139/67
[2023-03-10] MEDS: NEPRO 1,000 ML BOTTLE GT SCH (20:00)
[2023-03-10] MEDS: MELATONIN 3 MG TABLET GT SCH (21:45)
[2023-03-10 23:37] VITALS: BP 120/62
[2023-03-11] MEDS: ALBUTEROL FS 2.5 MG/0.5 ML VIAL.NEB NEB SCH ×4 (01:46→20:13)
[2023-03-11] MEDS: IPRATROPIUM NEB FS 0.5 MG/2.5 ML AMPUL.NEB NEB SCH ×4 (01:46→20:13)
[2023-03-11] MEDS: hydrOXYzine HCL SYRUP 10 MG/5 ML UDC GT SCH ×3 (05:14→20:40)
--- NOTE | 2023-03-11 05:50 | NUR ---
RN NOTES PATIENT IN BED, ASLEEP AND COMFORTABLE. STILL WITH EPISODE OF TRYING TO GET OUT OF BED UNASSISTED LAST NIGHT, SAYING THAT HE WANTS TO GET UP FOR WORK. RE-ORIENTED, BED ALARM ON. BED LOW AND LOCKED, CALL LIGHT IN REACH. CLOSELY MONITORED.
[2023-03-11 07:57] VITALS: BP 153/60
[2023-03-11] MEDS: DOCUSATE SODIUM LIQ 100 MG/10 ML UDC GT SCH (09:36)
[2023-03-11] MEDS: AMLODIPINE BESYLATE 5 MG TABLET GT SCH (09:37)
[2023-03-11] MEDS: ESCITALOPRAM OXALATE (10 MG) 10 MG TABLET GT SCH (09:37)
[2023-03-11] MEDS: FOLIC ACID 1 MG TABLET GT SCH (09:37)
[2023-03-11] MEDS: PANTOPRAZOLE 40 MG/PACK PACK GT SCH ×2 (09:37→20:40)
[2023-03-11] MEDS: SEVELAMER CARBONATE 800 MG POWD.PACK GT SCH ×2 (09:37→16:49)
[2023-03-11] MEDS: VIT B CMPLX 3/FA/VIT C/BIOTIN 1 TAB TABLET PO SCH (09:37)
[2023-03-11] MEDS: VITAMINS A AND D 56.7 GM TUBE TP SCH ×3 (09:38→20:40)
[2023-03-11] MEDS: SENNOSIDES 8.6 MG TABLET PO SCH (09:38)
[2023-03-11] MEDS: NEPRO VAN 237 ML CAN PO SCH ×2 (09:38→16:49)
[2023-03-11 14:40] VITALS: BP 138/69
[2023-03-11 20:00] VITALS: BP 126/64
[2023-03-11] MEDS: MELATONIN 3 MG TABLET GT SCH (21:18)
[2023-03-12] MEDS: ALBUTEROL FS 2.5 MG/0.5 ML VIAL.NEB NEB SCH ×4 (01:38→19:58)
[2023-03-12] MEDS: IPRATROPIUM NEB FS 0.5 MG/2.5 ML AMPUL.NEB NEB SCH ×4 (01:38→19:58)
[2023-03-12] MEDS: hydrOXYzine HCL SYRUP 10 MG/5 ML UDC GT SCH ×3 (05:23→20:55)
[2023-03-12 07:37] VITALS: BP 137/60
[2023-03-12] MEDS: NEPRO VAN 237 ML CAN PO SCH ×2 (09:56→17:30)
[2023-03-12] MEDS: PANTOPRAZOLE 40 MG/PACK PACK GT SCH ×2 (09:56→20:55)
[2023-03-12] MEDS: FOLIC ACID 1 MG TABLET GT SCH (09:56)
[2023-03-12] MEDS: VITAMINS A AND D 56.7 GM TUBE TP SCH ×3 (09:56→20:56)
[2023-03-12] MEDS: ACETAMINOPHEN 650 MG/20 ML UDC- SA PATIENTS-PAIN ONLY GT SCH (09:56)
[2023-03-12] MEDS: SENNOSIDES 8.6 MG TABLET PO SCH (09:56)
[2023-03-12] MEDS: SEVELAMER CARBONATE 800 MG POWD.PACK GT SCH ×2 (09:56→17:30)
[2023-03-12] MEDS: AMLODIPINE BESYLATE 5 MG TABLET GT SCH (09:56)
[2023-03-12] MEDS: DOCUSATE SODIUM LIQ 100 MG/10 ML UDC GT SCH (09:56)
[2023-03-12] MEDS: ESCITALOPRAM OXALATE (10 MG) 10 MG TABLET GT SCH (09:56)
[2023-03-12] MEDS: VIT B CMPLX 3/FA/VIT C/BIOTIN 1 TAB TABLET PO SCH (09:57)
[2023-03-12 11:54] VITALS: BP 136/65
[2023-03-12 20:43] VITALS: BP 126/56
[2023-03-12] MEDS: MELATONIN 3 MG TABLET GT SCH (21:03)
[2023-03-12] MEDS: NEPRO 1,000 ML BOTTLE GT SCH (23:16)
[2023-03-13] MEDS: ALBUTEROL FS 2.5 MG/0.5 ML VIAL.NEB NEB SCH ×4 (01:45→20:24)
[2023-03-13] MEDS: IPRATROPIUM NEB FS 0.5 MG/2.5 ML AMPUL.NEB NEB SCH ×4 (01:45→20:24)
[2023-03-13] MEDS: hydrOXYzine HCL SYRUP 10 MG/5 ML UDC GT SCH ×3 (05:48→21:59)
[2023-03-13 07:37] VITALS: BP 151/61
[2023-03-13] MEDS: VITAMINS A AND D 56.7 GM TUBE TP SCH ×3 (09:58→21:59)
[2023-03-13] MEDS: PANTOPRAZOLE 40 MG/PACK PACK GT SCH ×2 (09:58→21:59)
[2023-03-13] MEDS: AMLODIPINE BESYLATE 5 MG TABLET GT SCH (09:58)
[2023-03-13] MEDS: FOLIC ACID 1 MG TABLET GT SCH (09:58)
[2023-03-13] MEDS: VIT B CMPLX 3/FA/VIT C/BIOTIN 1 TAB TABLET PO SCH (09:58)
[2023-03-13] MEDS: ACETAMINOPHEN 650 MG/20 ML UDC- SA PATIENTS-PAIN ONLY GT SCH (09:58)
[2023-03-13] MEDS: SENNOSIDES 8.6 MG TABLET PO SCH (09:58)
[2023-03-13] MEDS: DOCUSATE SODIUM LIQ 100 MG/10 ML UDC GT SCH (09:58)
[2023-03-13] MEDS: NEPRO VAN 237 ML CAN PO SCH ×2 (09:58→17:48)
[2023-03-13] MEDS: SEVELAMER CARBONATE 800 MG POWD.PACK GT SCH ×2 (09:58→17:48)
[2023-03-13] MEDS: ESCITALOPRAM OXALATE (10 MG) 10 MG TABLET GT SCH (09:58)
[2023-03-13 11:29] VITALS: BP 141/63
--- NOTE | 2023-03-13 13:00 | NUR ---
Resident left for dialysis per gurshantel with ambulance, in stable condition. AV fistula on the L upper arm intact, denies any pain, vs: 97.7F, DE-65, RR-18, BP-137/67, O2 sat -98%. Peek-a-bonner mittens applied. Patient accompanied by sitter.
--- NOTE | 2023-03-13 17:45 | NUR ---
Resident returned from dialysis at 1745, in stable condition. AV fistula on the GLENN with dressing in place, dry and clean. Denies pain. Transferred to bed and made comfortable. VS: Temp. 97.9F, MS- 106, RR-18, BP- 141/68, O2 sat 96%. Will continue to monitor.
[2023-03-13 20:23] VITALS: BP 128/55
[2023-03-13] MEDS: MELATONIN 3 MG TABLET GT SCH (21:59)
[2023-03-14] MEDS: IPRATROPIUM NEB FS 0.5 MG/2.5 ML AMPUL.NEB NEB SCH ×4 (02:14→20:12)
[2023-03-14] MEDS: ALBUTEROL FS 2.5 MG/0.5 ML VIAL.NEB NEB SCH ×4 (02:14→20:12)
[2023-03-14] MEDS: hydrOXYzine HCL SYRUP 10 MG/5 ML UDC GT SCH ×3 (05:23→21:21)
[2023-03-14 07:48] VITALS: BP 125/64
[2023-03-14] MEDS: DOCUSATE SODIUM LIQ 100 MG/10 ML UDC GT SCH (09:48)
[2023-03-14] MEDS: ESCITALOPRAM OXALATE (10 MG) 10 MG TABLET GT SCH (09:48)
[2023-03-14] MEDS: FOLIC ACID 1 MG TABLET GT SCH (09:48)
[2023-03-14] MEDS: AMLODIPINE BESYLATE 5 MG TABLET GT SCH (09:49)
[2023-03-14] MEDS: SENNOSIDES 8.6 MG TABLET PO SCH (09:49)
[2023-03-14] MEDS: PANTOPRAZOLE 40 MG/PACK PACK GT SCH ×2 (09:49→21:21)
[2023-03-14] MEDS: VIT B CMPLX 3/FA/VIT C/BIOTIN 1 TAB TABLET PO SCH (09:49)
[2023-03-14] MEDS: ACETAMINOPHEN 650 MG/20 ML UDC- SA PATIENTS-PAIN ONLY GT SCH (09:49)
[2023-03-14] MEDS: NEPRO VAN 237 ML CAN PO SCH ×2 (09:49→17:10)
[2023-03-14] MEDS: SEVELAMER CARBONATE 800 MG POWD.PACK GT SCH ×2 (09:49→17:10)
[2023-03-14] MEDS: VITAMINS A AND D 56.7 GM TUBE TP SCH ×3 (09:49→21:22)
[2023-03-14] MEDS: NEPRO 1,000 ML BOTTLE GT SCH (20:13)
[2023-03-14] MEDS: EPOETIN ALFA-EPBX 10,000 UNIT/ML VIAL SQ SCH (21:00)
[2023-03-14 21:07] VITALS: BP 132/66
[2023-03-14] MEDS: MELATONIN 3 MG TABLET GT SCH (21:22)
[2023-03-15] MEDS: IPRATROPIUM NEB FS 0.5 MG/2.5 ML AMPUL.NEB NEB SCH ×4 (01:59→20:29)
[2023-03-15] MEDS: ALBUTEROL FS 2.5 MG/0.5 ML VIAL.NEB NEB SCH ×4 (01:59→20:29)
[2023-03-15] MEDS: hydrOXYzine HCL SYRUP 10 MG/5 ML UDC GT SCH ×3 (05:36→21:25)
[2023-03-15 07:35] VITALS: BP 141/62
--- NOTE | 2023-03-15 08:48 | NUR ---
Resident in bed, positioned upright for breakfast He is able to feed himself with set up assist and supervision. No coughing or swallowing difficulty noted. After eating his breakfast patient was seen pushing the tray table in front of him. He tends to slide at the edge towards the foot of the bed. Repositioned and lowered HOB to prevent him from sliding. Dr. Sotelo making rounds no new order given at this time.
[2023-03-15] MEDS: DOCUSATE SODIUM LIQ 100 MG/10 ML UDC GT SCH (09:22)
[2023-03-15] MEDS: SEVELAMER CARBONATE 800 MG POWD.PACK GT SCH ×2 (09:22→17:00)
[2023-03-15] MEDS: PANTOPRAZOLE 40 MG/PACK PACK GT SCH ×2 (09:22→21:25)
[2023-03-15] MEDS: AMLODIPINE BESYLATE 5 MG TABLET GT SCH (09:22)
[2023-03-15] MEDS: FOLIC ACID 1 MG TABLET GT SCH (09:22)
[2023-03-15] MEDS: SENNOSIDES 8.6 MG TABLET PO SCH (09:22)
[2023-03-15] MEDS: VIT B CMPLX 3/FA/VIT C/BIOTIN 1 TAB TABLET PO SCH (09:22)
[2023-03-15] MEDS: ESCITALOPRAM OXALATE (10 MG) 10 MG TABLET GT SCH (09:22)
[2023-03-15] MEDS: NEPRO VAN 237 ML CAN PO SCH ×2 (09:22→17:00)
[2023-03-15] MEDS: ACETAMINOPHEN 650 MG/20 ML UDC- SA PATIENTS-PAIN ONLY GT SCH (09:22)
[2023-03-15] MEDS: VITAMINS A AND D 56.7 GM TUBE TP SCH ×3 (09:22→21:25)
[2023-03-15 12:47] VITALS: BP 153/76
--- NOTE | 2023-03-15 15:30 | NUR ---
Seen and examined by AYDE Tijerina, no new order given.
[2023-03-15 20:07] VITALS: BP 137/59
[2023-03-15] MEDS: NEPRO 1,000 ML BOTTLE GT SCH (20:22)
[2023-03-15] MEDS: MELATONIN 3 MG TABLET GT SCH (21:25)
[2023-03-16] MEDS: IPRATROPIUM NEB FS 0.5 MG/2.5 ML AMPUL.NEB NEB SCH ×4 (02:08→20:15)
[2023-03-16] MEDS: ALBUTEROL FS 2.5 MG/0.5 ML VIAL.NEB NEB SCH ×4 (02:08→20:15)
[2023-03-16] MEDS: hydrOXYzine HCL SYRUP 10 MG/5 ML UDC GT SCH ×3 (04:51→20:34)
[2023-03-16 07:52] VITALS: BP 150/57
[2023-03-16] MEDS: AMLODIPINE BESYLATE 5 MG TABLET GT SCH (09:26)
[2023-03-16] MEDS: DOCUSATE SODIUM LIQ 100 MG/10 ML UDC GT SCH (09:26)
[2023-03-16] MEDS: FOLIC ACID 1 MG TABLET GT SCH (09:26)
[2023-03-16] MEDS: ESCITALOPRAM OXALATE (10 MG) 10 MG TABLET GT SCH (09:26)
[2023-03-16] MEDS: SEVELAMER CARBONATE 800 MG POWD.PACK GT SCH ×2 (09:26→17:00)
[2023-03-16] MEDS: PANTOPRAZOLE 40 MG/PACK PACK GT SCH ×2 (09:26→20:34)
[2023-03-16] MEDS: ACETAMINOPHEN 650 MG/20 ML UDC- SA PATIENTS-PAIN ONLY GT SCH (09:27)
[2023-03-16] MEDS: SENNOSIDES 8.6 MG TABLET PO SCH (09:27)
[2023-03-16] MEDS: NEPRO VAN 237 ML CAN PO SCH ×2 (09:27→17:00)
[2023-03-16] MEDS: VIT B CMPLX 3/FA/VIT C/BIOTIN 1 TAB TABLET PO SCH (09:27)
[2023-03-16] MEDS: VITAMINS A AND D 56.7 GM TUBE TP SCH ×3 (09:27→20:34)
[2023-03-16 20:32] VITALS: BP 143/71
[2023-03-16] MEDS: NEPRO 1,000 ML BOTTLE GT SCH (20:34)
[2023-03-16] MEDS: MELATONIN 3 MG TABLET GT SCH (21:32)
[2023-03-17 00:49] VITALS: BP 134/54
[2023-03-17] MEDS: IPRATROPIUM NEB FS 0.5 MG/2.5 ML AMPUL.NEB NEB SCH ×4 (02:05→19:05)
[2023-03-17] MEDS: ALBUTEROL FS 2.5 MG/0.5 ML VIAL.NEB NEB SCH ×4 (02:05→19:05)
[2023-03-17] MEDS: hydrOXYzine HCL SYRUP 10 MG/5 ML UDC GT SCH ×3 (05:14→20:41)
[2023-03-17 07:34] VITALS: BP 133/58
[2023-03-17] MEDS: AMLODIPINE BESYLATE 5 MG TABLET GT SCH (08:39)
[2023-03-17] MEDS: FOLIC ACID 1 MG TABLET GT SCH (08:39)
[2023-03-17] MEDS: PANTOPRAZOLE 40 MG/PACK PACK GT SCH ×2 (08:39→20:41)
[2023-03-17] MEDS: VIT B CMPLX 3/FA/VIT C/BIOTIN 1 TAB TABLET PO SCH (08:39)
[2023-03-17] MEDS: SEVELAMER CARBONATE 800 MG POWD.PACK GT SCH ×2 (08:39→17:50)
[2023-03-17] MEDS: ESCITALOPRAM OXALATE (10 MG) 10 MG TABLET GT SCH (08:39)
[2023-03-17] MEDS: DOCUSATE SODIUM LIQ 100 MG/10 ML UDC GT SCH (08:39)
[2023-03-17] MEDS: VITAMINS A AND D 56.7 GM TUBE TP SCH ×3 (08:40→20:41)
[2023-03-17] MEDS: SENNOSIDES 8.6 MG TABLET PO SCH (08:40)
[2023-03-17] MEDS: NEPRO VAN 237 ML CAN PO SCH ×2 (08:40→17:50)
--- NOTE | 2023-03-17 12:50 | NUR ---
Resident left for dialysis per gurshantel with ambulance, in stable condition. AV fistula on the L upper arm intact, denies any pain, vs: 97.7F, WV-69, RR-18, BP-152/63, O2 sat -98%. Peek-a-bonner mittens applied. Patient accompanied by sitter.
--- NOTE | 2023-03-17 17:41 | NUR ---
Resident returned from dialysis at 1730, in stable condition. AV fistula on the GLENN with dressing in place, dry and clean. Denies pain. Transferred to bed and made comfortable. VS: Temp. 98.2F, LA- 71, RR-18, BP- 126/67, O2 sat 96%. Will continue to monitor.
[2023-03-17 20:34] VITALS: BP 128/65
[2023-03-17] MEDS: NEPRO 1,000 ML BOTTLE GT SCH (20:41)
[2023-03-17] MEDS: MELATONIN 3 MG TABLET GT SCH (21:27)
[2023-03-17 23:49] VITALS: BP 125/62
[2023-03-18] MEDS: IPRATROPIUM NEB FS 0.5 MG/2.5 ML AMPUL.NEB NEB SCH ×4 (01:02→19:08)
[2023-03-18] MEDS: ALBUTEROL FS 2.5 MG/0.5 ML VIAL.NEB NEB SCH ×4 (01:02→19:08)
[2023-03-18] MEDS: hydrOXYzine HCL SYRUP 10 MG/5 ML UDC GT SCH ×3 (04:58→20:45)
[2023-03-18 07:02] VITALS: BP 126/54
[2023-03-18] MEDS: PANTOPRAZOLE 40 MG/PACK PACK GT SCH ×2 (09:53→20:45)
[2023-03-18] MEDS: NEPRO VAN 237 ML CAN PO SCH ×2 (09:53→17:40)
[2023-03-18] MEDS: SENNOSIDES 8.6 MG TABLET PO SCH (09:53)
[2023-03-18] MEDS: FOLIC ACID 1 MG TABLET GT SCH (09:53)
[2023-03-18] MEDS: DOCUSATE SODIUM LIQ 100 MG/10 ML UDC GT SCH (09:53)
[2023-03-18] MEDS: VITAMINS A AND D 56.7 GM TUBE TP SCH ×3 (09:53→20:45)
[2023-03-18] MEDS: AMLODIPINE BESYLATE 5 MG TABLET GT SCH (09:53)
[2023-03-18] MEDS: SEVELAMER CARBONATE 800 MG POWD.PACK GT SCH ×2 (09:53→17:40)
[2023-03-18] MEDS: ESCITALOPRAM OXALATE (10 MG) 10 MG TABLET GT SCH (09:53)
[2023-03-18] MEDS: VIT B CMPLX 3/FA/VIT C/BIOTIN 1 TAB TABLET PO SCH (09:56)
[2023-03-18 19:49] VITALS: BP 123/50
[2023-03-18] MEDS: NEPRO 1,000 ML BOTTLE GT SCH (20:42)
[2023-03-18] MEDS: MELATONIN 3 MG TABLET GT SCH (21:19)
[2023-03-19] MEDS: IPRATROPIUM NEB FS 0.5 MG/2.5 ML AMPUL.NEB NEB SCH ×4 (02:09→20:00)
[2023-03-19] MEDS: ALBUTEROL FS 2.5 MG/0.5 ML VIAL.NEB NEB SCH ×4 (02:09→20:00)
[2023-03-19] MEDS: hydrOXYzine HCL SYRUP 10 MG/5 ML UDC GT SCH ×3 (05:46→20:52)
[2023-03-19] MEDS: ACETAMINOPHEN 650 MG/20 ML UDC- SA PATIENTS-PAIN ONLY GT SCH (09:37)
[2023-03-19] MEDS: SENNOSIDES 8.6 MG TABLET PO SCH (09:37)
[2023-03-19] MEDS: VITAMINS A AND D 56.7 GM TUBE TP SCH ×3 (09:37→20:52)
[2023-03-19] MEDS: FOLIC ACID 1 MG TABLET GT SCH (09:37)
[2023-03-19] MEDS: DOCUSATE SODIUM LIQ 100 MG/10 ML UDC GT SCH (09:37)
[2023-03-19] MEDS: PANTOPRAZOLE 40 MG/PACK PACK GT SCH ×2 (09:37→20:52)
[2023-03-19] MEDS: AMLODIPINE BESYLATE 5 MG TABLET GT SCH (09:37)
[2023-03-19] MEDS: SEVELAMER CARBONATE 800 MG POWD.PACK GT SCH ×2 (09:37→17:06)
[2023-03-19] MEDS: ESCITALOPRAM OXALATE (10 MG) 10 MG TABLET GT SCH (09:37)
[2023-03-19] MEDS: NEPRO VAN 237 ML CAN PO SCH ×2 (09:37→17:06)
[2023-03-19] MEDS: VIT B CMPLX 3/FA/VIT C/BIOTIN 1 TAB TABLET PO SCH (09:38)
[2023-03-19 13:23] VITALS: BP 129/62
[2023-03-19 14:15] VITALS: BP 137/70
--- NOTE | 2023-03-19 16:07 | NUR ---
PATIENT ON ROOM AIR. NO S/S OF RESPIRATORY DISTRESS NOTED. HHN TXS RORY WELL WITH NO ADVERSE REACTION NOTED.
[2023-03-19 20:00] VITALS: BP 124/67
[2023-03-19] MEDS: MELATONIN 3 MG TABLET GT SCH (21:22)
[2023-03-20] MEDS: IPRATROPIUM NEB FS 0.5 MG/2.5 ML AMPUL.NEB NEB SCH ×4 (02:16→20:08)
[2023-03-20] MEDS: ALBUTEROL FS 2.5 MG/0.5 ML VIAL.NEB NEB SCH ×4 (02:16→20:08)
[2023-03-20] MEDS: hydrOXYzine HCL SYRUP 10 MG/5 ML UDC GT SCH ×3 (05:40→20:42)
[2023-03-20 08:44] VITALS: BP 136/54
--- NOTE | 2023-03-20 09:04 | NUR ---
Seen and examined by Dr. Evans, no new order given.
[2023-03-20] MEDS: DOCUSATE SODIUM LIQ 100 MG/10 ML UDC GT SCH (09:46)
[2023-03-20] MEDS: ESCITALOPRAM OXALATE (10 MG) 10 MG TABLET GT SCH (09:46)
[2023-03-20] MEDS: FOLIC ACID 1 MG TABLET GT SCH (09:46)
[2023-03-20] MEDS: NEPRO VAN 237 ML CAN PO SCH ×2 (09:47→17:43)
[2023-03-20] MEDS: AMLODIPINE BESYLATE 5 MG TABLET GT SCH (09:47)
[2023-03-20] MEDS: VITAMINS A AND D 56.7 GM TUBE TP SCH ×3 (09:47→20:42)
[2023-03-20] MEDS: PANTOPRAZOLE 40 MG/PACK PACK GT SCH ×2 (09:47→20:42)
[2023-03-20] MEDS: SEVELAMER CARBONATE 800 MG POWD.PACK GT SCH ×2 (09:47→17:43)
[2023-03-20] MEDS: ACETAMINOPHEN 650 MG/20 ML UDC- SA PATIENTS-PAIN ONLY GT SCH (09:47)
[2023-03-20] MEDS: SENNOSIDES 8.6 MG TABLET PO SCH (09:47)
[2023-03-20] MEDS: VIT B CMPLX 3/FA/VIT C/BIOTIN 1 TAB TABLET PO SCH (09:48)
--- NOTE | 2023-03-20 13:00 | NUR ---
Resident left for dialysis per gurshantel with ambulance, in stable condition. AV fistula on the L upper arm intact, denies any pain, vs: 97.8F, MD-65, RR-18, BP-143/49, O2 sat -98%. Peek-a-bonner mittens applied. Patient accompanied by sitter.
--- NOTE | 2023-03-20 17:15 | NUR ---
Resident returned from dialysis at 1745, in stable condition. AV fistula on the GLENN with dressing in place, dry and clean. Denies pain. Transferred to bed and made comfortable. VS: Temp. 98.3F, RI- 71, RR-18, BP- 131/72, O2 sat 96%. Will continue to monitor.
[2023-03-20 19:59] VITALS: BP 124/61
[2023-03-20] MEDS: MELATONIN 3 MG TABLET GT SCH (21:04)
[2023-03-21] MEDS: ALBUTEROL FS 2.5 MG/0.5 ML VIAL.NEB NEB SCH ×4 (01:42→19:30)
[2023-03-21] MEDS: IPRATROPIUM NEB FS 0.5 MG/2.5 ML AMPUL.NEB NEB SCH ×4 (01:43→19:30)
[2023-03-21] MEDS: hydrOXYzine HCL SYRUP 10 MG/5 ML UDC GT SCH ×3 (05:36→21:03)
[2023-03-21 07:58] VITALS: BP 140/67
[2023-03-21] MEDS: ESCITALOPRAM OXALATE (10 MG) 10 MG TABLET GT SCH (08:56)
[2023-03-21] MEDS: AMLODIPINE BESYLATE 5 MG TABLET GT SCH (08:56)
[2023-03-21] MEDS: PANTOPRAZOLE 40 MG/PACK PACK GT SCH ×2 (08:56→21:04)
[2023-03-21] MEDS: FOLIC ACID 1 MG TABLET GT SCH (08:56)
[2023-03-21] MEDS: SEVELAMER CARBONATE 800 MG POWD.PACK GT SCH ×2 (08:56→17:22)
[2023-03-21] MEDS: DOCUSATE SODIUM LIQ 100 MG/10 ML UDC GT SCH (08:56)
[2023-03-21] MEDS: VITAMINS A AND D 56.7 GM TUBE TP SCH ×3 (08:57→21:04)
[2023-03-21] MEDS: ACETAMINOPHEN 650 MG/20 ML UDC- SA PATIENTS-PAIN ONLY GT SCH (08:57)
[2023-03-21] MEDS: NEPRO VAN 237 ML CAN PO SCH ×2 (08:57→17:22)
[2023-03-21] MEDS: VIT B CMPLX 3/FA/VIT C/BIOTIN 1 TAB TABLET PO SCH (08:57)
[2023-03-21] MEDS: SENNOSIDES 8.6 MG TABLET PO SCH (08:57)
[2023-03-21 13:32] VITALS: BP 132/65
[2023-03-21 20:00] VITALS: BP 126/63
[2023-03-21] MEDS: EPOETIN ALFA-EPBX 10,000 UNIT/ML VIAL SQ SCH (21:00)
[2023-03-21] MEDS: MELATONIN 3 MG TABLET GT SCH (21:04)
[2023-03-22] MEDS: IPRATROPIUM NEB FS 0.5 MG/2.5 ML AMPUL.NEB NEB SCH ×5 (01:30→20:01)
[2023-03-22] MEDS: ALBUTEROL FS 2.5 MG/0.5 ML VIAL.NEB NEB SCH ×5 (01:30→20:01)
[2023-03-22] MEDS: hydrOXYzine HCL SYRUP 10 MG/5 ML UDC GT SCH ×3 (05:13→20:09)
[2023-03-22 07:43] VITALS: BP 125/64
--- NOTE | 2023-03-22 08:23 | NUR ---
PATIENT REFUSED TX. PATIENT IS ALERT AND ORIENTED. PATIENT SHOW NO SIGN OF SOB OR DISTRESS. PATIENT HR 66, RR 18, SAT 96%. Addendum: 03/22/23 at 0825 by MARQUES PELAEZ RT Amended: Links added.
[2023-03-22] MEDS: ACETAMINOPHEN 650 MG/20 ML UDC- SA PATIENTS-PAIN ONLY GT SCH (08:59)
[2023-03-22] MEDS: ESCITALOPRAM OXALATE (10 MG) 10 MG TABLET GT SCH (08:59)
[2023-03-22] MEDS: SEVELAMER CARBONATE 800 MG POWD.PACK GT SCH ×2 (08:59→18:00)
[2023-03-22] MEDS: DOCUSATE SODIUM LIQ 100 MG/10 ML UDC GT SCH (08:59)
[2023-03-22] MEDS: PANTOPRAZOLE 40 MG/PACK PACK GT SCH ×2 (08:59→20:09)
[2023-03-22] MEDS: FOLIC ACID 1 MG TABLET GT SCH (08:59)
[2023-03-22] MEDS: NEPRO VAN 237 ML CAN PO SCH ×2 (08:59→18:00)
[2023-03-22] MEDS: VIT B CMPLX 3/FA/VIT C/BIOTIN 1 TAB TABLET PO SCH (08:59)
[2023-03-22] MEDS: AMLODIPINE BESYLATE 5 MG TABLET GT SCH (08:59)
[2023-03-22] MEDS: VITAMINS A AND D 56.7 GM TUBE TP SCH ×3 (08:59→20:09)
[2023-03-22] MEDS: SENNOSIDES 8.6 MG TABLET PO SCH (08:59)
[2023-03-22 12:46] VITALS: BP 132/72
--- NOTE | 2023-03-22 14:25 | NUR ---
PATIENT NOT IN THE UNIT. PATIENT WENT FOR DIALYSIS SO TX IS NOT GIVEN. Addendum: 03/22/23 at 1426 by MARQUES PELAEZ RT Amended: Links added.
[2023-03-22 19:09] VITALS: BP 133/70
[2023-03-22] MEDS: NEPRO 1,000 ML BOTTLE GT SCH (20:10)
[2023-03-22] MEDS: MELATONIN 3 MG TABLET GT SCH (21:03)
[2023-03-22 23:55] VITALS: BP 129/73
[2023-03-23] MEDS: IPRATROPIUM NEB FS 0.5 MG/2.5 ML AMPUL.NEB NEB SCH ×3 (01:37→13:28)
[2023-03-23] MEDS: ALBUTEROL FS 2.5 MG/0.5 ML VIAL.NEB NEB SCH ×3 (01:37→13:28)
[2023-03-23] MEDS: hydrOXYzine HCL SYRUP 10 MG/5 ML UDC GT SCH ×2 (05:14→12:38)
[2023-03-23 08:00] VITALS: BP 136/73
[2023-03-23 09:06] VITALS: BP 136/73
[2023-03-23] MEDS: ACETAMINOPHEN 650 MG/20 ML UDC- SA PATIENTS-PAIN ONLY GT SCH (09:06)
[2023-03-23] MEDS: AMLODIPINE BESYLATE 5 MG TABLET GT SCH (09:06)
[2023-03-23] MEDS: SEVELAMER CARBONATE 800 MG POWD.PACK GT SCH (09:06)
[2023-03-23] MEDS: ESCITALOPRAM OXALATE (10 MG) 10 MG TABLET GT SCH (09:06)
[2023-03-23] MEDS: PANTOPRAZOLE 40 MG/PACK PACK GT SCH (09:06)
[2023-03-23] MEDS: FOLIC ACID 1 MG TABLET GT SCH (09:06)
[2023-03-23] MEDS: VITAMINS A AND D 56.7 GM TUBE TP SCH ×2 (09:06→09:07)
[2023-03-23] MEDS: DOCUSATE SODIUM LIQ 100 MG/10 ML UDC GT SCH (09:06)
[2023-03-23] MEDS: NEPRO VAN 237 ML CAN PO SCH (09:06)
[2023-03-23] MEDS: VIT B CMPLX 3/FA/VIT C/BIOTIN 1 TAB TABLET PO SCH (09:06)
[2023-03-23] MEDS: SENNOSIDES 8.6 MG TABLET PO SCH (09:07)
--- NOTE | 2023-03-23 12:15 | NUR ---
HD Transport: SW followed up with Lou [phone] from [facility] regarding HD transport from [facility] to HD apt at [facility]. Per Lou, transportation was arranged from 03/24/2023; 03/27/2023; 03/29/2023 Pt. will be picked up at 12 noon by [facility] company. Authorization #[id number]. SW at [facility] to arrange follow up HD apt. with [facility] using this AUTH number.
--- NOTE | 2023-03-23 14:05 | NUR ---
DC planning: EMANUEL spoke with pt. and notified pt. that he will be discharged to [facility] [[address] , [place] [address] ] today with roll picker time of 5 pm by [facility]. EMANUEL notified Josselin RADFORD of 5 pm roll picker time. EMANUEL also called Nel CASTELLANOS at [facility] and notified her about HD transport and that she would have to set up a standing order after 03/29/2023 using the auth #[id number]. Nel is agreeable to plan. Nel stated he would let their admitting dept. that the pt. will transfer to their facility today at 5 pm.
--- NOTE | 2023-03-23 16:16 | NUR ---
PATIENT ON ROOM AIR. HHN TXS RORY WELL WITH NO ADVERSE REACTION NOTED. NO SOB NOTED.
--- NOTE | 2023-03-23 17:39 | NUR ---
Dr Sotelo ordered to discharge pt to [facility]. Notified pt that he will be transferred to [facility] for a lower level of care. Pt nodded in agreement, but expressed that he will miss this place. Pt in stable condition, no respiratory distress, no pain or discomfort, no fever. Body assessment done. Pt's skin intact. Report given to [facility] SARAH Claudio . Copies of Covid, influenza, and pneumococcal vaccines sent with pt's paperwork. Pt picked up by [facility] and was transported via gurney.
== END 2023-03-23 17:25 | DRG 133 ==
LOC: SA
PROVIDERS: ADMIT Internal Medicine; ATTEND Internal Medicine
DX: J96.11 Chronic respiratory failure with hypoxia (principal); G92.8 Other toxic encephalopathy; N17.9 Acute kidney failure, unspecified; E44.0 Moderate protein-calorie malnutrition; L89.623 Pressure ulcer of left heel, stage 3; N18.6 End stage renal disease; K70.9 Alcoholic liver disease, unspecified; E88.09 Other disorders of plasma-protein metabolism, not elsewhere classified; L03.311 Cellulitis of abdominal wall; F10.10 Alcohol abuse, uncomplicated; Z93.1 Gastrostomy status; Z20.822 Contact with and (suspected) exposure to COVID-19; Z99.2 Dependence on renal dialysis; E87.1 Hypo-osmolality and hyponatremia; Z59.00 Homelessness unspecified
CPT/HCPCS: 31720; 36415; 80048-TC; 83735-TC; 84100-TC; 85027-TC; 86580-TC; 92526; 92611-TC; 94640-TC; 94799-TC; A4217; A4623; A7526; J0885; Q0162; Q0163; Q0177; U0003

== ENCOUNTER 2023-03-27 17:55 | Inpatient (IN) | payer MEDICAID ==
[~2023-03-27] VITALS: Ht 160 cm; Wt 56.2 kg
[2023-03-27 19:00] LABS: BASOPHILS % (AUTO) 0.4 % (0.0-2.0); EOSINOPHILS % (AUTO) 4.7 % (0.0-6.0); HEMATOCRIT 38 % (39-51); HEMOGLOBIN 12.3 g/dL (13.5-17.5); LYMPHOCYTES # (AUTO) 2.1 K/uL (0.8-4.8); LYMPHOCYTES % (AUTO) 32.9 % (20.0-44.0); MEAN CORPUSCULAR HGB CONC 32 g/dl (31.0-36.0); MEAN CORPUSCULAR VOLUME 89 fL (80-96); MONOCYTES # (AUTO) 0.6 K/uL (0.1-1.30); NEUTROPHILS # (AUTO) 3.3 K/uL (1.8-8.9); PLATELET COUNT (AUTO) 227 K/uL (150-450); RED BLOOD CELL COUNT(AUTO) 4.26 MIL/uL (4.5-6.0); WHITE BLOOD COUNT (AUTO) 6.3 K/uL (4.3-11.0)
[2023-03-27 19:06] LABS: CALCIUM, SERUM 9.5 mg/dL (8.5-10.1); CREATININE 4.9 mg/dL (0.6-1.3); POTASSIUM 5.4 mmol/L (3.5-5.1)
--- NOTE | 2023-03-27 19:07 | NUR ---
covid swab collected and sent to lab
[2023-03-27 19:10] LABS: MAGNESIUM 2.9 mg/dL (1.8-2.4); PHOSPHORUS 5.8 mg/dL (2.5-4.9)
[2023-03-27] MEDS ORDERED: MAGN400O6 GT (19:32)
[2023-03-27] MEDS ORDERED: ALBU8.5H8 IH (19:32)
[2023-03-27] MEDS ORDERED: CLON0.1T GT (19:32)
[2023-03-27] MEDS ORDERED: DOCU-141 GT (19:32)
[2023-03-27] MEDS ORDERED: ACET-2605 GT (19:32)
[2023-03-27] MEDS ORDERED: HYDR-500 GT (19:32)
[2023-03-27] MEDS ORDERED: ESCI10TA GT (19:32)
[2023-03-27] MEDS ORDERED: AMLO-212 GT (19:32)
[2023-03-27] MEDS ORDERED: MELA3TAB41 GT (19:32)
[2023-03-27] MEDS ORDERED: SENN-261 GT (19:32)
[2023-03-27] MEDS ORDERED: BISA10SU11 RC (19:32)
[2023-03-27] MEDS ORDERED: NA P133E RC (19:32)
[2023-03-27] MEDS ORDERED: SEVE800T8 GT (19:32)
[2023-03-27] MEDS ORDERED: ONDA-97 GT (19:32)
[2023-03-27] MEDS ORDERED: HYDR-4303 GT (19:32)
[2023-03-27] MEDS ORDERED: DIPH25CA51 GT (19:32)
[2023-03-27] MEDS ORDERED: FOLI0.8T2 GT (19:32)
--- NOTE | 2023-03-27 23:04 | NUR ---
CLINICAL INFO GIVEN TO KOSTA BUI CM
--- NOTE | 2023-03-27 23:42 | NUR ---
PT REC'D AUTH TO STAY AT [facility]. DR. MAX WAS PAGED AND HE SPOKE TO DR CONNORS. ADMITTING ORDERS REC'D OVER THE PHONE. HOME MEDS WERE REVIWED WITH THE HOSPITALIST. NEPHRO CONSULT DONE WITH DR AMAYA. PATIENT WILL GO TO RM 114-2
--- NOTE | 2023-03-27 23:49 | NUR ---
REPORT GIVEN TO MARICARMEN ON FIRST FLOOR
--- NOTE | 2023-03-28 00:30 | NUR ---
MS OPEN HEARTH MELTER NOTE RECEIVED REPORT FROM ER NURSE BRADFORD. PT BEING ADMITTED FOR ERSD, MISSED HEMODIALYSIS, AND HYPERKALEMIA. PT A/O X2-3, YAKUT SPEAKING. ABLE TO MAKE NEEDS KNOWN. NO SOB, NO RESPIRATORY DISTRESS NOTED. PT DENIES PAIN OR DISCOMFORT AT THIS TIME. IV ACCESS TO RIGHT WRIST #22G, SL, IV PATENT, AND INTACT. LEFT UPPER ARM FISTULA FOR HD. PT IS ON RENAL DIET, BUT HAS CLAMPED G-TUBE. PT'S PHYSICAL ASSESSMENT COMPLETED. PT HAS REDNESS G-TUBE SITE, REDNESS TO LEFT ANKLE, LUMP TO UPPER BACK. PICTURES TAKEN, BUT ONLY ONE PICTURES PRINTED DUE TO LACK OF INK. WILL ENDORSE TO NEXT SHIFT NURSE. BELONGING VERIFIED, AND BELONGING LIST SIGNED, AND PLACED IN CHART. SAFETY MEASURE IN PLACE: BED IN LOW POSITION, SR UP X3, CALL LIGHT WITHIN REACH. WILL CONTINUE TO MONITOR PT.
--- NOTE | 2023-03-28 00:34 | NUR ---
TRANSFERRED TO 114 IN STABLE CONDITION
[2023-03-28 04:00] VITALS: BP 152/62
--- NOTE | 2023-03-28 06:30 | NUR ---
MS RN CLOSING NOTE PT LEFT AWAKE , IN BED. PT A/O X2-3, ABLE TO VERBALIZE NEEDS. NO RESPIRATORY DISTRESS NOTED. PT ON ROOM AIR, AND TOLERATING RA WELL. IV ACCESS TO RIGHT WRIST #22G, IV INTACT, AND PATENT. SAFETY MEASURE IN PLACE. WILL ENDORSE PT TO AM SHIFT NURSE FOR PÉREZ.
[2023-03-28 07:02] LABS: BASOPHILS % (AUTO) 0.3 % (0.0-2.0); EOSINOPHILS % (AUTO) 4.2 % (0.0-6.0); HEMATOCRIT 37 % (39-51); HEMOGLOBIN 12.2 g/dL (13.5-17.5); LYMPHOCYTES % (AUTO) 32.3 % (20.0-44.0); MEAN CORPUSCULAR HGB CONC 33 g/dl (31.0-36.0); MEAN CORPUSCULAR VOLUME 89 fL (80-96); MONOCYTES # (AUTO) 0.5 K/uL (0.1-1.30); MONOCYTES % (AUTO) 8.2 % (2.0-12.0); NEUTROPHILS # (AUTO) 3.3 K/uL (1.8-8.9); PLATELET COUNT (AUTO) 219 K/uL (150-450); RED BLOOD CELL COUNT(AUTO) 4.17 MIL/uL (4.5-6.0)
[2023-03-28 07:07] LABS: CALCIUM, SERUM 9.5 mg/dL (8.5-10.1); CREATININE 4.6 mg/dL (0.6-1.3); POTASSIUM 4.9 mmol/L (3.5-5.1)
--- NOTE | 2023-03-28 07:30 | NUR ---
OPENING NOTE PATIENT IS IN BED RESTING COMFORTABLY, AWAKE, ALERT. ORIENTEDX3, NO SIGNS OF IN DISTRESS, UNLABORED BREATHING ON ROOM AIR, SAFETY MEASURES ARE IN PLACE, BED IN LOW POSITION LOCKED, SIDE RAILS UPX3, CALL LIGHT WITHIN REACH.
[2023-03-28] MEDS ORDERED: CLONIDINE HCL 0.1 MG TABLET GT PRN (09:00)
[2023-03-28] MEDS ORDERED: NA PHOS,M-B/NA PHOS,DI-BA 1 EA ENEMA RC PRN (09:00)
[2023-03-28] MEDS ORDERED: BISACODYL SUPP (10 MG) 10 MG/SUPP.RECT SUPP.RECT RC PRN (09:00)
[2023-03-28] MEDS ORDERED: diphenhydrAMINE HCL 25 MG CAPSULE PO PRN (09:00)
[2023-03-28] MEDS ORDERED: MAGNESIUM HYDROXIDE 30 ML UDC GT PRN (09:00)
[2023-03-28] MEDS ORDERED: NEPRO VAN 237 ML CAN GT SCH (09:00)
[2023-03-28] MEDS ORDERED: ACETAMINOPHEN 650 MG/SUPP.RECT RC PRN (09:00)
[2023-03-28] MEDS ORDERED: Medication Not On Formulary EA (Melatonin 6 MG) GT SCH (09:00)
[2023-03-28] MEDS ORDERED: HYDROCODONE/APAP 5/325MG TABLET GT PRN (09:00)
[2023-03-28] MEDS: PANTOPRAZOLE 40 MG/PACK PACK GT SCH ×2 (09:21→20:46)
[2023-03-28] MEDS: ESCITALOPRAM OXALATE (10 MG) 10 MG TABLET GT SCH (09:22)
[2023-03-28] MEDS: AMLODIPINE BESYLATE 5 MG TABLET GT SCH (09:22)
[2023-03-28] MEDS: SENNOSIDES 8.6 MG TABLET GT SCH (09:22)
[2023-03-28] MEDS ORDERED: ACETAMINOPHEN 650 MG/20.3 ML UDC GT PRN (09:30)
[2023-03-28] MEDS ORDERED: ONDANSETRON 4 MG TAB.RAPDIS GT PRN (09:30)
[2023-03-28] MEDS ORDERED: hydrOXYzine PAMOATE 25 MG CAPSULE GT PRN (09:30)
[2023-03-28] MEDS ORDERED: ALBUTEROL FS 2.5 MG/0.5 ML VIAL.NEB NEB PRN (09:30)
[2023-03-28] MEDS ORDERED: NEPRO VAN 237 ML CAN PO PRN (11:30)
[2023-03-28 16:00] VITALS: BP 119/64
[2023-03-28] MEDS: SEVELAMER CARBONATE 800 MG POWD.PACK GT SCH (17:11)
[2023-03-28 20:00] VITALS: BP 118/62
[2023-03-28] MEDS ORDERED: Medication Not On Formulary EA (Melatonin 6 MG) GT PRN (21:00)
[2023-03-29 04:00] VITALS: BP 126/79
--- NOTE | 2023-03-29 04:43 | NUR ---
CLOSING NOTES: ALERT TO NAME CONFUSED TO THE SITUATION AT THE BEGINNING OF THE SHIFT 1ST ROUNDS FOUND THE iv SL REMOVED RESTARTED WITH G22 RIGHT F/A THE NIGHT WENT ON AT 2AM FOUND HE REMOVED THE SL AGAIN RESTARTED WITH G22 RIGHT FOREARM AND WRAPPED THE AR WITH GAUZE AND IV COVER APPLIED WILL CLOSELY MONITOR hd CATH LEFT ARM AUDIBLE THRILL HE MOVES ABOUT IN THE BED INDEPENDENTLY
[2023-03-29 07:00] VITALS: BP 126/62
--- NOTE | 2023-03-29 07:00 | NUR ---
RN OPENING NOTE PATIENT IS IN BED ALERT, ORIENTED X1, ON ROOM AIR, NO SIGNS OR SYMPTOMS OF SOB OR DISCOMFORT NOTED, PATIENT IS BEDRIDDEN, ON RENAL DIET, NOTED TO HAVE G-TUBE, FLUSHED AND NO RESIDUAL NOTED. IV ON RIGHT ARM, SL SOUTH 22, PATENT AND FLUSHING WELL. PER PO ENCOURAGEMENT, SAFETY MEASURES ARE IN PLACE, BED IN LOW POSITION LOCKED, SIDE RAILS UPX3, CALL LIGHT WITHIN REACH. WILL CONTINUE TO MONITOR.
[2023-03-29 08:00] VITALS: BP 126/62
[2023-03-29] MEDS ORDERED: VIT B CMPLX 3/FA/VIT C/BIOTIN 1 TAB TABLET GT SCH (09:00)
[2023-03-29] MEDS ORDERED: HEPARIN SODIUM, PORCINE 5000 UNITS/1 ML VIAL SQ SCH ×2 (09:00)
[2023-03-29] MEDS ORDERED: FOLIC ACID 1 MG TABLET GT SCH (09:00)
[2023-03-29] MEDS: SEVELAMER CARBONATE 800 MG POWD.PACK GT SCH ×2 (09:14→17:15)
[2023-03-29] MEDS: PANTOPRAZOLE 40 MG/PACK PACK GT SCH (09:15)
[2023-03-29] MEDS: AMLODIPINE BESYLATE 5 MG TABLET GT SCH (09:15)
[2023-03-29] MEDS: SENNOSIDES 8.6 MG TABLET GT SCH (09:15)
[2023-03-29] MEDS: ESCITALOPRAM OXALATE (10 MG) 10 MG TABLET GT SCH (09:16)
[2023-03-29 11:00] VITALS: BP 157/36
[2023-03-29 13:00] VITALS: BP 157/36
[2023-03-29 14:44] LABS: BASOPHILS % (AUTO) 0.4 % (0.0-2.0); EOSINOPHILS % (AUTO) 3.7 % (0.0-6.0); HEMATOCRIT 35 % (39-51); HEMOGLOBIN 11.3 g/dL (13.5-17.5); LYMPHOCYTES # (AUTO) 2.2 K/uL (0.8-4.8); MEAN CORPUSCULAR HGB CONC 33 g/dl (31.0-36.0); MEAN CORPUSCULAR VOLUME 88 fL (80-96); MONOCYTES # (AUTO) 0.6 K/uL (0.1-1.30); MONOCYTES % (AUTO) 8.6 % (2.0-12.0); NEUTROPHILS # (AUTO) 3.7 K/uL (1.8-8.9); NEUTROPHILS % (AUTO) 55.3 % (43.0-81.0); PLATELET COUNT (AUTO) 192 K/uL (150-450); RED BLOOD CELL COUNT(AUTO) 3.91 MIL/uL (4.5-6.0); WHITE BLOOD COUNT (AUTO) 6.7 K/uL (4.3-11.0)
[2023-03-29 16:00] VITALS: BP 157/36
[2023-03-29 16:24] LABS: POTASSIUM 3.8 mmol/L (3.5-5.1)
[2023-03-29 16:25] LABS: CREATININE 3.8 mg/dL (0.6-1.3)
--- NOTE | 2023-03-29 18:50 | NUR ---
INSIDE SALES CONSULTANT NOTE PER DR BABATUNDE PERRY TO DISCHARGE TO SNF CALLED TO [facility] REPORT GIVEN TO HEENA SMITH
--- NOTE | 2023-03-29 19:10 | NUR ---
PUBLICATIONS DESIGNER opening note Received pt resting in bed, awake, A&Ox1-2, verbal, breathing even and unlabored, on RA, no c/o pain at this time, afebrile, LFA 22 GA, C/D/I, pt in stable condition, all safety measures in placem will continue to monitor
--- NOTE | 2023-03-29 19:44 | NUR ---
RN CLOSING NOTE PATIENT IS IN BED ALERT, ORIENTED X1, ON ROOM AIR, NO SIGNS OR SYMPTOMS OF SOB OR DISCOMFORT NOTED, PATIENT IS BEDRIDDEN, ON RENAL DIET, NOTED TO HAVE G-TUBE, FLUSHED AND NO RESIDUAL NOTED. IV ON RIGHT ARM, SL SOUTH 22, PATENT AND FLUSHING WELL. PER MD PO ENCOURAGEMENT, ALL MEDICATIONS GIVEN PER DOCTORS ORDER, PATIENT WA REPOSITIONED EVERY TWO HOURS, HAD HEMODIALYSIS AND TOLERATED PROCEDURE WELL. PATIENT IS TO BE DISCHARGED LATER ON TONIGHT. SAFETY MEASURES ARE IN PLACE, BED IN LOW POSITION LOCKED, SIDE RAILS UPX3, CALL LIGHT WITHIN REACH. WILL GIVE REPORT TO TOP CASE ASSEMBLER NURSE FOR CONTINUING OF CARE.
--- NOTE | 2023-03-29 21:00 | NUR ---
PROC TECH DC notes PT DC at this time, pt is awake, A&Ox1-2, breathing even and unlabored, on RA, afebrile, pt dislodged his IV before DC, GT intact and patent, declined pain at this time, pt DC via gurney/ ambulance to [facility], accompanied by 3 EMT, VS as follows, 126/67, HR 63, 96%, 19, 98.4F, 0/10, pt in stable condition at time of DC
[2023-04-04] MEDS ORDERED: EPOETIN ALFA-EPBX 10,000 UNIT/ML VIAL SQ SCH (15:00)
== END 2023-03-29 21:18 | DRG 425 ==
LOC: ER 18:01 → MEDSG1 23:40
PROVIDERS: ADMIT Internal Medicine; ATTEND Internal Medicine
PROC: 5A1D70Z Performance of Urinary Filtration, Intermittent, Less than 6 Hours Per Day (ICD-10-PCS; principal; 2023-03-28)
DX: E87.5 Hyperkalemia (principal); I12.0 Hypertensive chronic kidney disease with stage 5 chronic kidney disease or end stage renal disease; N18.6 End stage renal disease; Z99.2 Dependence on renal dialysis; M89.8X9 Other specified disorders of bone, unspecified site; F32.9 Major depressive disorder, single episode, unspecified; Z79.899 Other long term (current) drug therapy; Z93.1 Gastrostomy status; Z20.822 Contact with and (suspected) exposure to COVID-19
CPT/HCPCS: 36415; 76770-TC; 80048-TC; 83735-TC; 84100-TC; 85025-TC; 86704; 86705; 86706; 86803; 87081-TC; 87340; 90935-TC; 92526; 92611-TC; A6253; C9803; G0378; J1644; J7030

== ENCOUNTER 2024-02-29 12:44 | Inpatient (IN) | payer MEDICAID ==
[~2024-02-29] VITALS: Ht 160 cm; Wt 64.9 kg
[~2024-02-29 12:44] MED LIST changes: -ACET650S11 RC; +ALBU8.5H8 IH; -ALLA266C2 TP; -AMIN30LI2 GT; +AMLO-212 GT; +BISA10SU11 RC; +CLON0.1T GT; -CLOT15CR27 TP; +DIPH25CA51 GT; +DOCU-141 GT; +ESCI10TA GT; +FOLI0.8T2 GT; +HYDR-4303 GT; +HYDR-500 GT; +MAGN400O6 GT; +MELA3TAB41 GT; +NA P133E RC; -NEOM28.37 TP; +ONDA-97 GT; +SENN-261 GT; +SEVE800T8 GT
[2024-02-29 13:17] LABS: EOSINOPHILS # (AUTO) 0.2 K/uL (0.0-0.7)
[2024-02-29] MEDS ORDERED: OMEP20CA15 GT (13:21)
[2024-02-29] MEDS ORDERED: CRAN425C6 GT (13:21)
[2024-02-29] MEDS ORDERED: SEVE2.4P3 GT (13:21)
[2024-02-29] MEDS ORDERED: QUET25TA GT (13:21)
[2024-02-29] MEDS ORDERED: ACET-2605 GT (13:21)
[2024-02-29] MEDS ORDERED: LORA2TAB95 GT (13:21)
[2024-02-29] MEDS ORDERED: HYDR10SY16 GT (13:21)
[2024-02-29] MEDS ORDERED: CHOL200059 GT (13:21)
[2024-02-29 13:25] LABS: INR 0.95 (0.91-1.10); PARTIAL THROMBOPLASTIN TIME 27.9 SEC (24.3-34.3); PROTHROMBIN TIME 10.1 SECS (9.2-11.1)
[2024-02-29 13:26] LABS: ALBUMIN 3.2 g/dL (3.4-5.0); BILIRUBIN,DIRECT 0.1 mg/dL (0.0-0.2); BILIRUBIN,TOTAL 0.6 mg/dL (0.2-1.0); CALCIUM, SERUM 8.3 mg/dL (8.5-10.1); CREATININE 6.9 mg/dL (0.6-1.3); POTASSIUM 4.3 mmol/L (3.5-5.1); TOTAL PROTEIN, SERUM 7.3 g/dL (6.4-8.2)
[2024-02-29 13:47] LABS: BASOPHILS % (AUTO) 0.7 % (0.0-2.0); EOSINOPHILS % (AUTO) 4.3 % (0.0-6.0); HEMATOCRIT 32 % (39-51); HEMOGLOBIN 10.5 g/dL (13.5-17.5); LYMPHOCYTES # (AUTO) 1.9 K/uL (0.8-4.8); LYMPHOCYTES % (AUTO) 36.6 % (20.0-44.0); MEAN CORPUSCULAR HEMOGLOBIN 29 PG (26.0-33.0); MEAN CORPUSCULAR HGB CONC 33 g/dl (31.0-36.0); MEAN CORPUSCULAR VOLUME 86 fL (80-96); MONOCYTES # (AUTO) 0.4 K/uL (0.1-1.30); MONOCYTES % (AUTO) 7.6 % (2.0-12.0); NEUTROPHILS # (AUTO) 2.6 K/uL (1.8-8.9); NEUTROPHILS % (AUTO) 50.8 % (43.0-81.0); PLATELET COUNT (AUTO) 261 K/uL (150-450); RED BLOOD CELL COUNT(AUTO) 3.68 MIL/uL (4.5-6.0); RED CELL DISTRIBUTION WIDTH 19.1 % (11.5-15.0); WHITE BLOOD COUNT (AUTO) 5.1 K/uL (4.3-11.0)
[2024-02-29] MEDS ORDERED: ACETAMINOPHEN 650 MG/20.3 ML UDC GT PRN (14:30)
[2024-02-29] MEDS ORDERED: ACETAMINOPHEN ES 500 MG TABLET GT PRN (14:30)
[2024-02-29] MEDS ORDERED: MAGNESIUM HYDROXIDE 30 ML UDC GT PRN (14:30)
[2024-02-29] MEDS ORDERED: CLONIDINE HCL 0.1 MG TABLET GT PRN (14:30)
[2024-02-29] MEDS ORDERED: ALBUTEROL FS 2.5 MG/0.5 ML VIAL.NEB NEB PRN (14:30)
[2024-02-29] MEDS ORDERED: BISACODYL SUPP (10 MG) 10 MG/SUPP.RECT SUPP.RECT RC PRN (14:30)
[2024-02-29] MEDS ORDERED: hydrOXYzine HCL SYRUP 10 MG/5 ML UDC GT PRN (14:30)
[2024-02-29] MEDS ORDERED: NA PHOS,M-B/NA PHOS,DI-BA 1 EA ENEMA RC PRN (14:30)
[2024-02-29] MEDS: SEVELAMER CARBONATE 800 MG POWD.PACK GT SCH (14:39)
[2024-02-29 16:00] VITALS: BP 140/60; TEMP 97.5; O2SAT 100
[2024-02-29] MEDS: NEPRO VAN 237 ML CAN GT SCH (17:00)
[2024-02-29 20:00] VITALS: BP 134/60; TEMP 98.6; O2SAT 99
[2024-02-29] MEDS: PANTOPRAZOLE 40 MG/PACK PACK GT SCH (21:29)
[2024-02-29] MEDS ORDERED: MAGNESIUM HYDROXIDE 30 ML UDC PO PRN (22:00)
[2024-02-29] MEDS ORDERED: MAG HYDROX/AL HYDROX/SIMETH 30 ML UDC PO PRN (22:00)
[2024-02-29] MEDS ORDERED: HYDROCODONE/APAP 5/325MG TABLET PO PRN (22:00)
[2024-02-29] MEDS ORDERED: Z GUARD REMEDY 4 OZ OINT TP PRN (22:00)
[2024-02-29] MEDS ORDERED: ONDANSETRON HCL/PF 4 MG/2 ML VIAL IVP PRN (22:00)
[2024-02-29] MEDS ORDERED: ACETAMINOPHEN 325 MG TABLET PO PRN (22:00)
[2024-02-29] MEDS ORDERED: PHARMACY TO CHANGE PO MEDS TO GT/NG XX PRN (23:00)
[2024-03-01] MEDS ORDERED: HYDROCODONE/APAP 5/325MG TABLET GT PRN (00:10)
[2024-03-01] MEDS ORDERED: MAGNESIUM HYDROXIDE 30 ML UDC GT PRN (00:30)
[2024-03-01] MEDS ORDERED: MAG HYDROX/AL HYDROX/SIMETH 30 ML UDC GT PRN (00:30)
[2024-03-01] MEDS ORDERED: ACETAMINOPHEN 650 MG/20.3 ML UDC GT PRN (00:30)
[2024-03-01 06:18] LABS: BASOPHILS % (AUTO) 0.6 % (0.0-2.0); EOSINOPHILS # (AUTO) 0.3 K/uL (0.0-0.7); EOSINOPHILS % (AUTO) 4.7 % (0.0-6.0); HEMATOCRIT 28 % (39-51); HEMOGLOBIN 9.6 g/dL (13.5-17.5); LYMPHOCYTES # (AUTO) 1.9 K/uL (0.8-4.8); LYMPHOCYTES % (AUTO) 33.4 % (20.0-44.0); MEAN CORPUSCULAR HEMOGLOBIN 29 PG (26.0-33.0); MEAN CORPUSCULAR HGB CONC 34 g/dl (31.0-36.0); MEAN CORPUSCULAR VOLUME 86 fL (80-96); MONOCYTES # (AUTO) 0.5 K/uL (0.1-1.30); MONOCYTES % (AUTO) 8.2 % (2.0-12.0); NEUTROPHILS # (AUTO) 3.1 K/uL (1.8-8.9); NEUTROPHILS % (AUTO) 53.1 % (43.0-81.0); PLATELET COUNT (AUTO) 250 K/uL (150-450); RED BLOOD CELL COUNT(AUTO) 3.27 MIL/uL (4.5-6.0); RED CELL DISTRIBUTION WIDTH 19.1 % (11.5-15.0); WHITE BLOOD COUNT (AUTO) 5.8 K/uL (4.3-11.0)
[2024-03-01 06:26] LABS: ALBUMIN 2.9 g/dL (3.4-5.0); BILIRUBIN,TOTAL 0.7 mg/dL (0.2-1.0); CREATININE 6.9 mg/dL (0.6-1.3); MAGNESIUM 2.7 mg/dL (1.8-2.4); PHOSPHORUS 4.6 mg/dL (2.5-4.9); POTASSIUM 4.4 mmol/L (3.5-5.1); TOTAL PROTEIN, SERUM 6.9 g/dL (6.4-8.2)
[2024-03-01 07:00] VITALS: BP 136/65; TEMP 98.4; O2SAT 98
[2024-03-01] MEDS: DOCUSATE SODIUM LIQ 100 MG/10 ML UDC GT SCH (08:55)
[2024-03-01] MEDS: AMLODIPINE BESYLATE 5 MG TABLET GT SCH (08:55)
[2024-03-01] MEDS: SENNOSIDES 8.6 MG TABLET GT SCH (08:56)
[2024-03-01] MEDS: ESCITALOPRAM OXALATE (10 MG) 10 MG TABLET GT SCH (08:56)
[2024-03-01] MEDS: QUETIAPINE FUMARATE 25 MG TABLET GT SCH (08:56)
[2024-03-01] MEDS ORDERED: DOCUSATE SODIUM 100 MG CAPSULE PO SCH (09:00)
[2024-03-01] MEDS: SEVELAMER CARBONATE 800 MG TABLET PO SCH (09:02)
[2024-03-01 16:00] VITALS: BP 131/58; TEMP 98.2; O2SAT 98
[2024-03-01 20:00] VITALS: BP 145/58; TEMP 98.2; O2SAT 99
[2024-03-02 07:30] VITALS: BP 128/66; TEMP 98.2; O2SAT 97
[2024-03-02 15:50] VITALS: BP 137/64; TEMP 98.1; O2SAT 97
[2024-03-02 20:00] VITALS: BP 137/66; TEMP 98; O2SAT 99
[2024-03-03 07:30] VITALS: BP 142/72; TEMP 98.2; O2SAT 98
[2024-03-03 16:00] VITALS: BP 129/58; TEMP 98.4; O2SAT 97
[2024-03-03] MEDS: SILVER NITRATE APPLICATOR 1 EA BOX TP STA (19:00)
[2024-03-03 20:00] VITALS: BP 133/65; TEMP 97.7; O2SAT 97
[2024-03-04 07:48] LABS: CALCIUM, SERUM 8.6 mg/dL (8.5-10.1); CREATININE 6.5 mg/dL (0.6-1.3); MAGNESIUM 2.9 mg/dL (1.8-2.4); PHOSPHORUS 3.4 mg/dL (2.5-4.9); POTASSIUM 4.1 mmol/L (3.5-5.1)
[2024-03-04 08:00] VITALS: BP 121/55; TEMP 97.8; O2SAT 97
[2024-03-04] MEDS: SEVELAMER CARBONATE 800 MG POWD.PACK GT SCH (09:02)
[2024-03-04 16:00] VITALS: BP 132/61; TEMP 98.4; O2SAT 97
[2024-03-04 20:00] VITALS: BP 130/64; TEMP 98.2; O2SAT 98
[2024-03-04 20:46] VITALS: BP 130/64; TEMP 98.2; O2SAT 98
[2024-03-05 08:49] VITALS: BP_SYST 107; BP_SYST 126; BP_DIAS 62; BP_DIAS 63; TEMP 98.6; O2SAT 95
[2024-03-05 12:57] LABS: ALBUMIN 2.9 g/dL (3.4-5.0); BILIRUBIN,TOTAL 0.5 mg/dL (0.2-1.0); CALCIUM, SERUM 8.2 mg/dL (8.5-10.1); MAGNESIUM 2.9 mg/dL (1.8-2.4); PHOSPHORUS 3.1 mg/dL (2.5-4.9); POTASSIUM 4.1 mmol/L (3.5-5.1); TOTAL PROTEIN, SERUM 6.7 g/dL (6.4-8.2)
[2024-03-05 13:15] LABS: BASOPHILS % (AUTO) 0.4 % (0.0-2.0); EOSINOPHILS # (AUTO) 0.3 K/uL (0.0-0.7); HEMATOCRIT 26 % (39-51); HEMOGLOBIN 9.1 g/dL (13.5-17.5); LYMPHOCYTES # (AUTO) 1.8 K/uL (0.8-4.8); LYMPHOCYTES % (AUTO) 30.1 % (20.0-44.0); MEAN CORPUSCULAR HEMOGLOBIN 30 PG (26.0-33.0); MEAN CORPUSCULAR HGB CONC 35 g/dl (31.0-36.0); MEAN CORPUSCULAR VOLUME 87 fL (80-96); MONOCYTES # (AUTO) 0.6 K/uL (0.1-1.30); NEUTROPHILS # (AUTO) 3.4 K/uL (1.8-8.9); NEUTROPHILS % (AUTO) 55.5 % (43.0-81.0); PLATELET COUNT (AUTO) 250 K/uL (150-450); RED BLOOD CELL COUNT(AUTO) 3.04 MIL/uL (4.5-6.0); RED CELL DISTRIBUTION WIDTH 17.6 % (11.5-15.0); WHITE BLOOD COUNT (AUTO) 6.1 K/uL (4.3-11.0)
[2024-03-05 16:56] VITALS: BP 130/81; TEMP 99.6; O2SAT 97
== END 2024-03-05 20:27 | DRG 425 ==
LOC: ER 13:17 → TELE 15:38 → MED 03-01 00:16
PROVIDERS: ADMIT Internal Medicine; ATTEND Nurse Practitioner Acute Care
PROC: 5A1D70Z Performance of Urinary Filtration, Intermittent, Less than 6 Hours Per Day (ICD-10-PCS; principal; 2024-03-01)
PROC: 0H57XZZ Destruction of Abdomen Skin, External Approach (ICD-10-PCS; 2024-03-03)
DX: E87.79 Other fluid overload (principal); D68.59 Other primary thrombophilia; I12.0 Hypertensive chronic kidney disease with stage 5 chronic kidney disease or end stage renal disease; E44.0 Moderate protein-calorie malnutrition; D63.1 Anemia in chronic kidney disease; E88.09 Other disorders of plasma-protein metabolism, not elsewhere classified; E87.1 Hypo-osmolality and hyponatremia; N18.6 End stage renal disease; Z59.00 Homelessness unspecified; Z99.2 Dependence on renal dialysis; Z74.01 Bed confinement status; Z68.25 Body mass index [BMI] 25.0-25.9, adult; F32.A Depression, unspecified; N25.0 Renal osteodystrophy; K94.29 Other complications of gastrostomy; Y84.8 Other medical procedures as the cause of abnormal reaction of the patient, or of later complication, without mention of misadventure at the time of the procedure; Y92.129 Unspecified place in nursing home as the place of occurrence of the external cause; Z20.822 Contact with and (suspected) exposure to COVID-19; Z91.158 Patient's noncompliance with renal dialysis for other reason; L98.7 Excessive and redundant skin and subcutaneous tissue
CPT/HCPCS: 36415; 71045-TC; 80048-TC; 80053-TC; 80076-TC; 83735-TC; 84100-TC; 85025-TC; 85730-TC; 87081-TC; 90935-TC; A6403; G0378; J7030